=== PATIENT | male | born 1950 | race Hispanic/Latino ===

== ENCOUNTER 2018-04-22 10:37 | Inpatient (IN) | payer MEDICARE ==
[~2018-04-22] VITALS: Ht 180.3 cm; Wt 129.7 kg
[2018-04-22 11:08] LABS: BASOPHILS % 0.4 % (0.0-1.0); EOSINOPHILS # (AUTO) 0.4 (0.0-0.4); EOSINOPHILS % 3.9 % (0.0-6.0); HEMATOCRIT 46.5 % (38.2-49.6); LYMPHOCYTES # (AUTO) 2.4 (1.0-3.2); LYMPHOCYTES % 25.2 % (18.0-39.1); MEAN CORPUSCULAR HEMOGLOBIN 23.3 pg (28-32); MEAN CORPUSCULAR HGB CONC 30.1 g/dL (31-35); MEAN CORPUSCULAR VOLUME 77.2 fL (81-99); MONOCYTES # (AUTO) 0.8 (0.2-0.8); MONOCYTES % 8.2 % (4.4-11.3); NEUTROPHILS # (AUTO) 5.8 (2.1-6.9); NEUTROPHILS % 61.9 % (38.7-80.0); PLATELET COUNT 285 x10e3/uL (140-360); RED BLOOD COUNT 6.02 x10e6/uL (4.3-5.7); RED CELL DISTRIBUTION WIDTH 17.7 % (11.7-14.4)
--- NOTE | 2018-04-22 11:17 | Diagnostic Imaging Report ---
PROCEDURE: CHEST SINGLE (PORTABLE) COMPARISON: None. INDICATIONS: CHEST PAIN FINDINGS: LUNGS: No consolidations or edema. Mild central pulmonary vascular congestion. PLEURA: No effusions or pneumothorax. HEART \T\ MEDIASTINUM: The heart is prominent. BONES \T\ SOFT TISSUES: No acute findings. CONCLUSION: Mild cardiac prominence with central pulmonary vascular congestion. Jose Steven D.O. Dictated by: Jose Steven D.O. on 04/22/2018 at 11:23 Electronically approved by: Jose Steven D.O. on 04/22/2018 at 11:23
[2018-04-22 11:27] LABS: ALANINE AMINOTRANSFERASE 27 IU/L (0-55); ALBUMIN 3.6 g/dL (3.5-5.0); ALBUMIN/GLOBULIN RATIO 1.1 (0.8-2.0); ALKALINE PHOSPHATASE 91 IU/L (40-150); ANION GAP 13.4 mmol/L (8-16); BLOOD UREA NITROGEN 13 mg/dL (7-26); BUN/CREATININE RATIO 18 (6-25); CALCIUM 8.9 mg/dL (8.4-10.2); CARBON DIOXIDE 33 mmol/L (22-29); CHLORIDE 96 mmol/L (98-107); CREATININE, SERUM 0.73 mg/dL (0.72-1.25); EST GLOMERULAR FILTRATION RATE > 60 ML/MIN (60-); GLUCOSE 114 mg/dL (74-118); POTASSIUM 4.4 mmol/L (3.5-5.1); SODIUM 138 mmol/L (136-145)
--- NOTE | 2018-04-22 11:35 | Diagnostic Imaging Report ---
ADDENDUM #1 Dose modulation, iterative reconstruction, and/or weight based adjustment of the mA/kV was utilized to reduce the radiation dose to as low as reasonably achievable. Signed by: Dr. Gia Salinas M.D. on 04/26/2018 9:59 AM ORIGINAL REPORT EXAMINATION: Head CT HISTORY: Altered mental status COMPARISON: None. TECHNIQUE: Multidetector axial images were obtained without contrast from the foramen magnum to the vertex . The images were reconstructed using brain and bone algorithms. Thin section brain images were reformatted into coronal and sagittal planes. Intravenous contrast: None. Image quality: Motion/streaking artifact limits the evaluation of the skull base, posterior cranial fossa and near the vertex region. FINDINGS: Parenchyma: 1. No abnormal densities. 2. No mass or hemorrhage. No CT evidence of acute territorial vascular insult. Extra-axial spaces:No abnormal density. No extra-axial fluid collections Brain volume: Normal for age. Ventricles: No hydrocephalus or displacement. Arteries: No density suggestive of thrombus. Dural sinuses: No abnormal density. Extra-axial spaces: No abnormal density. Foramen magnum: No mass, Chiari malformation, or basilar invagination. Sella: No obvious mass. Paranasal/mastoid sinuses: Imaged portions unremarkable. Skull/Scalp: No lytic or blastic lesions. No fractures. Partially visualized soft tissue density lesion in the left nasal soft tissues, likely visible to physical inspection. IMPRESSION: Suboptimal study due to motion, grossly no acute intracranial hemorrhage, mass or midline shift. Signed by: Dr. Gia Salinas M.D. on 04/22/2018 11:32 AM
--- NOTE | 2018-04-22 13:02 | Diagnostic Imaging Report ---
EXAMINATION: CT of the chest with contrast, PE protocol. TECHNIQUE: Spiral CT images of the chest were performed from the lung apices through the level of the adrenal glands after the IV administration of 100 cc of Omnipaque 370. Thin section reconstructions were obtained with special concentration on the pulmonary arteries. COMPARISON: <none> CLINICAL HISTORY:Shortness of breath DISCUSSION: Limited exam, as images were obtained during partial expiratory phase Lungs: No filling defects are identified in the main, right or left pulmonary arteries to their segmental levels, to suggest pulmonary embolism. Increased attenuation of the visualized lung parenchyma secondary to scan performed during partial expiration. Linear opacities in the anterior left lower lobe, right middle lobe and lingula likely representing subsegmental atelectasis or scarring. No consolidation or pulmonary masses. No nodules. Airways are clear, without loculations.. Pleura: <There is no evidence of pleural effusion or pneumothorax.> Heart and mediastinum: Mild cardiomegaly. No pericardial effusion. Aorta is nonaneurysmal. Main pulmonary artery is enlarged, measuring 4.0 cm. Atherosclerotic calcification of the aortic arch and coronary arteries. Lymph nodes: No mediastinal, hilar or axillary adenopathy. Abdomen: Limited views of the upper abdomen show unremarkable spleen, pancreas, kidneys and right adrenal gland. The left adrenal gland is only partially visualized and unremarkable. Punctate calcified granuloma in hepatic segment III (series 2, image 127). No other focal hepatic abnormalities. Mild reflux of contrast into the hepatic veins and IVC. Bones and soft tissues: No aggressive lytic lesion. 3.0 x 2.5 x 1.7 cm well-circumscribed homogeneous fat-containing lesion in the right seventh/eighth intercostal space (series 2, image 79). IMPRESSION: 1. No CT evidence of pulmonary embolism. 2. Left lower lobe, right middle lobe and lingular subsegmental atelectasis or scarring. No consolidation or effusion. 3. Mild cardiomegaly. Mild reflux of contrast into the hepatic veins and IVC suggesting right ventricular dysfunction. 4. Enlarged main pulmonary artery suggesting pulmonary hypertension. 5. 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 Chele Lane M.D. on 04/22/2018 12:59 PM
[2018-04-22 13:04] LABS: AMPHETAMINES SCREEN,URINE NEGATIVE (NEGATIVE); BENZODIAZEPINES SCREEN,URINE NEGATIVE (NEGATIVE); BILIRUBIN,URINE NEGATIVE (NEGATIVE); CLARITY,URINE CLEAR (CLEAR); COLOR,URINE YELLOW (YELLOW); KETONES,URINE NEGATIVE (NEGATIVE); LEUKOCYTE ESTERASE ,URINE NEGATIVE (NEGATIVE); NITRITE,URINE NEGATIVE (NEGATIVE); PHENCYCLIDINE SCREEN,URINE NEGATIVE (NEGATIVE); PROTEIN,URINE DIPSTICK NEGATIVE (NEGATIVE); URINE UROBILINOGEN 0.2 mg/dL (0.2 - 1)
[2018-04-22 13:12] LABS: ABG PH 7.35 (7.31-7.41)
[2018-04-22 13:13] LABS: ABG HCO3 41 mmol/L (23-28); ABG PCO2 74 mmHg (41-51); ABG PO2 93 mmHg (80-105)
[2018-04-22 13:15] LABS: BACTERIA,URINE RARE /HPF; WBC,URINE (MAN) 0-5 /HPF (0-5)
[2018-04-22] MEDS ORDERED: FUROSEMIDE INJ 10 MG/ML 4 ML VIAL IV ONE (13:15)
[2018-04-22] MEDS ORDERED: ASPIRIN 81 MG CHEW TAB PO ONE (13:15)
[2018-04-22] MEDS ORDERED: SODIUM CHLORIDE 0.9% 50ML 50 ML ONE (13:27)
[2018-04-22] MEDS ORDERED: IOPAMIDOL 370 MG/ML 200 ML INFUS..BTL INJ ONE (13:27)
[2018-04-22] MEDS ORDERED: SUCCINYLCHOLINE CHLORIDE 20 MG/ML 10ML VIAL ONE (13:48)
[2018-04-22] MEDS ORDERED: ETOMIDATE 2 MG/ML 10 ML INJ IV ONE (13:48)
[2018-04-22 14:22] LABS: ABG PH 7.34 (7.31-7.41)
[2018-04-22 14:23] LABS: ABG HCO3 38 mmol/L (23-28); ABG PCO2 69 mmHg (41-51); ABG PO2 80 mmHg (80-105)
[2018-04-22] MEDS ORDERED: HYDRALAZINE HCL 20 MG/ML VIAL IV PRN (16:45)
[2018-04-22] MEDS: FUROSEMIDE INJ 10 MG/ML 4 ML VIAL IV SCH (17:00)
[2018-04-22 17:48] VITALS: BP 174/85
[2018-04-22] MEDS: ZIPRASIDONE 20 MG VIAL IM PRN (19:57)
[2018-04-22 20:00] VITALS: BP 100/67
[2018-04-22 20:08] VITALS: BP 100/67
[2018-04-22 20:30] VITALS: BP 159/98
[2018-04-22 21:53] LABS: CREATINE KINASE MB 1.6 ng/mL (0-5.0)
[2018-04-22 21:55] VITALS: BP 139/68
--- NOTE | 2018-04-22 23:30 | Consultation ---
DATE OF CONSULTATION: April 22, 2018 CARDIOLOGY CONSULT NOTE REASON FOR CONSULT: Shortness of breath. CHIEF COMPLAINT: No chief complaint given due to altered mental status. HISTORY OF PRESENT ILLNESS: Patient is 68-year-old man with unknown prior medical history who presented for altered mental status, was noted to have hypercarbic respiratory failure with pCO2 of 74 and pH of 7.35 on presentation. Was placed on BiPAP, but remains confused. At this time, was noted to be hypoxic into 80s and also noted to have some PVCs on telemetry. PAST MEDICAL HISTORY: Unknown. REVIEW OF SYSTEMS: Could not be performed due to altered mental status. FAMILY HISTORY: Unknown. SOCIAL HISTORY: Unknown. PHYSICAL EXAMINATION VITAL SIGNS: Temperature 97.3, pulse 80, respiratory rate 20, blood pressure 105/56, and satting 100% on BiPAP. GENERAL: Obese middle-aged man, confused, trying to take off his BiPAP. CARDIOVASCULAR: Regular rate and rhythm. No murmurs, rubs, or gallops. Normal carotid pulses. Palpable radial pulses. Pedal pulses palpable on the left, weak on the right. No peripheral edema. No varicosities. RESPIRATORY: Lungs are clear to auscultation bilaterally. Mild respiratory distress and agitation. ABDOMEN: Very obese, soft, has umbilical hernia. NEURO/PSYCH: Patient is very confused, awake and alert, but not oriented to person, place, or time. ALLERGIES: REVIEWED. CURRENT MEDICATIONS: Reviewed. LABORATORY DATA: Reviewed, significant for hypercarbic respiratory failure, [id number]. IMAGING DATA: Reviewed. Telemetry data reviewed, shows normal sinus rhythm with rare PVCs. ECG reviewed, normal sinus rhythm. ASSESSMENT 1. Hypercarbic respiratory failure. 2. Altered mental status. 3. Hypoxia. 4. Cardiomegaly on computerized tomography scan. 5. Enlarged pulmonary artery on computerized tomography scan suggestive of pulmonary hypertension. PLAN: Patient's respiratory failure and hypoxia likely secondary to CO2 retention, [id number]. Agree with BiPAP. Workup of altered mental status per primary team. Initial cardiac enzymes: The CK is negative. Troponin is pending. ECG not suggestive of any ischemia. Unknown prior cardiac history; however, by exam, patient is not in heart failure and BNP is also negative. Agree with BiPAP at this time. We will continue to follow. We will obtain an echocardiogram when patient is more cooperative. Thank you for this consult. We will continue to follow. Job#: [id number] CF
[2018-04-23] VITALS (125 sets, daily range): BP systolic 83–184; BP diastolic 33–125
[2018-04-23] MEDS ORDERED: METHYLPREDNISOLONE SOD SUCC 125 MG/2ML VIAL ONE (02:36)
[2018-04-23] MEDS: PROPOFOL IV EMULSION 10MG/ML 100 ML IV PRN ×8 (02:57→23:29)
[2018-04-23] MEDS: ALBUTEROL SULF 0.083% NEB SOLN 3 ML NEB NEB SCH ×6 (03:00→23:05)
[2018-04-23] MEDS ORDERED: METHYLPREDNISOLONE SOD SUCC 125 MG/2ML VIAL IV ONE ×2 (03:15→09:00)
[2018-04-23 03:33] LABS: ABG HCO3 43 mmol/L (23-28); ABG PCO2 126 mmHg (41-51); ABG PH 7.13 (7.31-7.41); ABG PO2 393 mmHg (80-105)
--- NOTE | 2018-04-23 03:43 | Diagnostic Imaging Report ---
ADDENDUM #1 EXAMINATION: CHEST SINGLE (PORTABLE), ABDOMEN-1VIEW (KUB) INDICATION: NG tube placement. COMPARISON: 04/22/2018 FINDINGS: TUBES and LINES: NG tube is visualized with distal tip overlying the left upper quadrant. Endotracheal tube is not visualized. LUNGS: Lungs are not well inflated. Confluent perihilar and mid lung opacities. There is no evidence of pneumonia or pulmonary edema. PLEURA: No pleural effusion or pneumothorax. HEART AND MEDIASTINUM: Cardiac size is mildly enlarged. There are atherosclerotic calcifications within the aorta. BONES AND SOFT TISSUES: No acute osseous lesion. Soft tissues are unremarkable. ABDOMEN: No free air under the diaphragm. IMPRESSION: 1. NG tube is in good position. 2. Confluent fibrosis in the perihilar and mid lung regions. 3. Endotracheal tube is not visualized. Signed by: Dr. Orlando Jalloh M.D. on 04/23/2018 3:53 AM ORIGINAL REPORT EXAMINATION: CHEST SINGLE (PORTABLE), ABDOMEN-1VIEW (KUB) INDICATION: NG tube placement. COMPARISON: 04/22/2018 FINDINGS: TUBES and LINES: NG tube is visualized with distal tip overlying the left upper quadrant. LUNGS: Lungs are not well inflated. Confluent perihilar and mid lung opacities. There is no evidence of pneumonia or pulmonary edema. PLEURA: No pleural effusion or pneumothorax. HEART AND MEDIASTINUM: Cardiac size is mildly enlarged. There are atherosclerotic calcifications within the aorta. BONES AND SOFT TISSUES: No acute osseous lesion. Soft tissues are unremarkable. ABDOMEN: No free air under the diaphragm. IMPRESSION: NG tube is in good position. Confluent fibrosis in the perihilar and mid lung regions. Signed by: Dr. Orlando Jalloh M.D. on 04/23/2018 3:40 AM
[2018-04-23] MEDS ORDERED: SUCCINYLCHOLINE CHLORIDE 20 MG/ML 10ML VIAL ONE (04:19)
[2018-04-23 05:03] LABS: BASOPHILS # (AUTO) 0.1 (0.0-0.1); BASOPHILS % 0.3 % (0.0-1.0); EOSINOPHILS # (AUTO) 0.1 (0.0-0.4); EOSINOPHILS % 0.5 % (0.0-6.0); HEMATOCRIT 50.5 % (38.2-49.6); HEMOGLOBIN 14.8 g/dL (14.0-18.0); LYMPHOCYTES # (AUTO) 1.1 (1.0-3.2); MEAN CORPUSCULAR HEMOGLOBIN 23.2 pg (28-32); MEAN CORPUSCULAR HGB CONC 29.3 g/dL (31-35); MEAN CORPUSCULAR VOLUME 79.3 fL (81-99); MONOCYTES # (AUTO) 0.6 (0.2-0.8); NEUTROPHILS # (AUTO) 13.5 (2.1-6.9); NEUTROPHILS % 87.6 % (38.7-80.0); PLATELET COUNT 291 x10e3/uL (140-360); RED BLOOD COUNT 6.37 x10e6/uL (4.3-5.7); RED CELL DISTRIBUTION WIDTH 17.8 % (11.7-14.4)
[2018-04-23 05:35] LABS: ALANINE AMINOTRANSFERASE 30 IU/L (0-55); ALBUMIN 3.9 g/dL (3.5-5.0); ALKALINE PHOSPHATASE 124 IU/L (40-150); ANION GAP 15.1 mmol/L (8-16); BLOOD UREA NITROGEN 13 mg/dL (7-26); BUN/CREATININE RATIO 14 (6-25); CALCIUM 9.2 mg/dL (8.4-10.2); CARBON DIOXIDE 34 mmol/L (22-29); CHLORIDE 92 mmol/L (98-107); EST GLOMERULAR FILTRATION RATE > 60 ML/MIN (60-); GLUCOSE 174 mg/dL (74-118); POTASSIUM 5.1 mmol/L (3.5-5.1); SODIUM 136 mmol/L (136-145)
[2018-04-23 05:55] LABS: CREATINE KINASE MB 3.3 ng/mL (0-5.0)
--- NOTE | 2018-04-23 05:56 | Diagnostic Imaging Report ---
EXAMINATION: CHEST SINGLE (PORTABLE) INDICATION: Acute respiratory failure COMPARISON: 04/23/2018 FINDINGS: TUBES and LINES: Endotracheal tube and nasogastric tube are in good position. LUNGS: Lungs are not well inflated. Confluent mid lung and perihilar airspace opacities PLEURA: No pleural effusion or pneumothorax. HEART AND MEDIASTINUM: Cardiac size is moderately enlarged. There are atherosclerotic calcifications within the aorta. BONES AND SOFT TISSUES: No acute osseous lesion. Soft tissues are unremarkable. UPPER ABDOMEN: No free air under the diaphragm. IMPRESSION: Stable perihilar and mid lung confluent airspace disease compatible with fibrosis. Endotracheal tube and NG tube are in good position. Signed by: Dr. Orlando Jalloh M.D. on 04/23/2018 5:52 AM
--- NOTE | 2018-04-23 08:07 | History and Physical ---
PRIMARY CARE PHYSICIAN: Unknown FACE AND FILL PACKER: Dr. Hernandez CHIEF COMPLAINT: Shortness of breath, confusion and somnolence. HISTORY OF PRESENT ILLNESS: This is a 68-year-old man with a recent diagnosis of pneumonia managed by Dr. Hernandez. Sent to the hospital due to the patient's increased episodes of falling asleep while in conversation and shortness of breath. Here the patient was found to have respiratory distress, confusion and pulmonary edema. The patient was recommended to start on BiPAP. Subsequently, had to be intubated. Now in the ICU for continued management. PAST MEDICAL HISTORY: Pneumonia, pulmonary disease. PAST SURGICAL HISTORY: Unknown. ALLERGIES: PER ELECTRONIC MEDICAL RECORD. FAMILY HISTORY/SOCIAL HISTORY: Patient lives alone. No history of smoking. No alcohol or illicit drug use. MEDICATIONS: Per electronic medical record. REVIEW OF SYSTEMS: Unobtainable. PHYSICAL EXAMINATION VITAL SIGNS: Have been reviewed. GENERAL: A tired-appearing man resting in bed. HEENT: Anicteric. Pinpoint pupils. He has a large nodular skin lesion on the left side of the nasal bridge. He has an ET tube in place. CARDIOVASCULAR: Normal S1 and S2. LUNGS: He has moderate breath sounds. No wheezing. Slightly reduced breath sounds. ABDOMEN: Soft, nontender and nondistended. He has a small umbilical hernia, which is reducible and soft. : He has a Barajas in place. EXTREMITIES: No edema or calf tenderness. NEUROLOGICAL: The patient is sedated. SKIN: Dry. PSYCHIATRIC: Unable to assess. LABS: Reviewed. MEDICATIONS: Reviewed. ASSESSMENT: This is a 68-year-old man with: 1. Hypercapnic respiratory failure. 2. Acute metabolic encephalopathy. 3. Pulmonary edema. 4. Pulmonary fibrosis. 5. Carbon dioxide narcosis. PLAN 1. Continue ET tube support. He is on 60% FIO2 oxygen. 2. Add azithromycin for atypical coverage. 3. Continue sedation. 4. Continue Lasix 40 mg IV q.12 h. He will need a 2-D echocardiogram. 5. Use Lovenox and Pepcid. 6. Disposition. Follow closely. Follow up pulmonary and cardiology recommendations. Time to review chart and critical care time more than 90 minutes. Job#: [id number] [place]
[2018-04-23] MEDS: FUROSEMIDE INJ 10 MG/ML 4 ML VIAL IV SCH ×2 (08:58→17:52)
[2018-04-23] MEDS: FAMOTIDINE 20 MG/2 ML VIAL IV SCH ×2 (08:58→17:52)
[2018-04-23] MEDS: CEFTRIAXONE SOD 1 GM VIAL IV SCH ×2 (08:58→20:22)
[2018-04-23] MEDS: AZITHROMYCIN 500MG/NS 250 ML 250 ML IV SCH (08:58)
[2018-04-23] MEDS: METHYLPREDNISOLONE SOD SUCC 125 MG/2ML VIAL IV SCH ×2 (08:58→20:22)
--- NOTE | 2018-04-23 10:03 | Consultation ---
DATE OF CONSULTATION: PULMONARY/CRITICAL CARE CONSULTATION REFERRING PHYSICIAN: Dr. Jensen Bragg CHIEF COMPLAINT: Acute respiratory failure superimposed on chronic respiratory failure. HISTORY OF PRESENT ILLNESS: The patient is a 68-year-old man. He has a history of COPD and sleep apnea. He was hospitalized in December for pneumonia, but he cannot remember which hospital. He came to the office yesterday with presumptive diagnosis of sleep apnea, but continued to fall sleep during conversations. He also noticed increased congestion and wheezing. The patient was sent to the emergency department. A blood gas showed an elevated carbon dioxide and some respiratory acidosis. He was initially started on BiPAP and then switched to a mechanical ventilator. He is now in the ICU on a propofol drip. PAST MEDICAL HISTORY: 1. COPD. 2. Obstructive sleep apnea. 3. Diabetes. PAST SURGICAL HISTORY: Status post back surgery. SOCIAL HISTORY: The patient lives in [place]. His status and smoking history are unknown. It is unknown if he is a drinker. FAMILY HISTORY: Family history is noncontributory. REVIEW OF SYSTEMS: The patient is afebrile. He has no headache. He has on an orotracheal tube and mechanical ventilator. He is not giving history of chest pain. He did have some wheezing and congestion. There is no nausea or vomiting. He is having no leg edema. PHYSICAL EXAMINATION: VITAL SIGNS: The patient is afebrile. The blood pressure is 179/98 and the pulse is 96. The patient is on a PRVC mode of ventilation, rate of 16. HEENT: Showed no facial swelling or erythema. CARDIAC: Reveals a regular rate and rhythm with a normal S1 and S2. There are no murmurs or rubs. CHEST: Auscultation of lungs revealed rhonchus breath sounds. ABDOMEN: Soft and nontender. There is no rebound or guarding. EXTREMITIES: Showed no leg edema or calf tenderness. LABORATORY DATA: The BUN to creatinine ratio is normal. The electrolytes are within normal limits. White blood cell count is 15 and hemoglobin is 14.8, the platelet count is 291,000. RADIOGRAPHIC DATA: CT scan shows some scarring and chronic-appearing changes in the lower lung rivera. IMPRESSION: 1. Uahtl-yf-izeevgc hypercapnic respiratory failure. 2. Chronic obstructive pulmonary disease with exacerbation. 3. Obstructive sleep apnea. PLAN: 1. Patient will be given Solu-Medrol 1 mg/kg IV daily. 2. Patient will be continued on bronchodilators. 3. Antibiotics. 4. Cardiology evaluation. 5. Plastic surgery evaluation for facial lesion. Job#: [id number]
[2018-04-23 15:41] LABS: ABG HCO3 38 mmol/L (23-28); ABG PCO2 52 mmHg (41-51); ABG PH 7.48 (7.31-7.41); ABG PO2 63 mmHg (80-105)
--- NOTE | 2018-04-23 15:44 | Progress Note ---
DATE: April 23, 2018 CARDIOLOGY PROGRESS NOTE SUBJECTIVE: The patient got intubated overnight due to altered mental status and continued respiratory failure, now admitted to the ICU. REVIEW OF SYSTEMS: Could not be performed as the patient is intubated. OBJECTIVE GENERAL: Obese man in no acute distress, intubated and sedated. CARDIOVASCULAR: Regular rate and rhythm. No murmurs, rubs, or gallops. Palpable carotid pulses. Palpable radial pulses. Pedal pulses palpable on the left, and right pedal pulses not palpable, but dopplerable per nurse's notes. LUNGS: Mechanical intubation sounds. Clear to auscultation bilaterally, otherwise. ABDOMEN: Obese, soft, umbilical hernia. NEURO/PSYCH: Patient is intubated and sedated. LABORATORY DATA: Reviewed. White count of 15.4, increased from 9.3 yesterday. ABGs this morning showed pH of 7.1 with pCO2 of 126, prior to intubation. This resulted in intubation. IMAGING: Studies reviewed. ASSESSMENT 1. Hypercarbic respiratory failure. 2. Respiratory acidosis, vqfkj-zm-pkmqhwp. 3. Hypoxia. 4. Cardiomegaly on computerized tomography scan. 5. Enlarged pulmonary artery on computerized tomography scan suggestive of pulmonary hypertension. PLAN: The patient is now intubated and sedated due to acute hypercarbic respiratory failure. Cardiac enzymes were negative x2 sets. Echocardiogram is pending. Thank you for this consult. Will continue to follow. Job#: [id number]
[2018-04-23] MEDS: ENOXAPARIN SOD INJ 40 MG/0.4 ML SYR SC SCH (17:52)
[2018-04-24] VITALS (89 sets, daily range): BP systolic 82–125; BP diastolic 49–96
[2018-04-24] MEDS: PROPOFOL IV EMULSION 10MG/ML 100 ML IV PRN ×8 (01:38→20:49)
[2018-04-24] MEDS: ALBUTEROL SULF 0.083% NEB SOLN 3 ML NEB NEB SCH ×6 (03:16→22:58)
[2018-04-24 04:57] LABS: BASOPHILS % 0.1 % (0.0-1.0); HEMATOCRIT 47.2 % (38.2-49.6); HEMOGLOBIN 14.7 g/dL (14.0-18.0); LYMPHOCYTES % 5.2 % (18.0-39.1); MEAN CORPUSCULAR HEMOGLOBIN 23.2 pg (28-32); MEAN CORPUSCULAR HGB CONC 31.1 g/dL (31-35); MONOCYTES # (AUTO) 0.8 (0.2-0.8); MONOCYTES % 4.2 % (4.4-11.3); NEUTROPHILS # (AUTO) 16.6 (2.1-6.9); NEUTROPHILS % 89.8 % (38.7-80.0); PLATELET COUNT 334 x10e3/uL (140-360); RED BLOOD COUNT 6.34 x10e6/uL (4.3-5.7); RED CELL DISTRIBUTION WIDTH 17.9 % (11.7-14.4)
[2018-04-24 04:59] LABS: MEAN CORPUSCULAR VOLUME 74.4 fL (81-99)
[2018-04-24 05:19] LABS: ALBUMIN 3.6 g/dL (3.5-5.0); ALBUMIN/GLOBULIN RATIO 0.9 (0.8-2.0); ANION GAP 18.1 mmol/L (8-16); CALCIUM 9.8 mg/dL (8.4-10.2); POTASSIUM 4.1 mmol/L (3.5-5.1)
[2018-04-24 05:42] LABS: CREATININE, SERUM 1.28 mg/dL (0.72-1.25)
--- NOTE | 2018-04-24 06:58 | Diagnostic Imaging Report ---
EXAMINATION: CHEST SINGLE (PORTABLE) INDICATION: Respiratory failure COMPARISON: 04/23/2018 FINDINGS: TUBES and LINES: Endotracheal tube and nasogastric tube are in good position. LUNGS: Lungs are not well inflated. Improving, confluent mid lung and perihilar airspace opacities PLEURA: No pleural effusion or pneumothorax. HEART AND MEDIASTINUM: Cardiac size is moderately enlarged. There are atherosclerotic calcifications within the aorta. BONES AND SOFT TISSUES: No acute osseous lesion. Soft tissues are unremarkable. UPPER ABDOMEN: No free air under the diaphragm. IMPRESSION: Mildly improving perihilar and mid lung confluent airspace disease compatible congestion and atelectasis Endotracheal tube and NG tube are in good position. Signed by: Dr. Orlando Jalloh M.D. on 04/24/2018 6:54 AM
[2018-04-24] MEDS: AZITHROMYCIN 500MG/NS 250 ML 250 ML IV SCH (08:00)
[2018-04-24 08:53] LABS: INR 1.11; PROTHROMBIN TIME 13.5 seconds (11.9-14.5)
[2018-04-24 08:54] LABS: PARTIAL THROMBOPLASTIN TIME 27.5 seconds (23.8-35.5)
[2018-04-24] MEDS: METHYLPREDNISOLONE SOD SUCC 125 MG/2ML VIAL IV SCH ×2 (09:00→20:47)
[2018-04-24] MEDS: FUROSEMIDE INJ 10 MG/ML 4 ML VIAL IV SCH (09:00)
[2018-04-24] MEDS: FAMOTIDINE 20 MG/2 ML VIAL IV SCH ×2 (09:00→18:31)
[2018-04-24] MEDS: CEFTRIAXONE SOD 1 GM VIAL IV SCH ×2 (09:00→20:32)
[2018-04-24] MEDS ORDERED: MIDAZOLAM HCL 2 MG/2 ML VIAL IV PRN (10:45)
[2018-04-24 11:44] LABS: CLARITY,URINE HAZY (CLEAR); COLOR,URINE YELLOW (YELLOW); LEUKOCYTE ESTERASE ,URINE NEGATIVE (NEGATIVE); NITRITE,URINE NEGATIVE (NEGATIVE)
[2018-04-24 11:45] LABS: BILIRUBIN,URINE NEGATIVE (NEGATIVE); KETONES,URINE NEGATIVE (NEGATIVE); PROTEIN,URINE DIPSTICK NEGATIVE (NEGATIVE); URINE UROBILINOGEN 0.2 mg/dL (0.2 - 1)
[2018-04-24 11:47] LABS: BACTERIA,URINE FEW /HPF; EPITHELIAL CELLS,URINE FEW /LPF; WBC,URINE (MAN) 0-5 /HPF (0-5)
[2018-04-24] MEDS ORDERED: MIDAZOLAM HCL 25 MG in SODIUM CHLORIDE 0.9% 50ML 45 ML IV PRN (13:15)
--- NOTE | 2018-04-24 13:53 | Diagnostic Imaging Report ---
EXAMINATION: CHEST SINGLE (PORTABLE) INDICATION: \S\check line placement \[id number] \S\[id number] COMPARISON: Chest radiograph 04/24/2018 at 0535 hours, chest CT 04/22/2018 FINDINGS: AP view TUBES and LINES: Endotracheal tube and nasogastric tube are in good position. Interval placement of right IJ central venous catheter with tip overlying the upper SVC. LUNGS: Lungs are not well inflated. Stable confluent mid lung and perihilar airspace opacities. Perihilar interstitial opacities. PLEURA: Small left pleural effusion. No right pleural effusion. No pneumothorax. HEART AND MEDIASTINUM: Cardiac size is moderately enlarged, stable. There are atherosclerotic calcifications within the aorta. BONES AND SOFT TISSUES: No acute osseous lesion. Soft tissues are unremarkable. UPPER ABDOMEN: No free air under the diaphragm. IMPRESSION: Interstitial edema and small left pleural effusion. Stable perihilar and mid lung opacities corresponding to scarring or atelectasis on chest CT 04/22/2018. Endotracheal tube and NG tube are in good position. Interval placement of right IJ central venous catheter with tip overlying the upper SVC. Signed by: DR. Gen Thurston MD on 04/24/2018 1:50 PM
[2018-04-24] MEDS: SODIUM CHLORIDE 0.9% 1000ML 1,000 ML IV SCH (15:52)
--- NOTE | 2018-04-24 17:00 | Operative Report ---
DATE OF PROCEDURE: April 24, 2018 PROCEDURE: Central line placement under ultrasound guidance. DIAGNOSES: 1. Systolic congestive heart failure. 2. Renal insufficiency. ANESTHESIA: Local lidocaine anesthesia. The patient was also continued on his propofol drip. PROCEDURE: The patient was placed in a supine position. The right lateral neck was prepped sterilely. A full-body sterile drape was used. An ultrasound probe with a sterile sheath was used to locate the internal jugular vein. A 16-gauge needle was then used to cannulate the vein on the 1st attempt. The wire was placed through the needle and the needle was removed. A triple lumen catheter was placed over the wire by the Seldinger technique. All the ports flushed. ESTIMATED BLOOD LOSS: None. COMPLICATIONS: None. Chest x-ray is pending at the time of this dictation. Job#: [id number]
[2018-04-24] MEDS: ENOXAPARIN SOD INJ 40 MG/0.4 ML SYR SC SCH (18:31)
[2018-04-24 19:03] LABS: ABG HCO3 35 mmol/L (23-28); ABG PCO2 43 mmHg (41-51); ABG PH 7.52 (7.31-7.41); ABG PO2 64 mmHg (80-105)
[2018-04-25] VITALS (78 sets, daily range): BP systolic 90–125; BP diastolic 53–83
[2018-04-25] MEDS: ALBUTEROL SULF 0.083% NEB SOLN 3 ML NEB NEB SCH ×6 (02:10→23:05)
[2018-04-25] MEDS: SODIUM CHLORIDE 0.9% 1000ML 1,000 ML IV SCH (03:50)
[2018-04-25 04:57] LABS: ALANINE AMINOTRANSFERASE 19 IU/L (0-55); ALBUMIN 3.3 g/dL (3.5-5.0); ALKALINE PHOSPHATASE 87 IU/L (40-150); ANION GAP 16.8 mmol/L (8-16); BLOOD UREA NITROGEN 31 mg/dL (7-26); BUN/CREATININE RATIO 35 (6-25); CARBON DIOXIDE 28 mmol/L (22-29); CHLORIDE 97 mmol/L (98-107); CREATININE, SERUM 0.89 mg/dL (0.72-1.25); EST GLOMERULAR FILTRATION RATE > 60 ML/MIN (60-); GLUCOSE 183 mg/dL (74-118); POTASSIUM 3.8 mmol/L (3.5-5.1); SODIUM 138 mmol/L (136-145)
[2018-04-25 05:12] LABS: MAGNESIUM 1.9 MG/DL (1.3-2.1)
[2018-04-25 05:40] LABS: THYROID STIMULATING HORMONE 0.145 uIU/mL (0.350-4.940)
[2018-04-25 05:50] LABS: HEMATOCRIT 45.2 % (38.2-49.6); HEMOGLOBIN 14.2 g/dL (14.0-18.0); MEAN CORPUSCULAR HEMOGLOBIN 23.4 pg (28-32); MEAN CORPUSCULAR HGB CONC 31.4 g/dL (31-35); MEAN CORPUSCULAR VOLUME 74.5 fL (81-99); RED BLOOD COUNT 6.07 x10e6/uL (4.3-5.7)
[2018-04-25 05:51] LABS: PLATELET COUNT 295 x10e3/uL (140-360); RED CELL DISTRIBUTION WIDTH 45.1 % (11.7-14.4)
[2018-04-25 05:52] LABS: BASOPHILS % 0.1 % (0.0-1.0); LYMPHOCYTES # (AUTO) 0.7 (1.0-3.2); LYMPHOCYTES % 4.8 % (18.0-39.1); MONOCYTES # (AUTO) 0.5 (0.2-0.8); MONOCYTES % 3.5 % (4.4-11.3); NEUTROPHILS # (AUTO) 12.9 (2.1-6.9)
[2018-04-25] MEDS: CEFTRIAXONE SOD 1 GM VIAL IV SCH ×2 (08:14→20:25)
[2018-04-25] MEDS: METHYLPREDNISOLONE SOD SUCC 125 MG/2ML VIAL IV SCH (08:14)
[2018-04-25] MEDS: FAMOTIDINE 20 MG/2 ML VIAL IV SCH ×2 (08:14→18:11)
[2018-04-25] MEDS: AZITHROMYCIN 500MG/NS 250 ML 250 ML IV SCH (08:30)
[2018-04-25] MEDS ORDERED: METHYLPREDNISOLONE SOD SUCC 125 MG/2ML VIAL IV SCH (09:00)
[2018-04-25] MEDS: PROPOFOL IV EMULSION 10MG/ML 100 ML IV PRN ×7 (09:12→23:30)
[2018-04-25 10:17] LABS: ABG HCO3 34 mmol/L (23-28); ABG PCO2 44 mmHg (41-51); ABG PO2 61 mmHg (80-105)
--- NOTE | 2018-04-25 10:17 | Diagnostic Imaging Report ---
EXAM: XR CHEST 1 VIEW DATE: 04/25/2018 6:30 AM INDICATION: Respiratory failure COMPARISON: 04/24/2018 radiograph FINDINGS: Lines and Tubes: ET tube tip above chandu, right IJ catheter tip overlying SVC, and NG tube coursing past the inferior field of view. Heart and Mediastinum: Heart is enlarged. Moderate prominence of the hilum. Lungs and Pleura: Mild to moderate scattered airspace opacities with probable small effusions. Bones and Soft Tissues: No acute findings. IMPRESSION: 1. Cardiomegaly with mild edema and small effusions. 2. Prominent hilar regions corresponding with dilated pulmonary arteries on 04/22/2018 CT. Findings suggest pulmonary hypertension. Signed by: Dr. Marc Rosales MD on 04/25/2018 10:13 AM
--- NOTE | 2018-04-25 11:47 | Progress Note ---
DATE: April 25, 2018 PULMONARY CRITICAL CARE PROGRESS NOTE The patient is still on a pressure regulated volume control. The patient did have a spontaneous breathing trial this morning, but became tachypneic and agitated towards the end of the trial. Family was contacted yesterday and a [id number] came by to visit the patient. No fevers during the night. OBJECTIVE VITAL SIGNS: Blood pressure 97/71, pulse 84. The O2 saturation is 93%. The patient has pressure regulated volume control at a rate of 16, tidal volume of 40, and FIO2 of 45%. HEENT: Shows no facial swelling or erythema. The patient has an oral endotracheal tube in. There is a right IJ line in good position. CARDIAC: Regular rate and rhythm with normal S1 and S2. LUNGS: Auscultation reveals rhonchorous breath sounds bilaterally. There is no wheezing. ABDOMEN: Soft, nontender. There is no rebound or guarding. EXTREMITIES: Shows no leg edema or calf tenderness. There is no cyanosis or clubbing. SKIN: No rashes. LABORATORY DATA: BUN to creatinine ratio is improved at 31 to 0.9. Electrolytes are within normal limits. The white blood cell count is 14 with a hemoglobin of 14.2 and platelet count of 295,000. RADIOGRAPHIC DATA: Chest x-ray shows cardiomegaly and some possible interstitial changes. IMPRESSION 1. Plbrt-dn-rdnmocq respiratory failure. 2. Obstructive sleep apnea. 3. Chronic obstructive pulmonary disease. 4. Renal insufficiency. PLAN: 1. Continue daily spontaneous breathing trials. 2. Continue Solu-Medrol, bronchodilators and antibiotics. 3. Review echocardiogram and cardiology evaluation. 4. Continue to monitor daily labs. Job#: [id number]
[2018-04-25] MEDS: MIDAZOLAM HCL 2 MG/2 ML VIAL IV PRN ×3 (14:07→23:35)
--- NOTE | 2018-04-25 15:11 | Progress Note ---
DATE: April 25, 2018 CARDIOLOGY PROGRESS NOTE: SUBJECTIVE: The patient remains intubated and sedated. OBJECTIVE VITAL SIGNS: Heart rate 80. Blood pressure 102/80. O2 sat is 94%. CARDIOVASCULAR: Regular rhythm. Systolic murmur. LUNGS: Occasional rhonchi bilaterally, fine crackles. ABDOMEN: Soft. Labs reviewed. Chest x-ray was reviewed. ASSESSMENT: 1. Hypercarbia respiratory failure with respiratory acidosis. 2. Potential pulmonary hypertension. PLAN: Current treatment is appropriate. Echocardiogram was reviewed. Will continue to follow. Job#: [id number]
[2018-04-25] MEDS: ENOXAPARIN SOD INJ 40 MG/0.4 ML SYR SC SCH (18:11)
[2018-04-25] MEDS: METHYLPREDNISOLONE SOD SUCC 40 MG/ML VIAL IV SCH (21:00)
[2018-04-26] VITALS (92 sets, daily range): BP systolic 75–136; BP diastolic 44–95
[2018-04-26] MEDS: PROPOFOL IV EMULSION 10MG/ML 100 ML IV PRN ×6 (02:18→20:20)
[2018-04-26] MEDS: ALBUTEROL SULF 0.083% NEB SOLN 3 ML NEB NEB SCH ×6 (02:50→22:50)
[2018-04-26 04:47] LABS: BASOPHILS % 0.1 % (0.0-1.0); HEMATOCRIT 44.9 % (38.2-49.6); HEMOGLOBIN 13.9 g/dL (14.0-18.0); LYMPHOCYTES # (AUTO) 0.9 (1.0-3.2); LYMPHOCYTES % 6.7 % (18.0-39.1); MEAN CORPUSCULAR HEMOGLOBIN 23.3 pg (28-32); MEAN CORPUSCULAR VOLUME 75.2 fL (81-99); MONOCYTES # (AUTO) 0.7 (0.2-0.8); MONOCYTES % 5.1 % (4.4-11.3); NEUTROPHILS # (AUTO) 11.4 (2.1-6.9); NEUTROPHILS % 87.5 % (38.7-80.0); PLATELET COUNT 281 x10e3/uL (140-360); RED BLOOD COUNT 5.97 x10e6/uL (4.3-5.7)
[2018-04-26 04:52] LABS: RED CELL DISTRIBUTION WIDTH 18.1 % (11.7-14.4)
[2018-04-26 05:10] LABS: ALANINE AMINOTRANSFERASE 17 IU/L (0-55); ALBUMIN 3.3 g/dL (3.5-5.0); ALBUMIN/GLOBULIN RATIO 0.9 (0.8-2.0); ALKALINE PHOSPHATASE 82 IU/L (40-150); ANION GAP 16.7 mmol/L (8-16); BLOOD UREA NITROGEN 25 mg/dL (7-26); BUN/CREATININE RATIO 30 (6-25); CALCIUM 9.1 mg/dL (8.4-10.2); CARBON DIOXIDE 28 mmol/L (22-29); CHLORIDE 98 mmol/L (98-107); CREATININE, SERUM 0.82 mg/dL (0.72-1.25); EST GLOMERULAR FILTRATION RATE > 60 ML/MIN (60-); GLUCOSE 209 mg/dL (74-118); POTASSIUM 3.7 mmol/L (3.5-5.1); SODIUM 139 mmol/L (136-145)
--- NOTE | 2018-04-26 07:03 | Diagnostic Imaging Report ---
EXAMINATION: CHEST SINGLE (PORTABLE) INDICATION: Respiratory failure COMPARISON: 04/25/2018 FINDINGS: TUBES and LINES: Endotracheal tube and nasogastric tube are in good position. Right IJ central line catheter with tip above the level of the SVC. LUNGS: Lungs are not well inflated. Improving, confluent mid lung and perihilar airspace opacities . PLEURA: No pleural effusion or pneumothorax. HEART AND MEDIASTINUM: Cardiac size is moderately enlarged. There are atherosclerotic calcifications within the aorta. BONES AND SOFT TISSUES: No acute osseous lesion. Soft tissues are unremarkable. UPPER ABDOMEN: No free air under the diaphragm. IMPRESSION: 1. Mildly improving perihilar and mid lung confluent airspace disease compatible congestion and edema from patient's small left pleural effusion. Signed by: Dr. Orlando Jalloh M.D. on 04/26/2018 7:00 AM
[2018-04-26] MEDS: AZITHROMYCIN 500MG/NS 250 ML 250 ML IV SCH (07:45)
[2018-04-26] MEDS: MIDAZOLAM HCL 2 MG/2 ML VIAL IV PRN (08:30)
[2018-04-26] MEDS: CEFTRIAXONE SOD 1 GM VIAL IV SCH ×2 (09:04→21:15)
[2018-04-26] MEDS: METHYLPREDNISOLONE SOD SUCC 40 MG/ML VIAL IV SCH ×2 (09:04→21:15)
[2018-04-26] MEDS: FAMOTIDINE 20 MG/2 ML VIAL IV SCH ×2 (09:04→16:09)
[2018-04-26] MEDS: ZIPRASIDONE 20 MG VIAL IM PRN (13:15)
[2018-04-26] MEDS: WATER STERILE 10 ML VIAL INJ PRN (13:15)
--- NOTE | 2018-04-26 13:21 | Progress Note ---
DATE: April 26, 2018 PULMONARY/CRITICAL CARE PROGRESS NOTE The patient was placed on a spontaneous breathing trial this morning. He became tachypneic into the 40s and had to be switched back to assist control. He continues to require sedation with propofol. He is receiving enteral feedings and antibiotics. OBJECTIVE VITAL SIGNS: The patient is afebrile. He is currently on a pressure-regulated volume control at a rate of 16 with FiO2 of 45%. His PEEP is set at 5. HEENT: No facial swelling or erythema. He has an oral endotracheal tube in. He has a feeding tube in place. CARDIAC: Regular rate and rhythm with normal S1 and S2. LUNGS: Auscultation of the lungs reveals crackles and rhonchi in both lung rivera. ABDOMEN: Soft, nontender. There is no rebound or guarding. EXTREMITIES: No leg edema or calf tenderness. There is no cyanosis or clubbing. SKIN: No rashes. NEUROLOGIC: Exam shows no focal abnormalities. IMPRESSION 1. Qlqwn-gr-pasdzxu respiratory failure. 2. Chronic obstructive pulmonary disease. 3. Obstructive sleep apnea. 4. Hypoglycemia. 5. Hypertension. PLAN 1. Continue Solu-Medrol. 2. Continue antibiotics and bronchodilators. 3. Repeat spontaneous breathing trial on a daily basis. 4. Continue propofol for sedation. 5. Increase enteral feedings as tolerated. 6. DVT prophylaxis. Greater than 35 minutes of direct critical care time. Job#: [id number]
[2018-04-26] MEDS: ENOXAPARIN SOD INJ 40 MG/0.4 ML SYR SC SCH (16:09)
--- NOTE | 2018-04-26 18:52 | Progress Note ---
DATE: April 26, 2018 CARDIOLOGY PROGRESS NOTE SUBJECTIVE: The patient remains intubated and sedated. OBJECTIVE VITAL SIGNS: Temperature 98.3 degrees, pulse 85, respiratory rate 18, blood pressure 120/86, oxygen saturation 92% on mechanical ventilation. GENERAL: Remains intubated and sedated. LUNGS: Clear to auscultation bilaterally. No wheezes or crackles. CARDIOVASCULAR: Normal rate, regular rhythm. Systolic murmur. Normal S1 and S2. ABDOMEN: Soft and nontender. EXTREMITIES: No edema. CARDIAC MEDICATIONS: Enoxaparin 40 mg subcu daily. LABORATORY DATA: WBC 13.04, hemoglobin 13.9, hematocrit 44.9, platelets 281,000, sodium 139, potassium 3.7, chloride 98, CO2 of 28, BUN 25, creatinine 0.82. TELEMETRY: Normal sinus rhythm. Chest x-ray: Mildly improving perihilar and mid lung confluent airspace disease compatible with congestion and edema from the patient's small left pleural effusion. IMPRESSION 1. Hypercarbic respiratory failure with ftprb-za-sowukse respiratory acidosis. 2. Hypoxia. 3. Moderate concentric left ventricular hypertrophy with LVEF of 65% and impaired relaxation. 4. Enlarged pulmonary artery on CT suggestive of pulmonary hypertension. RECOMMENDATIONS: Continue current cardiac medications. Monitor volume status closely. Ventilator management per pulmonary. Thank you for this consult. We will continue to follow. Job#: [id number]
[2018-04-27] VITALS (85 sets, daily range): BP systolic 80–163; BP diastolic 39–109
[2018-04-27] MEDS: PROPOFOL IV EMULSION 10MG/ML 100 ML IV PRN ×3 (01:15→10:38)
[2018-04-27] MEDS: ALBUTEROL SULF 0.083% NEB SOLN 3 ML NEB NEB SCH ×6 (03:10→23:12)
[2018-04-27] MEDS: WATER STERILE 10 ML VIAL INJ PRN (04:30)
[2018-04-27] MEDS: ZIPRASIDONE 20 MG VIAL IM PRN ×2 (04:30→10:38)
[2018-04-27 05:21] LABS: BASOPHILS % 0.2 % (0.0-1.0); HEMATOCRIT 46.1 % (38.2-49.6); HEMOGLOBIN 13.9 g/dL (14.0-18.0); LYMPHOCYTES # (AUTO) 1.1 (1.0-3.2); LYMPHOCYTES % 10.4 % (18.0-39.1); MEAN CORPUSCULAR HEMOGLOBIN 22.9 pg (28-32); MEAN CORPUSCULAR HGB CONC 30.2 g/dL (31-35); MEAN CORPUSCULAR VOLUME 76.1 fL (81-99); MONOCYTES # (AUTO) 0.6 (0.2-0.8); MONOCYTES % 5.4 % (4.4-11.3); NEUTROPHILS # (AUTO) 8.7 (2.1-6.9); NEUTROPHILS % 82.6 % (38.7-80.0); PLATELET COUNT 277 x10e3/uL (140-360); RED BLOOD COUNT 6.06 x10e6/uL (4.3-5.7); RED CELL DISTRIBUTION WIDTH 18.5 % (11.7-14.4)
[2018-04-27 05:43] LABS: ALANINE AMINOTRANSFERASE 27 IU/L (0-55); ALBUMIN 3.3 g/dL (3.5-5.0); ALBUMIN/GLOBULIN RATIO 0.9 (0.8-2.0); ALKALINE PHOSPHATASE 82 IU/L (40-150); BLOOD UREA NITROGEN 20 mg/dL (7-26); BUN/CREATININE RATIO 25 (6-25); CALCIUM 9.1 mg/dL (8.4-10.2); CARBON DIOXIDE 30 mmol/L (22-29); CHLORIDE 102 mmol/L (98-107); CREATININE, SERUM 0.81 mg/dL (0.72-1.25); EST GLOMERULAR FILTRATION RATE > 60 ML/MIN (60-); GLUCOSE 232 mg/dL (74-118); SODIUM 143 mmol/L (136-145)
--- NOTE | 2018-04-27 06:16 | Diagnostic Imaging Report ---
CHEST SINGLE (PORTABLE), 04/27/2018 6:30 AM Technique: CHEST SINGLE (PORTABLE) Comparison: 04/26/2018 Clinical history: Respiratory failure Findings: Limited portable radiograph with soft tissue attenuation Impression: 1. Lines/Tubes: Stable ET tube just below the thoracic inlet, visualized subdiaphragmatic NG tube, right IJ CVC over the proximal SVC. 2. Stable enlarged cardiomediastinal silhouette. 3. Perihilar and bibasilar opacities which may be related to resolving edema/atelectasis; cannot exclude superimposed infection. Small effusions. Signed by: Dr Negrita Schumacher MD on 04/27/2018 6:13 AM
[2018-04-27] MEDS: AZITHROMYCIN 500MG/NS 250 ML 250 ML IV SCH (07:47)
[2018-04-27] MEDS: METHYLPREDNISOLONE SOD SUCC 40 MG/ML VIAL IV SCH ×2 (08:43→20:49)
[2018-04-27] MEDS: FAMOTIDINE 20 MG/2 ML VIAL IV SCH ×2 (08:43→16:19)
[2018-04-27] MEDS: CEFTRIAXONE SOD 1 GM VIAL IV SCH ×2 (08:43→20:49)
[2018-04-27 09:16] LABS: ABG HCO3 32 mmol/L (23-28); ABG PCO2 51 mmHg (41-51); ABG PO2 68 mmHg (80-105)
[2018-04-27] MEDS ORDERED: LACTULOSE SYRUP 20 GM/30 ML UDC PO PRN (09:30)
--- NOTE | 2018-04-27 13:37 | Progress Note ---
DATE: PULMONARY/CRITICAL CARE PROGRESS NOTE SUBJECTIVE: Patient was placed on a spontaneous breathing trial this morning. He was on pressure support of 80 and CPAP of 3. He tolerated this well and had a good ABG. He is alert and awake. He is off pressors. His tube feedings are on hold. PHYSICAL EXAMINATION VITAL SIGNS: Patient is afebrile. The vital signs are stable. HEENT: Shows no facial swelling or erythema. The nasal mucosa is normal. The oropharynx is normal. LYMPHATIC: Shows no submandibular, cervical, or supraclavicular adenopathy. CARDIAC: Reveals a regular rate and rhythm with normal S1 and S2. There are no murmurs or rubs heard. LUNGS: Auscultation of lungs reveals rhonchorous breath sounds bilaterally. There is no wheezing. ABDOMEN: Soft and nontender. There is no rebound or guarding. EXTREMITIES: Show no leg edema or calf tenderness. IMPRESSION 1. Urjag-cd-iqrxkxr respiratory failure. 2. Chronic obstructive pulmonary disease. 3. Obstructive sleep apnea. PLAN 1. Proceed with extubation. 2. BiPAP as needed. 3. Continue current antibiotics. 4. Continue Solu-Medrol. 5. Case discussed with respiratory nursing. Greater than 35 minutes in direct critical care time. Job#: [id number]
[2018-04-27] MEDS ORDERED: OMEPRAZOLE20 MG PO (14:41)
[2018-04-27] MEDS ORDERED: LOSARTAN POTASS25 MG PO (14:41)
[2018-04-27] MEDS ORDERED: ATORVASTATIN CA10 MG PO (14:41)
[2018-04-27] MEDS ORDERED: METFORMIN HCL500 MG PO (14:41)
[2018-04-27] MEDS: ENOXAPARIN SOD INJ 40 MG/0.4 ML SYR SC SCH (16:19)
--- NOTE | 2018-04-27 18:22 | Progress Note ---
DATE: April 27, 2018 CARDIOLOGY PROGRESS NOTE SUBJECTIVE: Patient remains intubated and sedated. OBJECTIVE VITAL SIGNS: Temperature 98.9 degrees, pulse 93, respiratory rate 24, blood pressure 145/104, oxygen saturation 95% on mechanical ventilation. GENERAL: Remains intubated and sedated. No acute distress. LUNGS: Clear to auscultation anterior lung rivera. No wheezes or crackles. CARDIOVASCULAR: Normal rate, regular rhythm. Systolic murmur. Normal S1 and S2. ABDOMEN: Soft, nontender. EXTREMITIES: No edema. CARDIAC MEDICATIONS 1. Enoxaparin 40 mg subcutaneous daily. 2. Losartan 50 mg p.o. daily. 3. Atorvastatin 10 mg p.o. nightly. LABS: WBC 10.51, hemoglobin 13.9, hematocrit 46.1, platelets 277. Sodium 143, potassium 4, chloride 102, CO2 30, BUN 20, creatinine 0.81. TELEMETRY: Normal sinus rhythm. CHEST X-RAY: Perihilar and bibasilar opacities which may be related to resolving edema/atelectasis, cannot exclude superimposed infections, small effusions. IMPRESSION 1. Hypercarbic respiratory failure with ualrc-gs-evecviq respiratory acidosis. 2. Hypoxia. 3. Moderate concentric left ventricular hypertrophy with left ventricular ejection fraction of 65% and impaired relaxation. 4. Enlarged pulmonary artery on computed tomography suggestive of pulmonary hypertension. RECOMMENDATIONS: Continue current cardiac medications closely. Ventilator management per Pulmonary. Monitor volume status closely. He may need to resume low-dose diuretics to keep patient net even. Thank you for this consult. We will continue to follow. Job#: [id number] EV JUDY
[2018-04-27] MEDS: ATORVASTATIN 10 MG TAB PO SCH (20:49)
[2018-04-28] VITALS (31 sets, daily range): BP systolic 90–147; BP diastolic 56–99
[2018-04-28] MEDS: ALBUTEROL SULF 0.083% NEB SOLN 3 ML NEB NEB SCH ×6 (03:17→23:15)
[2018-04-28 04:48] LABS: BASOPHILS % 0.2 % (0.0-1.0); HEMATOCRIT 47.2 % (38.2-49.6); HEMOGLOBIN 14.3 g/dL (14.0-18.0); LYMPHOCYTES # (AUTO) 1.5 (1.0-3.2); LYMPHOCYTES % 12.8 % (18.0-39.1); MEAN CORPUSCULAR HGB CONC 30.3 g/dL (31-35); MEAN CORPUSCULAR VOLUME 75.8 fL (81-99); MONOCYTES # (AUTO) 0.6 (0.2-0.8); MONOCYTES % 5.1 % (4.4-11.3); NEUTROPHILS # (AUTO) 9.4 (2.1-6.9); PLATELET COUNT 277 x10e3/uL (140-360); RED BLOOD COUNT 6.23 x10e6/uL (4.3-5.7); RED CELL DISTRIBUTION WIDTH 18.4 % (11.7-14.4)
[2018-04-28 05:12] LABS: ALANINE AMINOTRANSFERASE 45 IU/L (0-55); ALBUMIN 3.4 g/dL (3.5-5.0); ALBUMIN/GLOBULIN RATIO 0.9 (0.8-2.0); ALKALINE PHOSPHATASE 89 IU/L (40-150); ANION GAP 16.4 mmol/L (8-16); BLOOD UREA NITROGEN 23 mg/dL (7-26); BUN/CREATININE RATIO 29 (6-25); CALCIUM 9.3 mg/dL (8.4-10.2); CARBON DIOXIDE 28 mmol/L (22-29); CHLORIDE 101 mmol/L (98-107); EST GLOMERULAR FILTRATION RATE > 60 ML/MIN (60-); GLUCOSE 173 mg/dL (74-118); POTASSIUM 4.4 mmol/L (3.5-5.1); SODIUM 141 mmol/L (136-145)
--- NOTE | 2018-04-28 06:02 | Diagnostic Imaging Report ---
CHEST SINGLE (PORTABLE), 04/28/2018 6:30 AM Technique: CHEST SINGLE (PORTABLE) Comparison: 04/27/2018 Clinical history: Respiratory failure Findings: Limited portable radiograph with soft tissue attenuation Impression: 1. Lines/Tubes: Removal of ET tube and NG tube. Stable right IJ CVC over the proximal SVC. 2. Stable enlarged cardiomediastinal silhouette. 3. Perihilar and bibasilar opacities which may be related to underlying edema/atelectasis. Small effusions. 4. Lucency overlying the lower mid thorax could be artifactual or related to a hiatal hernia. Attention on follow-up upright PA and lateral when feasible. Signed by: Dr Negrita Schumacher MD on 04/28/2018 5:58 AM
[2018-04-28] MEDS: AZITHROMYCIN 500MG/NS 250 ML 250 ML IV SCH (09:29)
[2018-04-28] MEDS: LOSARTAN POTASSIUM 25 MG TAB PO SCH (09:29)
[2018-04-28] MEDS: FAMOTIDINE 20 MG/2 ML VIAL IV SCH ×2 (09:29→17:21)
[2018-04-28] MEDS: CEFTRIAXONE SOD 1 GM VIAL IV SCH ×2 (09:29→20:41)
[2018-04-28] MEDS: METHYLPREDNISOLONE SOD SUCC 40 MG/ML VIAL IV SCH ×2 (09:29→20:41)
--- NOTE | 2018-04-28 11:30 | Progress Note ---
DATE: CARDIOLOGY PROGRESS NOTE SUBJECTIVE: The patient is now extubated, alert, oriented, and talking. REVIEW OF SYSTEMS: As above, otherwise negative. OBJECTIVE VITAL SIGNS: Pulse 76, respiratory rate 20, blood pressure 129/75, satting 96% on 4 liters nasal cannula. GENERAL: Obese man, in no acute distress. CARDIOVASCULAR: Very difficult due to body habitus. PMI could not be palpated. Normal S1, S2. No murmurs, rubs or gallops. Palpable carotid pulses. Palpable radial pulses. Palpable right pedal pulse. Left pedal pulse is very weak. Chronic venostasis changes, bilateral lower extremities. PULMONARY: Clear to auscultation bilaterally. Poor air movement. ABDOMEN: Very obese, soft, umbilical hernia. Otherwise, no masses. NEURO AND PSYCH: Alert and oriented to person, place and time. Normal affect. LABORATORY DATA: Reviewed. IMAGING DATA: Reviewed. TELEMETRY DATA: Reviewed. ASSESSMENT 1. Hypercarbic respiratory failure with btgzs-xg-gwtbnxr respiratory acidosis. 2. Hypoxia. 3. Hypertensive heart disease. 4. Enlarged pulmonary artery on computerized tomography scan suggestive of pulmonary hypertension. RECOMMENDATIONS: Continue current cardiac medications. Source of all of patient's respiratory issues are morbid obesity and obesity hypoventilation syndrome. Likely, defer to pulmonary regarding management. His pulmonary hypertension is likely to be secondary to his chronic sleep apnea and obesity ventilation. No right heart cath recommended at this time as no signs of right heart failure. Treating the underlying cause should aid greatly in improving this. We will continue to follow closely. Thank you for this consult. Job#: [id number]
[2018-04-28] MEDS: LACTULOSE SYRUP 20 GM/30 ML UDC PO SCH (14:58)
[2018-04-28] MEDS ORDERED: DEXTROSE 50% SYRINGE 50 ML IV PRN (15:30)
[2018-04-28] MEDS: INSULIN REGULAR, HUMAN 100 UNIT/1 ML 3ML VIAL SQ SCH ×2 (17:21→20:38)
[2018-04-28] MEDS: ENOXAPARIN SOD INJ 40 MG/0.4 ML SYR SC SCH (17:21)
[2018-04-28] MEDS: ATORVASTATIN 10 MG TAB PO SCH (20:41)
[2018-04-29] VITALS (7 sets, daily range): BP systolic 124–155; BP diastolic 59–90
[2018-04-29] MEDS: ALBUTEROL SULF 0.083% NEB SOLN 3 ML NEB NEB SCH ×6 (03:30→22:40)
[2018-04-29 05:53] LABS: BASOPHILS % 0.2 % (0.0-1.0); EOSINOPHILS % 0.1 % (0.0-6.0); HEMOGLOBIN 14.7 g/dL (14.0-18.0); LYMPHOCYTES # (AUTO) 1.8 (1.0-3.2); LYMPHOCYTES % 11.7 % (18.0-39.1); MEAN CORPUSCULAR HEMOGLOBIN 23.1 pg (28-32); MEAN CORPUSCULAR HGB CONC 30.6 g/dL (31-35); MEAN CORPUSCULAR VOLUME 75.4 fL (81-99); MONOCYTES # (AUTO) 0.9 (0.2-0.8); MONOCYTES % 6.1 % (4.4-11.3); NEUTROPHILS # (AUTO) 12.3 (2.1-6.9); NEUTROPHILS % 80.9 % (38.7-80.0); PLATELET COUNT 277 x10e3/uL (140-360); RED BLOOD COUNT 6.37 x10e6/uL (4.3-5.7); RED CELL DISTRIBUTION WIDTH 18.3 % (11.7-14.4)
[2018-04-29 06:07] LABS: ALANINE AMINOTRANSFERASE 49 IU/L (0-55); ALBUMIN 3.3 g/dL (3.5-5.0); ALBUMIN/GLOBULIN RATIO 0.9 (0.8-2.0); ALKALINE PHOSPHATASE 88 IU/L (40-150); BLOOD UREA NITROGEN 25 mg/dL (7-26); BUN/CREATININE RATIO 33 (6-25); CALCIUM 9.2 mg/dL (8.4-10.2); CARBON DIOXIDE 29 mmol/L (22-29); CHLORIDE 99 mmol/L (98-107); CREATININE, SERUM 0.76 mg/dL (0.72-1.25); EST GLOMERULAR FILTRATION RATE > 60 ML/MIN (60-); GLUCOSE 160 mg/dL (74-118); SODIUM 140 mmol/L (136-145)
[2018-04-29] MEDS: AZITHROMYCIN 500MG/NS 250 ML 250 ML IV SCH (09:40)
[2018-04-29] MEDS: LACTULOSE SYRUP 20 GM/30 ML UDC PO SCH (09:42)
[2018-04-29] MEDS: METHYLPREDNISOLONE SOD SUCC 40 MG/ML VIAL IV SCH (09:42)
[2018-04-29] MEDS: FAMOTIDINE 20 MG/2 ML VIAL IV SCH ×2 (09:42→17:16)
[2018-04-29] MEDS: LOSARTAN POTASSIUM 25 MG TAB PO SCH (09:42)
[2018-04-29] MEDS: CEFTRIAXONE SOD 1 GM VIAL IV SCH ×2 (09:42→20:22)
[2018-04-29] MEDS: INSULIN REGULAR, HUMAN 100 UNIT/1 ML 3ML VIAL SQ SCH ×4 (09:42→21:58)
[2018-04-29] MEDS ORDERED: MINERAL OIL 132 ML BTL PR ONE (12:45)
[2018-04-29] MEDS ORDERED: CITRATE OF MAGNESIA 300ML BOTTLE PO ONE (12:45)
--- NOTE | 2018-04-29 13:01 | Progress Note ---
DATE: SUBJECTIVE: Patient was transferred out of the ICU yesterday. He feels better. He is very eager to go home because he will receive a fine from the city by the end of tomorrow if his yard is not cleaned up. He still has some fatigue but does not complain of fever. He has no pain. PHYSICAL EXAMINATION VITAL SIGNS: Stable. HEENT: No facial swelling or erythema. CARDIAC: Regular rate and rhythm with normal S1 and S2. LUNGS: Auscultation of the lungs reveals a few rhonchi bilaterally. ABDOMEN: Soft and nontender. There is no rebound or guarding. EXTREMITIES: No leg edema or calf tenderness. IMPRESSION 1. Mdtje-hk-zumcrno hypercapnic respiratory failure. 2. Obesity-hypoventilation syndrome. 3. Chronic obstructive pulmonary disease. 4. Left heel pain. PLAN 1. Switch the patient to p.o. prednisone. 2. Discontinue Barajas and continue physical therapy. 3. Arrange for noninvasive ventilator at home with portable oxygen. Job#: [id number]
--- NOTE | 2018-04-29 14:16 | Progress Note ---
DATE: April 29, 2018 CARDIOLOGY PROGRESS NOTE SUBJECTIVE: Patient denies chest pain or shortness of breath. His main complaint is of cough. OBJECTIVE VITAL SIGNS: Temperature 97.5 degrees, pulse 67, respiratory rate 16, blood pressure 126/64, oxygen saturation 95% on 3 liters nasal cannula. GENERAL: Obese gentleman in no acute distress. Awake and alert. LUNGS: Clear to auscultation bilaterally. No wheezes or crackles. Poor air movement. CARDIOVASCULAR: Normal rate, regular rhythm. No murmur. Normal S1 and S2. Examination was limited by body habitus. EXTREMITIES: No edema. Skin changes consistent with chronic venous stasis. CARDIAC MEDICATIONS 1. Losartan 50 mg p.o. daily. 2. Atorvastatin 10 mg p.o. nightly. LABS: WBC 15.18, hemoglobin 14.7, hematocrit 48, platelets 277. Sodium 140, potassium 4, chloride 99, CO2 29, BUN 25, creatinine 0.76. IMPRESSION 1. Hypercarbic respiratory failure with qeguq-yg-jxpgxkn respiratory acidosis. 2. Hypoxia. 3. Hypertensive heart disease. 4. Enlarged pulmonary artery on CT scan suggestive of pulmonary hypertension. 5. Moderate concentric left ventricular hypertrophy with left ventricular ejection fraction of 65% and impaired relaxation. RECOMMENDATIONS: Continue current cardiac medications. Likely the patient's respiratory difficulties are due to his morbid obesity. Evaluation of the patient's respiratory difficulties per pulmonary. Recommend evaluation for sleep apnea, as likely enlarged pulmonary artery on CT is secondary to combination of this as well as diastolic dysfunction. We will treat the underlying causes. Thank you for this consult. We will continue to follow. Job#: [id number]
--- NOTE | 2018-04-29 14:47 | Consultation ---
DATE OF CONSULTATION: April 29, 2018 REASON FOR CONSULTATION: Foot pain. HISTORY OF PRESENT ILLNESS: Mr. Art Sommers is a pleasant 68-year-old male, who was admitted secondary to hypercapnic respiratory failure with acute metabolic encephalopathy and carbon dioxide narcosis. He was in the ICU. He had been placed on propofol drips. Since admission has improved medically. Has recently been complaining of pain and discomfort to his feet and I have been asked to eval. PAST MEDICAL HISTORY: Diabetes, pneumonia, pulmonary disease, COPD particularly. SURGICAL HISTORY: Back. ALLERGIES: NO KNOWN DRUG ALLERGIES. FAMILY HISTORY: Noncontributory. ELEVEN-POINT REVIEW OF SYSTEMS: At this point negative. PHYSICAL EXAM GENERAL: AO times 3. NAD. HEENT: Normocephalic, atraumatic, anicteric. ABDOMEN: Soft, nontender, nondistended. RESPIRATORY: Symmetrical expansion. No distress. PSYCHIATRIC: Normal affect. EXTREMITIES: Some edema associated with bilateral lower extremities, +1 pitting in nature. There is some erythema. Erythema seems to be inflammatory. No open lesions or sores. No signs of infection. Feet are hyperaesthetic, however. But, once again, no open lesions. DIAGNOSTIC DATA: Blood glucose seemed to be quite elevated. Unknown hemoglobin A1c. No diagnostic data with regards to bilateral feet. ASSESSMENT: Diabetic patient with diabetic peripheral neuropathy presumably. Has a history of back surgery, perhaps may have some component of radiculopathy. PLAN: Recommend x-ray of bilateral feet. Rule out the possibility of underlying occult injuries. If negative, at this point will recommend proceeding with activity as tolerated. Re-consult if necessary. Job#: [id number] MIKHAIL
--- NOTE | 2018-04-29 15:41 | Diagnostic Imaging Report ---
Exam: Left foot series, 3 views. Clinical History: Foot pain Comparison: None. Findings: 3 views of the left foot. There is normal bone mineralization. Negative for acute, displaced fracture or dislocation. Minimal degenerative changes in the first and fifth metatarsophalangeal joints, with a small marginal osteophyte in the lateral. Tiny anterior and posterior calcaneal enthesophytes. Impression: 1. No acute abnormalities Signed by: Dr. Chele Lane M.D. on 04/29/2018 3:37 PM
--- NOTE | 2018-04-29 15:49 | Diagnostic Imaging Report ---
Exam: Right foot series, 3 views. Clinical History: Back pain Comparison: None. Findings: 3 views of the right foot. There is normal bone mineralization. Negative for acute, displaced fracture or dislocation. Minimal degenerative changes in the first metatarsophalangeal joint. Small anterior calcaneal enthesophyte. No significant swelling. Impression: 1. No acute abnormalities. Signed by: Dr. Chele Lane M.D. on 04/29/2018 3:45 PM
[2018-04-29] MEDS: ENOXAPARIN SOD INJ 40 MG/0.4 ML SYR SC SCH (17:16)
[2018-04-29] MEDS: ATORVASTATIN 10 MG TAB PO SCH (20:22)
[2018-04-30] VITALS: BP 133/63
[2018-04-30] MEDS: ALBUTEROL SULF 0.083% NEB SOLN 3 ML NEB NEB SCH ×4 (02:29→14:20)
[2018-04-30 04:00] VITALS: BP 131/64
[2018-04-30 05:43] LABS: BASOPHILS % 0.2 % (0.0-1.0); EOSINOPHILS # (AUTO) 0.2 (0.0-0.4); EOSINOPHILS % 1.4 % (0.0-6.0); HEMATOCRIT 47.5 % (38.2-49.6); HEMOGLOBIN 14.7 g/dL (14.0-18.0); LYMPHOCYTES # (AUTO) 3.2 (1.0-3.2); LYMPHOCYTES % 21.9 % (18.0-39.1); MEAN CORPUSCULAR HEMOGLOBIN 23.2 pg (28-32); MEAN CORPUSCULAR HGB CONC 30.9 g/dL (31-35); MEAN CORPUSCULAR VOLUME 74.9 fL (81-99); MONOCYTES # (AUTO) 1.2 (0.2-0.8); MONOCYTES % 8.3 % (4.4-11.3); NEUTROPHILS # (AUTO) 9.8 (2.1-6.9); NEUTROPHILS % 67.3 % (38.7-80.0); PLATELET COUNT 259 x10e3/uL (140-360); RED BLOOD COUNT 6.34 x10e6/uL (4.3-5.7); RED CELL DISTRIBUTION WIDTH 18.4 % (11.7-14.4)
[2018-04-30 06:17] LABS: ALANINE AMINOTRANSFERASE 44 IU/L (0-55); ALBUMIN 3.2 g/dL (3.5-5.0); ALKALINE PHOSPHATASE 81 IU/L (40-150); ANION GAP 13.7 mmol/L (8-16); BLOOD UREA NITROGEN 27 mg/dL (7-26); BUN/CREATININE RATIO 39 (6-25); CALCIUM 8.9 mg/dL (8.4-10.2); CARBON DIOXIDE 29 mmol/L (22-29); CHLORIDE 98 mmol/L (98-107); EST GLOMERULAR FILTRATION RATE > 60 ML/MIN (60-); GLUCOSE 100 mg/dL (74-118); POTASSIUM 3.7 mmol/L (3.5-5.1); SODIUM 137 mmol/L (136-145)
[2018-04-30 07:15] VITALS: BP 118/67
[2018-04-30 07:26] VITALS: BP 118/67
[2018-04-30] MEDS: INSULIN REGULAR, HUMAN 100 UNIT/1 ML 3ML VIAL SQ SCH ×2 (07:30→12:16)
[2018-04-30] MEDS: FAMOTIDINE 20 MG/2 ML VIAL IV SCH (08:44)
[2018-04-30] MEDS: LOSARTAN POTASSIUM 25 MG TAB PO SCH (08:44)
[2018-04-30] MEDS ORDERED: PREDNISONE 20 MG TAB PO SCH (09:00)
[2018-04-30] MEDS ORDERED: PREDNISONE20 MG PO (09:11)
[2018-04-30 11:15] VITALS: BP 116/71
[2018-04-30 15:48] VITALS: BP 105/67
--- NOTE | 2018-04-30 16:06 | Discharge Summary ---
ADMISSION DIAGNOSES 1. Hypercapnic respiratory failure. 2. Acute metabolic encephalopathy. 3. Pulmonary edema. 4. Pulmonary fibrosis. 5. Carbon dioxide narcosis. DISCHARGE DIAGNOSES 1. Hypercapnic respiratory failure. 2. Acute metabolic encephalopathy. 3. Pulmonary edema. 4. Pulmonary fibrosis. 5. Carbon dioxide narcosis. 6. Ruled out left lower extremity deep venous thrombosis. 7. Chronic obstructive pulmonary disease with exacerbation. 8. Obstructive sleep apnea. HISTORY: The patient has a history of pneumonia and pulmonary disease. Unknown surgical history. HOSPITAL COURSE: A 68-year-old male with a recent diagnosis of pneumonia managed by Dr. Hernandez. He was sent to the hospital due to increased episodes of falling asleep while in conversation and shortness of breath. Here he was found to have respiratory distress, confusion and pulmonary edema. The patient was recommended to start on BiPAP and subsequently had to be intubated. The patient was admitted to ICU. Echo showed an EF of 55%. The patient had a left lower extremity venous Doppler which was negative for DVT. EKG showed sinus rhythm with PACs. The patient had a central line placement on April 24. The patient was extubated on 04/27 and was put on room air, and at the time of discharge the patient was on room air. The patient did not qualify for home O2 per respiratory assessment. The patient finished his Rocephin and Zithromax by the time of discharge. He will be tapered down on dosing of prednisone. He will be sent home with a noninvasive vent per pulmonary. The patient is doing much better, and is ready to go home. Vital signs stable. The patient is afebrile. He will resume home medications plus the tapered dose of prednisone. He will follow up with primary care physician in 1-[address] Hernandez as discussed. The patient understands discharge instructions and agrees to plan. Dictated by: Sapphire Kumar NP TYRELL TORRES MD Job#: [id number]
[2018-04-30] MEDS ORDERED: FAMOTIDINE 20 MG TAB PO SCH (16:30)
== END 2018-04-30 17:08 | disposition home or self-care (01) | DRG 207 ==
LOC: ER 10:37 → ERHOLD 13:29 → IMCU 15:41 → ICU 04-23 01:21 → MED/SURG3 04-28 15:24
PROVIDERS: ADMIT Internal Medicine; ATTEND Internal Medicine
PROC: 5A1955Z Respiratory Ventilation, Greater than 96 Consecutive Hours (ICD-10-PCS; 2018-04-23)
PROC: 0BH18EZ Insertion of Endotracheal Airway into Trachea, Via Natural or Artificial Opening Endoscopic (ICD-10-PCS; 2018-04-23)
PROC: 02HV33Z Insertion of Infusion Device into Superior Vena Cava, Percutaneous Approach (ICD-10-PCS; principal; 2018-04-24)
DX: J96.22 Acute and chronic respiratory failure with hypercapnia (principal); G93.41 Metabolic encephalopathy; J44.1 Chronic obstructive pulmonary disease with (acute) exacerbation; I13.0 Hypertensive heart and chronic kidney disease with heart failure and stage 1 through stage 4 chronic kidney disease, or unspecified chronic kidney disease; Z68.42 Body mass index [BMI] 45.0-49.9, adult; E87.2 Acidosis; J84.10 Pulmonary fibrosis, unspecified; G47.33 Obstructive sleep apnea (adult) (pediatric); G62.9 Polyneuropathy, unspecified; I51.7 Cardiomegaly; I27.20 Pulmonary hypertension, unspecified; J96.21 Acute and chronic respiratory failure with hypoxia; N18.9 Chronic kidney disease, unspecified; E11.22 Type 2 diabetes mellitus with diabetic chronic kidney disease; Z79.4 Long term (current) use of insulin; E66.01 Morbid (severe) obesity due to excess calories; K42.9 Umbilical hernia without obstruction or gangrene; I50.9 Heart failure, unspecified; I87.2 Venous insufficiency (chronic) (peripheral)
CPT/HCPCS: 36415; 36600; 70450; 71045; 71260; 74018; 80053; 80307; 81001; 82550; 82553; 82805; 82948; 83735; 83880; 84443; 84484; 85025; 85610; 85730; 87070; 87205; 93005; 93306; 93971; 94002; 94003; 94640; 94660; 97139; 99285; J0330; J0360; J0456; J0696; J1650; J1940; J2250; J2920; J2930; J3486; J7030; Q9967

== ENCOUNTER → 2018-08-25 | Outpatient (CLI) | payer OTHER, MEDICARE ==
[~2018-08-25] MED LIST: ATORVASTATIN CA10 MG PO; LOSARTAN POTASS25 MG PO; METFORMIN HCL500 MG PO; OMEPRAZOLE20 MG PO; PREDNISONE20 MG PO
--- NOTE | 2018-09-15 17:13 | Polysomnography ---
DATE OF STUDY: SPLIT-NIGHT STUDY HISTORY OF PRESENT ILLNESS: Patient has a history of snoring as well as frequent arousals during the night. He has a history of myasthenia gravis and is using a noninvasive ventilator at home which he has difficulty tolerating. INTERPRETATION: The patient came to the laboratory for a split-night study. During the diagnostic portion of the study, he slept for 108.5 minutes over 143 minutes. The sleep efficiency was 76%. The onset to sleep latency was 3.5 minutes. The latency to REM was 102 minutes. Patient spent only 1 minute in REM sleep, which was 0.9% of the night. There were a total of 63 apneic events and 61 hypopneic events. The apnea/hypopnea index was 68.6 events per hour. The patient had increased periodic leg movements during sleep. The minimal saturation was 50%. The patient spent the entire night on the supine position. The minimal heart rate was 32 beats per minute. There were no arrhythmias. During the therapeutic portion of the study, the patient slept for 115 minutes out of 173 minutes. Patient slept 66.5% of the night. The minimal saturation was 49%. The minimal heart rate was 39 beats per minute, and the patient spent 5.5% of the night in REM sleep which is 4.8 minutes. The [place] sleep score was normal. The head of digital advertising & integration desensitized the patient to CPAP using a nasal mask. Patient initiated CPAP at 4 cm of water pressure and gradually increased to 12 cm of water pressure. Patient was then switched to BiPAP. The BiPAP was increased to a pressure of 14/10. At a pressure of 14/10, the nocturnal events were successfully eliminated. IMPRESSION 1. Severe obstructive sleep apnea. 2. Successful treatment of obstructive sleep apnea with bilateral positive airway pressure. 3. Increased limb movements during sleep. RECOMMENDATIONS 1. BiPAP at a pressure of 14/10 with a heated humidifier. 2. Avoid alcohol or sedatives prior to retiring at night. 3. Achieve and maintain an ideal body weight. Job#: [id number] EV
== END ==
LOC: SLEEP 20:33
PROVIDERS: ATTEND Internal Medicine Critical Care Medicine
DX: G47.30 Sleep apnea, unspecified (principal)

== ENCOUNTER 2019-01-06 10:39 | Outpatient (RCR) | payer MEDICARE | END 2019-02-04 | LOC: PT 10:39 | PROVIDERS: ATTEND Orthopaedic Surgery | DX: S82.402D Unspecified fracture of shaft of left fibula, subsequent encounter for closed fracture with routine healing (principal) ==

== ENCOUNTER 2019-02-24 09:48 | Outpatient (RCR) | payer MEDICARE | END 2019-03-06 | LOC: PT 09:48 | PROVIDERS: ATTEND Internal Medicine Critical Care Medicine | DX: S82.892A Other fracture of left lower leg, initial encounter for closed fracture (principal); M25.572 Pain in left ankle and joints of left foot; M25.672 Stiffness of left ankle, not elsewhere classified; M62.81 Muscle weakness (generalized); R26.2 Difficulty in walking, not elsewhere classified | CPT/HCPCS: 97139 ==

== ENCOUNTER 2019-03-08 10:36 | Outpatient (RCR) | payer MEDICARE ==
[2019-03-25] MEDS ORDERED: LOSARTAN POTASS25 MG PO (09:45)
[2019-03-25] MEDS ORDERED: CELEBREX100 MG PO (09:45)
[2019-03-25] MEDS ORDERED: GLIPIZIDE5 MG PO (09:45)
[2019-03-25] MEDS ORDERED: NAPROXEN250 MG PO (09:45)
[2019-03-25] MEDS ORDERED: GABAPENTIN100 MG PO (09:45)
[2019-03-25] MEDS ORDERED: CHANTIX1 MG PO (09:45)
== END 2019-04-06 ==
LOC: PT 10:36
PROVIDERS: ATTEND Internal Medicine Critical Care Medicine
DX: S82.892A Other fracture of left lower leg, initial encounter for closed fracture (principal); M25.572 Pain in left ankle and joints of left foot; M25.672 Stiffness of left ankle, not elsewhere classified; M62.81 Muscle weakness (generalized); R26.2 Difficulty in walking, not elsewhere classified

== ENCOUNTER → 2019-03-25 | Day surgery (SDC) | payer MEDICARE, OTHER ==
[2019-03-23 15:10] LABS: BASOPHILS % 0.3 % (0.0-1.0); EOSINOPHILS # (AUTO) 0.3 (0.0-0.4); EOSINOPHILS % 3.3 % (0.0-6.0); HEMATOCRIT 47.4 % (38.2-49.6); HEMOGLOBIN 13.1 g/dL (14.0-18.0); LYMPHOCYTES # (AUTO) 1.6 (1.0-3.2); LYMPHOCYTES % 17.4 % (18.0-39.1); MEAN CORPUSCULAR HEMOGLOBIN 19.8 pg (28-32); MEAN CORPUSCULAR HGB CONC 27.6 g/dL (31-35); MEAN CORPUSCULAR VOLUME 71.6 fL (81-99); MONOCYTES # (AUTO) 0.7 (0.2-0.8); MONOCYTES % 8.2 % (4.4-11.3); NEUTROPHILS # (AUTO) 6.3 (2.1-6.9); PLATELET COUNT 252 x10e3/uL (140-360); RED BLOOD COUNT 6.62 x10e6/uL (4.3-5.7); RED CELL DISTRIBUTION WIDTH 21.6 % (11.7-14.4)
[2019-03-23 15:21] LABS: INR 0.95; PROTHROMBIN TIME 13.2 seconds (11.9-14.5)
--- NOTE | 2019-03-23 15:24 | Diagnostic Imaging Report ---
EXAMINATION: CHEST 2 VIEWS INDICATION: Chest pain ^PREOP FOR LEFT HEART CATHETERIZATION COMPARISON: 04/28/2018 FINDINGS: TUBES and LINES: None. LUNGS: Chronic appearing changes in the lungs. Likely scarring/atelectasis in the lung bases. PLEURA: No pleural effusion or pneumothorax. HEART AND MEDIASTINUM: Cardiomegaly with mild pulmonary vascular congestion. BONES AND SOFT TISSUES: No acute osseous lesion. Soft tissues are unremarkable. UPPER ABDOMEN: No free air under the diaphragm. IMPRESSION: Chronic appearing changes in the lungs. Likely scarring/atelectasis in the lung bases. Cardiomegaly with mild pulmonary vascular congestion Signed by: Dr. Federico Ramirez M.D. on 03/23/2019 3:21 PM
[2019-03-23 15:30] LABS: ALANINE AMINOTRANSFERASE 60 IU/L (0-55); ALBUMIN 3.3 g/dL (3.5-5.0); ALBUMIN/GLOBULIN RATIO 0.9 (0.8-2.0); ALKALINE PHOSPHATASE 151 IU/L (40-150); ANION GAP 12.2 mmol/L (8-16); BLOOD UREA NITROGEN 16 mg/dL (7-26); BUN/CREATININE RATIO 21 (6-25); CALCIUM 8.6 mg/dL (8.4-10.2); CARBON DIOXIDE 32 mmol/L (22-29); CHLORIDE 100 mmol/L (98-107); CREATININE, SERUM 0.76 mg/dL (0.72-1.25); EST GLOMERULAR FILTRATION RATE > 60 ML/MIN (60-); GLUCOSE 270 mg/dL (74-118); POTASSIUM 4.2 mmol/L (3.5-5.1); SODIUM 140 mmol/L (136-145)
[~2019-03-25] VITALS: Ht 182.9 cm; Wt 136.1 kg
[~2019-03-25] MED LIST changes: +CELEBREX100 MG PO; +CHANTIX1 MG PO; +FENTANYL CITRATE/PF 100MCG/2 ML INJ ONE; +GABAPENTIN100 MG PO; +GLIPIZIDE5 MG PO; +HEPARIN SOD/SOD CHLORIDE 1,000 ML ONE; +IOPAMIDOL 370 MG/ML 200 ML INFUS..BTL INJ ONE; +LIDOCAINE HCL 2% LOCAL 20 ML VIAL ONE; +MIDAZOLAM HCL 2 MG/2 ML VIAL ONE; +NAPROXEN250 MG PO; +SODIUM CHLORIDE 0.9% 1000ML 1,000 ML ONE; +VERAPAMIL HCL 2.5 MG/ML 2 ML VIAL ONE
[2019-03-25 10:27] VITALS: BP 121/73
--- NOTE | 2019-03-25 10:27 | NUR ---
1027am Bedside report received from TALI Weathers. Identiferx2. Sleepy oriented x2 and PERRLA, respirations even and unlabored FM (NRB) 10L Pulses x4 extremities equal and strong. Pedal pulses PT/DP x4 Cap fill brisk < 3 sec. Skin warm and dry integrity appears D/I. IV 20g to left hand. Presents healthy w/o s/s of infiltration or complaint. Abdomen soft and supple. pt offered toileting, denies need to urinate or defecate. No personal affects with patient. No Family Reached out per high school biology teacher for ride home. Pt verbalizes understanding of POC. . 1045am Currently w/o complaint of pain or need. Back to baseline orientation.O2 changed to N/C 2lmn Able to talk to ride on personal cell phone will arrive in 20min. No gross issues pain, pallor,pressure or dysrhythmia. Denies CP or SOB ds/rn
[2019-03-25 10:30] VITALS: BP 116/68
[2019-03-25 10:45] VITALS: BP 108/60
[2019-03-25 11:30] VITALS: BP 101/60
--- NOTE | 2019-03-25 11:30 | NUR ---
1130am meets DC criteria for sedation only given.IV removed from XXXX. Distal tip appears intact. VS WNL. Pt denies pain, sob, or need at this time. Ride here Review of discharge paperwork and follow up instructions. verbalized understanding. Pt to wheelchair and transported to front of hospital. Transferred to private vehicle under own strength w/o incident with DC paperwork in hand. -Aware of importance to have ride with HIM next time he recheduled for ts knows importance f/o DR Gonzalez 1wk. francois/sanjiv
--- NOTE | 2019-04-14 15:01 | Operative Report ---
DATE OF PROCEDURE: 03/28/2019 SURGEON: Ranjit Hernandez MD INDICATIONS: 1. Chest pain. 2. Shortness of breath. PROCEDURE: None. TECHNIQUE: The patient was admitted electively for a left heart catheterization, but the patient could not be still on the table and could not cooperate with instructions after being given Versed. The decision was made to cancel the procedure due to the patient's inability to lie still on the table. CONCLUSION: Left heart catheterization cancelled. Ranjit Hernandez MD DSH/MODL /[id number]
== END | disposition home or self-care (01) ==
LOC: CATH LAB 09:51
PROVIDERS: ATTEND Internal Medicine Cardiovascular Disease
DX: R07.9 Chest pain, unspecified (principal); Z53.8 Procedure and treatment not carried out for other reasons; R06.02 Shortness of breath; Z01.810 Encounter for preprocedural cardiovascular examination; Z01.812 Encounter for preprocedural laboratory examination; Z01.811 Encounter for preprocedural respiratory examination; R07.2 Precordial pain; R09.89 Other specified symptoms and signs involving the circulatory and respiratory systems; I20.8 Other forms of angina pectoris; F17.210 Nicotine dependence, cigarettes, uncomplicated
CPT/HCPCS: 36415; 71046; 80053; 85025; 85610; 85730; J2001; J2250; J3010; J7030; Q9967

== ENCOUNTER 2019-12-01 10:46 | Outpatient (RCR) | payer MEDICARE, OTHER ==
[~2019-12-01 10:46] MED LIST changes: -FENTANYL CITRATE/PF 100MCG/2 ML INJ ONE; -HEPARIN SOD/SOD CHLORIDE 1,000 ML ONE; -IOPAMIDOL 370 MG/ML 200 ML INFUS..BTL INJ ONE; -LIDOCAINE HCL 2% LOCAL 20 ML VIAL ONE; -MIDAZOLAM HCL 2 MG/2 ML VIAL ONE; -SODIUM CHLORIDE 0.9% 1000ML 1,000 ML ONE; -VERAPAMIL HCL 2.5 MG/ML 2 ML VIAL ONE
== END 2019-12-06 ==
LOC: PT 10:46
PROVIDERS: ATTEND Orthopaedic Surgery
DX: M72.2 Plantar fascial fibromatosis (principal)
CPT/HCPCS: 97139

== ENCOUNTER 2020-01-27 08:56 | Outpatient (RCR) | payer MEDICARE, OTHER | END 2020-02-05 | LOC: PT 08:56 | PROVIDERS: ATTEND Orthopaedic Surgery | DX: M72.2 Plantar fascial fibromatosis (principal); M79.671 Pain in right foot; M25.674 Stiffness of right foot, not elsewhere classified; M25.474 Effusion, right foot; R26.9 Unspecified abnormalities of gait and mobility | CPT/HCPCS: 97139 ==

== ENCOUNTER 2020-03-28 06:06 | Inpatient (IN) | payer MEDICARE, OTHER ==
[2020-03-23 13:42] LABS: BASOPHILS % 0.4 % (0.0-1.0); EOSINOPHILS # (AUTO) 0.3 (0.0-0.4); EOSINOPHILS % 2.7 % (0.0-6.0); HEMATOCRIT 49.6 % (38.2-49.6); HEMOGLOBIN 13.2 g/dL (14.0-18.0); LYMPHOCYTES # (AUTO) 1.9 (1.0-3.2); LYMPHOCYTES % 21.3 % (18.0-39.1); MEAN CORPUSCULAR HEMOGLOBIN 18.6 pg (28-32); MEAN CORPUSCULAR HGB CONC 26.6 g/dL (31-35); MEAN CORPUSCULAR VOLUME 69.8 fL (81-99); MONOCYTES # (AUTO) 0.7 (0.2-0.8); MONOCYTES % 8.1 % (4.4-11.3); NEUTROPHILS # (AUTO) 6.1 (2.1-6.9); NEUTROPHILS % 66.8 % (38.7-80.0); PLATELET COUNT 302 x10e3/uL (140-360); RED CELL DISTRIBUTION WIDTH 21.6 % (11.7-14.4)
[2020-03-23 13:43] LABS: RED BLOOD COUNT 7.11 x10e6/uL (4.3-5.7)
--- NOTE | 2020-03-23 13:48 | Diagnostic Imaging Report ---
EXAM: CHEST 2 VIEWS DATE: 03/23/2020 1:15 PM INDICATION: Preoperative evaluation COMPARISON: 03/23/2019 FINDINGS: The trachea is midline. There are stable appearing increased opacities present within the lower lung zones bilaterally which may reflect atelectasis/scarring. There is no evidence for large focal consolidation, pneumothorax, or significant pleural effusion. The cardiomediastinal silhouette is stable in appearance. No acute osseous abnormality is identified. IMPRESSION: Stable/chronic appearing changes noted within the lungs likely reflecting bibasilar scarring/atelectasis. No acute cardiopulmonary process or significant interval change identified from 03/23/2019. Signed by: Dr. Erasto Prasad MD on 03/23/2020 1:45 PM
[2020-03-23 14:18] LABS: ALANINE AMINOTRANSFERASE 21 IU/L (0-55); ALBUMIN 3.4 g/dL (3.5-5.0); ALBUMIN/GLOBULIN RATIO 0.9 (0.8-2.0); ALKALINE PHOSPHATASE 157 IU/L (40-150); ANION GAP 12.3 mmol/L (8-16); BLOOD UREA NITROGEN 15 mg/dL (7-26); BUN/CREATININE RATIO 21 (6-25); CALCIUM 8.5 mg/dL (8.4-10.2); CARBON DIOXIDE 29 mmol/L (22-29); CHLORIDE 100 mmol/L (98-107); CREATININE, SERUM 0.73 mg/dL (0.72-1.25); EST GLOMERULAR FILTRATION RATE > 60 ML/MIN (60-); GLUCOSE 143 mg/dL (74-118); POTASSIUM 4.3 mmol/L (3.5-5.1); SODIUM 137 mmol/L (136-145)
[~2020-03-28] VITALS: Ht 180.3 cm; Wt 148.5 kg
[~2020-03-28 06:06] MED LIST changes: +LIPITOR10 MG PO; +MOBIC7.5 MG PO
[2020-03-28] MEDS ORDERED: BUPIVACAINE 0.25%/EPI 30ML SDV INJ ONE (09:27)
--- NOTE | 2020-03-28 11:47 | Operative Report ---
DATE OF PROCEDURE: 03/28/2020 SURGEON: Juanjo Chand MD PREOPERATIVE DIAGNOSIS: Incarcerated umbilical hernia. POSTOPERATIVE DIAGNOSIS: Incarcerated umbilical hernia. OPERATION PERFORMED: Repair of incarcerated umbilical hernia with large Ventralex patch. FRONT OFFICE HELP: LEILANI Mosher. ANESTHESIA: General. COMPLICATIONS: None. ESTIMATED BLOOD LOSS: Minimal. DESCRIPTION OF PROCEDURE: With the patient lying in bed in the supine position under good general anesthesia, the abdomen was prepped with Betadine solution and draped in the usual manner. A semilunar subumbilical incision was made, it was carried down through the subcutaneous tissue down to the fascia. The hernia sac was then encircled. The umbilicus was then from the hernia sac. The hernia sac was then opened and the contents were reduced back to the intraabdominal cavity. After this was done, the excess of the hernia sac was resected. A large Ventralex patch was then placed through the hernia defect intra-abdominally and deployed without any difficulty. After this was done, the defect was then closed transversely using interrupted sutures of 0 Ethibond anchoring the mesh with the sutures, revealed a satisfactory repair without any tension. The whole area was then thoroughly irrigated. Perfect hemostasis was ascertained. All layers were infiltrated on the way out with solution of 0.25% Marcaine. Subcutaneous tissue was approximated with 3-0 Vicryl and the skin was closed with subcuticular 5-0 Vicryl. Benzoin, Steri-Strips, and Band-Aids were applied. Dressing was placed. Sponge, lap, and needle counts were correct. The patient tolerated the procedure well and returned to the recovery room in stable condition. MD BENTLEY Mata/CATARINAL /[id number]
--- NOTE | 2020-03-28 13:31 | NUR ---
received to rm sleeping easily awakens, using electric meter inspector updated on poc voiced understanding, o2 @ 3l nc, l ac 20g no ss of infiltratation noted, no other co voiced call light in reach will continue to monitor
--- NOTE | 2020-03-28 14:00 | NUR ---
O2 SATS DROP INTO 75% PT EASILY AWAKENS, INSTRUCTED TO TAKE A DEEP BREATH, O2 SATS INCREASE TO 98%, MD AWARE NO FURTHER ORDERS AT THIS TIME
[2020-03-28 14:24] VITALS: BP 141/66
--- NOTE | 2020-03-28 14:30 | NUR ---
PT PLACED ON 35% VENTI MASK, TOLERATING WELL, PT O2 STILL DECREASES WHEN ASLEEP, AWAKENS AND INCREASES TO LOW 90'S, WILL CONTINUE TO MONITOR
--- NOTE | 2020-03-28 16:00 | NUR ---
PT CLIMBING OUT OF BED, INSTRUCTED PT WITH DIRECTOR DIGITAL COMMUNICATIONS TO STAY IN BED, BED ALARM SET WILL CONTINUE TO MONITOR
[2020-03-28 16:17] VITALS: BP 141/66
[2020-03-28] MEDS: SODIUM CHLORIDE 0.9% 1000ML 1,000 ML IV SCH (18:38)
--- NOTE | 2020-03-28 19:07 | NUR ---
WALKING ROUNDS PERFORMED, WHEN ENTERING PT ROOM PT BED ALARM STARTED TO SOUND, HAD HAD BILATERAL LEGS OFF SIDE OF BED. PT ASSISTED BACK TO BED. PT AAOX3, ABLE TO STATE HE WAS IN HOSPITAL, NAME AND BIRTHDAY. PT LETHARGIC AND WHEN NOT BEING ENGAGED WOULD FALL ASLEEP AND WOULD BE NOTED TO HAVE EPISODES OF SLEEP APNEA. SPO2 AT 70-85% WHILE LAYING IN BED. SPOKE WITH MD Earle VARMA WITH CONCERNS ON PATIENT CONDITION. WAS INFORMED BY MD THAT THE PATIENT RUNS 85% AT HOME WITH SLEEP APNEA. CONTINUE TO MONITOR PT AND OK TO HAVE SITTER IN ROOM. INFORMED HARP REPAIRER OF NEED FOR SITTER. LEFT PT LAYING FOWLERS IN BED, BED IN LOW LOCKED POSITION, SIDE RAILS UPX3, CALL LIGHT AND PHONE WITHIN REACH. BED ALARM ACTIVATED ZONE 2.
[2020-03-28] MEDS ORDERED: PROPOFOL IV EMULSION 10 MG/ML 20 ML VIAL ONE (19:50)
[2020-03-28] MEDS ORDERED: KETOROLAC TROMETHAMINE 30 MG/ML VIAL ONE (19:50)
[2020-03-28] MEDS ORDERED: LIDOCAINE HCL 2% LOCAL INJ 5 ML SDV VIAL INJ ONE (19:50)
[2020-03-28] MEDS ORDERED: PHENYLEPHRINE HCL 1% 10 MG/ML VIAL ONE (19:50)
[2020-03-28] MEDS ORDERED: ONDANSETRON HCL INJ 2MG/ML 2ML 2 MG/ML VIAL ONE (19:50)
[2020-03-28] MEDS ORDERED: CEFAZOLIN SOD 1 GM VIAL ONE (19:50)
[2020-03-28] MEDS ORDERED: SUCCINYLCHOLINE CHLORIDE 20 MG/ML 10ML VIAL ONE (19:50)
[2020-03-28] MEDS ORDERED: SEVOFLURANE INHAL SOLN 250 ML PEN BTL ONE (19:50)
[2020-03-28] MEDS ORDERED: FENTANYL CITRATE/PF 100MCG/2 ML INJ ONE (21:26)
--- NOTE | 2020-03-28 23:30 | NUR ---
WAS CALLED TO ROOM BY SITTER AT 232 FOR CONCERN FOR PT. PT NOTED TO BE DIAPHORETIC, SPO2 AT 75%, BLOOD SUGAR WNL, VITAL SIGNS WNL. WHEN TRYING TO TALK TO PATIENT, PT NOW CONFUSED AND UNABLE TO RESPOND, O2 NOTED TO BE DROPPING TO 60'S. RAPID RESPONSE CALLED. DURING RAPID RESPONSE AT 2344 PT NOTED TO BECOME PULSE LESS AND WAS INTUBATED. AT 2350 WE WERE ABLE TO OBTAIN A PULSE BUT WAS NOTED TO BE VTACH. CARDIOVERSION PERFORMED AT 2351 AND RHYTHM RETURNED TO A NON-SHOCKABLE RHYTHM. (L) FEMORAL CENTRAL LINE PLACED. 18F MARTINEZ PLACED, CLEAR PALE URINE NOTED. MD Earle VARMA AT BEDSIDE AND PLACED NGT TUBE. EVENT ENDED AT 0004. PT TRANSFERRED TO ICU ROOM 190 AT 0120. FAMILY TO BE NOTIFIED BY ICU NURSE BOBBY.
[2020-03-29] VITALS (11 sets, daily range): BP systolic 95–124; BP diastolic 53–67
[2020-03-29] MEDS ORDERED: MIDAZOLAM HCL 5MG/ML 10ML VIAL 100 ML IV ONE (00:22)
[2020-03-29] MEDS ORDERED: FENTANYL 2000MCG/NS 250 250 ML ONE (00:23)
--- NOTE | 2020-03-29 00:32 | Diagnostic Imaging Report ---
EXAM: CHEST SINGLE (PORTABLE) INDICATION: Post intubation. COMPARISON: Chest radiograph 03/23/2020. FINDINGS: Interval intubation, the ET tube terminates 7.9 cm above the chandu. Slightly increased left perihilar and bilateral lower lung zone opacities. Possible trace right pleural effusion. No pneumothorax. The cardiomediastinal silhouette is mildly enlarged. No acute osseous abnormality is identified. IMPRESSION: Interval intubation. No pneumothorax. Slight increase in left perihilar and bilateral lower lung zone opacities, which may represent atelectasis, infection, or pulmonary edema in the appropriate clinical setting. Signed by: Dr. Nicanor Kovacs MD on 03/29/2020 12:29 AM
[2020-03-29 00:37] LABS: BASOPHILS # (AUTO) 0.1 (0.0-0.1); BASOPHILS % 0.4 % (0.0-1.0); EOSINOPHILS # (AUTO) 0.1 (0.0-0.4); EOSINOPHILS % 0.3 % (0.0-6.0); HEMOGLOBIN 13.7 g/dL (14.0-18.0); LYMPHOCYTES # (AUTO) 2.8 (1.0-3.2); MEAN CORPUSCULAR HEMOGLOBIN 18.9 pg (28-32); MEAN CORPUSCULAR HGB CONC 25.8 g/dL (31-35); MONOCYTES # (AUTO) 1.5 (0.2-0.8); MONOCYTES % 9.1 % (4.4-11.3); NEUTROPHILS # (AUTO) 11.7 (2.1-6.9); NEUTROPHILS % 71.5 % (38.7-80.0); PLATELET COUNT 325 x10e3/uL (140-360); RED CELL DISTRIBUTION WIDTH 22.2 % (11.7-14.4)
[2020-03-29 00:38] LABS: RED BLOOD COUNT 7.26 x10e6/uL (4.3-5.7)
[2020-03-29 00:41] LABS: INR 1.03
[2020-03-29 00:42] LABS: PARTIAL THROMBOPLASTIN TIME 27.7 seconds (23.8-35.5)
[2020-03-29 00:49] LABS: ALANINE AMINOTRANSFERASE 63 IU/L (0-55); ALBUMIN 3.4 g/dL (3.5-5.0); ALBUMIN/GLOBULIN RATIO 0.9 (0.8-2.0); ALKALINE PHOSPHATASE 146 IU/L (40-150); ANION GAP 21.9 mmol/L (8-16); BLOOD UREA NITROGEN 21 mg/dL (7-26); BUN/CREATININE RATIO 18 (6-25); CALCIUM 7.8 mg/dL (8.4-10.2); CARBON DIOXIDE 28 mmol/L (22-29); CHLORIDE 98 mmol/L (98-107); CREATINE KINASE 88 IU/L (30-200); CREATININE, SERUM 1.18 mg/dL (0.72-1.25); EST GLOMERULAR FILTRATION RATE > 60 ML/MIN (60-); GLUCOSE 321 mg/dL (74-118); POTASSIUM 3.9 mmol/L (3.5-5.1); SODIUM 144 mmol/L (136-145)
[2020-03-29] MEDS ORDERED: CEFTRIAXONE SOD 2 GM/NS 100 ML 100 ML IV SCH (01:30)
[2020-03-29] MEDS ORDERED: ONDANSETRON HCL INJ 2MG/ML 2ML 2 MG/ML VIAL IV PRN (01:30)
[2020-03-29 03:06] LABS: ABG PH 7.01 (7.35-7.45)
[2020-03-29 03:07] LABS: ABG HCO3 33 mmol/L (22-26); ABG PCO2 128 mmHg (35-45); ABG PO2 150 mmHg (80-105); ABG TCO2 36
[2020-03-29 03:12] LABS: ABG HCO3 30 mmol/L (22-26); ABG PCO2 65 mmHg (35-45); ABG PH 7.27 (7.35-7.45); ABG PO2 77 mmHg (80-105)
[2020-03-29 03:13] LABS: ABG TCO2 32
[2020-03-29 03:18] LABS: ABG PCO2 54 mmHg (35-45); ABG PH 7.35 (7.35-7.45); ABG PO2 68 mmHg (80-105)
[2020-03-29 03:19] LABS: ABG HCO3 30 mmol/L (22-26); ABG TCO2 31
[2020-03-29] MEDS ORDERED: VANCOMYCIN 1GM/NS 250 ML 250 ML IV SCH (03:45)
[2020-03-29] MEDS: SODIUM CHLORIDE 0.9% 1000ML 1,000 ML IV SCH ×3 (05:10→23:52)
[2020-03-29] MEDS: INSULIN REGULAR, HUMAN 100 UNIT/1 ML 3ML VIAL SQ SCH ×5 (06:00→20:04)
[2020-03-29] MEDS ORDERED: CEFEPIME 1GM/NS 0.9% 50 ML 50 ML IV SCH (06:00)
[2020-03-29] MEDS ORDERED: GLIPIZIDE 5 MG TAB PO SCH (07:30)
[2020-03-29] MEDS ORDERED: METFORMIN HCL 500 MG TAB PO SCH (08:00)
[2020-03-29] MEDS ORDERED: DEXTROSE 50% SYRINGE 50 ML IV PRN (08:15)
[2020-03-29] MEDS ORDERED: LACTATED RINGER'S 1,000 ML INJ ONE (08:45)
[2020-03-29] MEDS ORDERED: LOSARTAN POTASSIUM 25 MG TAB PO SCH (09:00)
--- NOTE | 2020-03-29 09:25 | Consultation ---
DATE OF CONSULTATION: 03/29/2020 PULMONARY CRITICAL CARE CONSULTATION: CHIEF COMPLAINT: Respiratory failure. HISTORY OF PRESENT ILLNESS: The patient is a 70-year-old man. He has a history of severe COPD with CO2 retention and severe obstructive sleep apnea. He was previously evaluated as an outpatient. He received BiPAP, but was not compliant. He also received a noninvasive ventilator at home, but he was not compliant. He only used the oxygen at night and the nebulizers during the day. He required frequent visits to the office for Solu-Medrol and steroids. Prior cardiac workup showed no ischemic disease on stress test or echo. He did have some mildly elevated right-sided pressures. The patient came to the hospital with an incarcerated umbilical hernia. He was complaining of pain and tenderness. He required emergent operative repair of the umbilical hernia. Apparently, he was doing well postoperatively, but desaturated during the night and became more somnolent. He required emergent intubation and is now on the unit on a mechanical ventilator. PAST MEDICAL HISTORY: 1. Obstructive sleep apnea. 2. COPD. 3. Hypertension. 4. Diabetes. 5. Obesity. PAST SURGICAL HISTORY: 1. Recent repair of an umbilical hernia. 2. Prior knee injury and meniscal tear. SOCIAL HISTORY: The patient was a smoker in the past. He is not a drinker. FAMILY HISTORY: Noncontributory. ALLERGIES: NO KNOWN DRUG ALLERGIES. REVIEW OF SYSTEMS: There was no history of fevers. He has no headache. He has no chest pain. He is not having any nausea or vomiting. He has no abdominal tenderness, although he does have a recent surgery. There is no leg edema. PHYSICAL EXAMINATION: VITAL SIGNS: The patient is afebrile. The blood pressure is 107/66 and pulse is 72. He is currently on a PRVC mode of ventilation at a rate of 24 with a tidal volume of 550 and a PEEP of 8. His FiO2 is set at 100%. HEENT: Shows no facial swelling or erythema. There is a large nevus on the lateral aspect of his left naris. He has an oral endotracheal tube. CARDIAC: Reveals regular rate and rhythm with normal S1 and S2. LUNGS: Auscultation of lungs reveals decreased breath sounds at the bases. There is no wheezing. ABDOMEN: Soft. There is some prior tenderness. EXTREMITIES: There is no leg edema or calf tenderness. NEUROLOGICAL: There are no focal neurological abnormalities. LABORATORY DATA: COVID-19 test is negative. BUN to creatinine ratio is 21 to 1.18. Blood sugar is 321. White blood cell count is 16.3 and the hemoglobin is 13.7. The platelet count is 325. RADIOGRAPHIC DATA: Chest x-ray shows left perihilar and bilateral lower lobe opacities. IMPRESSION: 1. Bwoht-yy-bfwgfmt respiratory failure. 2. Aspiration pneumonia. 3. Severe chronic obstructive pulmonary disease. 4. Severe obstructive sleep apnea. 5. Diabetes. 6. Hypertension. PLAN: 1. Decrease tidal volume and increase PEEP. Monitor ABGs. 2. Broad-spectrum antibiotics to cover for aspiration pneumonia and sepsis. Await culture results. 3. The patient has received a fluid bolus consistent with the sepsis protocol. 4. The patient will receive insulin as needed. 5. Solu-Medrol for any component of COPD. 6. Case discussed with nursing staff, Respiratory, and Dr. Chand. Isidoro Hernandez MD [facility]/MODL /[id number]
[2020-03-29 09:26] LABS: ABG HCO3 31 mmol/L (22-26); ABG PCO2 46 mmHg (35-45); ABG PH 7.45 (7.35-7.45); ABG PO2 69 mmHg (80-105)
[2020-03-29] MEDS: SODIUM CHLORIDE 0.9% 250ML IRRIG IR SCH ×6 (09:30→21:44)
[2020-03-29 09:33] LABS: CREATINE KINASE MB 1.8 ng/mL (0-5.0)
[2020-03-29] MEDS: METHYLPREDNISOLONE SOD SUCC 40 MG/ML VIAL 1ML IV SCH ×2 (09:36→20:04)
[2020-03-29] MEDS: PANTOPRAZOLE 40 MG 10ML VIAL IV SCH (09:36)
[2020-03-29] MEDS ORDERED: SUCCINYLCHOLINE CHLORIDE 20 MG/ML 10ML VIAL ONE (10:03)
[2020-03-29] MEDS ORDERED: ETOMIDATE 40 MG/ 20ML VIAL IV ONE (10:03)
[2020-03-29] MEDS ORDERED: VANCOMYCIN HCL 1.25 GM in SODIUM CHLORIDE 0.9% 250ML 300 ML IV SCH (10:45)
[2020-03-29] MEDS ORDERED: VANCOMYCIN HCL 1.25 GM in SODIUM CHLORIDE 0.9% 250ML 250 ML IV SCH (11:00)
[2020-03-29] MEDS: VANCOMYCIN HCL 1.25 GM in SODIUM CHLORIDE 0.9% 250ML 250 ML IV SCH ×2 (12:46→20:05)
--- NOTE | 2020-03-29 12:52 | Consultation ---
DATE OF CONSULTATION: 03/29/2020 CARDIOLOGY CONSULT: Note: The patient is intubated and sedated, HPI information taken from medical record. HISTORY OF PRESENT ILLNESS: The patient, Art Sommers is a 70-year-old male with a primary history of hypertension, diabetes, obesity, COPD, and obstructive sleep apnea, admitted complaining of abdominal pain and found to have incarcerated hernia on admission, requiring emergent umbilical hernia repair and complicated with somnolence and acute hypoxic respiratory failure, requiring immediate intubation and mechanical ventilator support. PAST MEDICAL HISTORY: Hypertension, diabetes, obesity, COPD, and TIMOTHY. PAST SURGICAL HISTORY: 1. Recent repair of umbilical hernia. 2. Prior knee injury and meniscal tear. SOCIAL HISTORY: The patient was a former smoker. The patient is not a current alcohol drinker. FAMILY HISTORY: Noncontributory. ALLERGIES: NO KNOWN DRUG ALLERGIES. PHYSICAL EXAMINATION: GENERAL: The patient is well developed, well nourished, in no acute respiratory distress, on mechanical ventilator in PRVC mode. SKIN: Normal in appearance, texture, and temperature. Warm and dry, although there is discoloration to bilateral lower extremities. HEENT: The patient's cranium is normocephalic and atraumatic. Pupils are equally round and reactive to light. Sclera is nonicteric. Ears are normal. Mucosa is moist. ET tube is present. NECK: Supple. Full range of motion. No cervical lymphadenopathy. No thyromegaly. No JVD. RESPIRATORY: Diminished breath sounds over all lung rivera. No wheezing with few scattered crackles at the bases. CARDIOVASCULAR: S1 and S2 audible. Regular rate and rhythm. No significant murmurs heard. GI: Soft, obese, and nondistended. Bowel sounds are present. EXTREMITIES: No cyanosis. Trace edema bilaterally. Pulses are palpable, 1+ throughout. NEUROLOGIC: The patient is sedated. RADIOGRAPHIC DATA: Chest x-ray shows left perihilar and bilateral lower lobe opacities. ASSESSMENT AND PLAN: The patient is a 70-year-old, admitted status post umbilical hernia repair complicated with somnolence and acute hypoxic respiratory failure and is now intubated and on full ventilator support in the ICU. Cardiology consulted to evaluate any cardiac involvement/complication. On exam, the patient is on PRVC mode on the ventilator and is normal sinus rhythm on the monitor. Previous cardiac workup/cardiac catheterization in the last year was normal. 1. Monitor on hemodynamics and continue telemetry monitoring. 2. Repeat echocardiogram to evaluate valves and LV function. 3. Continue supportive measures, diurese as needed and monitor intake and output. 4. Further recommendations will follow according to the patient's clinical course. We will continue to evaluate and reassess for any further need of any cardiac intervention. Thank you for this consultation. Dictated by Zayra Brown NP MD DUC Rose/ZOYA /[id number]
[2020-03-29 15:52] LABS: CREATINE KINASE MB 2.1 ng/mL (0-5.0)
[2020-03-29] MEDS: PIPER-TAZ 3.375 GM 50 ML IV SCH ×3 (16:54→23:52)
--- NOTE | 2020-03-29 17:05 | Consultation ---
DATE OF CONSULTATION: 03/29/2020 REASON FOR CONSULTATION: Sepsis with septic shock. HISTORY OF PRESENT ILLNESS: This patient who is a 70-year-old with history of obesity, history of CAD, sleep apnea, history COPD, CO2 retention. The patient was admitted for elective surgery, umbilical hernia repair, incarcerated. The patient was having pain. He had an emergent operative repair of the back on hernia. Apparently, he was doing well postoperatively, but desaturated, had to be intubated. He is currently intubated and sedated and the nurse is telling me there is a significant amount of suctioning coming from his lungs. The patient could not provide any further information. The patient has history of as mentioned above, obesity, hypertension, diabetes mellitus, COPD, obstructive sleep apnea apparently very severe, was found to have incarcerated hernia on admission, had to have emergency surgery as mentioned above. PAST MEDICAL HISTORY: As above. PAST SURGICAL HISTORY: As above. ALLERGIES: NKA. SOCIAL HISTORY: He used to be smoker. FAMILY HISTORY: Otherwise unremarkable. LABORATORY DATA: Reviewed. White count was 16.3, hemoglobin 13.7. Sodium 144, potassium 3.9, and creatinine 1.18. Lactic acid 3.2. As I mentioned, he is currently intubated. PHYSICAL EXAMINATION: VITAL SIGNS: Stable. HEENT: He is not icteric. CHEST: Few crackles. HEART: S1, S2. ABDOMEN: Soft. IMPRESSION AND PLAN: Respiratory failure, concerned about aspiration pneumonia. We will put on vancomycin and Zosyn. We will follow vancomycin trough. Discussed with the medical team. Discussed with the pharmacy. Discussed with nursing team. Discussed with critical Care. Other medical problem all as mentioned above. Status post surgery. The wound looks really good at present time. We will follow. MD JOSE C Turcios/ZOYA /[id number]
[2020-03-29] MEDS: FENTANYL 2000MCG/NS 250 250 ML IV SCH (20:03)
[2020-03-29] MEDS: MIDAZOLAM HCL 5MG/ML 10ML VIAL 100 ML IV PRN (20:05)
[2020-03-30] VITALS (23 sets, daily range): BP systolic 111–138; BP diastolic 52–82
[2020-03-30] MEDS: PANTOPRAZOLE 40 MG 10ML VIAL IV SCH (01:28)
[2020-03-30] MEDS: SODIUM CHLORIDE 0.9% 250ML IRRIG IR SCH ×6 (01:28→21:17)
[2020-03-30] MEDS: FENTANYL 2000MCG/NS 250 250 ML IV SCH ×4 (01:28→21:15)
[2020-03-30 04:39] LABS: HEMATOCRIT 29.9 % (38.2-49.6); HEMOGLOBIN 7.8 g/dL (14.0-18.0); LYMPHOCYTES # (AUTO) 0.4 (1.0-3.2); LYMPHOCYTES % 4.2 % (18.0-39.1); MEAN CORPUSCULAR HEMOGLOBIN 18.9 pg (28-32); MEAN CORPUSCULAR HGB CONC 26.1 g/dL (31-35); MEAN CORPUSCULAR VOLUME 72.6 fL (81-99); MONOCYTES # (AUTO) 0.3 (0.2-0.8); MONOCYTES % 3.5 % (4.4-11.3); NEUTROPHILS # (AUTO) 8.1 (2.1-6.9); NEUTROPHILS % 91.7 % (38.7-80.0); PLATELET COUNT 142 x10e3/uL (140-360); RED BLOOD COUNT 4.12 x10e6/uL (4.3-5.7); RED CELL DISTRIBUTION WIDTH 20.2 % (11.7-14.4)
[2020-03-30] MEDS: PIPER-TAZ 3.375 GM 50 ML IV SCH ×3 (05:15→21:17)
[2020-03-30 05:25] LABS: BASOPHILS % 0.1 % (0.0-1.0); HEMATOCRIT 45.5 % (38.2-49.6); LYMPHOCYTES # (AUTO) 0.6 (1.0-3.2); LYMPHOCYTES % 4.6 % (18.0-39.1); MEAN CORPUSCULAR HEMOGLOBIN 18.6 pg (28-32); MEAN CORPUSCULAR HGB CONC 26.6 g/dL (31-35); MEAN CORPUSCULAR VOLUME 69.9 fL (81-99); MONOCYTES # (AUTO) 0.6 (0.2-0.8); MONOCYTES % 4.2 % (4.4-11.3); NEUTROPHILS % 90.6 % (38.7-80.0); RED BLOOD COUNT 6.51 x10e6/uL (4.3-5.7); RED CELL DISTRIBUTION WIDTH 21.6 % (11.7-14.4)
[2020-03-30 05:33] LABS: HEMOGLOBIN 12.1 g/dL (14.0-18.0)
[2020-03-30 05:34] LABS: PLATELET COUNT 203 x10e3/uL (140-360)
[2020-03-30 05:51] LABS: ALBUMIN 2.8 g/dL (3.5-5.0); ALBUMIN/GLOBULIN RATIO 0.8 (0.8-2.0); ANION GAP 14.6 mmol/L (8-16); CALCIUM 8.1 mg/dL (8.4-10.2); CREATININE, SERUM 1.74 mg/dL (0.72-1.25); POTASSIUM 4.6 mmol/L (3.5-5.1)
--- NOTE | 2020-03-30 06:15 | Diagnostic Imaging Report ---
EXAM: CHEST SINGLE (PORTABLE) INDICATION: Postoperative. COMPARISON: Chest radiograph 03/29/2020. FINDINGS: Endotracheal tube tip is obscured by overlying enteric tube. Enteric tube courses into the stomach, the tip is not seen. Interval decrease in lung volumes. Slightly increased left perihilar and bilateral lower lung zone opacities. Increased small right pleural effusion. No pneumothorax. The cardiomediastinal silhouette is mildly enlarged. Atherosclerotic calcifications of the aortic arch. No acute osseous abnormality is identified. IMPRESSION: Low lung volumes with increasing bilateral opacities, which may represent atelectasis, pulmonary edema, or pneumonia in the appropriate clinical setting. Increasing small right pleural effusion. Signed by: Dr. Nicanor Kovacs MD on 03/30/2020 6:12 AM
[2020-03-30] MEDS: INSULIN REGULAR, HUMAN 100 UNIT/1 ML 3ML VIAL SQ SCH ×4 (07:28→21:14)
[2020-03-30 08:59] LABS: HYPOCHROMASIA SLIGHT; MICROCYTOSIS MODERATE
[2020-03-30] MEDS: MIDAZOLAM HCL 5MG/ML 10ML VIAL 100 ML IV PRN ×3 (08:59→21:15)
[2020-03-30 09:00] LABS: PLATELET ESTIMATE ADEQUATE; PLATELET MORPHOLOGY COMMENT NORMAL
[2020-03-30 09:07] LABS: ABG PCO2 61 mmHg (35-45); ABG PH 7.29 (7.35-7.45); ABG PO2 46 mmHg (80-105)
[2020-03-30 09:08] LABS: ABG HCO3 30 mmol/L (22-26)
--- NOTE | 2020-03-30 09:12 | Progress Note ---
DATE: 03/30/2020 SUBJECTIVE: The patient is currently on a mechanical ventilator. He is still on a PRVC at a rate of 24 with tidal volume of 500. His PEEP is set at 14 and his FiO2 is set at 100%. He has increased total body edema. He has no fevers. PHYSICAL EXAMINATION: VITAL SIGNS: Blood pressure is 131/67, saturation is now 90%. Pulse is 89. HEENT: Shows no facial swelling or erythema. He has an oral endotracheal tube. He has a nasogastric feeding tube. LYMPHATIC: Shows no submandibular, cervical, or supraclavicular adenopathy. CARDIAC: Reveals regular rate and rhythm with normal S1 and S2. LUNGS: Auscultation of lungs reveals crackles at the bases. There is no wheezing. ABDOMEN: Soft, nontender. There is no rebound or guarding. EXTREMITIES: Shows 2+ edema, worse in the legs. NEUROLOGIC: He also has some abdominal distention. He has a bandage over his recent surgical site. LABORATORY DATA: White blood cell count is 13.2 and hemoglobin is 12.1. The platelet count is 203. BUN to creatinine ratio is 39 to 1.74. Other electrolytes are within normal limits and the albumin is 2.8. RADIOGRAPHIC DATA: Chest x-ray shows bilateral infiltrates and small pleural effusions. IMPRESSION: 1. Wqhuc-gt-finnzoj respiratory failure. 2. Acute kidney injury. 3. Aspiration pneumonia. 4. Severe obstructive sleep apnea. 5. Chronic obstructive pulmonary disease. 6. Diabetes. 7. Hypertension. 8. Fluid overload. PLAN: 1. Continue current ventilator settings and repeat ABG. 2. Begin diuretics and hold fluids. 3. Nephrology consultation. 4. Adjust medication dosing to reflect poor GFR. 5. Continue enteral feedings. 6. Continue antibiotics. 7. Case is difficult with a poor prognosis. Case discussed with nursing staff, Respiratory, Nephrology, Cardiology, and General Surgery. Greater than 35 minutes in direct critical care time apart from any procedures performed. Isidoro Hernandez MD [facility]/MODL /[id number]
--- NOTE | 2020-03-30 09:28 | Consultation ---
DATE OF CONSULTATION: 03/30/2020 CONSULTING PHYSICIAN: Isidoro Hernandez MD REASON FOR CONSULTATION: Acute kidney injury. HISTORY OF PRESENT ILLNESS: A 70-year-old male with a history of COPD, obstructive sleep apnea, who was admitted on 03/28/2020 for incarcerated ventral hernia. The patient underwent surgery without complications. However, postoperatively he became hypoxic and somnolent, requiring intubation and mechanical ventilation, was moved to the intensive care unit as PUI. The patient was started on Lasix for volume overload. His kidney function worsened and Nephrology consultation was called. The patient is currently on the ventilator and unable to give any further history. REVIEW OF SYSTEMS: As above, otherwise unable to obtain. PAST MEDICAL HISTORY: 1. Obstructive sleep apnea. 2. COPD. 3. Hypertension. 4. Diabetes. 5. Obesity. PAST SURGICAL HISTORY: 1. Knee surgery. 2. Umbilical hernia repair as above. SOCIAL HISTORY: No alcohol, former smoker per medical record. FAMILY HISTORY: Noncontributory. ALLERGIES: NO KNOWN DRUG ALLERGIES. CURRENT MEDICATIONS: See list. Furosemide 40 mg IV q.12, normal saline, vancomycin q.12 , Zosyn q.6 3.375. PHYSICAL EXAMINATION: VITAL SIGNS: Blood pressure 131/63, pulse 87, respiratory rate 24, temperature 100. GENERAL: Obese, no apparent distress. HEENT: Intubated. No scleral icterus. No peripheral edema. NECK: Supple. Unable to assess jugular venous pressure due to body habitus. CHEST: Rhonchi anteriorly bilaterally. CARDIOVASCULAR: Regular rate and rhythm. No murmurs or rubs. ABDOMEN: Soft. Hypoactive bowel sounds. EXTREMITIES: 1+ pitting edema. No clubbing or cyanosis. SKIN: Warm. LABORATORY DATA: White count 13.2, hemoglobin 12.1, hematocrit 45, platelets 203. Sodium 144, potassium 4.6, chloride 106, CO2 28, BUN 39, creatinine 1.74, creatinine on 03/29 was 1.18, albumin 2.8. Chest x-ray; bilateral opacities. Blood cultures negative. ASSESSMENT AND PLAN: 1. Acute kidney injury secondary to cardiorenal syndrome versus acute tubular necrosis. We will check urine studies. Continue with Lasix. Agree with discontinuing IV fluids. We will need to dose antibiotics accordingly and avoid all nephrotoxic medications. Infectious Disease is following. 2. Volume overload. Continue Lasix as above. Discontinue IV fluids. 3. Electrolytes acceptable followed daily while on Lasix. 4. Respiratory failure, on 100% FiO2. COVID-19 test is negative. 5. Diabetes per primary team. Discussed the above with Dr. Hernandez. MD KATE Lewis/MODL /[id number]
[2020-03-30] MEDS: FUROSEMIDE INJ 10 MG/ML 4 ML VIAL IV SCH ×2 (09:30→21:17)
[2020-03-30] MEDS: HEPARIN SOD (PORCINE) 5,000 UNIT/ML VIAL SC SCH ×2 (09:31→21:16)
[2020-03-30 14:36] LABS: BILIRUBIN,URINE NEGATIVE (NEGATIVE); CLARITY,URINE HAZY (CLEAR); COLOR,URINE YELLOW (YELLOW); KETONES,URINE NEGATIVE (NEGATIVE); LEUKOCYTE ESTERASE ,URINE NEGATIVE (NEGATIVE); NITRITE,URINE NEGATIVE (NEGATIVE); PROTEIN,URINE DIPSTICK 1+ (NEGATIVE); URINE UROBILINOGEN 0.2 mg/dL (0.2 - 1)
[2020-03-30 14:54] LABS: RBC,URINE 0-5 /HPF (0-5)
[2020-03-30 14:55] LABS: AMORPHOUS SEDIMENT,URINE MODERATE (FEW); BACTERIA,URINE MODERATE /HPF; CALCIUM OXALATE CRYSTALS,UR MODERATE (FEW); HYALINE CASTS 0-1 (0-1)
[2020-03-30 15:10] LABS: CREATININE,URINE RANDOM 101.93 mg/dL (63-166); SODIUM,URINE 33 mmol/L
--- NOTE | 2020-03-30 18:40 | Progress Note ---
DATE: 03/30/2020 SUBJECTIVE: Mr. Sommers remains intubated and sedated. He remains on vancomycin and Zosyn. LABORATORY DATA: White count 13.4 and hemoglobin 6.5. His sodium 140, potassium 4.6, and creatinine 1.74. PHYSICAL EXAMINATION: GENERAL: Intubated and sedated. VITAL SIGNS: Stable, afebrile. HEENT: He is not icteric. NECK: Supple. CHEST: Few crackles bilateral. COR: S1 and S2. ABDOMEN: Soft. IMPRESSION AND PLAN: Respiratory failure, aspiration pneumonia, obesity, history of sleep apnea, acute on chronic kidney disease, diabetes mellitus with neuropathy, and hypertension. Continue IV antibiotic as ordered. Supportive care for anemia. We would recommend blood transfusion. Discussed with medical team. We will follow. MD JOSE C Turcios/ZOYA /[id number]
[2020-03-30] MEDS: VANCOMYCIN HCL 1.25 GM in SODIUM CHLORIDE 0.9% 250ML 250 ML IV SCH (21:17)
[2020-03-30] MEDS ORDERED: HEPARIN 25,000 UNIT 1,500 UNIT in DEXTROSE 5% 250ML 250 ML IV SCH (21:30)
[2020-03-30] MEDS: HEPARIN 25,000 UNIT 1,500 UNIT in DEXTROSE 5% 250ML 250 ML IV SCH (22:35)
[2020-03-30 22:55] LABS: ABG PH 7.36 (7.35-7.45)
[2020-03-30 22:56] LABS: ABG HCO3 31 mmol/L (22-26); ABG PCO2 54 mmHg (35-45); ABG PO2 82 mmHg (80-105); ABG TCO2 32
[2020-03-31] VITALS (25 sets, daily range): BP systolic 103–126; BP diastolic 52–77
[2020-03-31] MEDS: SODIUM CHLORIDE 0.9% 250ML IRRIG IR SCH ×2 (00:13→04:29)
[2020-03-31] MEDS: PANTOPRAZOLE 40 MG 10ML VIAL IV SCH ×2 (00:13→23:10)
[2020-03-31 03:29] LABS: BASOPHILS % 0.1 % (0.0-1.0); HEMATOCRIT 45.1 % (38.2-49.6); HEMOGLOBIN 11.9 g/dL (14.0-18.0); LYMPHOCYTES # (AUTO) 0.9 (1.0-3.2); LYMPHOCYTES % 5.7 % (18.0-39.1); MEAN CORPUSCULAR HEMOGLOBIN 18.5 pg (28-32); MEAN CORPUSCULAR HGB CONC 26.4 g/dL (31-35); MEAN CORPUSCULAR VOLUME 70.1 fL (81-99); MONOCYTES # (AUTO) 1.4 (0.2-0.8); MONOCYTES % 9.2 % (4.4-11.3); NEUTROPHILS # (AUTO) 12.7 (2.1-6.9); NEUTROPHILS % 84.3 % (38.7-80.0); PLATELET COUNT 196 x10e3/uL (140-360); RED BLOOD COUNT 6.43 x10e6/uL (4.3-5.7); RED CELL DISTRIBUTION WIDTH 21.5 % (11.7-14.4)
[2020-03-31 03:51] LABS: ALBUMIN 2.8 g/dL (3.5-5.0); ALBUMIN/GLOBULIN RATIO 0.7 (0.8-2.0); ANION GAP 14.6 mmol/L (8-16); CALCIUM 8.5 mg/dL (8.4-10.2); CREATININE, SERUM 1.85 mg/dL (0.72-1.25); POTASSIUM 4.6 mmol/L (3.5-5.1)
[2020-03-31] MEDS: FENTANYL 2000MCG/NS 250 250 ML IV SCH ×3 (06:14→20:33)
[2020-03-31] MEDS: MIDAZOLAM HCL 5MG/ML 10ML VIAL 100 ML IV PRN ×3 (06:15→20:33)
--- NOTE | 2020-03-31 06:36 | Diagnostic Imaging Report ---
EXAM: CHEST SINGLE (PORTABLE) INDICATION: Postoperative evaluation. COMPARISON: Chest radiograph 03/30/2020. FINDINGS: Enteric tube is present, with distal portion not visualized below the level of the mid to lower hemithorax. An additional linear density projected on the neck and upper chest unclear if represents an endotracheal tube. Bilateral pulmonary venous congestion with redistribution. Bilateral pleural effusions, right greater than left. No pneumothorax. The cardiomediastinal silhouette is moderately enlarged. Enlargement bilateral pulmonary arteries. Atherosclerotic calcifications of the aortic arch. No acute osseous abnormality is identified. IMPRESSION: No significant interval change in bilateral pleural effusions, and bilateral lower lobe atelectasis versus consolidation. Bilateral pulmonary venous congestion with volume overload. Signed by: Dr. Mary Maradiaga M.D. on 03/31/2020 6:33 AM
[2020-03-31] MEDS: INSULIN REGULAR, HUMAN 100 UNIT/1 ML 3ML VIAL SQ SCH ×4 (08:00→20:31)
[2020-03-31] MEDS: PIPER-TAZ 3.375 GM 50 ML IV SCH ×2 (09:30→20:31)
[2020-03-31] MEDS: FUROSEMIDE INJ 10 MG/ML 4 ML VIAL IV SCH (09:30)
--- NOTE | 2020-03-31 10:48 | NUR ---
PTT 86.0. heparin decreased to 1600u/hr per protocol. PTT to be drawn in 6 hrs.
[2020-03-31] MEDS: HEPARIN 25,000 UNIT 1,500 UNIT in DEXTROSE 5% 250ML 250 ML IV SCH (13:53)
[2020-03-31] MEDS ORDERED: FUROSEMIDE INJ 10 MG/ML 4 ML VIAL IV NR (17:00)
--- NOTE | 2020-03-31 17:15 | Progress Note ---
DATE: 03/31/2020 SUBJECTIVE: The patient is having some oozing from the femoral line site. His heparin is being held. He remains on a PRVC and mode of ventilation rate 24. His FiO2 is set at 80% and his PEEP is set at 12. PHYSICAL EXAMINATION: VITAL SIGNS: The patient is afebrile. The blood pressure is 110/72. HEENT: Shows no facial swelling or erythema. There is an oral endotracheal tube. CARDIAC: Reveals regular rate and rhythm with normal S1, S2. LUNGS: Auscultation of lungs shows decreased breath sounds at the bases. There is no wheezing. ABDOMEN: Soft, nontender. There is no rebound or guarding. EXTREMITIES: Shows no leg edema or calf tenderness. There is no cyanosis or clubbing. SKIN: Shows no rashes. NEUROLOGICAL: Shows no focal abnormalities. The patient is sedated. LABORATORY DATA: White blood cell count is 15.1, hemoglobin is 11.9. The platelet count is 196. The BUN to creatinine ratio is 49 to 1.85. Other electrolytes are within normal limits. The blood sugar is 168. RADIOGRAPHIC DATA: Chest x-ray shows bilateral infiltrates and bilateral lower lobe atelectasis. IMPRESSION: 1. Qsssk-ce-qdyucwj respiratory failure. 2. Aspiration pneumonia. 3. Acute kidney injury. 4. Severe obstructive sleep apnea. 5. Chronic obstructive pulmonary disease. 6. Diabetes. 7. Hypertension. PLAN: 1. Continue current ventilator settings and repeat ABG. 2. Hold heparin for now. 3. Continue enteral feedings. 4. Continue antibiotics. 5. Diuretics. Greater than 35 minutes in direct critical care time apart from any procedures performed. Isidoro Hernandez MD [facility]/MODL /[id number]
--- NOTE | 2020-03-31 18:20 | Progress Note ---
DATE: 03/31/2020 SUBJECTIVE: Mr. Sommers remains in intensive care unit, intubated. PHYSICAL EXAMINATION: VITAL SIGNS: Stable and afebrile. HEENT: He is not icteric. NECK: Supple. CHEST: Crackles bilateral. HEART: S1, S2. ABDOMEN: Soft. LABORATORY DATA: Blood culture showed coag-negative staph and alpha-hemolytic strep. His white count is up to 15.11. Hemoglobin 11. Sodium 144, potassium 4.6, creatinine 1.85. IMPRESSION: Respiratory failure, aspiration pneumonia, sepsis. Continue with Zosyn. Continue with vancomycin. Follow vancomycin trough. Recheck CBC. Recheck chem panel. status post surgery. We will follow. MD JOSE C Turcios/ZOYA /[id number]
[2020-03-31] MEDS: VANCOMYCIN HCL 1.25 GM in SODIUM CHLORIDE 0.9% 250ML 250 ML IV SCH (20:31)
[2020-03-31 21:09] LABS: ABG HCO3 33 mmol/L (22-26); ABG PCO2 60 mmHg (35-45); ABG PH 7.34 (7.35-7.45); ABG PO2 93 mmHg (80-105)
[2020-03-31 21:10] LABS: ABG TCO2 35
[2020-04-01] VITALS (54 sets, daily range): BP systolic 93–127; BP diastolic 56–92
[2020-04-01] MEDS: FENTANYL 2000MCG/NS 250 250 ML IV SCH ×3 (02:40→19:00)
[2020-04-01] MEDS: MIDAZOLAM HCL 5MG/ML 10ML VIAL 100 ML IV PRN ×2 (02:41→12:03)
[2020-04-01 03:50] LABS: BASOPHILS % 0.3 % (0.0-1.0); EOSINOPHILS # (AUTO) 0.1 (0.0-0.4); EOSINOPHILS % 0.6 % (0.0-6.0); HEMATOCRIT 42.8 % (38.2-49.6); HEMOGLOBIN 11.4 g/dL (14.0-18.0); LYMPHOCYTES % 8.8 % (18.0-39.1); MEAN CORPUSCULAR HEMOGLOBIN 18.5 pg (28-32); MEAN CORPUSCULAR HGB CONC 26.6 g/dL (31-35); MEAN CORPUSCULAR VOLUME 69.6 fL (81-99); MONOCYTES # (AUTO) 1.2 (0.2-0.8); MONOCYTES % 11.3 % (4.4-11.3); NEUTROPHILS # (AUTO) 8.5 (2.1-6.9); NEUTROPHILS % 78.6 % (38.7-80.0); PLATELET COUNT 185 x10e3/uL (140-360); RED BLOOD COUNT 6.15 x10e6/uL (4.3-5.7); RED CELL DISTRIBUTION WIDTH 21.5 % (11.7-14.4)
[2020-04-01 04:03] LABS: ALBUMIN 2.6 g/dL (3.5-5.0); ALBUMIN/GLOBULIN RATIO 0.7 (0.8-2.0); ANION GAP 13.1 mmol/L (8-16); CALCIUM 8.4 mg/dL (8.4-10.2); CREATININE, SERUM 1.76 mg/dL (0.72-1.25); POTASSIUM 4.1 mmol/L (3.5-5.1)
--- NOTE | 2020-04-01 06:56 | Diagnostic Imaging Report ---
EXAM: CHEST SINGLE (PORTABLE) INDICATION: Respiratory distress. COMPARISON: Chest radiograph 03/31/2020. FINDINGS: Enteric tube is present, with distal portion not visualized below the level of the mid to lower hemithorax. An additional linear density projected on the neck and upper chest unclear if represents an endotracheal tube. Redemonstration of bilateral pulmonary venous congestion with redistribution. Bilateral pleural effusions, right greater than left. No pneumothorax. The cardiomediastinal silhouette is moderately enlarged. Enlargement bilateral pulmonary arteries. Atherosclerotic calcifications of the aortic arch. No acute osseous abnormality is identified. IMPRESSION: No interval change in bilateral pleural effusions, and bilateral lower lobe atelectasis versus consolidation. Bilateral pulmonary venous congestion with volume overload. Superimposed infection not excluded. Signed by: Dr. Mary Maradiaga M.D. on 04/01/2020 6:52 AM
[2020-04-01] MEDS ORDERED: AMIODARONE HCL 900 MG in DEXTROSE 5% 500ML 500 ML IV SCH (07:00)
[2020-04-01] MEDS ORDERED: AMIODARONE HCL 150 MG/100 ML BAG IV ONE (07:00)
--- NOTE | 2020-04-01 07:22 | NUR ---
upon arrival to unit this am, patient in a-fib RVR at 152. amiodarone bolus and drip ordered by Dr Hernandez to shift superintendent nurse. bolus 150mg given and maintenance drip started at 1mg/min. HR fluctuating between 130 and 140 at this time. will continue to monitor status. BP remains stable at 127/76.
--- NOTE | 2020-04-01 08:01 | NUR ---
wound care completed by night nurse at am shift change
[2020-04-01] MEDS: PIPER-TAZ 3.375 GM 50 ML IV SCH ×2 (08:37→21:47)
[2020-04-01] MEDS ORDERED: DILTIAZEM HCL 5 MG/ML 5 ML VIAL IV ONE ×2 (09:00→09:42)
[2020-04-01] MEDS: INSULIN REGULAR, HUMAN 100 UNIT/1 ML 3ML VIAL SQ SCH ×4 (09:29→21:00)
--- NOTE | 2020-04-01 09:53 | NUR ---
Nutrition Intervention Note RD Recommendation(s) for Physician: -To better meet his estimated needs, rec changing to Glucerna 1.5 @70ml/hr, providing 2520kcal, 139g protein, 1275ml water -Check for GI tolerance, labs, daily weight Plan of Care: RD following, monitoring for tolerance and adequacy, TF recommendation Nutrition reason for involvement: New tube feeding RD Assessment: 70 yo M, who was admitted for incarcerated umbilical hernia s/p repair. His hospital course was complicated with acute respiratory failure, currently intubated and ventilated. Spoke with RN, TF is infusing at goal rate and tolerating well. Will continue to follow. Principal Problems/Diagnoses: 1. Tjqdg-zx-njrprmc respiratory failure. 2. Aspiration pneumonia. 3. Severe chronic obstructive pulmonary disease. 4. Severe obstructive sleep apnea. PMH: 1. Obstructive sleep apnea. 2. COPD. 3. Hypertension. 4. Diabetes. 5. Obesity. I/O: +2673ml/ -2450ml GI: soft, non-tender, large, round, + flatus, LBM 03/28 Skin: intact Labs: (04/01) BUN 55 H, Creatinine 1.76 H, POC glucose 132 - 333 Meds: insulin, amiodaron, fentanyl, protonix, vancomycin Ht: 71in Wt: 293lb BMI: 29.9kg/m2 IBW: 172lb +/- 10% Malnutrition Evaluation (04/01/2020) Unable to evaluate at this time. Fat loss: unable to evaluate Muscle loss: unable to evaluate Supporting Evidence: Fluid accumulation: unable to evaluate Functional Status: unable to evaluate Nutrition Prescription (Diet Order): Glucerna 1.2 @50ml/hr, providing 1440kcal, 72g protein, 966ml water Estimated Nutritional Needs: Calories: 2394 2660kcal(18-20kcal/kg) Weight used: CBW Protein: 173 266g (1.3-2g/kg) Weight used: CBW Diet Adequacy: Not meeting protein and calorie needs Tolerance: Tolerating well Diet Education Needs Assessment: Diet education indicated, but patient not appropriate for education at this time. Nutrition Care Level: Moderate Nutrition Diagnosis: Swallowing difficulty related to aspiration PNA as evidenced by pt requiring EN as main source or nutrition. Goal: Patient will meet 75-100% of estimated needs by follow up Progress: Progressing Interventions: Composition, Rate, Route Monitoring/Evaluation: Total energy intake, Total protein intake, Formula/Solution, Weight change Signed: Etta Ahuja MS, RD, LD
[2020-04-01] MEDS: DILTIAZEM HCL 125 ML IV SCH (10:33)
--- NOTE | 2020-04-01 15:00 | NUR ---
paged Dr Modi to notify of positive blood cultures. no return call received. Dr Hernandez notified of positive blood cultures. right IJ TLC placed by Dr Hernandez and placement confirmed by xray. left groin TLC removed and dressing placed.
--- NOTE | 2020-04-01 15:26 | Diagnostic Imaging Report ---
EXAMINATION: CHEST SINGLE (PORTABLE) INDICATION: right IJ insertion COMPARISON: Multiple prior chest x-ray examinations most recent dated 03/29/2020. FINDINGS: AP view TUBES and LINES: There is new NG tube in place with distal tip beyond the confines of this exam. There is a new right IJ central venous catheter with distal tip in SVC.There is an endotracheal tube in place with distal tip 5 cm above the level of chandu.. LUNGS/PLEURA: Lungs are well inflated. There are bilateral patchy opacities, unchanged . Bilateral pleural effusions have improved. HEART AND MEDIASTINUM: The cardiomediastinal silhouette is unremarkable. BONES AND SOFT TISSUES: No acute osseous lesion. Soft tissues are unremarkable. UPPER ABDOMEN: No free air under the diaphragm. IMPRESSION: Unchanged bilateral patchy opacities could be due to edema or multifocal pneumonia. Improved bilateral pleural effusions. Signed by: Ezekiel Tee MD on 04/01/2020 3:22 PM
--- NOTE | 2020-04-01 17:08 | Progress Note ---
DATE: 04/01/2020 SUBJECTIVE: The patient is still on a mechanical ventilator. He is on a PRVC at a rate of 26 with a tidal volume of 500 and FiO2 of 80%. His PEEP is set at 14. He is on Versed and fentanyl for sedation. PHYSICAL EXAMINATION: VITAL SIGNS: The blood pressure is 100/75 and the pulse is now 130. He has irregularly regular rhythm. He is on Cardizem as well as amiodarone. He has an oral endotracheal tube. There is a right IJ line. The site looks clean. There is no drainage. CARDIAC: Irregularly irregular rhythm with normal S1, S2. LUNGS: Auscultation of lungs reveals crackles at the bases. There is no wheezing. ABDOMEN: Soft, nontender. There is no rebound or guarding. EXTREMITIES: 1 to 2+ leg edema. LABORATORY DATA: BUN to creatinine ratio is 55 and 1.76 and a glucose is 181. Other electrolytes are within normal limits. The total bilirubin is 1.3, and the albumin is 2.6. White blood cell count is 10.8 and hemoglobin is 11.4. The platelet count is 185,000. RADIOGRAPHIC DATA: Chest x-ray shows bilateral pleural effusions and lower lobe atelectasis. IMPRESSION: 1. Acute on chronic respiratory failure. 2. Acute on chronic diastolic heart failure. 3. Atrial fibrillation with rapid ventricular response. 4. Acute kidney injury. 5. Severe obstructive sleep apnea. 6. Severe chronic obstructive pulmonary disease. 7. Diabetes. 8. Hypertension. PLAN: 1. The patient has been started on Lasix by Nephrology. 2. Continue current ventilator settings and repeat ABG. 3. Continue Cardizem and amiodarone. 4. Continue current antibiotics. 5. Restart heparin. 6. Continue to monitor and control blood sugar. Case discussed with Respiratory, nursing, sister, Nephrology, and Cardiology. Greater than 35 minutes in direct critical care time apart from any procedures performed. Isidoro Hernandez MD [facility]/MODL /[id number]
[2020-04-01] MEDS: FUROSEMIDE INJ 10 MG/ML 4 ML VIAL IV SCH (17:18)
--- NOTE | 2020-04-01 18:31 | NUR ---
cardizem drip decreased to 2mg/hr for HR in the 60's.
[2020-04-01] MEDS: ACETAMINOPHEN 325 MG/10 ML UDC NG PRN (18:55)
--- NOTE | 2020-04-01 19:24 | Operative Report ---
DATE OF PROCEDURE: 04/01/2020 SURGEON: Isidoro Hernandez MD PROCEDURE: Central line placement under ultrasound guidance. PREOPERATIVE DIAGNOSIS: Acute renal failure. POSTOPERATIVE DIAGNOSIS: Acute renal failure. CONSENT: Consent was obtained from the sister. MEDICATIONS: Lidocaine 1% for local anesthesia. DESCRIPTION OF PROCEDURE: The right neck was prepped sterilely with Betadine. A full length sterile drape, sterile gown, mask, and sterile gloves were used. An ultrasound machine was used to locate the right internal jugular vein. The vein was cannulated under direct visualization with a 16-gauge needle. A wire was then passed through the needle. The skin was dilated with a dilator. A triple-lumen catheter was then placed over the wire by the Seldinger technique. All the ports flushed. COMPLICATIONS: None. ESTIMATED BLOOD LOSS: None. Isidoro Hernandez MD [facility]/MODL /[id number]
[2020-04-01 19:42] LABS: ABG HCO3 32 mmol/L (22-26); ABG PCO2 54 mmHg (35-45); ABG PH 7.39 (7.35-7.45); ABG PO2 70 mmHg (80-105); ABG TCO2 34
[2020-04-01] MEDS: VANCOMYCIN HCL 1.25 GM in SODIUM CHLORIDE 0.9% 250ML 250 ML IV SCH (21:47)
[2020-04-02] VITALS (24 sets, daily range): BP systolic 99–116; BP diastolic 51–67
[2020-04-02] MEDS: PANTOPRAZOLE 40 MG 10ML VIAL IV SCH (02:19)
[2020-04-02] MEDS: FENTANYL 2000MCG/NS 250 250 ML IV SCH ×4 (02:44→23:06)
[2020-04-02] MEDS: ACETAMINOPHEN 325 MG/10 ML UDC NG PRN (03:32)
[2020-04-02 05:00] LABS: BASOPHILS % 0.4 % (0.0-1.0); EOSINOPHILS # (AUTO) 0.2 (0.0-0.4); EOSINOPHILS % 1.7 % (0.0-6.0); HEMATOCRIT 38.6 % (38.2-49.6); HEMOGLOBIN 10.2 g/dL (14.0-18.0); LYMPHOCYTES % 9.8 % (18.0-39.1); MEAN CORPUSCULAR HEMOGLOBIN 18.4 pg (28-32); MEAN CORPUSCULAR HGB CONC 26.4 g/dL (31-35); MEAN CORPUSCULAR VOLUME 69.8 fL (81-99); MONOCYTES % 9.3 % (4.4-11.3); NEUTROPHILS # (AUTO) 8.1 (2.1-6.9); NEUTROPHILS % 78.4 % (38.7-80.0); PLATELET COUNT 160 x10e3/uL (140-360); RED BLOOD COUNT 5.53 x10e6/uL (4.3-5.7); RED CELL DISTRIBUTION WIDTH 21.2 % (11.7-14.4)
[2020-04-02] MEDS: MIDAZOLAM HCL 5MG/ML 10ML VIAL 100 ML IV PRN ×3 (05:15→19:52)
[2020-04-02 06:08] LABS: ALBUMIN 2.3 g/dL (3.5-5.0); ALBUMIN/GLOBULIN RATIO 0.6 (0.8-2.0); ANION GAP 13.1 mmol/L (8-16); CALCIUM 7.9 mg/dL (8.4-10.2); CREATININE, SERUM 2.12 mg/dL (0.72-1.25); POTASSIUM 4.1 mmol/L (3.5-5.1)
--- NOTE | 2020-04-02 06:17 | Diagnostic Imaging Report ---
EXAMINATION: CHEST SINGLE (PORTABLE) INDICATION: ^Resp Failure ^[id number] ^[id number] COMPARISON: Multiple prior chest x-ray examinations most recent dated 04/01/2020. FINDINGS: AP view TUBES and LINES: Enteric tube extends below the diaphragm, with distal tip not well-visualized not included. Right IJ central venous catheter with distal tip projected on SVC.There is an endotracheal tube in place with distal tip 5.5 cm above the level of chandu.. LUNGS/PLEURA: Redemonstration of bilateral perihilar patchy opacities, unchanged . Bilateral small pleural effusions. No pneumothorax. HEART AND MEDIASTINUM: Cardiac size is mildly enlarged. BONES AND SOFT TISSUES: No acute osseous lesion. UPPER ABDOMEN: No free air under the diaphragm. IMPRESSION: No significant interval change in bilateral pulmonary edema. Signed by: Dr. Mary Maradiaga M.D. on 04/02/2020 6:13 AM
[2020-04-02 07:24] LABS: ANISOCYTOSIS MODERATE; HYPOCHROMASIA SLIGHT
[2020-04-02 07:26] LABS: ELLIPTOCYTE, RBC SLIGHT; MICROCYTOSIS SLIGHT; PLATELET ESTIMATE ADEQUATE; PLATELET MORPHOLOGY COMMENT NORMAL; RBC MORPHOLOGY COMMENT ABNORMAL
[2020-04-02] MEDS: INSULIN REGULAR, HUMAN 100 UNIT/1 ML 3ML VIAL SQ SCH ×4 (08:04→21:49)
[2020-04-02] MEDS: AMIODARONE HCL 900 MG in DEXTROSE 5% 500ML 500 ML IV SCH (09:16)
[2020-04-02] MEDS: PIPER-TAZ 3.375 GM 50 ML IV SCH ×2 (09:34→23:07)
[2020-04-02] MEDS: FUROSEMIDE INJ 10 MG/ML 4 ML VIAL IV SCH (09:34)
[2020-04-02] MEDS: DILTIAZEM HCL 125 ML IV SCH (09:45)
--- NOTE | 2020-04-02 12:43 | Progress Note ---
DATE: 04/01/2020 SUBJECTIVE: remains in intensive care unit, intubated, sedated. LABORATORY DATA: Reviewed. Chart reviewed. PHYSICAL EXAMINATION: GENERAL: Intubated. VITAL SIGNS: Stable, afebrile. HEENT: Not icteric. NECK: Supple. CHEST: Few crackles bilaterally. HEART: S1, S2. ABDOMEN: Soft, obese. EXTREMITIES: No edema. IMPRESSION: 1. Respiratory failure, aspiration pneumonia, obesity. 2. Bacteremia. Continue with antibiotic as ordered. Plan of seven days of vancomycin and Zosyn. Obtain vancomycin trough. To wean as tolerated. Discussed with Critical Care. MD JOSE C Turcios/ZOYA /[id number]
[2020-04-02] MEDS ORDERED: ALBUMIN 25% 25GM 100ML 0.25 GM/ML BTL IV SCH (14:00)
--- NOTE | 2020-04-02 14:08 | Progress Note ---
DATE: 04/02/2020 Pulmonary Critical Care Progress Note SUBJECTIVE: The patient received some Lasix yesterday, but still positive. He is more edematous. His creatinine is increased to 2.12. He remains on mechanical ventilator. He is on a PRVC at a rate of 26 with a tidal volume of 500. His FiO2 is set at 80%. His PEEP is set at 10. PHYSICAL EXAMINATION: VITAL SIGNS: Blood pressure is 105/55 and pulse is 73. The saturation is 95%. HEENT: Shows no facial swelling or erythema. He has a right IJ line in place. The site looks clean. He has an oral endotracheal tube. CARDIAC: Reveals regular rate and rhythm with normal S1 and S2. LUNGS: Auscultation of lungs reveals rhonchorous breath sounds bilaterally and there is no wheezing. ABDOMEN: Soft and nontender. There is no rebound or guarding. EXTREMITIES: Shows 2 to 3+ edema in all four extremities. LABORATORY DATA: BUN to creatinine ratio is 28 to 2.12. Electrolytes are within normal limits. The blood sugars 150 to 200 and the albumin is 2.3. White blood cell count is 10.3 and hemoglobin is 10.2. The platelet count is 162. RADIOGRAPHIC DATA: Chest x-ray shows bilateral infiltrates and small pleural effusions. IMPRESSION: 1. Acute respiratory failure superimposed on chronic respiratory failure. 2. Acute renal failure. 3. Acute on chronic diastolic heart failure. 4. Atrial fibrillation. 5. Severe obstructive sleep apnea. 6. Severe chronic obstructive pulmonary disease. 7. Diabetes. PLAN: 1. The patient will be started on Lasix drip along with albumin. 2. Continue current ventilator settings and repeat ABG. 3. Continue Cardizem and amiodarone. 4. Continue current antibiotics. 5. Continue to monitor and control blood sugar. 6. Case discussed with Respiratory, nursing, General Surgery, Nephrology, and Infectious Disease. Greater than 35 minutes in direct critical care time apart from any procedures performed. Isidoro Hernandez MD [facility]/MODL /[id number]
[2020-04-02 14:42] LABS: ABG HCO3 33 mmol/L (22-26); ABG PCO2 60 mmHg (35-45); ABG PH 7.35 (7.35-7.45); ABG PO2 77 mmHg (80-105); ABG TCO2 35
[2020-04-02] MEDS: ALBUMIN 25% 12.5GM 50ML 100 ML IV SCH ×2 (15:21→23:07)
[2020-04-02] MEDS: FUROSEMIDE INJ 100 MG in SODIUM CHLORIDE 0.9% 100 ML 90 ML IV SCH (15:45)
--- NOTE | 2020-04-02 17:24 | Progress Note ---
DATE: 04/02/2020 SUBJECTIVE: Mr. Sommers remains in intensive care unit, intubated, sedated. OBJECTIVE: VITAL SIGNS: Stable, afebrile. HEENT: Normocephalic, not icteric. NECK: Supple. CHEST: Clear bilaterally. HEART: S1, S2. No murmurs. ABDOMEN: Soft, obese, nontender. Bowel sounds present. EXTREMITIES: No edema. SKIN: No rash. IMPRESSION: 1. Respiratory failure. 2. Underlying chronic obstructive pulmonary disease. 3. History of congestive heart failure. 4. History of obesity. 5. History of atrial fibrillation. 6. History of acute kidney injury. 7. Chronic kidney disease. 8. Severe obstructive sleep apnea. 9. Diabetes mellitus. 10. Hypertension. He is currently on Zosyn, stable. He is also on vancomycin. Cultures; sputum was negative. We will finish 7 days of antibiotic and then continue supportive care as ordered. MD JOSE C Turcios/ZOYA /[id number]
[2020-04-02] MEDS ORDERED: SODIUM CHLORIDE 0.9% 250ML 250 ML ONE (19:36)
[2020-04-02] MEDS: VANCOMYCIN HCL 1.25 GM in SODIUM CHLORIDE 0.9% 250ML 250 ML IV SCH (19:49)
[2020-04-03] VITALS (25 sets, daily range): BP systolic 100–117; BP diastolic 49–62
[2020-04-03] MEDS: ALBUMIN 25% 12.5GM 50ML 100 ML IV SCH (00:05)
[2020-04-03] MEDS: FUROSEMIDE INJ 100 MG in SODIUM CHLORIDE 0.9% 100 ML 90 ML IV SCH ×3 (00:11→21:20)
[2020-04-03] MEDS ORDERED: FUROSEMIDE INJ 10 MG/ML 10 ML VIAL ONE (00:14)
[2020-04-03] MEDS: ACETAMINOPHEN 325 MG/10 ML UDC NG PRN (00:21)
[2020-04-03] MEDS: PANTOPRAZOLE 40 MG 10ML VIAL IV SCH (03:18)
[2020-04-03] MEDS: MIDAZOLAM HCL 5MG/ML 10ML VIAL 100 ML IV PRN ×3 (03:21→18:00)
[2020-04-03 05:11] LABS: BASOPHILS % 0.3 % (0.0-1.0); EOSINOPHILS # (AUTO) 0.4 (0.0-0.4); HEMATOCRIT 38.1 % (38.2-49.6); HEMOGLOBIN 10.1 g/dL (14.0-18.0); LYMPHOCYTES # (AUTO) 0.9 (1.0-3.2); LYMPHOCYTES % 8.5 % (18.0-39.1); MEAN CORPUSCULAR HEMOGLOBIN 18.7 pg (28-32); MEAN CORPUSCULAR HGB CONC 26.5 g/dL (31-35); MEAN CORPUSCULAR VOLUME 70.7 fL (81-99); MONOCYTES # (AUTO) 0.8 (0.2-0.8); MONOCYTES % 7.1 % (4.4-11.3); NEUTROPHILS # (AUTO) 8.8 (2.1-6.9); NEUTROPHILS % 79.6 % (38.7-80.0); PLATELET COUNT 154 x10e3/uL (140-360); RED BLOOD COUNT 5.39 x10e6/uL (4.3-5.7); RED CELL DISTRIBUTION WIDTH 21.5 % (11.7-14.4)
[2020-04-03 05:32] LABS: ALBUMIN 2.7 g/dL (3.5-5.0); ALBUMIN/GLOBULIN RATIO 0.7 (0.8-2.0); ANION GAP 13.9 mmol/L (8-16); CALCIUM 8.3 mg/dL (8.4-10.2); CREATININE, SERUM 2.27 mg/dL (0.72-1.25); POTASSIUM 3.9 mmol/L (3.5-5.1)
[2020-04-03] MEDS: FENTANYL 2000MCG/NS 250 250 ML IV SCH ×3 (06:17→21:20)
[2020-04-03] MEDS: INSULIN REGULAR, HUMAN 100 UNIT/1 ML 3ML VIAL SQ SCH ×4 (08:32→23:27)
--- NOTE | 2020-04-03 08:33 | Diagnostic Imaging Report ---
Examination: Single AP view of the chest. COMPARISON: 04/02/2020 INDICATION: Respiratory failure DISCUSSION: Endotracheal tube, enteric tube, and right internal jugular central venous catheter are stable in position. Lungs remain well-inflated with perihilar predominant interstitial and alveolar opacities, small bilateral pleural effusions, and left retrocardiac opacity, likely atelectasis. Stable enlargement of the cardiomediastinal silhouette. No acute osseous abnormalities. IMPRESSION: Stable position of support lines and tubes. Cardiomegaly with interstitial and alveolar pulmonary edema, small bilateral pleural effusions, and retrocardiac atelectasis, not significantly changed relative to 04/02/2020. Signed by: Dr. Ranjit Dodd M.D. on 04/03/2020 8:30 AM
[2020-04-03] MEDS: PIPER-TAZ 3.375 GM 50 ML IV SCH ×2 (09:49→23:26)
[2020-04-03 13:50] LABS: ABG HCO3 35 mmol/L (22-26); ABG PCO2 54 mmHg (35-45); ABG PH 7.41 (7.35-7.45); ABG PO2 70 mmHg (80-105); ABG TCO2 36
--- NOTE | 2020-04-03 13:59 | Progress Note ---
DATE: 04/03/2020 SUBJECTIVE: The patient has been on a Lasix drip overnight. He is negative over a liter. He continues on amiodarone. He remains on a PRVC mode of ventilation at a rate of 26 with tidal volume of 500. His PEEP is set at 8. His FiO2 is set at 80%. PHYSICAL EXAMINATION: VITAL SIGNS: The blood pressure is 113/55 and the pulse ox is 94. HEENT: No facial swelling or erythema. The oropharynx is normal. There is an endotracheal tube in good position. There is a right IJ line. The site looks clean. There is no drainage. CARDIAC: Regular rate and rhythm with normal S1, S2. LUNGS: Auscultation of lungs reveals rhonchorous breath sounds bilaterally. There is no wheezing. ABDOMEN: Soft, nontender. There is no rebound or guarding. EXTREMITIES: No leg edema or calf tenderness. There is no cyanosis or clubbing. SKIN: No rashes. NEUROLOGICAL: No focal abnormalities. LABORATORY DATA: White blood cell count is 11 and hemoglobin is 10.1. The platelet count is 154. The BUN to creatinine ratio is 70 to 2.27 and the other electrolytes are within normal limits. Albumin is 2.7 and the sodium is 149. RADIOGRAPHIC DATA: Chest x-ray shows bilateral infiltrates and small pleural effusions. IMPRESSION: 1. Acute respiratory failure, superimposed on chronic respiratory failure. 2. Acute renal failure. 3. Acute on chronic diastolic heart failure. 4. Severe obstructive sleep apnea. 5. Atrial fibrillation. 6. Chronic obstructive pulmonary disease. 7. Diabetes. PLAN: 1. Continue Lasix drip. 2. Continue current ventilator settings and repeat ABG. 3. Continue amiodarone. 4. Complete antibiotics. 5. Solu-Medrol twice daily, four doses. Case discussed with Respiratory, nursing, Cardiology, and Infectious Disease. Greater than 35 minutes in direct critical care time apart from any procedures performed. Isidoro Hernandez MD [facility]/MODL /[id number]
[2020-04-03] MEDS: AMIODARONE HCL 900 MG in DEXTROSE 5% 500ML 500 ML IV SCH (18:40)
[2020-04-03] MEDS ORDERED: AMIODARONE 900MG 500 ML IV ONE (18:41)
--- NOTE | 2020-04-03 20:10 | Progress Note ---
DATE: 04/03/2020 SUBJECTIVE: Mr. Sommers remains in intensive care unit, intubated, sedated. PHYSICAL EXAMINATION: GENERAL: Currently, he is intubated. VITAL SIGNS: Stable, afebrile. HEENT: Not icteric. NECK: Supple. CHEST: Clear. HEART: S1 and S2. No murmurs. ABDOMEN: Soft and obese. EXTREMITIES: No edema. IMPRESSION: 1. Respiratory failure. 2. Acute kidney injury. 3. Obesity. 4. Congestive heart failure. 5. Siajd-ll-jahhext sleep apnea. 6. Diabetes mellitus. We will discontinue antibiotic tomorrow to finish his course of antibiotic. Continue supportive care. Continue as ordered. He is currently on Zosyn. Discussed with the medical team. MD JOSE C Turcios/ZOYA /[id number]
[2020-04-03] MEDS: VANCOMYCIN HCL 1.25 GM in SODIUM CHLORIDE 0.9% 250ML 250 ML IV SCH (21:19)
[2020-04-03] MEDS: METHYLPREDNISOLONE SOD SUCC 125 MG/2ML VIAL IV SCH (21:21)
[2020-04-03] MEDS ORDERED: SODIUM CHLORIDE 0.9% 250ML 250 ML ONE (23:09)
--- NOTE | 2020-04-03 23:28 | NUR ---
Respiratory alerted me to the creamy/light brown color of secretions coming from patient that resembles tube feeds. Pt's tube feeds were immediately stopped. When auscultated, position of the NG tube is unclear. No gurgling is heard. Pt remains saturating at 96-98% while ventilated. CXR in the AM. Will hold tube feeds until placement is again confirmed with imaging.
[2020-04-04] VITALS (25 sets, daily range): BP systolic 99–153; BP diastolic 50–91
[2020-04-04] MEDS: MIDAZOLAM HCL 5MG/ML 10ML VIAL 100 ML IV PRN ×4 (00:43→21:30)
[2020-04-04] MEDS: PANTOPRAZOLE 40 MG 10ML VIAL IV SCH (03:58)
[2020-04-04] MEDS: FENTANYL 2000MCG/NS 250 250 ML IV SCH ×3 (04:17→18:55)
[2020-04-04 04:46] LABS: BASOPHILS % 0.3 % (0.0-1.0); EOSINOPHILS # (AUTO) 0.4 (0.0-0.4); EOSINOPHILS % 3.2 % (0.0-6.0); HEMATOCRIT 39.9 % (38.2-49.6); HEMOGLOBIN 10.6 g/dL (14.0-18.0); LYMPHOCYTES # (AUTO) 0.9 (1.0-3.2); LYMPHOCYTES % 6.6 % (18.0-39.1); MEAN CORPUSCULAR HEMOGLOBIN 18.7 pg (28-32); MEAN CORPUSCULAR HGB CONC 26.6 g/dL (31-35); MEAN CORPUSCULAR VOLUME 70.5 fL (81-99); MONOCYTES # (AUTO) 0.8 (0.2-0.8); MONOCYTES % 5.8 % (4.4-11.3); NEUTROPHILS # (AUTO) 11.4 (2.1-6.9); NEUTROPHILS % 83.7 % (38.7-80.0); PLATELET COUNT 165 x10e3/uL (140-360); RED BLOOD COUNT 5.66 x10e6/uL (4.3-5.7); RED CELL DISTRIBUTION WIDTH 21.8 % (11.7-14.4)
[2020-04-04 05:01] LABS: ALBUMIN 2.4 g/dL (3.5-5.0); ALBUMIN/GLOBULIN RATIO 0.6 (0.8-2.0); ANION GAP 15.7 mmol/L (8-16); CALCIUM 8.5 mg/dL (8.4-10.2); CREATININE, SERUM 2.21 mg/dL (0.72-1.25); POTASSIUM 3.7 mmol/L (3.5-5.1)
[2020-04-04] MEDS: FUROSEMIDE INJ 100 MG in SODIUM CHLORIDE 0.9% 100 ML 90 ML IV SCH ×2 (06:30→10:30)
--- NOTE | 2020-04-04 06:40 | NUR ---
Respiratory made aware of pt's trended desaturation within the past hour. Pt has been repositioned and suctioned with scant secretions. Audible cuff leak. Respiratory on unit. Pt currently saturating between 90-91% from 95-97% all shift. Pt remains at 80%FiO2/Peep14/TV500/RR 23.
--- NOTE | 2020-04-04 08:28 | Diagnostic Imaging Report ---
EXAM: CHEST SINGLE (PORTABLE) DATE: 04/04/2020 6:00 AM INDICATION: Respiratory failure COMPARISON: 04/03/2020 FINDINGS/IMPRESSION: Endotracheal tube and right IJ central venous catheter identified in stable position. Enteric tube noted coursing below the diaphragm. Increased interstitial opacities again noted bilaterally. More prominent patchy opacities are noted within the right lower lung zone on today's examination which may reflect atelectasis versus a developing airspace process. There is no evidence for pneumothorax or significant volume pleural effusion. The cardiomediastinal silhouette is stable in appearance. No acute osseous abnormalities identified. Signed by: Dr. Erasto Prasad MD on 04/04/2020 8:25 AM
[2020-04-04] MEDS: AMIODARONE HCL 900 MG in DEXTROSE 5% 500ML 500 ML IV SCH (08:30)
[2020-04-04] MEDS: INSULIN REGULAR, HUMAN 100 UNIT/1 ML 3ML VIAL SQ SCH ×3 (08:31→17:51)
[2020-04-04] MEDS: METHYLPREDNISOLONE SOD SUCC 125 MG/2ML VIAL IV SCH ×2 (09:08→21:46)
[2020-04-04] MEDS: PIPER-TAZ 3.375 GM 50 ML IV SCH ×2 (09:08→23:58)
[2020-04-04 10:11] LABS: ABG PH 7.37 (7.35-7.45)
[2020-04-04 10:12] LABS: ABG HCO3 35 mmol/L (22-26); ABG PCO2 61 mmHg (35-45); ABG PO2 62 mmHg (80-105); ABG TCO2 37
--- NOTE | 2020-04-04 14:19 | Progress Note ---
DATE: 04/04/2020 SUBJECTIVE: The patient is afebrile. T-max was 99.8. He continues to have some diuresis with the Lasix. He is currently on a mechanical ventilator. PHYSICAL EXAMINATION: VITAL SIGNS: The blood pressure is 122/82 and saturation is 92%. HEENT: Shows no facial swelling or erythema. CARDIAC: Reveals a regular rate and rhythm with normal S1 and S2. LUNGS: Auscultation of lungs reveals crackles at the bases. There is no wheezing. ABDOMEN: Soft and nontender. There is a dressing in place. EXTREMITIES: There is no leg edema. LABORATORY DATA: White blood cell count is 13.6 and the hemoglobin is 10.6. The platelet count is 164. The BUN to creatinine ratio is 72 to 2.21 and the sodium is 153. Albumin is 2.4. RADIOGRAPHIC DATA: Chest x-ray shows endotracheal tube and right IJ line in good position. There are bilateral infiltrates. IMPRESSION: 1. Acute respiratory failure, superimposed on chronic respiratory failure. 2. Acute renal failure. 3. Ikquh-fz-mdpvosc diastolic heart failure. 4. Severe obstructive sleep apnea. 5. Atrial fibrillation. 6. Chronic obstructive pulmonary disease. 7. Diabetes. PLAN: 1. Continue Lasix drip and monitor creatinine. 2. Increase free water with enteral feedings. 3. Begin Solu-Medrol. 4. Complete antibiotics. 5. Continue amiodarone. Isidoro Hernandez MD [facility]/MODL /[id number]
--- NOTE | 2020-04-04 15:13 | NUR ---
Nutrition Intervention Note RD Recommendation(s) for Physician: - Recommend modifying formula to Vital AF 1.2 @ goal rate of 65 mL/hr (provides 1872 kcal, 117 g protein) - Fluid management per MD Plan of Care: RD following, monitoring for tolerance and adequacy, TF recommendation Nutrition reason for involvement: follow up RD Assessment: (04/04) Follow up. Pt remains intubated. Spoke to RN who reported tube feeding is currently at 50 mL/hr. Recommendations provided. Will continue to monitor. (04/01) 70 yo M, who was admitted for incarcerated umbilical hernia s/p repair. His hospital course was complicated with acute respiratory failure, currently intubated and ventilated. Spoke with RN, TF is infusing at goal rate and tolerating well. Will continue to follow. Principal Problems/Diagnoses: 1. Kbuxm-bn-xymowky respiratory failure. 2. Aspiration pneumonia. 3. Severe chronic obstructive pulmonary disease. 4. Severe obstructive sleep apnea. PMH: 1. Obstructive sleep apnea. 2. COPD. 3. Hypertension. 4. Diabetes. 5. Obesity. I/O: 1100/4200 GI: firm, round abdomen, LBM 03/28 Skin: no pressure ulcers noted Labs: (04/04) Na 153, BUN 72, Cr 2.21, Glu 154, Ca 8.5, total bili 1.3 (04/01) BUN 55 H, Creatinine 1.76 H, POC glucose 132 - 333 Meds: fentanyl, furosemide, methylprednisolone, antibiotic, insulin, protonix, vancomycin, amiodarone, zofran Ht: 71 in (ht from April 2018) no current ht in chart Wt: 293lb BMI: 40.9 kg/m2 IBW: 172lb Malnutrition Evaluation (04/01/2020) Unable to evaluate at this time. Fat loss: unable to evaluate Muscle loss: unable to evaluate Supporting Evidence: Fluid accumulation: unable to evaluate Functional Status: unable to evaluate Nutrition Prescription (Diet Order): Glucerna 1.2 @50ml/hr, providing 1440kcal, 72g protein, 966ml water Estimated Nutritional Needs: Calories: 9973-3603 kcal (22-25 kcal/kg) Weight used: IBW Protein: 117-156 g (1.5-2 g/kg) Weight used: IBW Diet Adequacy: Not meeting protein and not meeting calorie needs Tolerance: Tolerating TF Diet Education Needs Assessment: Diet education is not indicated, pt is intubated Nutrition Care Level: Moderate Nutrition Diagnosis: Inadequate oral intake related to respiratory failure/mechanical ventilation as evidenced by pt requiring enteral nutrition. Goal: Patient will meet 75-100% of estimated needs by follow up Progress: Progressing Interventions: -Composition, Rate, Route, Recommended modifications Monitoring/Evaluation: -Total energy intake, Total protein intake, Formula/Solution, Weight change Signed: Henrietta Durand RD, LD
--- NOTE | 2020-04-04 18:10 | NUR ---
he patient is afebrile. T-max was 99.8. He continues to have some diuresis with the Lasix. He is currently on a mechanical ventilator. PHYSICAL EXAMINATION: VITAL SIGNS: The blood pressure is 122/82 and saturation is 92%. HEENT: Shows no facial swelling or erythema. CARDIAC: Reveals a regular rate and rhythm with normal S1 and S2. LUNGS: Auscultation of lungs reveals crackles at the bases. There is no wheezing. ABDOMEN: Soft and nontender. There is a dressing in place. EXTREMITIES: There is no leg edema. LABORATORY DATA: White blood cell count is 13.6 and the hemoglobin is 10.6. The platelet count is 164. The BUN to creatinine ratio is 72 to 2.21 and the sodium is 153. Albumin is 2.4. RADIOGRAPHIC DATA: Chest x-ray shows endotracheal tube and right IJ line in good position. There are bilateral infiltrates. [id number]
[2020-04-04] MEDS ORDERED: HEPARIN 25,000 UNIT 1,400 UNIT in DEXTROSE 5% 250ML 250 ML IV SCH (18:15)
[2020-04-04] MEDS: AMIODARONE HCL 360MG 200 ML IV SCH (18:30)
[2020-04-04 19:29] LABS: INR 1.18; PARTIAL THROMBOPLASTIN TIME 33.3 seconds (23.8-35.5); PROTHROMBIN TIME 15.7 seconds (11.9-14.5)
--- NOTE | 2020-04-04 20:05 | Progress Note ---
DATE: 04/04/2020 SUBJECTIVE: Mr. Sommers is on ventilator, intubated, discussed with medical team. OBJECTIVE: VITAL SIGNS: Afebrile. HEENT: Normocephalic. CHEST: Few crackles. HEART: S1, S2. ABDOMEN: Soft, obese. EXTREMITIES: No edema. IMPRESSION: Respiratory failure, pneumonia, aspiration, acute renal failure, congestive heart failure, atrial fibrillation, status post surgery as mentioned above. We will continue with diabetic control. Can discontinue Zosyn. We will discuss with Pulmonary. We will follow, doing the steroid as tolerated. Alfredo Modi MD [facility]/MODL /[id number]
[2020-04-04] MEDS: HEPARIN 25,000 UNIT 1,500 UNIT in DEXTROSE 5% 250ML 250 ML IV SCH (20:30)
[2020-04-04] MEDS ORDERED: FUROSEMIDE INJ 10 MG/ML 4 ML VIAL IV SCH (21:00)
[2020-04-04] MEDS: VANCOMYCIN HCL 1.25 GM in SODIUM CHLORIDE 0.9% 250ML 250 ML IV SCH (21:28)
[2020-04-05] VITALS (25 sets, daily range): BP systolic 100–125; BP diastolic 54–99
[2020-04-05] MEDS: INSULIN REGULAR, HUMAN 100 UNIT/1 ML 3ML VIAL SQ SCH ×4 (00:27→18:42)
[2020-04-05] MEDS: FENTANYL 2000MCG/NS 250 250 ML IV SCH ×3 (01:55→18:47)
--- NOTE | 2020-04-05 01:55 | NUR ---
as resource nurse pulled bag of fentanyl for Kacailinln RN to administer to pt, watched bag be hung for pt.
--- NOTE | 2020-04-05 02:00 | NUR ---
Dr. Hernandez notified of persistent cuff leak and aware of low tidal volumes. RT at bedside. MD to bedside and exchanged ETT with RT, foam charger, and bedside RN present. ETT 8.0, 25 @ lip.
[2020-04-05] MEDS: PANTOPRAZOLE 40 MG 10ML VIAL IV SCH (02:30)
[2020-04-05] MEDS: AMIODARONE HCL 360MG 200 ML IV SCH (03:00)
--- NOTE | 2020-04-05 03:00 | NUR ---
PTT drawn at 0230 resulted 47.6 Heparin gtt increased to 1600 un/hr per protocol. Will continue to monitor. Ordered entered for PTT in 6 hours per protocol.
--- NOTE | 2020-04-05 03:02 | Operative Report ---
DATE OF PROCEDURE: 04/05/2020 SURGEON: Isidoro Hernandez MD PROCEDURE: Endotracheal tube exchange over a bougie and endotracheal intubation. PREOPERATIVE DIAGNOSES: Respiratory failure, pneumonia, chronic obstructive pulmonary disease, and atrial fibrillation. POSTOPERATIVE DIAGNOSES: Respiratory failure, pneumonia, chronic obstructive pulmonary disease, and atrial fibrillation. CONSENT: Consent was deemed emergent based on the respiratory instability. MEDICATIONS: The patient was on a Versed and fentanyl drip at the time of the procedure. DESCRIPTION OF PROCEDURE: The patient was being bagged by the respiratory therapist through an endotracheal tube. Apparently, the balloon was deflated and was not holding air. The patient's head was extended. A bougie was placed through the endotracheal tube into the trachea. The older tracheal tube was then removed and a new 8.0 endotracheal tube was placed over the bougie by the Seldinger technique. There was good CO2 return. There were equal breath sounds bilaterally. The patient then required Ambu bag to increase the saturations up to the low 90s. COMPLICATIONS: None. ESTIMATED BLOOD LOSS: None. Isidoro Hernandez MD [facility]/MODL /[id number]
[2020-04-05] MEDS: MIDAZOLAM HCL 5MG/ML 10ML VIAL 100 ML IV PRN ×4 (03:20→23:20)
--- NOTE | 2020-04-05 05:11 | Diagnostic Imaging Report ---
EXAMINATION: CHEST SINGLE (PORTABLE) INDICATION: Respiratory failure COMPARISON: Chest x-ray 03/26/2020 FINDINGS: TUBES and LINES: Right IJ CVC, tip at the right brachiocephalic/superior vena cava junction. ET tube tip 8.5 cm above chandu. Enteric tube courses into abdomen, tip out of field of view. LUNGS: Normal lung volumes. Increased right upper lung airspace disease with persistent bilateral mid/lower lung airspace disease Prominent central pulmonary vasculature. PLEURA: No pleural effusion or pneumothorax. HEART AND MEDIASTINUM: The cardiomediastinal silhouette is unremarkable. Aortic calcifications. BONES, SOFT TISSUES, and UPPER ABDOMEN: Unchanged IMPRESSION: Increased right upper lung airspace disease with persistent bilateral mid/lower lung airspace disease, pneumonia. Support apparatus unchanged. ET tube tip remains higher than ideal, consider 3 cm advancement. Signed by: Terrell Walker DO on 04/05/2020 5:07 AM
[2020-04-05 05:21] LABS: BASOPHILS % 0.1 % (0.0-1.0); HEMATOCRIT 42.8 % (38.2-49.6); LYMPHOCYTES # (AUTO) 0.4 (1.0-3.2); LYMPHOCYTES % 3.5 % (18.0-39.1); MEAN CORPUSCULAR HEMOGLOBIN 18.6 pg (28-32); MEAN CORPUSCULAR HGB CONC 25.7 g/dL (31-35); MEAN CORPUSCULAR VOLUME 72.3 fL (81-99); MONOCYTES # (AUTO) 0.4 (0.2-0.8); MONOCYTES % 3.4 % (4.4-11.3); NEUTROPHILS # (AUTO) 10.7 (2.1-6.9); NEUTROPHILS % 92.6 % (38.7-80.0); PLATELET COUNT 198 x10e3/uL (140-360); RED BLOOD COUNT 5.92 x10e6/uL (4.3-5.7); RED CELL DISTRIBUTION WIDTH 22.4 % (11.7-14.4)
[2020-04-05 05:45] LABS: ALBUMIN 2.4 g/dL (3.5-5.0); ALBUMIN/GLOBULIN RATIO 0.5 (0.8-2.0); ANION GAP 17.1 mmol/L (8-16); CALCIUM 8.7 mg/dL (8.4-10.2); CREATININE, SERUM 2.36 mg/dL (0.72-1.25); POTASSIUM 4.1 mmol/L (3.5-5.1)
[2020-04-05 08:15] LABS: LYMPHOCYTES % (MANUAL) 2 % (19-48); MONOCYTES % (MANUAL) 3 % (3.4-9.0); NEUTROPHILS % (MANUAL) 95 % (40-74)
[2020-04-05 08:16] LABS: ANISOCYTOSIS MODERATE; HYPOCHROMASIA SLIGHT; PLATELET ESTIMATE ADEQUATE; RBC MORPHOLOGY COMMENT ABNORMAL
[2020-04-05 08:18] LABS: MICROCYTOSIS SLIGHT; OVALOCYTES FEW
[2020-04-05 08:19] LABS: ELLIPTOCYTE, RBC SLIGHT; PLATELET MORPHOLOGY COMMENT FEW LARGE; POLYCHROMASIA FEW
[2020-04-05 09:34] LABS: ABG HCO3 36 mmol/L (22-26); ABG PCO2 69 mmHg (35-45); ABG PH 7.22 (7.35-7.45); ABG PO2 109 mmHg (80-105)
[2020-04-05 09:35] LABS: ABG TCO2 38
[2020-04-05] MEDS: HYDROCHLOROTHIAZIDE 25 MG TAB NG SCH (10:03)
[2020-04-05] MEDS: PIPER-TAZ 3.375 GM 50 ML IV SCH (10:03)
[2020-04-05] MEDS ORDERED: SODIUM CHLORIDE 0.9% 250ML 250 ML ONE (10:07)
[2020-04-05] MEDS: METHYLPREDNISOLONE SOD SUCC 125 MG/2ML VIAL IV SCH (10:30)
[2020-04-05] MEDS: HEPARIN 25,000 UNIT 1,500 UNIT in DEXTROSE 5% 250ML 250 ML IV SCH (12:24)
[2020-04-05] MEDS ORDERED: FUROSEMIDE INJ 10 MG/ML 4 ML VIAL IV NR (14:45)
--- NOTE | 2020-04-05 15:19 | Progress Note ---
DATE: 04/05/2020 SUBJECTIVE: The patient continues on mechanical ventilation. He is on a PRVC at a rate of 24 with a tidal volume of 500. His FiO2 is set at 100%. His PEEP is set at 13. He is still receiving intravenous Lasix. PHYSICAL EXAMINATION: VITAL SIGNS: The blood pressure is 109/57, saturation is 95%. The pulse is 60. HEENT: No facial swelling or erythema. The oropharynx is normal. An endotracheal tube is placed. There is a right IJ line. The site looks clean. There is no drainage. CARDIAC: Regular rate and rhythm with normal S1, S2. LUNGS: Auscultation of lungs reveals crackles at the bases. There is no wheezing. ABDOMEN: Soft, nontender. There is no rebound or guarding. EXTREMITIES: 1 to 2+ edema. LABORATORY DATA: BUN to creatinine ratio is 88-2.36 and the sodium is 153. The blood sugars 200-260. Albumin is 2.4. White blood cell count is 11.5, hemoglobin is 11. The platelet count is 198,000. ABG is 7.32, 69, 109, and 10. IMPRESSION: 1. Acute respiratory failure. 2. Acute on chronic diastolic heart failure. 3. Severe obstructive sleep apnea. 4. Chronic obstructive pulmonary disease. 5. Acute renal failure. 6. Diabetes. PLAN: 1. Continue enteral feedings and free water. 2. Continue current ventilator settings and monitor ABG. 3. Complete antibiotics. 4. Continue amiodarone and current cardiac regimen. 5. Repeat coronavirus disease test. 6. The patient will probably require tracheostomy. 7. Prognosis is poor. Case discussed with nursing, Respiratory, General Surgery, Cardiology, and Infectious Disease. Greater than 35 minutes in direct critical care time. Isidoro Hernandez MD LM/MODL /[id number]
[2020-04-05] MEDS: AMIODARONE HCL 200 MG TAB PO SCH (17:05)
[2020-04-05] MEDS: CEFEPIME 1GM/NS 0.9% 50 ML 50 ML IV SCH (18:14)
--- NOTE | 2020-04-05 19:52 | NUR ---
left upper/thigh area pink, warm and firm to touch. dr. calvert assessed area and ordered antibiotics. also wound care consults placed. open shearing appearance to bilateral buttocks, and upper mid left back. possible bilateral ear areas dti's
[2020-04-05] MEDS: VANCOMYCIN HCL 1.25 GM in SODIUM CHLORIDE 0.9% 250ML 250 ML IV SCH (21:01)
[2020-04-06] VITALS (25 sets, daily range): BP systolic 94–122; BP diastolic 50–89
[2020-04-06] MEDS: INSULIN REGULAR, HUMAN 100 UNIT/1 ML 3ML VIAL SQ SCH ×5 (00:13→23:58)
[2020-04-06] MEDS: PANTOPRAZOLE 40 MG 10ML VIAL IV SCH (00:53)
[2020-04-06] MEDS: FENTANYL 2000MCG/NS 250 250 ML IV SCH ×4 (00:54→23:15)
[2020-04-06] MEDS: HEPARIN 25,000 UNIT 1,500 UNIT in DEXTROSE 5% 250ML 250 ML IV SCH (02:46)
[2020-04-06] MEDS ORDERED: HEPARIN 25,000 UNIT DRIP IV ONE ×2 (02:51→17:40)
[2020-04-06 05:23] LABS: BASOPHILS % 0.1 % (0.0-1.0); HEMOGLOBIN 10.4 g/dL (14.0-18.0); LYMPHOCYTES # (AUTO) 0.5 (1.0-3.2); LYMPHOCYTES % 5.4 % (18.0-39.1); MEAN CORPUSCULAR HEMOGLOBIN 18.5 pg (28-32); MEAN CORPUSCULAR HGB CONC 25.4 g/dL (31-35); MONOCYTES # (AUTO) 0.6 (0.2-0.8); MONOCYTES % 6.7 % (4.4-11.3); NEUTROPHILS # (AUTO) 8.4 (2.1-6.9); NEUTROPHILS % 87.3 % (38.7-80.0); PLATELET COUNT 212 x10e3/uL (140-360); RED BLOOD COUNT 5.62 x10e6/uL (4.3-5.7); RED CELL DISTRIBUTION WIDTH 22.3 % (11.7-14.4)
[2020-04-06 05:44] LABS: ALBUMIN 2.3 g/dL (3.5-5.0); ALBUMIN/GLOBULIN RATIO 0.6 (0.8-2.0); ANION GAP 15.3 mmol/L (8-16); CALCIUM 8.4 mg/dL (8.4-10.2); CREATININE, SERUM 2.17 mg/dL (0.72-1.25); POTASSIUM 4.3 mmol/L (3.5-5.1)
[2020-04-06] MEDS: MIDAZOLAM HCL 5MG/ML 10ML VIAL 100 ML IV PRN ×4 (06:10→23:14)
[2020-04-06 07:05] LABS: LYMPHOCYTES % (MANUAL) 5 % (19-48); MONOCYTES % (MANUAL) 6 % (3.4-9.0); NEUTROPHILS % (MANUAL) 89 % (40-74)
[2020-04-06 07:06] LABS: ANISOCYTOSIS MODERATE; ELLIPTOCYTE, RBC SLIGHT; HYPOCHROMASIA SLIGHT; OVALOCYTES FEW
[2020-04-06 07:07] LABS: MICROCYTOSIS SLIGHT; PLATELET ESTIMATE ADEQUATE; PLATELET MORPHOLOGY COMMENT FEW LARGE; RBC MORPHOLOGY COMMENT ABNORMAL
[2020-04-06] MEDS: AMIODARONE HCL 200 MG TAB PO SCH ×2 (08:44→18:06)
[2020-04-06] MEDS: HYDROCHLOROTHIAZIDE 25 MG TAB NG SCH (08:44)
--- NOTE | 2020-04-06 08:47 | Diagnostic Imaging Report ---
EXAMINATION: CHEST SINGLE (PORTABLE) INDICATION: Respiratory failure COMPARISON: Chest radiograph 04/04/2020 FINDINGS: LINES/TUBES:Support lines and tubes unchanged. LUNGS:The lungs are moderately inflated. Unchanged bilateral lower lung hazy opacities. PLEURA:No pleural effusion or pneumothorax. MEDIASTINUM:The cardiomediastinal silhouette appears unchanged in size and shape. BONES/SOFT TISSUES:No acute osseous injury. ABDOMEN:No free air under the diaphragm. IMPRESSION: No significant interval change. Signed by: Lb Walden MD on 04/06/2020 8:44 AM
[2020-04-06 11:14] LABS: ABG PH 7.34 (7.35-7.45)
[2020-04-06 11:15] LABS: ABG HCO3 37 mmol/L (22-26); ABG PCO2 70 mmHg (35-45); ABG PO2 200 mmHg (80-105); ABG TCO2 39
--- NOTE | 2020-04-06 14:35 | Progress Note ---
DATE: 04/06/2020 SUBJECTIVE: The patient is still on a mechanical ventilator. He is on a PRVC at a rate of 26 with a tidal volume of 480. His FiO2 is set at 70% and his PEEP is set at 14. He remains on Versed and fentanyl for sedation. PHYSICAL EXAMINATION: VITAL SIGNS: The blood pressure is 102/55 and the heart rate is 64. Ventilator settings are as noted above and the SaO2 is 92% to 93%. HEENT: There is no facial swelling. There is an oral endotracheal tube. There is a right IJ line. The site is clean. There is no drainage. CARDIAC: Reveals regular rate and rhythm with normal S1 and S2. LUNGS: Auscultation of lungs reveals rhonchorous breath sounds bilaterally. There is no wheezing. ABDOMEN: Soft and nontender. There is no rebound or guarding. EXTREMITIES: Shows no leg edema or calf tenderness. There is no cyanosis or clubbing. SKIN: Shows no rashes. NEUROLOGICAL: Shows the patient to be sedated. LABORATORY DATA: Sodium is 153. The BUN to creatinine ratio is 92 to 2.17. The albumin is 2.3. White blood cell count is 9.6, hemoglobin is 10.4, and the platelet count is 212. RADIOGRAPHIC DATA: The patient has bilateral infiltrates. IMPRESSION: 1. Acute respiratory failure. 2. [id number] diastolic heart failure. 3. Chronic obstructive pulmonary disease. 4. Severe obstructive sleep apnea. 5. Acute renal failure. 6. Diabetes. PLAN: 1. Continue to wean ventilator as tolerated and repeat ABG. 2. Continue enteral feedings and free water. 3. Complete antibiotics. 4. Continue amiodarone and current cardiac regimen. 5. Await Repeat COVID-19 testing. 6. Continue enteral feedings. Greater than 35 minutes in direct critical care time apart from any procedures performed. Isidoro Hernandez MD [facility]/MODL /[id number]
--- OUTSIDE RECORDS SUMMARY | 2020-04-06 15:10 | XMS REPORT | Clinical Summary ---
Author Author [facility] Organization [facility] Address Unknown Phone Unavailable Care Team Providers Care Dough Sheeter Name Role Phone PCP Unavailable Allergies Comments Active Allergy Reactions Severity Noted Date No Known Allergies 01/02/2014 Medications End Date Status Medication Sig Dispensed Refills Start Date Active aspirin (ASPIRIN) 81 mg Chew and 100 tablet 1 chewable swallow 1 4 tabletIndications: tablet by Essential hypertension, mouth daily. benign Active Tadalafil (CIALIS) 5 mg Take 1 tablet 20 tablet 2 tabletIndications: by mouth as 5 Erectile dysfunction, needed for unspecified erectile Erectile dysfunction type Dysfunction (Take 1 tablet by mouth as needed for Erectile Dysfunction (take at least 30 minutes prior to anticipated sexual activity as one single dose and not more than once daily.).). Active gabapentin (NEURONTIN) Take 1 270 capsule 1 300 mg capsule by 6 capsuleIndications: mouth 3 times Neuropathy of foot, daily. unspecified laterality, Pain in both feet, Polyneuropathy Active naproxen (NAPROSYN) 375 Take 1 tablet 60 tablet 2 mg tabletIndications: Low by mouth 2 6 back pain without times daily sciatica, unspecified as needed for back pain laterality Pain (take with food). Active Tadalafil (CIALIS) 10 mg Take 1 tablet 10 tablet 1 tabletIndications: by mouth as 6 Erectile dysfunction, needed for unspecified erectile Erectile dysfunction type Dysfunction (take at least 30 minutes prior to anticipated sexual activity as one single dose and not more than once daily.). Active Problems Problem Noted Date Neuropathy of foot 08/01/2015 Abnormal EMG 08/01/2015 Cigarette smoker 07/05/2015 Erectile dysfunction 07/05/2015 S/P colonoscopy in 201307/05/2015 High cholesterol 04/18/2014 Pre-Diabetes 04/18/2014 Immunizations Name Administration Dates Next Due Influenza Vaccine 07/20/2015, 07/07/2014 Pneumoccoccal 04/18/2014 Tdap Tetanus, diphtheria, 01/02/2014 acellular pertussis Vaccine Varicella Vaccine Adult 10/16/2014 in Clinic Family History Medical History Relation Name Comments Diabetes Brother Diabetes Brother Stroke Father Asthma Mother Diabetes Mother Stroke Mother Diabetes Sister Relation Name Status Comments Brother Brother Father Mother natural causes (Age 77) Sister Social History Date Tobacco Use Types Packs/Day Years Used Current Every Day Smoker Cigarettes 1 47 Smokeless Tobacco: Current User Tobacco Cessation: Ready to Quit: No; Co unseling Given: No Drinks/Week oz/Week Comments Alcohol Use 42 Cans of beer 35.0 drinks 12 beers every weeken d Yes Sex Assigned at Date Recorded Not on file Industry Job Start Date Occupation Not on file Not on file Not on file Travel End Travel History Travel Start No recent travel history available. Last Filed Vital Signs Not on file Plan of Treatment Health Maintenance Due Date Last Done Comments Colonoscopy 10yr 04/13/2024 04/13/2014 (Previously completed - External) IMM Pneumococcal Age 67 Completed 04/18/2014 and Up Results Not on fileafter 03/28/2019 Insurance Type Payer Benefit Subscriber ID Effective Phone Address Plan / Dates Group [facility] xxxxxxxxx 2018-P [phone] [address] [place]ICARE [place] [id number] [place] [address] [place] [id number] xxxxxxxxx 2015-P [phone] [address] resent [id number] MEDICARE [place], [place] BENEF[place]AR [id number] Y Advance Directives Date Inactivated Comments Code Status Date Activated 03/16/2015 1:39 PM Full Code 03/14/2015 9:55 PM
--- OUTSIDE RECORDS SUMMARY | 2020-04-06 15:11 | XMS REPORT | Continuity of Care Document ---
Author Author [facility] t Organization [facility] Address [address] [place] [address] Phone Unavailable Care Team Providers Care Groundskeeper Supervisor Name Role Phone MD Lalo VASQUEZ MD PCP Unavailable Dana CHAND Attphys Unavailable NIRU HERNANDEZ Attphys Unavailable TYRELL TORRES Attphys Unavailable Dana CHAND Admphys Unavailable TYRELL TORRES Unavailable Payers Payer Name Policy Type Policy Number Effective Date Expiration Date S [facility] 2017 00:00:00 [facility] NA 2017 00:00 :00 [facility] [id number] 2017 00:00:00 [facility] Problems Condition Name Condition Details Condition Category Status Onset Date Resolution Date Last Treatment Date Treating Clinician Comments Source 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 Active 2015-08-01 00:00:0 0 [facility] Abnormal EMG Abnormal EMG Disease Active 2015-08-01 00:00:00 [facility] Cigarette smoker Cigarette smoker Disease Active 2015-07-05 00:00:00 [facility] Erectile dysfunction Erectile dysfunction Disease Active 00:00:00 [facility] S/P colonoscopy in 2013 S/P colonoscopy in 2013 Disease Active 2015-07-05 00:00:00 [facility] High cholesterol High cholesterol Disease Active 2014-04-18 00:00:00 [facility] Pre-Diabetes Pre-Diabetes Disease Active 2014-04-18 00:00:00 [facility] Acute respiratory failure ARF (acute respiratory failure) Problem Active [facility] Allergies, Adverse Reactions, Alerts Allergy Name Allergy Type Status Severity Reaction(s) Onset Date Inacti ve Date Treating Clinician Comments Source No Known Allergies DA Active U 2019-04-05 00:00:00 [facility] No Known Allergies DA Active U 2014-04-05 00:00:00 [facility] Family History Family Member Diagnosis Comments Start Date Stop Date Source Natural brother Diabetes [facility] Natural father Stroke [facility] Natural mother Asthma [facility] Natural mother Diabetes [facility] Natural mother Stroke [facility] Natural sister Diabetes [facility] Social History Social Habit Start Date Stop Date Quantity Comments Source History of tobacco use Cigarette Smoker [facility] Sex Assigned At [facility] Cigarettes smoked current (pack per day) - Reported 00:00:00 2015-09-28 00:00:00 [facility] Cigarette pack-years 2015-09-28 00:00:00 2015-09-28 00:00:00 [facility] Alcohol intake 2015-09-28 00:00:00 2015-09-28 00:00:00 Current drinker of alcohol (finding) [facility] Alcohol Comment 2014-07-07 00:00:00 2014-07-07 00:00:00 drinks 1 2 beers every weekend [facility] Smoking Status Start Date Stop Date Source Current every day smoker 2015-09-28 00:00:00 [facility] Medications Ordered Medication Name Filled Medication Name Start Date Stop Da te Current Medication? Ordering Clinician Indication Dosage Frequency Signature (SIG) Comments Components Source Prednisone Prednisone 2018-04-30 09:11:00 2019-03-25 00:00:00 No 20 Daily [facility] gabapentin (NEURONTIN) 300 mg capsule 2015-09-28 00:00:00 Yes Polyneuropathy 300mg Take 1 capsule by mouth 3 times daily. [facility] naproxen (NAPROSYN) 375 mg tablet 2015-09-28 00:00:00 Yes Low back pain without sciatica, unspecified back pain laterality 375mg Take 1 tablet by mouth 2 times daily as needed for Pain (take with food). [facility] Tadalafil (CIALIS) 10 mg tablet 2015-09-28 00:00:00 Yes Erectile dysfunction, unspecified erectile dysfunction type 10mg Take 1 tablet by mouth as needed for Erectile Dysfunction (take at least 30 minutes prior to anticipated sexual activity as one single dose and not more than once daily.). [facility] Tadalafil (CIALIS) 5 mg tablet 2015-07-05 00:00:00 Yes Erectile dysfunction, unspecified erectile dysfunction type 5mg Take 1 tablet by mouth as needed for Erectile Dysfunction (Take 1 tablet by mouth as needed for Erectile Dysfunction (take at least 30 minutes prior to anticipated sexual activity as one single dose and not more than once daily.).). [facility] aspirin (ASPIRIN) 81 mg chewable tablet 2014-07-07 00:00:00 Yes Essential hypertension, benign 81mg QD Chew and swallow 1 tablet by [facility] Celecoxib (Celebrex*) 100 Mg CAPSULE Celecoxib (Celebrex*) 100 Mg C APSULE Yes 100 Twice A Day [facility] Gabapentin Gabapentin Yes 100 Twice A Day [facility] Glipizide Glipizide Yes 5 Twice A Day [facility] Losartan Potassium Losartan Potassium Yes 50 Da heather [facility] Metformin Hcl Metformin Hcl Yes 1000 Twice A Day [facility] Naproxen Naproxen Yes 500 Twice A Day [facility] Varenicline Tartrate (Chantix) 1 Mg TABLET Varenicline Tartrate (Chantix) 1 Mg TABLET Yes 1 Twice A Day [facility] Atorvastatin Calcium Atorvastatin Calcium 2019-03-25 00:00:00 No 10 [facility] Losartan Potassium Losartan Potassium 2019-03-25 00:00:00 No 50 Daily [facility] Omeprazole Omeprazole 2019-03-25 00:00:00 No 1 Tracey [address] [facility] Immunizations Ordered Immunization Name Filled Immunization Name Date Status Comments Source Influenza Vaccine 2015-07-20 00:00:00 Completed [facility] Varicella Vaccine Adult in Clinic 2014-10-16 00:00:00 Comp leted [facility] Influenza Vaccine 2014-07-07 00:00:00 Completed [facility] Pneumoccoccal 2014-04-18 00:00:00 Completed [facility] Tdap Tetanus, diphtheria, acellular pertussis Vaccine 2014-01-02 00:00:00 Completed [facility] Procedures This patient has no known procedures. Plan of Care Planned Activity Planned Date Details Comments Source Future Scheduled Test 2024-04-13 00:00:00 Screening for vignesh gnandrew neoplasm of colon (procedure) [code = [id number]] [facility] Encounters Start Date/Time End Date/Time Encounter Type Admission Type Attendi [facility] Care Department Encounter ID Source 2020-01-27 08:56:00 2020-02-05 23:59:00 Discharged Recurring [facility] [id number] [facility] Patients [facility] 2019-11-22 15:25:00 2019-12-06 23:59:00 Discharged Recurring [facility]'s [facility] [id number] [facility] 2019-03-08 10:36:00 2019-04-06 23:59:00 Discharged Recurring [facility] [id number] [facility] 2019-03-25 09:51:00 2019-03-25 09:51:00 Registered Surgical Day Car e NIRU VALLE [facility] [id number] [facility] 2019-02-15 10:06:00 2019-03-06 23:59:00 Discharged Recurring [facility] [id number] [facility] 2019-01-06 10:39:00 2019-02-04 23:59:00 Discharged Recurring [facility] [id number] [facility] 2018-08-25 20:33:00 2018-08-25 20:33:00 Registered Clinic [facility] [id number] [facility] 2018-04-22 13:29:00 2018-04-30 17:08:00 Discharged Inpatient 1 TYRELL TORRES [facility] [id number] [facility] Results Test Description Test Time Test Comments Results Result Comments Source CHEST SINGLE (PORTABLE) 2020-04-05 04:39:00 [facility] [address] [address] Patient Name: TENZIN VELIZ MR #: [id number] : 1950 Age/Sex: 70/M Req #: [id number] Adm Physician: MELISA CHAND MD Ordered by: NEAL HERNANDEZ MD Report #: [id number] Location: ICU Room/Bed: ICU [facility] Procedure: [id number] DX/CHEST SINGLE (PORTABLE) Exam Date: 04/05/20 Exam Time: 224 REPORT STATUS: Signed EXAMINATION: CHEST SINGLE (PORTABLE) INDICATION: Respiratory failure COMPARISON: Chest x-ray 03/26/2020 FINDINGS: TUBES and LINES: Right IJ CVC, tip at the right brachiocephalic/superior vena cava junction. ET tube tip 8.5 cm above chandu. Enteric tube courses into abdomen, tip out of field of view. LUNGS: Normal lung volumes. Increased right upper lung airspace disease with persistent bilateral mid/lower lung airspace disease Prominent central pulmonary vasculature. PLEURA: No pleural effusion or pneumothorax. HEART AND MEDIASTINUM: The cardiomediastinal silhouette is unremarkable. Aortic calcifications. BONES, SOFT TISSUES, and UPPER ABDOMEN: Unchanged IMPRESSION: Increased right upper lung airspace disease with persistent bilateral mid/lower lung airspace disease, pneumonia. Support apparatus unchanged. ET tube tip remains higher than ideal, consider 3 cm advancement. Signed by: Terrell Rabago DO on 04/05/2020 5:07 AM Dictated By: TERRELL RABAGO DO 6 Transcribed By: HAYES on 04/05/20506 COPY TO: NEAL HERNANDEZ MD CHEST SINGLE (PORTABLE) 2020-04-04 08:23:[address] [address] Patient Name: TENZIN VELIZ MR #: [id number] : 1950 Age/Sex: 70/M Req #: [id number] Adm Physician: MELISA CHAND MD Ordered by: NEAL HERNANDEZ MD Report #: [id number] Location: ICU Room/Bed: ICU [facility] Procedure: [id number] DX/CHEST SINGLE (PORTABLE) Exam Date: 04/04/20 Exam Time: 0600 REPORT STATUS: Signed EXAM: CHEST SINGLE (PORTABLE) DATE: 04/04/2020 6:00 AM INDICATION: Respiratory failure COMPARISON: 04/03/2020 FINDINGS/IMPRESSION: Endotracheal tube and right IJ central venous catheter identified in stable position. Enteric tube noted coursing below the diaphragm. Increased interstitial opacities again noted bilaterally. More prominent patchy opacities are noted within the right lower lung zone on today's examination which may reflect atelectasis versus a developing airspace process. There is no evidence for pneumothorax or significant volume pleural effusion. The cardiomediastinal silhouette is stable in appearance. No acute osseous abnormalities identified. Signed by: Dr. Erasto Prasad MD on 04/04/2020 8:25 AM Dictated By: ERASTO PRASAD MD 4 Transcribed By: HAYES on 04/04/20824 COPY TO: NEAL HERNANDEZ MD CHEST SINGLE (PORTABLE) 2020-04-03 08:27:[address] [address] Patient Name: TENZIN VELIZ MR #: [id number] : 1950 Age/Sex: 70/M Req #: [id number] Adm Physician: MELISA CHAND MD Ordered by: NEAL HERNANDEZ MD Report #: [id number] Location: ICU Room/Bed: ICU [facility] Procedure: [id number] DX/CHEST SINGLE (PORTABLE) Exam Date: 04/03/20 Exam Time: 0615 REPORT STATUS: Signed Examination: Single AP view of the chest. COMPARISON: 04/02/2020 INDICATION: Respiratory failure DISCUSSION: Endotracheal tube, enteric tube, and right internal jugular central venous catheter are stable in position. Lungs remain well-inf lated with perihilar predominant interstitial and alveolar opacities, small bilateral pleural effusions, and left retrocardiac opacity, likely atelectasis. Stable enlargement of the cardiomediastinal silhouette. No acute osseous abnormalities. IMPRESSION: Stable position of support lines and tubes. Cardiomegaly with interstitial and alveolar pulmonary edema, small bilateral pleural effusions, and retrocardiac atelectasis, not significantly changed relative to 04/02/2020. Signed by: Dr. Niru Dodd M.D. on 04/03/2020 8:30 AM Dictated By: NIRU DODD MD 9 Transcribed By: HAYES on 04/03/20829 COPY TO: NEAL HERNANDEZ MD CHEST SINGLE (PORTABLE) 2020-04-02 06:10:00 [facility] [address] [address] Patient Name: TENZIN VELIZ MR #: [id number] : 1950 Age/Sex: 70/M Req #: [id number] Adm Physician: MELISA CHAND MD Ordered by: NEAL HERNANDEZ MD Report #: [id number] Location: ICU Room/Bed: ICU [facility] Procedure: [id number] DX/CHEST SINGLE (PORTABLE) Exam Date: 04/02/20 Exam Time: 454 REPORT STATUS: Signed EXAMINATION: CHEST SINGLE (PORTABLE) INDICATION: Resp Failure [id number] COMPARISON: Multiple prior chest x-ray examinations most recent dated 04/01/2020. FINDINGS: AP view TUBES and LINES: Enteric tube extends below the diaphragm, with distal tip not well-visualized not included. Right IJ central venous catheter with distal tip projected on SVC.There is an endotracheal tube in place with distal tip 5.5 cm above the level of chandu.. LUNGS/PLEURA: Redemonstration of bilateral perihilar patchy opacities, unchanged . Bilateral small pleural effusions. No pneumothorax. HEART AND MEDIASTINUM: Cardiac size is mildly enlarged. BONES AND SOFT TISSUES: No acute osseous lesion. UPPER ABDOMEN: No free air under the diaphragm. IMPRESSION: No significant interval change in bilateral pulmonary edema. Signed by: Dr. Mary Lee M.D. on 04/02/2020 6:13 AM Dictated By: HAWA LEE MD, MD 2 Transcribed By: HAYES on 04/02/20612 COPY TO: NEAL HERNANDEZ MD CHEST SINGLE (PORTABLE) 2020-04-01 15:19:00 [facility] [address] [address] Patient Name: TENZIN VELIZ MR #: [id number] : 1950 Age/Sex: 70/M Req #: [id number] Adm Physician: MELISA CHAND MD Ordered by: NEAL HERNANDEZ MD Report #: [id number] Location: ICU Room/Bed: ICU [facility] Procedure: [id number] DX/CHEST SINGLE (PORTABLE) Exam Date: 04/01/20 Exam Time: 1419 REPORT STATUS: Signed EXAMINATION: CHEST SINGLE (PORTABLE) INDICATION: right IJ insertion COMPARISON: Multiple prior chest x-ray examinations most recent dated 03/29/2020. FINDINGS: AP view TUBES and LINES: There is new NG tube in place with distal tip beyond the confines of this exam. There is a new right IJ central venous catheter with distal tip in SVC.There is an endotracheal tube in place with distal tip 5 cm above the level of chandu.. LUNGS/PLEURA: Lungs are well inflated. There are bilateral patchy opacities, unchanged . Bilateral pleural effusions have improved. HEART AND MEDIASTINUM: The cardiomediastinal silhouette is unremarkable. BONES AND SOFT TISSUES: No acute osseous lesion. Soft tissues are unremarkable. UPPER ABDOMEN: No free air under the diaphragm. IMPRESSION: Unchanged bilateral patchy opacities could be due to edema or multifocal pneumonia. Improved bilateral pleural effusions. Signed by: Ezekiel Lackey MD on 04/01/2020 3:22 PM Dictated By: EZEKIEL LACKEY MD 1522 Transcribed By: HAYES on 04/01/20 1522 COPY TO: NEAL HERNANDEZ MD CHEST SINGLE (PORTABLE) 2020-04-01 06:51:[address] [address] Patient Name: TENZIN VELIZ MR #: [id number] : 1950 Age/Sex: 70/M Req #: [id number] Adm Physician: MELISA CHAND MD Ordered by: MELISA CHAND MD Report #: [id number] Location: ICU Room/Bed: ICU [facility] Procedure: [id number] DX/CHEST SINGLE (PORTABLE) Exam Date: Exam Time: REPORT STATUS: Signed EXAM: CHEST SINGLE (PORTABLE) INDICATION: Respiratory distress. COMPARISON: Chest radiograph 03/31/2020. FINDINGS: Enteric tube is present, with distal portion not visualized below the level of the mid to lower hemithorax. An additional linear density projected on the neck and upper chest unclear if represents an endotracheal tube. Redemonstration of bilateral pulmonary venous congestion with redistribution. Bilateral pleural effusions, right greater than left. No pneumothorax. The cardiomediastinal silhouette is moderately enlarged. Enlargement bilateral pulmonary arteries. Atherosclerotic calcifications of the aortic arch. No acute osseous abnormality is identified. IMPRESSION: No interval change in bilateral pleural effusions, and bilateral lower lobe atelectasis versus consolidation. Bilateral pulmonary venous conge stion with volume overload. Superimposed infection not excluded. Signed by: Dr. Mary Lee M.D. on 04/01/2020 6:52 AM Dictated By: HAWA LEE MD, MD 1 Transcribed By: HAYES on 04/01/20651 COPY TO: MELISA CHAND MD CHEST SINGLE (PORTABLE) 2020-03-31 06:30:00 [address] [address] Patient Name: TENZIN VELIZ MR #: [id number] : 1950 Age/Sex: 70/M Req #: [id number] Adm Physician: MELISA CHAND MD Ordered by: MELISA CHAND MD Report #: [id number] Location: ICU Room/Bed: ICU [facility] Procedure: [id number] DX/CHEST SINGLE (PORTABLE) Exam Date: Exam Time: REPORT STATUS: Signed EXAM: CHEST SINGLE (PORTABLE) INDICATION: Postoperative evaluation. COMPARISON: Chest radiograph 03/30/2020. FINDINGS: Enteric tube is present, with distal portion not visualized below the level of the mid to lower hemithorax. An additional linear density projected on the neck and upper chest unclear if represents an endotracheal tube. Bilateral pulmonary venous congestion with redistribution. Bilateral pleural effusions, right greater than left. No pneumothorax. The cardiomediastinal silhouette is moderately enlarged. Enlargement bilateral pulmonary arteries. Atherosclerotic calcifications of the aortic arch. No acute osseous abnormality is identified. IMPRESSION: No significant interval change in bilateral pleural effusions, and bilateral lower lobe atelectasis versus consolidation. Bilateral pulmonary venous congestion with volume overload. Signed by: Dr. Mary Lee M.D. on 03/31/2020 6:33 AM Dictated By: HAWA LEE MD, MD 2 Transcribed By: HAYES on 03/31/20632 COPY TO: MELSIA CHAND MD CHEST SINGLE (PORTABLE) 2020-03-30 06:07:00 [address] [place], [place] [address] Patient Name: TENZIN VELIZ MR #: [id number] : 1950 Age/Sex: 70/M Req #: [id number] Adm Physician: MELISA CHAND MD Ordered by: MELISA CHAND MD Report #: [id number] Location: ICU Room/Bed: ICU [facility] Procedure: [id number] DX/CHEST SINGLE (PORTABLE) Exam Date: 03/30/20 Exam Time: 0410 REPORT STATUS: Signed EXAM: CHEST SINGLE (PORTABLE) INDICATION: Postoperative. COMPARISON: Chest radiograph 03/29/2020. FINDINGS: Endotracheal tube tip is obscured by overlying enteric tube. Enteric tube courses into the stomach, the tip is not seen. Interval decrease in lung volumes. Slightly increased left perihilar and bilateral lower lung zone opacities. Increased small right pleural effusion. No pneumothorax. The cardiomediastinal silhouette is mildly enlarged. Atherosclerotic calcifications of the aortic arch. No acute osseous abnormality is identified. IMPRESSION: Low lung volumes with increasing bilateral opacities, which may represent atelectasis, pulmonary edema, or pneumonia in the appropriate clinical setting. Increasing small right pleural effusion. Signed by: Dr. Fernando Herman MD on 03/30/2020 6:12 AM Dictated By: FERNANDO HERMAN MD 1 Transcribed By: HAYES on 03/30/20611 COPY TO: MELISA CHAND MD CHEST SINGLE (PORTABLE) 2020-03-29 00:25:00 [facility] [address] [place], [place] [id number] Patient Name: TENZIN VELIZ MR #: [id number] : 1950 Age/Sex: 70/M Req #: [id number] Adm Physician: MELISA CHAND MD Ordered by: CARRI SANCHEZ DO Report #: [id number] Location: MED/SURG Room[facility] Procedure: [id number] DX/CHEST SINGLE (PORTABLE) Exam Date: 03/28/20 Exam Time: 9 REPORT STATUS: Signed EXAM: CHEST SINGLE (PORTABLE) INDICATION: Post intubation. COMPARISON: Chest radiograph 03/23/2020. FINDINGS: Interval intubation, the ET tube terminates 7.9 cm above the chandu. Slightly increased left perihilar and bilateral lower lung zone opacities. Possible trace right pleural effusion. No pneumothorax. The cardiomediastinal silhouette is mildly enlarged. No acute osseous abnormality is identified. IMPRESSION: Interval intubation. No pneumothorax. Slight increase in left perihilar and bilateral lower lung zone opacities, which may represent atelectasis, infection, or pulmonary edema in the appropriate clinical setting. Signed by: Dr. Fernando Herman MD on 03/29/2020 12:29 AM Dictated By: FERNANDO HERMAN MD Transcribed By: HAYES on 03/29/2028 COPY TO: CARRI SANCHEZ DO CHEST 2 VIEWS 2020-03-23 13:43:[address] [address] Patient Name: TENZIN VELIZ MR #: [id number] : 1950 Age/Sex: 70/M Req #: [id number] Adm Physician: Ordered by: MELISA CHAND MD Report #: [id number] Location: OR Room/Bed: Procedure: [id number] DX/CHEST 2 VIEWS Exam Date: 03/23/20 Exam Time: 1315 REPORT STATUS: Signed EXAM: CHEST 2 VIEWS DATE: 03/23/2020 1:15 PM INDICATION: Preoperative evaluation COMPARISON: 03/23/2019 FINDINGS: The trachea is midline. There are stable appearing increased opacities present within the lower lung zones bilaterally which may reflect atelectasis/scarring. There is no evidence for large focal consolidation, pneumothorax, or significant pleural effusion. The cardiomediastinal silhouette is stable in appearance. No acute osseous abnormality is identified. IMPRESSION: Stable/chronic appearing changes noted within the lungs likely reflecting bibasilar scarring/atelectasis. No acute cardiopulmonary process or significant interval change identified from 03/23/2019. Signed by: Dr. Erasto Prasad MD on 03/23/2020 1:45 PM Dictated By: ERASTO PRASAD MD 1345 Transcribed By: HAYES on 03/23/20 1345 COPY TO: MELISA CHAND MD - CT CHEST W/CONTRAST 2019-11-15 14:20:00 Name : TENZIN VELIZ [facility] : 1950 Age/S: 69 / M [address] [facility] Unit #: [id number] Loc: [place] [address] Phys: Neal Hernandez MD Acct: [id number] Dis Date: Status: REG CLI PHONE #: [phone] Exam Date: 11/15/2019 1104 FAX #: [phone] Reason: COPD WEIGHT LOSS EXAMS: CPT CODE: [id number] CT CHEST W/CONTRAST 95438 REASON FOR EXAM: COPD WEIGHT LOSS EXAM ORDER DATE: 11/15/2019 10:29 AM Ordering M.D.: Neal Hernandez MD PROCEDURE: - CT CHEST W/CONTRAST Comparison:Chest x-ray April 07, 2019 and low-dose screening CT of the lungs August 07, [address] images of the chest were obtained with IV contrast. Reconstructed sagittal and coronal images of the chest were provided for interpretation. Dose reduction techniques were applied. FINDINGS: Visualized neck: Normal Airways, Lungs and Pleura: There is mild subsegmental atelectasis along the left major fissure. There is also subsegmental atelectasis in the right upper lobe. However no confluent airspace process is seen. Motion artifact from patient respiration slightly degrades images of the lungs and obscures fine details regarding the parenchyma Heart, great vessels, pulmonary vessels, mediastinum: Heart is enlarged relative to the thorax. Mild coronary and aortic calcifications are present. Thoracic aorta is normal in caliber. Pulmonary trunk is enlarged measuring up to 3.6 cm in diameter Lymph nodes: No axillary, internal mammary, hilar, or mediastinal adenopathy. Musculoskeletal/chest wall: There is a fracture in the body of the sternum with surrounding bony callus suggesting ongoing healing. Healing fractures are also seen in the left eighth through 10th ribs and the right eighth and ninth ribs. There are also multiple Mild degenerative changes are present in the spine. Visualized upper abdomen: Normal IMPRESSION: PAGE 1 Signed Report (CONTINUED) Name: TENZIN VELIZ [facility] : 1950 Age/S: 69 / M [address] [facility] Unit #: [id number] Loc: [place] [address] Phys: Neal Hernandez MD Acct: [id number] Dis Date: Status: REG CLI PHONE #: [phone] Exam Date: 11/15/2019 1103 FAX #: [phone] Reason: COPD WEIGHT LOSS EXAMS: CPT CODE: [id number] CT CHEST W/CONTRAST 46493 <Continued> Scattered areas of subsegmental atelectasis in the lungs but no confluent airspace disease to suggest an infectious process and no mass. Cardiomegaly. Enlargement of the pulmonary trunk suggests pulmonary arterial hypertension. Location: [facility] at 1420 Reported and signed by: Ajith Dia MD CC: Chele Vasquez MD; Neal Hernandez MD Technologist:Paulino Luna RT(R)(CT) CTDI: DLP: Trnscb Date/Time: 11/15/2019 (142) [email or web address] Orig Print D/T: S: 11/15/2019 (6863) PAGE 2 Signed Report CREATININE W ESTIMATED GFR 2019-11-15 10:09:00 Test Item BEDSIDE CREATININE (test code = CREATBED) mg/dL 0.7-1.3 L GLOMERULAR FILTRATION RATE POC (test code = GFRBED) 127 >6 0 H CREATININE W ESTIMATED [id number] 10:09:00* Test Item Value Reference Range Interpretation Comments BEDSIDE CREATININE (test code = CREATBED) 0.63 mg/dL 0.7-1.3 L GLOMERULAR FILTRATION RATE POC (test code = GFRBED) > 60 >6 0 H Previously reported result: 127 Edited by: ANN MARIE on 11/15/19:27005011/15/19 1009: GFRBED previously reported as: 127 H ARTERIAL BLOOD [id number] 17:04:00* Test Item Value Reference Range Interpretation Comments ARTERIAL BLOOD GAS PH (test code = PHA) 7.347 7.35-7.45 L ARTERIAL BLOOD GAS PCO2 (test code = PCO2A) 40.8 mmHg 35-45 N ARTERIAL BLOOD GAS PO2 (test code = PO2A) 68 mmHg 80-100 L BICARBONATE TOTAL HCO3 (test code = HCO3) 22.4 mmol/L 22.0-26.0 N BASE EXCESS (test code = BRANDON) -3.0 mmol/L -4-4 N ABG O2 SATURATION (test code = SATA) 92 % 90-100 N ABG DELIVERY (test code = MYKE) Room Air Performed by certified wash oil pump operator helper at [facility] ABG TEMPERATURE (test code = TEMPA) 98.6 F ABG SITE (test code = SITEA) R Rad TCO2 ARTERIAL (test code = TCO2A) 24 [id number] 16:42:00* Test Item Value Reference Range Interpretation Comments GLUBED (test code = GLUBED) 147 MG/DL 70-110 H Performed by certified wash oil pump operator helper at [facility] [id number] 13:00:00* Test Item Value Reference Range Interpretation Comments GLUBED (test code = GLUBED) 141 MG/DL 70-110 H Performed by certified wash oil pump operator helper at [facility] [id number] 08:10:00* Test Item Value Reference Range Interpretation Comments GLUBED (test code = GLUBED) 112 MG/DL 70-110 H Performed by certified wash oil pump operator helper at [facility] [id number] 21:37:00* Test Item Value Reference Range Interpretation Comments GLUBED (test code = GLUBED) 184 MG/DL 70-110 H Performed by certified wash oil pump operator helper at [facility] [id number] 20:26:00* Test Item Value Reference Range Interpretation Comments GLUBED (test code = GLUBED) 142 MG/DL 70-110 H Performed by certified wash oil pump operator helper at [facility] [id number] 12:06:00* Test Item Value Reference Range Interpretation Comments GLUBED (test code = GLUBED) 183 MG/DL 70-110 H Performed by certified wash oil pump operator helper at [facility] [id number] 07:55:00* Test Item Value Reference Range Interpretation Comments GLUBED (test code = GLUBED) 127 MG/DL 70-110 H Performed by certified wash oil pump operator helper at [facility] [id number] 19:41:00* Test Item Value Reference Range Interpretation Comments GLUBED (test code = GLUBED) 176 MG/DL 70-110 H Performed by certified wash oil pump operator helper at [facility] [id number] 19:41:00* Test Item Value Reference Range Interpretation Comments GLUBED (test code = GLUBED) 165 MG/DL 70-110 H Performed by certified wash oil pump operator helper at [facility] [id number] 19:41:00* Test Item Value Reference Range Interpretation Comments GLUBED (test code = GLUBED) 198 MG/DL 70-110 H Performed by certified wash oil pump operator helper at [facility] [id number] 19:40:00* Test Item Value Reference Range Interpretation Comments GLUBED (test code = GLUBED) 107 MG/DL 70-110 N Performed by certified wash oil pump operator helper at [facility] - XR CHEST 1 [id number] 11:25:00 FAX: Abdoul Osorio MD [phone] [place]: St: ADM FAX: Niru Groves MD [phone] FAX: Yfn De La Garza I [phone] Name: TENZIN VELIZ [facility] : 1950 Age/S: 69/M [address] [place] [address] Unit #: [id number] Loc: G.5516 [place] [address] Phys: Abdolu Crooks MD Acct: [id number] Dis Date: Status: ADM IN ONE #: [phone] Exam Date: 04/07/2019 1130 FAX #: [phone] Reason: sob EXAMS: CPT CODE: [id number] XR CHEST 1 V 69128 EXAM: CHEST SI NGLE VIEW HISTORY: 69-year-old male with shortness of breath, ches t pain COMPARISON: Chest radiograph 04/05/2019 FINDIN GS: Slightly decreased trace right effusion. Slightly increased left basi lar opacities. Stable prominent central vascularity. The cardiomediastin al silhouette is stable. Osseous structures are unchanged. IMPRESSION: 1. Stable congestion. 2. Slight interval increase in left basilar opacity, edema versus atelectasis. 3. Slight decrease in trace right effusion. SL: [facility] [id number] at 1 125 Reported and signed by: Rolando Mirza M.D. CC: Abdoul Crooks MD; Niru Hernandez MD; Yfn Rudolph MD Technologist: Marge Benitez, (R), RTT Trnscrd Date/Time/By: 09/2018 (1125) : By: [email or web address] Orig Print D/T: S: 04/07/2019 (1531) PAGE 1 Signed Report [id number] 01:29:00* Test Item Value Reference Range Interpretation Comments GLUBED (test code = GLUBED) 138 MG/DL 70-110 H Performed by certified wash oil pump operator helper at [facility] [id number] 20:33:00* Test Item Value Reference Range Interpretation Comments GLUBED (test code = GLUBED) 137 MG/DL 70-110 H Performed by certified wash oil pump operator helper at [facility] [id number] 17:15:00* Test Item Value Reference Range Interpretation Comments GLUBED (test code = GLUBED) 83 MG/DL 70-110 N Performed by certified wash oil pump operator helper at [facility] [id number] 12:07:00* Test Item Value Reference Range Interpretation Comments GLUBED (test code = GLUBED) 187 MG/DL 70-110 H Performed by certified wash oil pump operator helper at [facility] [id number] 08:17:00* Test Item Value Reference Range Interpretation Comments GLUBED (test code = GLUBED) 90 MG/DL 70-110 N Performed by certified wash oil pump operator helper at [facility] CBC W/AUTO [id number] 06:13:00* Test Item Value Reference Range Interpretation Comments WHITE BLOOD CELL (test code = WBC) 9.70 x10 3/uL 4.5-11.0 RED BLOOD CELL (test code = RBC) 6.26 x10 6/uL 4.00-5.60 H HEMOGLOBIN (test code = HGB) 12.3 g/dL 12.5-16.9 L HEMATOCRIT (test code = HCT) 45.6 % 37.5-50.7 N MEAN CELL VOLUME (test code = MCV) 72.8 fL 81.0-99.0 L MEAN CELL HGB (test code = MCH) 19.6 pg 27.0-33.0 L MEAN CELL HGB CONCETRATION (test code = MCHC) 27.0 g/dL 33.0-37. 0 L RED CELL DISTRIBUTION WIDTH CV (test code = RDW) 20.6 % 11.5- 14.5 H RED CELL DISTRIBUTION WIDTH SD (test code = RDW-SD) 52.1 fL 37 .0-54.0 N PLATELET COUNT (test code = PLT) 260 x10 3/uL 150-400 N MEAN PLATELET VOLUME (test code = MPV) 9.9 fL 7.0-9.0 H NEUTROPHIL % (test code = NT%) 73.0 % 56.0-77.0 N IMMATURE GRANULOCYTE % (test code = IG%) 0.5 % 0.0-2.0 N LYMPHOCYTE % (test code = LY%) 16.3 % 14.0-32.0 N MONOCYTE % (test code = MO%) 7.9 % 4.8-9.0 N EOSINOPHIL % (test code = EO%) 2.1 % 0.3-3.7 N BASOPHIL % (test code = BA%) 0.2 % 0.0-2.0 N NUCLEATED RBC % (test code = NRBC%) 0.0 % 0-0 N NEUTROPHIL # (test code = NT#) 7.08 x10 3/uL 2.0-7.6 N IMMATURE GRANULOCYTE # (test code = IG#) 0.05 x10 3/uL 0.00-0.03 H LYMPHOCYTE # (test code = LY#) 1.58 x10 3/uL 1.0-3.8 N MONOCYTE # (test code = MO#) 0.77 x10 3/uL 0.1-0.8 N EOSINOPHIL # (test code = EO#) 0.20 x10 3/uL 0.0-0.2 N BASOPHIL # (test code = BA#) 0.02 x10 3/uL 0.0-0.2 N NUCLEATED RBC # (test code = NRBC#) 0.00 x10 3/uL 0.0-0.1 N MANUAL DIFF REQUIRED (test code = MDIFF) NO BASIC METABOLIC [id number] 05:44:00* Test Item Value Reference Range Interpretation Comments SODIUM (test code = NA) 138 mEq/L 134-147 N POTASSIUM (test code = K) 3.9 mEq/L 3.4-5.0 N CHLORIDE (test code = CL) 100 mEq/L 100-108 N CARBON DIOXIDE (test code = CO2) 37 mEq/L 21-33 H ANION GAP (test code = GAP) 5 0-20 N GLUCOSE (test code = GLU) 106 mg/dL 70-110 BLOOD UREA NITROGEN (test code = BUN) 16 mg/dL 7-18 N GLOMERULAR FILTRATION RATE (test code = GFR) 134.4 80-90 H Units of measure = ml/min/1.73 m2 CREATININE (test code = CREAT) 0.6 mg/dL 0.6-1.3 N CALCIUM (test code = CA) 8.1 mg/dL 8.0-10.5 N [id number] 21:18:00* Test Item Value Reference Range Interpretation Comments GLUBED (test code = GLUBED) 121 MG/DL 70-110 H Performed by certified wash oil pump operator helper at [facility] - XR CHEST 1 [id number] 19:11:00 FAX: William Bird MD [place]: St: ADM FAX: Niru Groves MD [phone] FAX: Charline Yfn Florian I [phone] Name: TENZIN VELIZ [facility] : 1950 Age/S: 69/M [address] [place] [address] Unit #: [id number] Loc: G.[address] [place] [address] Phys: William Bird MD Acct: [id number] Dis Date: Status: ADM IN ONE #: [phone] Exam Date: 04/05/2019 1905 FAX #: [phone] Reason: HYPOXIA EXAMS: CPT CODE: [id number] XR CHEST 1 V 90872 CHEST, SINGLE VIEW HISTORY: Hypoxia, chest pain Comparison made to 03/31/19. FINDINGS: The heart is enlarged. Centr al pulmonary vascularity is prominent. There are new basilar infiltrates. Trace volume right pleural effusion. IMPRESSION: 1. Congestive heart failure. Bibasilar infiltrate likely reflects pulmonary edema rather than pneumonia. 2. Trace volume right pleural effusion. SL:01 E lectronically Signed by Monalisa Hoffmann on at 1911 Reported and signed by: Ivett Hoffmann M.D. CC: William Bird MD; Niru Hernandez MD; Yfn Rudolph MD Technologist: Yfn Chand, RT(R) Trnscrd Date/Time/By: 04/05/2019 (1910) : By: Kristofer Orig Print D/T: S: 04/05/2019 (1913) PAGE 1 Signed Report ARTERIAL BLOOD [id number] 17:26:00* Test Item Value Reference Range Interpretation Comments ARTERIAL BLOOD GAS PH (test code = PHA) 7.297 7.35-7.45 L ARTERIAL BLOOD GAS PCO2 (test code = PCO2A) 73.2 mmHg 35-45 HH ARTERIAL BLOOD GAS PO2 (test code = PO2A) 76 mmHg 80-100 L BICARBONATE TOTAL HCO3 (test code = HCO3) 35.8 mmol/L 22.0-26.0 H BASE EXCESS (test code = BRANDON) 9.0 mmol/L -4-4 H ABG O2 SATURATION (test code = SATA) 93 % 90-100 N ABG DELIVERY (test code = MYKE) Hi-shiv Can ABG TEMPERATURE (test code = TEMPA) 98.6 F ABG SITE (test code = SITEA) L Rad TCO2 ARTERIAL (test code = TCO2A) 38 [id number] 16:47:00* Test Item Value Reference Range Interpretation Comments GLUBED (test code = GLUBED) 160 MG/DL 70-110 H Performed by certified wash oil pump operator helper at [facility] [id number] 13:43:00* Test Item Value Reference Range Interpretation Comments GLUBED (test code = GLUBED) 227 MG/DL 70-110 H Performed by certified wash oil pump operator helper at [facility] [id number] 07:41:00* Test Item Value Reference Range Interpretation Comments GLUBED (test code = GLUBED) 203 MG/DL 70-110 H Performed by certified wash oil pump operator helper at [facility] COMPREHENSIVE METABOLIC [id number] 06:27:00* Test Item Value Reference Range Interpretation Comments SODIUM (test code = NA) 140 mEq/L 134-147 N POTASSIUM (test code = K) 3.8 mEq/L 3.4-5.0 N CHLORIDE (test code = CL) 102 mEq/L 100-108 N CARBON DIOXIDE (test code = CO2) 37 mEq/L 21-33 H ANION GAP (test code = GAP) 5 0-20 N GLUCOSE (test code = GLU) 212 mg/dL 70-110 H BLOOD UREA NITROGEN (test code = BUN) 18 mg/dL 7-18 N GLOMERULAR FILTRATION RATE (test code = GFR) 96.4 80-90 H Units of measure = ml/min/1.73 m2 CREATININE (test code = CREAT) 0.8 mg/dL 0.6-1.3 N TOTAL PROTEIN (test code = PROT) 6.6 g/dL 6.4-8.2 N ALBUMIN (test code = ALB) 2.90 g/dL 3.4-5.0 L CALCIUM (test code = CA) 8.1 mg/dL 8.0-10.5 N BILIRUBIN TOTAL (test code = BILT) 0.70 mg/dL 0.0-1.0 N SGOT/AST (test code = AST) 15 IUnit/L 15-37 N SGPT/ALT (test code = ALT) 34 IUnit/L 15-65 N ALKALINE PHOSPHATASE TOTAL (test code = ALKP) 112 IUnit/L 20-125 N LIPID PROFILE (CORONARY RISK)2019-04-05 06:27:00* Test Item Value Reference Range Interpretation Comments TRIGLYCERIDES (test code = TRIG) 139 mg/dL 40-150 N CHOLESTEROL (test code = CHOL) 149 mg/dL <200 CHOLESTEROL/HDL RATIO (test code = CHOLHDL) 4.14 RATIO 3.43-4.97 N RISK ASSOCIATED WITH CHOL/HDL RATIOS: RISK MALE FEMALE1/2 AVERAGE 3.43 3.27AVERAGE 4.97 4.442X AVERAGE 9.55 7.053X AVERAGE 23.39 11.04 NOTE THAT THE REFERENCE VALUE IS RELATEDTO RISK LEVELS RECOMMENDED BY THE NATL.HEART, LUNG, AND BLOOD INST. HDL CHOLESTEROL (test code = HDL) 36.0 mg/dL 32-72 N LIPOPROTEIN LDL (test code = LDL) 98 mg/dL 0-100 N <100 [id number] NEAR OPTIMAL/ABOVE [id number] HIGH>VL=800 VERY HIGH*Guidelines provided by the National Cholesterol EducationProgram Adult Treatment Panel III CBC W/AUTO [id number] 05:45:00* Test Item Value Reference Range Interpretation Comments WHITE BLOOD CELL (test code = WBC) 18.60 x10 3/uL 4.5-11.0 H RED BLOOD CELL (test code = RBC) 6.64 x10 6/uL 4.00-5.60 H HEMOGLOBIN (test code = HGB) 12.9 g/dL 12.5-16.9 N HEMATOCRIT (test code = HCT) 49.1 % 37.5-50.7 N MEAN CELL VOLUME (test code = MCV) 73.9 fL 81.0-99.0 L MEAN CELL HGB (test code = MCH) 19.4 pg 27.0-33.0 L MEAN CELL HGB CONCETRATION (test code = MCHC) 26.3 g/dL 33.0-37. 0 L RED CELL DISTRIBUTION WIDTH CV (test code = RDW) 21.6 % 11.5- 14.5 H RED CELL DISTRIBUTION WIDTH SD (test code = RDW-SD) 53.4 fL 37 .0-54.0 N PLATELET COUNT (test code = PLT) 306 x10 3/uL 150-400 N MEAN PLATELET VOLUME (test code = MPV) 9.6 fL 7.0-9.0 H NEUTROPHIL % (test code = NT%) 83.5 % 56.0-77.0 H IMMATURE GRANULOCYTE % (test code = IG%) 0.5 % 0.0-2.0 N LYMPHOCYTE % (test code = LY%) 8.4 % 14.0-32.0 L MONOCYTE % (test code = MO%) 6.9 % 4.8-9.0 N EOSINOPHIL % (test code = EO%) 0.5 % 0.3-3.7 N BASOPHIL % (test code = BA%) 0.2 % 0.0-2.0 N NUCLEATED RBC % (test code = NRBC%) 0.0 % 0-0 N NEUTROPHIL # (test code = NT#) 15.51 x10 3/uL 2.0-7.6 H IMMATURE GRANULOCYTE # (test code = IG#) 0.10 x10 3/uL 0.00-0.03 H LYMPHOCYTE # (test code = LY#) 1.57 x10 3/uL 1.0-3.8 N MONOCYTE # (test code = MO#) 1.29 x10 3/uL 0.1-0.8 H EOSINOPHIL # (test code = EO#) 0.10 x10 3/uL 0.0-0.2 N BASOPHIL # (test code = BA#) 0.03 x10 3/uL 0.0-0.2 N NUCLEATED RBC # (test code = NRBC#) 0.00 x10 3/uL 0.0-0.1 N MANUAL DIFF REQUIRED (test code = MDIFF) NO ARTERIAL BLOOD [id number] 22:25:00* Test Item Value Reference Range Interpretation Comments ARTERIAL BLOOD GAS PH (test code = PHA) 7.217 7.35-7.45 L L ARTERIAL BLOOD GAS PCO2 (test code = PCO2A) 84.0 mmHg 35-45 HH ARTERIAL BLOOD GAS PO2 (test code = PO2A) 70 mmHg 80-100 L BICARBONATE TOTAL HCO3 (test code = HCO3) 34.1 mmol/L 22.0-26.0 H BASE EXCESS (test code = BRANDON) 6.0 mmol/L -4-4 H ABG O2 SATURATION (test code = SATA) 89 % 90-100 L FIO2 (test code = FIO2A) 65 % ABG DELIVERY (test code = MYKE) Bipap ABG VENT RESP RATE (test code = RRA) 16 /MIN Performed by certified wash oil pump operator helper at [facility] ABG TEMPERATURE (test code = TEMPA) 98.6 F ABG SITE (test code = SITEA) L Rad PREDICTED AA GRADIENT (test code = AP) 94 PREDICTED PO2 (test code = OP) 268 a/A RATIO (test code = RATIO) 0.19 TCO2 ARTERIAL (test code = TCO2A) 37 A-A GRADIENT (test code = AAGRADE) 293 ARTERIAL BLOOD [id number] 19:08:00* Test Item Value Reference Range Interpretation Comments ARTERIAL BLOOD GAS PH (test code = PHA) 7.184 7.35-7.45 L L ARTERIAL BLOOD GAS PCO2 (test code = PCO2A) 98.7 mmHg 35-45 HH ARTERIAL BLOOD GAS PO2 (test code = PO2A) 72 mmHg 80-100 L BICARBONATE TOTAL HCO3 (test code = HCO3) 37.2 mmol/L 22.0-26.0 H BASE EXCESS (test code = BRANDON) 9.0 mmol/L -4-4 H ABG O2 SATURATION (test code = SATA) 88 % 90-100 L FIO2 (test code = FIO2A) 60 % ABG DELIVERY (test code = MYKE) Bipap ABG VENT RESP RATE (test code = RRA) 16 /MIN Performed by certified wash oil pump operator helper at [facility] ABG TEMPERATURE (test code = TEMPA) 98.6 F ABG SITE (test code = SITEA) L Rad PREDICTED AA GRADIENT (test code = AP) 80 PREDICTED PO2 (test code = OP) 229 a/A RATIO (test code = RATIO) 0.23 TCO2 ARTERIAL (test code = TCO2A) 40 A-A GRADIENT (test code = AAGRADE) 237 [id number] 18:50:00* Test Item Value Reference Range Interpretation Comments GLUBED (test code = GLUBED) 194 MG/DL 70-110 H Performed by certified wash oil pump operator helper at [facility] ARTERIAL BLOOD [id number] 18:06:00* Test Item Value Reference Range Interpretation Comments ARTERIAL BLOOD GAS PH (test code = PHA) 7.110 7.35-7.45 L L ARTERIAL BLOOD GAS PCO2 (test code = PCO2A) 126.2 mmHg 35-45 HH ARTERIAL BLOOD GAS PO2 (test code = PO2A) 110 mmHg 80-100 H BICARBONATE TOTAL HCO3 (test code = HCO3) 40.1 mmol/L 22.0-26.0 H BASE EXCESS (test code = BRANDON) 11.0 mmol/L -4-4 H ABG O2 SATURATION (test code = SATA) 95 % 90-100 N FIO2 (test code = FIO2A) 70 % ABG DELIVERY (test code = MYKE) Bipap ABG VENT RESP RATE (test code = RRA) 12 /MIN Performed by certified wash oil pump operator helper at [facility] ABG TEMPERATURE (test code = TEMPA) 98.6 F ABG SITE (test code = SITEA) L Rad PREDICTED AA GRADIENT (test code = AP) 90 PREDICTED PO2 (test code = OP) 257 a/A RATIO (test code = RATIO) 0.32 TCO2 ARTERIAL (test code = TCO2A) 44 A-A GRADIENT (test code = AAGRADE) 238 [id number] 13:02:00* Test Item Value Reference Range Interpretation Comments GLUBED (test code = GLUBED) 167 MG/DL 70-110 H Performed by certified wash oil pump operator helper at [facility] CBC W/AUTO [id number] 15:06:00* Test Item Value Reference Range Interpretation Comments WHITE BLOOD CELL (test code = WBC) 11.32 x10 3/uL 4.5-11.0 H RED BLOOD CELL (test code = RBC) 7.40 x10 6/uL 4.00-5.60 H HEMOGLOBIN (test code = HGB) 14.5 g/dL 12.5-16.9 N HEMATOCRIT (test code = HCT) 51.4 % 37.5-50.7 H MEAN CELL VOLUME (test code = MCV) 69.5 fL 81.0-99.0 L MEAN CELL HGB (test code = MCH) 19.6 pg 27.0-33.0 L MEAN CELL HGB CONCETRATION (test code = MCHC) 28.2 g/dL 33.0-37. 0 L RED CELL DISTRIBUTION WIDTH CV (test code = RDW) 21.2 % 11.5- 14.5 H RED CELL DISTRIBUTION WIDTH SD (test code = RDW-SD) 49.3 fL 37 .0-54.0 N PLATELET COUNT (test code = PLT) 381 x10 3/uL 150-400 N MEAN PLATELET VOLUME (test code = MPV) 9.5 fL 7.0-9.0 H NEUTROPHIL % (test code = NT%) 71.8 % 56.0-77.0 N IMMATURE GRANULOCYTE % (test code = IG%) 0.4 % 0.0-2.0 N LYMPHOCYTE % (test code = LY%) 18.4 % 14.0-32.0 N MONOCYTE % (test code = MO%) 6.4 % 4.8-9.0 N EOSINOPHIL % (test code = EO%) 2.5 % 0.3-3.7 N BASOPHIL % (test code = BA%) 0.5 % 0.0-2.0 N NUCLEATED RBC % (test code = NRBC%) 0.0 % 0-0 N NEUTROPHIL # (test code = NT#) 8.13 x10 3/uL 2.0-7.6 H IMMATURE GRANULOCYTE # (test code = IG#) 0.04 x10 3/uL 0.00-0.03 H LYMPHOCYTE # (test code = LY#) 2.08 x10 3/uL 1.0-3.8 N MONOCYTE # (test code = MO#) 0.73 x10 3/uL 0.1-0.8 N EOSINOPHIL # (test code = EO#) 0.28 x10 3/uL 0.0-0.2 H BASOPHIL # (test code = BA#) 0.06 x10 3/uL 0.0-0.2 N NUCLEATED RBC # (test code = NRBC#) 0.00 x10 3/uL 0.0-0.1 N MANUAL DIFF REQUIRED (test code = MDIFF) NO RBC [id number] 15:06:00* Test Item Value Reference Range Interpretation Comments ANISOCYTOSIS (test code = ANISO) 2+ MACROCYTOSIS (test code = MACR) 2+ - XR CHEST 2 [id number] 14:52:00 FAX: Niru Groves MD [phone] [place]: St: PRE Name: TENZIN PENA [facility] : [birth year] Age/S: 69/M [address] [place] [address] Blvd Unit #: [id number] Loc: [place] [address] Phys: Niru Hernandez MD Acct: [id number] Dis Date: Status: PRE [facility] [place]ONE #: [phone] Exam Date: 03/31/2019 1413 FAX #: [phone] Reason: PRE PROCEDURE/CHEST PAIN EXAMS: CPT CODE: [id number] XR CHEST 2 V 61441 PROCEDURE: CHEST TWO VIEW INDICATION: Preprocedure, chest pain COMPARISON: 01/16/2018 FINDINGS: Heart size is normal. Aorta is tortuous and contains calcifications. There is enlargement of the pulmonary arteries bilater ally compatible with pulmonary arterial hypertension. There is scarring i n the left lower lung. No acute consolidation or pleural effusion is pres ent. No interstitial edema is present. IMPRESSION: No active disease. SL: [id number] Electron ically Signed by Monalisa Christy on 9 at 1452 Reported and signed by: Carlitos Christy M.D. CC: Niru Hernandez MD Technologist: Yfn Chand, RT(R) Trnscrd Date/Time/By: 03/31/2019 (5956) : By: [id number] Orig Print D/T: S: 03/31/2019 (9688) PAGE 1 Signed Report PROTHROMBIN [id number] 13:39:00 * Test Item Value Reference Range Interpretation Comments PROTHROMBIN TIME PATIENT (test code = PTP) 11.3 SECONDS 9.3-12.9 N INTERNATIONAL NORMAL RATIO (test code = INR) 1.0 0.8-1.2 N TARGET INR BY INDICATION Indication INR1. Prophylaxis of venous thrombosis 2.0 - 3.0 (orthopedic surgery), Prophylaxis of venous thrombosis (other than high-risk surgery), Treatment of Deep Vein Thrombosis/Pulmonary Embolism, Prevention of systemic embolism - Tissue heart valves, Acute Myocardial Infarction (to prevent systemic embolism), Valvular heart disease, Atrial Fibrillation, Bileaflet mechanical valve in aortic position.2. Mechanical prosthetic valves (high risk), 2.5 - 3.5 Presence of Lupus Anticoagulant or Antiphospholipid Antibodies, Prevention of systemic embolism - Acute Myocardial Infarction (to prevent recurrent infarct). BASIC METABOLIC [id number] 13:37:00* Test Item Value Reference Range Interpretation Comments SODIUM (test code = NA) 135 mEq/L 134-147 N POTASSIUM (test code = K) 4.3 mEq/L 3.4-5.0 N CHLORIDE (test code = CL) 97 mEq/L 100-108 L CARBON DIOXIDE (test code = CO2) 33 mEq/L 21-33 N ANION GAP (test code = GAP) 9 0-20 N GLUCOSE (test code = GLU) 163 mg/dL 70-110 H BLOOD UREA NITROGEN (test code = BUN) 22 mg/dL 7-18 H GLOMERULAR FILTRATION RATE (test code = GFR) 96.4 80-90 H Units of measure = ml/min/1.73 m2 CREATININE (test code = CREAT) 0.8 mg/dL 0.6-1.3 N CALCIUM (test code = CA) 8.9 mg/dL 8.0-10.5 N CBC W/AUTO [id number] 13:27:00* Test Item Value Reference Range Interpretation Comments WHITE BLOOD CELL (test code = WBC) 11.32 x10 3/uL 4.5-11.0 H RED BLOOD CELL (test code = RBC) 7.40 x10 6/uL 4.00-5.60 H HEMOGLOBIN (test code = HGB) 14.5 g/dL 12.5-16.9 N HEMATOCRIT (test code = HCT) 51.4 % 37.5-50.7 H MEAN CELL VOLUME (test code = MCV) 69.5 fL 81.0-99.0 L MEAN CELL HGB (test code = MCH) 19.6 pg 27.0-33.0 L MEAN CELL HGB CONCETRATION (test code = MCHC) 28.2 g/dL 33.0-37. 0 L RED CELL DISTRIBUTION WIDTH CV (test code = RDW) 21.2 % 11.5- 14.5 H RED CELL DISTRIBUTION WIDTH SD (test code = RDW-SD) 49.3 fL 37 .0-54.0 N PLATELET COUNT (test code = PLT) 381 x10 3/uL 150-400 N MEAN PLATELET VOLUME (test code = MPV) 9.5 fL 7.0-9.0 H NEUTROPHIL % (test code = NT%) 71.8 % 56.0-77.0 N IMMATURE GRANULOCYTE % (test code = IG%) 0.4 % 0.0-2.0 N LYMPHOCYTE % (test code = LY%) 18.4 % 14.0-32.0 N MONOCYTE % (test code = MO%) 6.4 % 4.8-9.0 N EOSINOPHIL % (test code = EO%) 2.5 % 0.3-3.7 N BASOPHIL % (test code = BA%) 0.5 % 0.0-2.0 N NUCLEATED RBC % (test code = NRBC%) 0.0 % 0-0 N NEUTROPHIL # (test code = NT#) 8.13 x10 3/uL 2.0-7.6 H IMMATURE GRANULOCYTE # (test code = IG#) 0.04 x10 3/uL 0.00-0.03 H LYMPHOCYTE # (test code = LY#) 2.08 x10 3/uL 1.0-3.8 N MONOCYTE # (test code = MO#) 0.73 x10 3/uL 0.1-0.8 N EOSINOPHIL # (test code = EO#) 0.28 x10 3/uL 0.0-0.2 H BASOPHIL # (test code = BA#) 0.06 x10 3/uL 0.0-0.2 N NUCLEATED RBC # (test code = NRBC#) 0.00 x10 3/uL 0.0-0.1 N MANUAL DIFF REQUIRED (test code = MDIFF) NO RBC [id number] 13:27:00* Test Item Value Reference Range Interpretation Comments ANISOCYTOSIS (test code = ANISO) CBC W/AUTO [id number] 13:27:00* Test Item Value Reference Range Interpretation Comments WHITE BLOOD CELL (test code = WBC) 11.32 x10 3/uL 4.5-11.0 H RED BLOOD CELL (test code = RBC) 7.40 x10 6/uL 4.00-5.60 H HEMOGLOBIN (test code = HGB) 14.5 g/dL 12.5-16.9 N HEMATOCRIT (test code = HCT) 51.4 % 37.5-50.7 H MEAN CELL VOLUME (test code = MCV) 69.5 fL 81.0-99.0 L MEAN CELL HGB (test code = MCH) 19.6 pg 27.0-33.0 L MEAN CELL HGB CONCETRATION (test code = MCHC) 28.2 g/dL 33.0-37. 0 L RED CELL DISTRIBUTION WIDTH CV (test code = RDW) 21.2 % 11.5- 14.5 H RED CELL DISTRIBUTION WIDTH SD (test code = RDW-SD) 49.3 fL 37 .0-54.0 N PLATELET COUNT (test code = PLT) 381 x10 3/uL 150-400 N MEAN PLATELET VOLUME (test code = MPV) 9.5 fL 7.0-9.0 H NEUTROPHIL % (test code = NT%) 71.8 % 56.0-77.0 N IMMATURE GRANULOCYTE % (test code = IG%) 0.4 % 0.0-2.0 N LYMPHOCYTE % (test code = LY%) 18.4 % 14.0-32.0 N MONOCYTE % (test code = MO%) 6.4 % 4.8-9.0 N EOSINOPHIL % (test code = EO%) 2.5 % 0.3-3.7 N BASOPHIL % (test code = BA%) 0.5 % 0.0-2.0 N NUCLEATED RBC % (test code = NRBC%) 0.0 % 0-0 N NEUTROPHIL # (test code = NT#) 8.13 x10 3/uL 2.0-7.6 H IMMATURE GRANULOCYTE # (test code = IG#) 0.04 x10 3/uL 0.00-0.03 H LYMPHOCYTE # (test code = LY#) 2.08 x10 3/uL 1.0-3.8 N MONOCYTE # (test code = MO#) 0.73 x10 3/uL 0.1-0.8 N EOSINOPHIL # (test code = EO#) 0.28 x10 3/uL 0.0-0.2 H BASOPHIL # (test code = BA#) 0.06 x10 3/uL 0.0-0.2 N NUCLEATED RBC # (test code = NRBC#) 0.00 x10 3/uL 0.0-0.1 N MANUAL DIFF REQUIRED (test code = MDIFF) NO RBC SDAJPVCIRO1239-71-68 13:27:00* Test Item Value Reference Range Interpretation Comments ANISOCYTOSIS (test code = ANISO) Sodium Ewiqq8586-16-80 15:31:00* Test Item Value Reference Range Interpretation Comments Sodium Level (test code = 2951-2) 140 136-145 [facility]Potassium Njqaf4159-09-38 15:31:00* Test Item Value Reference Range Interpretation Comments Potassium Level (test code = 2823-3) 4.2 3.5-5.1 [facility] CenterChloride Pojji0083-03-64 15:31:00* Test Item Value Reference Range Interpretation Comments Chloride Level (test code = 2075-0) 100 98-107 [facility] CenterCarbon Dioxide Eypdn2373-68-13 15:31:00* Test Item Value Reference Range Interpretation Comments Carbon Dioxide Level (test code = 2028-9) 32 22-29 H [facility] CenterAnion Cik4990-62-48 15:31:00* Test Item Value Reference Range Interpretation Comments Anion Gap (test code = 41450-9) 12.2 8-16 [facility] CenterBlood Urea Pwnexmjq5858-46-45 15:31:00* Test Item Value Reference Range Interpretation Comments Blood Urea Nitrogen (test code = 3094-0) 16 7-26 [facility] CenterCreatinine2019-07-17 15:31:00* Test Item Value Reference Range Interpretation Comments Creatinine (test code = 2160-0) 0.76 0.72-1.25 [facility] CenterBUN/Creatinine Vzedt9278-60-96 15:31:00* Test Item Value Reference Range Interpretation Comments BUN/Creatinine Ratio (test code = 3097-3) 21 6-25 [facility] CenterEstimat Glomerular Filtration Rate 2019-03-23 15:31:00* Test Item Value Reference Range Interpretation Comments Estimat Glomerular Filtration Rate (test code = 670185349) > 60 >60 Ranges were taken from the National Kidney Disease Education Program and the [facility] literature.Reference ranges:60 or greater: Jpceer20-19 ( for 3 consecutive months): Chronic kidney disease 15 or less: Kidney failureDallas Regional Medical CenterGlucose Xzfma8834-44-62 15:31:00* Test Item Value Reference Range Interpretation Comments Glucose Level (test code = XLP1778) 270 74-118 H [facility] CenterCalcium Ghgyb2356-23-88 15:31:00* Test Item Value Reference Range Interpretation Comments Calcium Level (test code = 24540-4) 8.6 8.4-10.2 [facility] CenterTotal Ghhrtgrxp3984-00-52 15:31:00* Test Item Value Reference Range Interpretation Comments Total Bilirubin (test code = 1975-2) 0.4 0.2-1.2 [facility] CenterAspartate Amino Transf (AST/SGOT) 2019-03-23 15:31:00* Test Item Value Reference Range Interpretation Comments Aspartate Amino Transf (AST/SGOT) (test code = Aspartate Amino Transf (AST/SGOT)) 43 5-34 H [facility] CenterAlanine Aminotransferase (ALT/SGPT) 2019-03-23 15:31:00* Test Item Value Reference Range Interpretation Comments Alanine Aminotransferase (ALT/SGPT) (test code = 1742-6) 60 0-55 H [facility] CenterTotal Iyaqxwl7461-93-16 15:31:00* Test Item Value Reference Range Interpretation Comments Total Protein (test code = 2885-2) 7.0 6.5-8.1 [facility] CenterAlbumin2019-07-17 15:31:00* Test Item Value Reference Range Interpretation Comments Albumin (test code = 1751-7) 3.3 3.5-5.0 L [facility] CenterGlobulin2019-07-17 15:31:00* Test Item Value Reference Range Interpretation Comments Globulin (test code = 22612-8) 3.7 2.3-3.5 H [facility] CenterAlbumin/Globulin Ycsty2774-84-29 15:31:00 * Test Item Value Reference Range Interpretation Comments Albumin/Globulin Ratio (test code = 1759-0) 0.9 0.8-2.0 [facility] CenterAlkaline Ogxlfldhnvr7062-38-75 15:31:00* Test Item Value Reference Range Interpretation Comments Alkaline Phosphatase (test code = 6768-6) 151 40-150 [facility]odium Rpumv5502-71-84 15:31:00* Test Item Value Reference Range Interpretation Comments Sodium Level (test code = 2951-2) 140 136-145 [facility] CenterPotassium Levzh7982-83-60 15:31:00* Test Item Value Reference Range Interpretation Comments Potassium Level (test code = 2823-3) 4.2 3.5-5.1 [facility] CenterChloride Wmgcd0455-25-40 15:31:00* Test Item Value Reference Range Interpretation Comments Chloride Level (test code = 2075-0) 100 98-107 [facility] CenterCarbon Dioxide Pyniu8470-26-75 15:31:00* Test Item Value Reference Range Interpretation Comments Carbon Dioxide Level (test code = 2028-9) 32 22-29 H [facility] CenterAnion Zts3626-33-66 15:31:00* Test Item Value Reference Range Interpretation Comments Anion Gap (test code = 47346-7) 12.2 8-16 [facility] CenterBlood Urea Exaxqmfs0883-05-17 15:31:00* Test Item Value Reference Range Interpretation Comments Blood Urea Nitrogen (test code = 3094-0) 16 7-26 [facility] CenterCreatinine2019-07-17 15:31:00* Test Item Value Reference Range Interpretation Comments Creatinine (test code = 2160-0) 0.76 0.72-1.25 [facility] CenterBUN/Creatinine Xendn3382-36-88 15:31:00* Test Item Value Reference Range Interpretation Comments BUN/Creatinine Ratio (test code = 3097-3) 21 6-25 [facility] CenterEstimat Glomerular Filtration Rate 2019-03-23 15:31:00* Test Item Value Reference Range Interpretation Comments Estimat Glomerular Filtration Rate (test code = 602929332) > 60 >60 Ranges were taken from the National Kidney Disease Education Program and the [facility] literature.Reference ranges:60 or greater: Hsktlx24-03 ( for 3 consecutive months): Chronic kidney disease 15 or less: Kidney failureDallas Regional Medical CenterGlucose Rohgw1582-97-79 15:31:00* Test Item Value Reference Range Interpretation Comments Glucose Level (test code = HHU7975) 270 74-118 H [facility] CenterCalcium Cfdse4935-80-67 15:31:00* Test Item Value Reference Range Interpretation Comments Calcium Level (test code = 45815-4) 8.6 8.4-10.2 [facility] CenterTotal Fdzhxhrae1637-32-47 15:31:00* Test Item Value Reference Range Interpretation Comments Total Bilirubin (test code = 1975-2) 0.4 0.2-1.2 [facility] CenterAspartate Amino Transf (AST/SGOT) 2019-03-23 15:31:00* Test Item Value Reference Range Interpretation Comments Aspartate Amino Transf (AST/SGOT) (test code = Aspartate Amino Transf (AST/SGOT)) 43 5-34 H [facility] CenterAlanine Aminotransferase (ALT/SGPT) 2019-03-23 15:31:00* Test Item Value Reference Range Interpretation Comments Alanine Aminotransferase (ALT/SGPT) (test code = 1742-6) 60 0-55 H [facility] CenterTotal Wohbyol8380-68-46 15:31:00* Test Item Value Reference Range Interpretation Comments Total Protein (test code = 2885-2) 7.0 6.5-8.1 [facility] CenterAlbumin2019-07-17 15:31:00* Test Item Value Reference Range Interpretation Comments Albumin (test code = 1751-7) 3.3 3.5-5.0 L [facility] CenterGlobulin2019-07-17 15:31:00* Test Item Value Reference Range Interpretation Comments Globulin (test code = 73528-3) 3.7 2.3-3.5 H [facility] CenterAlbumin/Globulin Nzntn3880-19-48 15:31:00 * Test Item Value Reference Range Interpretation Comments Albumin/Globulin Ratio (test code = 1759-0) 0.9 0.8-2.0 [facility] CenterAlkaline Lkxyovfkmsn3119-95-26 15:31:00* Test Item Value Reference Range Interpretation Comments Alkaline Phosphatase (test code = 6768-6) 151 40-150 H [facility] CenterProthrombin Dmsz0504-00-11 15:23:00* Test Item Value Reference Range Interpretation Comments Prothrombin Time (test code = 5902-2) 13.2 11.9-14.5 [facility] CenterProthromb Time International Ratio 2019-03-23 15:23:00* Test Item Value Reference Range Interpretation Comments Prothromb Time International Ratio (test code = 6301-6) 0.95 Oral Anticoagulant Therapy INR Values:1. Low Intensity Therapy 1.5 - 2.02 . Moderate Intensity Therapy 2.0 - 3.03. High Intensity Therapy(1) 2.5 - 3. 54. High Intensity Therapy(2) 3.0 - 4.05. Panic Value INR > 5.0 [facility] CenterActivated Partial Thromboplast Time 2019-03-23 15:23:00* Test Item Value Reference Range Interpretation Comments Activated Partial Thromboplast Time (test code = 59537-6) 28.0 23.8-35.5 [facility] CenterProthrombin Bkkf4943-64-99 15:23:00* Test Item Value Reference Range Interpretation Comments Prothrombin Time (test code = 5902-2) 13.2 11.9-14.5 [facility] CenterProthromb Time International Ratio 2019-03-23 15:23:00* Test Item Value Reference Range Interpretation Comments Prothromb Time International Ratio (test code = 6301-6) 0.95 Oral Anticoagulant Therapy INR Values:1. Low Intensity Therapy 1.5 - 2.02 . Moderate Intensity Therapy 2.0 - 3.03. High Intensity Therapy(1) 2.5 - 3. 54. High Intensity Therapy(2) 3.0 - 4.05. Panic Value INR > 5.0 [facility] CenterActivated Partial Thromboplast Time 2019-03-23 15:23:00* Test Item Value Reference Range Interpretation Comments Activated Partial Thromboplast Time (test code = 90224-9) 28.0 23.8-35.5 [facility] CenterCHEST 2 LSDYX4677-62-82 15:19:00 [facility] [address] [place] [address] Patient Name: TENZIN VELIZ MR #: [id number] : 1950 Age/Sex: 69/M Req #: [id number] Adm Physician: Ordered by: NIRU HERNANDEZ MD Report #: [id number] Location: [facility] Room/Bed: Procedure: [id number] DX/CHEST 2 VIEWS Exam Date: Exam Time: REPORT STATUS: Signed EXAMINATION: CHEST 2 VIEWS INDICATION: Chest pain PREOP FOR LEFT HEART CATHETERIZATION COMPARISON: 04/28/2018 FINDINGS: TUBES and LINES: None. LUNGS: Chronic appearing changes in the lungs. Likely scarring/atelectasis in the lung bases. PLEURA: No pleural effusion or pneumothorax. HEART AND MEDIASTINUM: Cardiomegaly with mild pulmonary vascular congestion. BONES AND SOFT TISSUES: No acute osseous lesion. Soft tissues are u nremarkable. UPPER ABDOMEN: No free air under the diaphragm. IMPRE SSION: Chronic appearing changes in the lungs. Likely scarring/atelectasis in the lung bases. Cardiomegaly with mild pulmonary vascular congestion Signed by: Dr. Jackeline Ramirez M.D. on 03/23/2019 3:21 PM Dictated By: Estela RAMIREZ MD, MD Transcribed By: HAYES on 03/23/19 1521 COPY TO: NIRU HERNANDEZ MD White Blood Mspdt4216-07-51 15:11:00* Test Item Value Reference Range Interpretation Comments White Blood Count (test code = 6690-2) 8.98 4.8-10.8 [facility] CenterRed Blood Jrebu1649-73-52 15:11:00* Test Item Value Reference Range Interpretation Comments Red Blood Count (test code = 789-8) 6.62 4.3-5.7 H [facility] CenterHemoglobin2019-07-17 15:11:00* Test Item Value Reference Range Interpretation Comments Hemoglobin (test code = 39341-9) 13.1 14.0-18.0 L [facility] CenterHematocrit2019-07-17 15:11:00* Test Item Value Reference Range Interpretation Comments Hematocrit (test code = 4544-3) 47.4 38.2-49.6 [facility] CenterMean Corpuscular Bxauqo9773-40-45 15:11:00* Test Item Value Reference Range Interpretation Comments Mean Corpuscular Volume (test code = 787-2) 71.6 81-99 L [facility] CenterMean Corpuscular Xffgftrpdg6909-39-93 15:11:00* Test Item Value Reference Range Interpretation Comments Mean Corpuscular Hemoglobin (test code = 785-6) 19.8 28-32 L [facility] CenterMean Corpuscular Hemoglobin Concent 2019-03-23 15:11:00* Test Item Value Reference Range Interpretation Comments Mean Corpuscular Hemoglobin Concent (test code = 786-4) 27.6 31-35 L [facility] CenterRed Cell Distribution Bglfh1428-38-44 15:11:00* Test Item Value Reference Range Interpretation Comments Red Cell Distribution Width (test code = 94020-7) 21.6 11.7 -14.4 H [facility] CenterPlatelet Szmqa2404-63-24 15:11:00* Test Item Value Reference Range Interpretation Comments Platelet Count (test code = 777-3) 252 140-360 [facility] CenterNeutrophils (%) (Auto)2019-03-23 15:11:00 * Test Item Value Reference Range Interpretation Comments Neutrophils (%) (Auto) (test code = 96774-9) 70.0 38.7-80.0 [facility] CenterLymphocytes (%) (Auto)2019-03-23 15:11:00 * Test Item Value Reference Range Interpretation Comments Lymphocytes (%) (Auto) (test code = 736-9) 17.4 18.0-39.1 L [facility] CenterMonocytes (%) (Auto)2019-03-23 15:11:00* Test Item Value Reference Range Interpretation Comments Monocytes (%) (Auto) (test code = 5905-5) 8.2 4.4-11.3 [facility] CenterEosinophils (%) (Auto)2019-03-23 15:11:00 * Test Item Value Reference Range Interpretation Comments Eosinophils (%) (Auto) (test code = 713-8) 3.3 0.0-6.0 [facility] CenterBasophils (%) (Auto)2019-03-23 15:11:00* Test Item Value Reference Range Interpretation Comments Basophils (%) (Auto) (test code = 706-2) 0.3 0.0-1.0 [facility] CenterIM GRANULOCYTES %2019-03-23 15:11:00* Test Item Value Reference Range Interpretation Comments IM GRANULOCYTES % (test code = IM GRANULOCYTES %) 0.8 0.0- 1.0 [facility] CenterNeutrophils # (Auto)2019-03-23 15:11:00* Test Item Value Reference Range Interpretation Comments Neutrophils # (Auto) (test code = 751-8) 6.3 2.1-6.9 [facility] CenterLymphocytes # (Auto)2019-03-23 15:11:00* Test Item Value Reference Range Interpretation Comments Lymphocytes # (Auto) (test code = 73462-0) 1.6 1.0-3.2 [facility] CenterMonocytes # (Auto)2019-03-23 15:11:00* Test Item Value Reference Range Interpretation Comments Monocytes # (Auto) (test code = 742-7) 0.7 0.2-0.8 [facility] CenterEosinophils # (Auto)2019-03-23 15:11:00* Test Item Value Reference Range Interpretation Comments Eosinophils # (Auto) (test code = 711-2) 0.3 0.0-0.4 [facility] CenterBasophils # (Auto)2019-03-23 15:11:00* Test Item Value Reference Range Interpretation Comments Basophils # (Auto) (test code = 704-7) 0.0 0.0-0.1 [facility] CenterAbsolute Immature Granulocyte (auto 2019-03-23 15:11:00* Test Item Value Reference Range Interpretation Comments Absolute Immature Granulocyte (auto (perla t code = Absolute Immature Granulocyte (auto) 0.07 0-0.1 [facility] CenterWhite Blood Sdauu9216-46-25 15:11:00* Test Item Value Reference Range Interpretation Comments White Blood Count (test code = 6690-2) 8.98 4.8-10.8 [facility] CenterRed Blood Yjina2499-13-02 15:11:00* Test Item Value Reference Range Interpretation Comments Red Blood Count (test code = 789-8) 6.62 4.3-5.7 H [facility] CenterHemoglobin2019-07-17 15:11:00* Test Item Value Reference Range Interpretation Comments Hemoglobin (test code = 85001-5) 13.1 14.0-18.0 L [facility] CenterHematocrit2019-07-17 15:11:00* Test Item Value Reference Range Interpretation Comments Hematocrit (test code = 4544-3) 47.4 38.2-49.6 [facility] CenterMean Corpuscular Kowefo8171-38-63 15:11:00* Test Item Value Reference Range Interpretation Comments Mean Corpuscular Volume (test code = 787-2) 71.6 81-99 L [facility] CenterMean Corpuscular Hrssosozsl7286-68-29 15:11:00* Test Item Value Reference Range Interpretation Comments Mean Corpuscular Hemoglobin (test code = 785-6) 19.8 28-32 L [facility] CenterMean Corpuscular Hemoglobin Concent 2019-03-23 15:11:00* Test Item Value Reference Range Interpretation Comments Mean Corpuscular Hemoglobin Concent (test code = 786-4) 27.6 31-35 L [facility] CenterRed Cell Distribution Grhbw7519-24-62 15:11:00* Test Item Value Reference Range Interpretation Comments Red Cell Distribution Width (test code = 95962-7) 21.6 11.7 -14.4 H [facility] CenterPlatelet Smryc2820-77-08 15:11:00* Test Item Value Reference Range Interpretation Comments Platelet Count (test code = 777-3) 252 140-360 [facility] CenterNeutrophils (%) (Auto)2019-03-23 15:11:00 * Test Item Value Reference Range Interpretation Comments Neutrophils (%) (Auto) (test code = 82308-7) 70.0 38.7-80.0 [facility] CenterLymphocytes (%) (Auto)2019-03-23 15:11:00 * Test Item Value Reference Range Interpretation Comments Lymphocytes (%) (Auto) (test code = 736-9) 17.4 18.0-39.1 L [facility] CenterMonocytes (%) (Auto)2019-03-23 15:11:00* Test Item Value Reference Range Interpretation Comments Monocytes (%) (Auto) (test code = 5905-5) 8.2 4.4-11.3 [facility] CenterEosinophils (%) (Auto)2019-03-23 15:11:00 * Test Item Value Reference Range Interpretation Comments Eosinophils (%) (Auto) (test code = 713-8) 3.3 0.0-6.0 [facility] CenterBasophils (%) (Auto)2019-03-23 15:11:00* Test Item Value Reference Range Interpretation Comments Basophils (%) (Auto) (test code = 706-2) 0.3 0.0-1.0 [facility] CenterIM GRANULOCYTES %2019-03-23 15:11:00* Test Item Value Reference Range Interpretation Comments IM GRANULOCYTES % (test code = IM GRANULOCYTES %) 0.8 0.0- 1.0 [facility] CenterNeutrophils # (Auto)2019-03-23 15:11:00* Test Item Value Reference Range Interpretation Comments Neutrophils # (Auto) (test code = 751-8) 6.3 2.1-6.9 [facility] CenterLymphocytes # (Auto)2019-03-23 15:11:00* Test Item Value Reference Range Interpretation Comments Lymphocytes # (Auto) (test code = 36653-6) 1.6 1.0-3.2 [facility] CenterMonocytes # (Auto)2019-03-23 15:11:00* Test Item Value Reference Range Interpretation Comments Monocytes # (Auto) (test code = 742-7) 0.7 0.2-0.8 [facility] CenterEosinophils # (Auto)2019-03-23 15:11:00* Test Item Value Reference Range Interpretation Comments Eosinophils # (Auto) (test code = 711-2) 0.3 0.0-0.4 [facility] CenterBasophils # (Auto)2019-03-23 15:11:00* Test Item Value Reference Range Interpretation Comments Basophils # (Auto) (test code = 704-7) 0.0 0.0-0.1 [facility] CenterAbsolute Immature Granulocyte (auto 2019-03-23 15:11:00* Test Item Value Reference Range Interpretation Comments Absolute Immature Granulocyte (auto (perla t code = Absolute Immature Granulocyte (auto) 0.07 0-0.1 [facility] Sbxruda5263-04-63 16:56:00* Test Item Value Reference Range Interpretation Comments Bedside Glucose (test code = 29768-2) 174 70-120 H Meter ID: [id number]ucose 2018-04-30 16:56:00* Test Item Value Reference Range Interpretation Comments Bedside Glucose (test code = 77670-7) 174 70-120 H Meter ID: [id number] [facility] 2018-04-30 06:42:00* Test Item Value Reference Range Interpretation Comments Magnesium Level (test code = 64516-2) 2.1 1.3-2.1 [facility] CenterMaesium Tnztb5173-09-24 06:42:00* Test Item Value Reference Range Interpretation Comments Magnesium Level (test code = 23755-0) 2.1 1.3-2.1 [facility] CenterWhite Blood Jeiuk7710-75-90 06:31:00* Test Item Value Reference Range Interpretation Comments White Blood Count (test code = 6690-2) 14.59 4.8-10.8 H [facility] CenterRed Blood Xxpww3783-81-31 06:31:00* Test Item Value Reference Range Interpretation Comments Red Blood Count (test code = 789-8) 6.34 4.3-5.7 H [facility] CenterHemoglobin2018-08-24 06:31:00* Test Item Value Reference Range Interpretation Comments Hemoglobin (test code = 24540-6) 14.7 14.0-18.0 [facility] CenterHematocrit2018-08-24 06:31:00* Test Item Value Reference Range Interpretation Comments Hematocrit (test code = 4544-3) 47.5 38.2-49.6 [facility] CenterMean Corpuscular Gzczsk0091-05-26 06:31:00* Test Item Value Reference Range Interpretation Comments Mean Corpuscular Volume (test code = 787-2) 74.9 81-99 L [facility] CenterMean Corpuscular Etuevxuspw7382-17-57 06:31:00* Test Item Value Reference Range Interpretation Comments Mean Corpuscular Hemoglobin (test code = 785-6) 23.2 28-[address] [facility] Hemoglobin Concent 2018-04-30 06:31:00* Test Item Value Reference Range Interpretation Comments Mean Corpuscular Hemoglobin Concent (test code = 786-4) 30.9 31-35 L [facility] CenterRed Cell Distribution Fykoz0726-76-30 06:31:00* Test Item Value Reference Range Interpretation Comments Red Cell Distribution Width (test code = 98597-3) 18.4 11.7 -14.4 H [facility] CenterPlatelet Vghlr5151-92-40 06:31:00* Test Item Value Reference Range Interpretation Comments Platelet Count (test code = 777-3) 259 140-360 [facility] CenterNeutrophils (%) (Auto)2018-04-30 06:31:00 * Test Item Value Reference Range Interpretation Comments Neutrophils (%) (Auto) (test code = 31720-1) 67.3 38.7-80.0 [facility] CenterLymphocytes (%) (Auto)2018-04-30 06:31:00 * Test Item Value Reference Range Interpretation Comments Lymphocytes (%) (Auto) (test code = 736-9) 21.9 18.0-39.1 [facility] CenterMonocytes (%) (Auto)2018-04-30 06:31:00* Test Item Value Reference Range Interpretation Comments Monocytes (%) (Auto) (test code = 5905-5) 8.3 4.4-11.3 [facility] CenterEosinophils (%) (Auto)2018-04-30 06:31:00 * Test Item Value Reference Range Interpretation Comments Eosinophils (%) (Auto) (test code = 713-8) 1.4 0.0-6.0 [facility] CenterBasophils (%) (Auto)2018-04-30 06:31:00* Test Item Value Reference Range Interpretation Comments Basophils (%) (Auto) (test code = 706-2) 0.2 0.0-1.0 [facility] CenterIM GRANULOCYTES %2018-04-30 06:31:00* Test Item Value Reference Range Interpretation Comments IM GRANULOCYTES % (test code = IM GRANULOCYTES %) 0.9 0.0- 1.0 [facility] CenterNeutrophils # (Auto)2018-04-30 06:31:00* Test Item Value Reference Range Interpretation Comments Neutrophils # (Auto) (test code = 751-8) 9.8 2.1-6.9 H [facility] CenterLymphocytes # (Auto)2018-04-30 06:31:00* Test Item Value Reference Range Interpretation Comments Lymphocytes # (Auto) (test code = 70337-0) 3.2 1.0-3.2 [facility] CenterMonocytes # (Auto)2018-04-30 06:31:00* Test Item Value Reference Range Interpretation Comments Monocytes # (Auto) (test code = 742-7) 1.2 0.2-0.8 H [facility] CenterEosinophils # (Auto)2018-04-30 06:31:00* Test Item Value Reference Range Interpretation Comments Eosinophils # (Auto) (test code = 711-2) 0.2 0.0-0.4 [facility] CenterBasophils # (Auto)2018-04-30 06:31:00* Test Item Value Reference Range Interpretation Comments Basophils # (Auto) (test code = 704-7) 0.0 0.0-0.1 [facility] CenterAbsolute Immature Granulocyte (auto 2018-04-30 06:31:00* Test Item Value Reference Range Interpretation Comments Absolute Immature Granulocyte (auto (perla t code = Absolute Immature Granulocyte (auto) 0.13 0-0.1 H [facility] CenterWhite Blood Exxzh7181-52-55 06:31:00* Test Item Value Reference Range Interpretation Comments White Blood Count (test code = 6690-2) 14.59 4.8-10.8 H [facility] CenterRed Blood Hpokd2045-35-40 06:31:00* Test Item Value Reference Range Interpretation Comments Red Blood Count (test code = 789-8) 6.34 4.3-5.7 H [facility] CenterHemoglobin2018-08-24 06:31:00* Test Item Value Reference Range Interpretation Comments Hemoglobin (test code = 53996-2) 14.7 14.0-18.0 [facility] CenterHematocrit2018-08-24 06:31:00* Test Item Value Reference Range Interpretation Comments Hematocrit (test code = 4544-3) 47.5 38.2-49.6 [facility] CenterMean Corpuscular Zqyphi2518-59-72 06:31:00* Test Item Value Reference Range Interpretation Comments Mean Corpuscular Volume (test code = 787-2) 74.9 81-99 L [facility] CenterMean Corpuscular Snxfbpoykp0216-61-07 06:31:00* Test Item Value Reference Range Interpretation Comments Mean Corpuscular Hemoglobin (test code = 785-6) 23.2 28-32 L [facility] CenterMean Corpuscular Hemoglobin Concent 2018-04-30 06:31:00* Test Item Value Reference Range Interpretation Comments Mean Corpuscular Hemoglobin Concent (test code = 786-4) 30.9 31-35 L [facility] CenterRed Cell Distribution Avjqw0158-19-55 06:31:00* Test Item Value Reference Range Interpretation Comments Red Cell Distribution Width (test code = 73599-1) 18.4 11.7 -14.4 H [facility] CenterPlatelet Zyoad5201-28-46 06:31:00* Test Item Value Reference Range Interpretation Comments Platelet Count (test code = 777-3) 259 140-360 [facility] CenterNeutrophils (%) (Auto)2018-04-30 06:31:00 * Test Item Value Reference Range Interpretation Comments Neutrophils (%) (Auto) (test code = 59036-8) 67.3 38.7-80.0 [facility] CenterLymphocytes (%) (Auto)2018-04-30 06:31:00 * Test Item Value Reference Range Interpretation Comments Lymphocytes (%) (Auto) (test code = 736-9) 21.9 18.0-39.1 [facility] CenterMonocytes (%) (Auto)2018-04-30 06:31:00* Test Item Value Reference Range Interpretation Comments Monocytes (%) (Auto) (test code = 5905-5) 8.3 4.4-11.3 [facility] CenterEosinophils (%) (Auto)2018-04-30 06:31:00 * Test Item Value Reference Range Interpretation Comments Eosinophils (%) (Auto) (test code = 713-8) 1.4 0.0-6.0 [facility] CenterBasophils (%) (Auto)2018-04-30 06:31:00* Test Item Value Reference Range Interpretation Comments Basophils (%) (Auto) (test code = 706-2) 0.2 0.0-1.0 [facility] CenterIM GRANULOCYTES %2018-04-30 06:31:00* Test Item Value Reference Range Interpretation Comments IM GRANULOCYTES % (test code = IM GRANULOCYTES %) 0.9 0.0- 1.0 [facility] CenterNeutrophils # (Auto)2018-04-30 06:31:00* Test Item Value Reference Range Interpretation Comments Neutrophils # (Auto) (test code = 751-8) 9.8 2.1-6.9 H [facility] CenterLymphocytes # (Auto)2018-04-30 06:31:00* Test Item Value Reference Range Interpretation Comments Lymphocytes # (Auto) (test code = 68653-5) 3.2 1.0-3.2 [facility] CenterMonocytes # (Auto)2018-04-30 06:31:00* Test Item Value Reference Range Interpretation Comments Monocytes # (Auto) (test code = 742-7) 1.2 0.2-0.8 H [facility] CenterEosinophils # (Auto)2018-04-30 06:31:00* Test Item Value Reference Range Interpretation Comments Eosinophils # (Auto) (test code = 711-2) 0.2 0.0-0.4 [facility] CenterBasophils # (Auto)2018-04-30 06:31:00* Test Item Value Reference Range Interpretation Comments Basophils # (Auto) (test code = 704-7) 0.0 0.0-0.1 [facility] CenterAbsolute Immature Granulocyte (auto 2018-04-30 06:31:00* Test Item Value Reference Range Interpretation Comments Absolute Immature Granulocyte (auto (perla t code = Absolute Immature Granulocyte (auto) 0.13 0-0.1 H [facility] CenterB-Type Natriuretic Lniebqx1143-67-55 06:23:00* Test Item Value Reference Range Interpretation Comments B-Type Natriuretic Peptide (test code = 11245-2) 32.1 0-100 [facility] CenterB-Type Natriuretic Zppxuus4560-89-34 06:23:00* Test Item Value Reference Range Interpretation Comments B-Type Natriuretic Peptide (test code = 20488-1) 32.1 0-100 [facility]odium Gtpyy8190-11-26 06:20:00* Test Item Value Reference Range Interpretation Comments Sodium Level (test code = 2951-2) 137 136-145 [facility] CenterPotassium Vlcaf6901-20-20 06:20:00* Test Item Value Reference Range Interpretation Comments Potassium Level (test code = 2823-3) 3.7 3.5-5.1 [facility] CenterChloride Aprsj8823-63-82 06:20:00* Test Item Value Reference Range Interpretation Comments Chloride Level (test code = 2075-0) 98 98-107 [facility] CenterCarbon Dioxide Vxtli9911-53-30 06:20:00* Test Item Value Reference Range Interpretation Comments Carbon Dioxide Level (test code = 2028-9) 29 22-29 [facility] CenterAnion Zpq8997-39-58 06:20:00* Test Item Value Reference Range Interpretation Comments Anion Gap (test code = 15433-2) 13.7 8-16 [facility] CenterBlood Urea Ejiheuyc3062-31-14 06:20:00* Test Item Value Reference Range Interpretation Comments Blood Urea Nitrogen (test code = 3094-0) 27 7-26 H [facility] CenterCreatinine2018-08-24 06:20:00* Test Item Value Reference Range Interpretation Comments Creatinine (test code = 2160-0) 0.70 0.72-1.25 L [facility] CenterBUN/Creatinine Knxdg3963-87-19 06:20:00* Test Item Value Reference Range Interpretation Comments BUN/Creatinine Ratio (test code = 3097-3) 39 6-25 H [facility] CenterEstimat Glomerular Filtration Rate 2018-04-30 06:20:00* Test Item Value Reference Range Interpretation Comments Estimat Glomerular Filtration Rate (test code = 87736-4) 60- >60 Ranges were taken from the National Kidney Disease Education Program and the [employer] [facility] [facility] [employer] literature.Reference ranges:60 or greater: Lrhcku05-93 ( for 3 consecutive months): Chronic kidney disease 15 or less: Kidney failureDallas Regional Medical CenterGlucose Ehsqf7475-40-93 06:20:00* Test Item Value Reference Range Interpretation Comments Glucose Level (test code = NAL2562) 100 74-118 [facility] CenterCalcium Hfvkb3839-11-49 06:20:00* Test Item Value Reference Range Interpretation Comments Calcium Level (test code = 33285-0) 8.9 8.4-10.2 [facility] CenterTotal Lqycupmbs0780-19-60 06:20:00* Test Item Value Reference Range Interpretation Comments Total Bilirubin (test code = 1975-2) 0.9 0.2-1.2 [facility] CenterAspartate Amino Transf (AST/SGOT) 2018-04-30 06:20:00* Test Item Value Reference Range Interpretation Comments Aspartate Amino Transf (AST/SGOT) (test code = Aspartate Amino Transf (AST/SGOT)) 18 5-34 [facility] CenterAlanine Aminotransferase (ALT/SGPT) 2018-04-30 06:20:00* Test Item Value Reference Range Interpretation Comments Alanine Aminotransferase (ALT/SGPT) (test code = 1742-6) 44 0-55 [facility] CenterTotal Kjifchw1790-19-07 06:20:00* Test Item Value Reference Range Interpretation Comments Total Protein (test code = 2885-2) 6.4 6.5-8.1 L [facility] CenterAlbumin2018-08-24 06:20:00* Test Item Value Reference Range Interpretation Comments Albumin (test code = 1751-7) 3.2 3.5-5.0 L [facility] CenterGlobulin2018-08-24 06:20:00* Test Item Value Reference Range Interpretation Comments Globulin (test code = 50008-1) 3.2 2.3-3.5 [facility] CenterAlbumin/Globulin Iwqpk7213-94-80 06:20:00 * Test Item Value Reference Range Interpretation Comments Albumin/Globulin Ratio (test code = 1759-0) 1.0 0.8-2.0 [facility] CenterAlkaline Acygjpivtsm7760-54-06 06:20:00* Test Item Value Reference Range Interpretation Comments Alkaline Phosphatase (test code = 6768-6) 81 40-150 [facility] Austinodium Brnsl2789-14-53 06:20:00* Test Item Value Reference Range Interpretation Comments Sodium Level (test code = 2951-2) 137 136-145 [facility] CenterPotassium Xbmbv8888-02-72 06:20:00* Test Item Value Reference Range Interpretation Comments Potassium Level (test code = 2823-3) 3.7 3.5-5.1 [facility] CenterChloride Psvfp2858-03-53 06:20:00* Test Item Value Reference Range Interpretation Comments Chloride Level (test code = 2075-0) 98 98-107 [facility] CenterCarbon Dioxide Ibdlx0391-88-71 06:20:00* Test Item Value Reference Range Interpretation Comments Carbon Dioxide Level (test code = 2028-9) 29 22-29 [facility] CenterAnion Wdb6346-96-31 06:20:00* Test Item Value Reference Range Interpretation Comments Anion Gap (test code = 20790-7) 13.7 8-16 [facility] CenterBlood Urea Taudjybw2784-31-55 06:20:00* Test Item Value Reference Range Interpretation Comments Blood Urea Nitrogen (test code = 3094-0) 27 7-26 H [facility] CenterCreatinine2018-08-24 06:20:00* Test Item Value Reference Range Interpretation Comments Creatinine (test code = 2160-0) 0.70 0.72-1.25 L [facility] CenterBUN/Creatinine Bvyrb1349-83-73 06:20:00* Test Item Value Reference Range Interpretation Comments BUN/Creatinine Ratio (test code = 3097-3) 39 6-25 H [facility] CenterEstimat Glomerular Filtration Rate 2018-04-30 06:20:00* Test Item Value Reference Range Interpretation Comments Estimat Glomerular Filtration Rate (test code = 887953403) > 60 >60 Ranges were taken from the National Kidney Disease Education Program and the [employer] [facility] [employer] [employer] literature.Reference ranges:60 or greater: Eamoaq58-47 ( for 3 consecutive months): Chronic kidney disease 15 or less: Kidney failureD[facility] Regional Medical CenterGlucose Irkid2307-86-70 06:20:00* Test Item Value Reference Range Interpretation Comments Glucose Level (test code = HWW4800) 100 74-118 [facility] CenterCalcium Dbvzb3252-64-20 06:20:00* Test Item Value Reference Range Interpretation Comments Calcium Level (test code = 17162-1) 8.9 8.4-10.2 [facility] CenterTotal Ksfiocayv5597-81-48 06:20:00* Test Item Value Reference Range Interpretation Comments Total Bilirubin (test code = 1975-2) 0.9 0.2-1.2 [facility] CenterAspartate Amino Transf (AST/SGOT) 2018-04-30 06:20:00* Test Item Value Reference Range Interpretation Comments Aspartate Amino Transf (AST/SGOT) (test code = Aspartate Amino Transf (AST/SGOT)) 18 5-34 [facility] CenterAlanine Aminotransferase (ALT/SGPT) 2018-04-30 06:20:00* Test Item Value Reference Range Interpretation Comments Alanine Aminotransferase (ALT/SGPT) (test code = 1742-6) 44 0-55 [facility] CenterTotal Efebgby0452-49-75 06:20:00* Test Item Value Reference Range Interpretation Comments Total Protein (test code = 2885-2) 6.4 6.5-8.1 L [facility] CenterAlbumin2018-08-24 06:20:00* Test Item Value Reference Range Interpretation Comments Albumin (test code = 1751-7) 3.2 3.5-5.0 L [facility] CenterGlobulin2018-08-24 06:20:00* Test Item Value Reference Range Interpretation Comments Globulin (test code = 96176-0) 3.2 2.3-3.5 [facility] CenterAlbumin/Globulin Oyntz3430-28-43 06:20:00 * Test Item Value Reference Range Interpretation Comments Albumin/Globulin Ratio (test code = 1759-0) 1.0 0.8-2.0 [facility] CenterAlkaline Djzwggjojwu9411-44-48 06:20:00* Test Item Value Reference Range Interpretation Comments Alkaline Phosphatase (test code = 6768-6) 81 40-150 [facility] CenterFOOT RIGHT AP OMK2867-12-56 15:43:00 [facility] [address] [address] Patient Name: TENZIN VELIZ MR #: [id number] : [birth year] Age/Sex: 68/M Req #: [id number] Adm Physician: TYRELL LIMA AM, MD Ordered by: HERBERT CARABALLO DPM Report #: [id number] Location: MED/SURG3 Room/Bed: [facility] Procedure: DX/FO OT RIGHT AP LAT Exam Date: 04/29/18 Exam Time: 152 0 REPORT STATUS: Signed Exam: Right foot series, 3 views. Clin ical History: Back pain Comparison: None. Findings: 3 views of the rig ht foot. There is normal bone mineralization. Negative for acute, displaced fr acture or dislocation. Minimal degenerative changes in the first metatarsophal angeal joint. Small anterior calcaneal enthesophyte. No significant swelli ng. Impression: 1. No acute abnormalities. Signed by: Dr. Chele Vaughan M.D. on 04/29/2018 3:45 PM Dictated By: CHELE VAUGHAN MD Doris ctronically Signed By: CHELE VAUGHAN MD on 04/29/18 154 Transcribed By: DAVID YANEZ on 04/29/181544 COPY TO: HERBERT CARABALLO DPM FOOT LEFT AP PQE1403-78-68 15:36:[address] [address] Patient Name: TENZIN VELIZ MR #: [id number] : 1950 Age/Sex: 68/M Req #: [id number] Adm Physician: TYRELL TORRES MD Ordered by: HERBERT CARABALLO DPM Report #: [id number] Location: MED/SURG3 Room/Bed: [facility] Procedure: DX/FO OT LEFT AP LAT Exam Date: 04/29/18 Exam Time: 1520 REPORT STATUS: Signed Exam: Left foot series, 3 views. Clinic al History: Foot pain Comparison: None. Findings: 3 views of the left foot. There is normal bone mineralization. Negative for acute, displaced fract ure or dislocation. Minimal degenerative changes in the first and fifth metata rsophalangeal joints, with a small marginal osteophyte in the lateral. Tiny a nterior and posterior calcaneal enthesophytes. Impression: 1. No acu te abnormalities Signed by: Dr. Chele Vaughan M.D. on 04/29/2018 3:3 7 PM Dictated By: CHELE VUAGHAN MD 36 Transcribed By: HAYES on 04/29/181536 COPY TO : HERBERT CARABALLO DPM CHEST SINGLE (PORTABLE)2018-04-28 05:55:00 [place] [address] Patient Name: TENZIN VELIZ MR #: [id number] : 1950 Age/Sex: 68/M Req #: [id number] Adm Physician: TYRELL LIMA AM, MD Ordered by: NEAL HERNANDEZ MD Report #: [id number] Location: ICU Room/Bed: [place] [address] Procedure: [id number] DX/CHEST SI NGLE (PORTABLE) Exam Date: 04/28/18 Exam Time: 0505 REPORT STATUS: Signed CHEST SINGLE (PORTABLE), 04/28/2018 6:30 AM T echnique: CHEST SINGLE (PORTABLE) Comparison: 04/27/2018 Clinical history: Re spiratory failure Findings: Limited portable radiograph with soft tissue attenuation Impression: 1. Lines/Tubes: Removal of ET tube and NG tube. S table right IJ CVC over the proximal SVC. 2. Stable enlarged cardiomediastin al silhouette. 3. Perihilar and bibasilar opacities which may be related to un derlying edema/atelectasis. Small effusions. 4. Lucency overlying the lower mid thorax could be artifactual or related to a hiatal hernia. Attention on fo llow-up upright PA and lateral when feasible. Signed by: Dr Erick Sanchez MD on 04/28/2018 5:58 AM Dictated By: ERICK SANCHEZ MD Electronically S igned By: ERICK SANCHEZ MD on 04/28/18557 Transcribed By: HAYES on 557 COPY TO: NEAL HERNANDEZ MD Arterial Blood yH0820-61-00 09:18:00* Test Item Value Reference Range Interpretation Comments Arterial Blood pH (test code = 2744-1) 7.40 7.31-7.41 [facility] CenterArterial Blood Partial Pressure CO2 2018-04-27 09:18:00* Test Item Value Reference Range Interpretation Comments Arterial Blood Partial Pressure CO2 (test code = 2018-) 51 41-51 [facility] CenterArterial Blood Partial Pressure O2 2018-04-27 09:18:00* Test Item Value Reference Range Interpretation Comments Arterial Blood Partial Pressure O2 (test code = 2018-8) 68 80-105 L [facility] CenterArterial Blood NYC67107-06-80 09:18:00* Test Item Value Reference Range Interpretation Comments Arterial Blood HCO3 (test code = 1960-4) 32 23-28 H [facility] CenterArterial Blood Base Gtmnul8428-40-25 09:18:00* Test Item Value Reference Range Interpretation Comments Arterial Blood Base Excess (test code = 1925-7) 7.0 -2-3 H [facility] CenterArterial Blood Oxygen Saturation 2018-04-27 09:18:00* Test Item Value Reference Range Interpretation Comments Arterial Blood Oxygen Saturation (test code = 2708-6) 93.0 95-98 L [facility] CenterFiO22018-08-21 09:18:00* Test Item Value Reference Range Interpretation Comments FiO2 (test code = FiO2) 40 CPAP/PS Peep:3 PS:8 40%[facility] CenterArterial Blood pH 2018-04-27 09:18:00* Test Item Value Reference Range Interpretation Comments Arterial Blood pH (test code = 2744-1) 7.40 7.31-7.41 [facility] CenterArterial Blood Partial Pressure CO2 2018-04-27 09:18:00* Test Item Value Reference Range Interpretation Comments Arterial Blood Partial Pressure CO2 (test code = 2018-) 51 41-51 [facility] CenterArterial Blood Partial Pressure O2 2018-04-27 09:18:00* Test Item Value Reference Range Interpretation Comments Arterial Blood Partial Pressure O2 (test code = 2019-04) 68 80-105 L [facility] CenterArterial Blood VKX51307-77-19 09:18:00* Test Item Value Reference Range Interpretation Comments Arterial Blood HCO3 (test code = 1960-4) 32 23-28 H [facility] CenterArterial Blood Base Ejgsdp7607-82-82 09:18:00* Test Item Value Reference Range Interpretation Comments Arterial Blood Base Excess (test code = 1925-7) 7.0 -2-3 H [facility] CenterArterial Blood Oxygen Saturation 2018-04-27 09:18:00* Test Item Value Reference Range Interpretation Comments Arterial Blood Oxygen Saturation (test code = 2708-6) 93.0 95-98 L [facility] CenterFiO22018-08-21 09:18:00* Test Item Value Reference Range Interpretation Comments FiO2 (test code = FiO2) 40 CPAP/PS Peep:3 PS:8 40%[facility] CenterCHEST SINGLE (PORTABLE)2018-04-27 06:02:00 [place] [address] Patient Name: TENZIN VELIZ MR #: [id number] : 1950 Age/Sex: 68/M Req #: [id number] Adm Physician: TYRELL TORRES MD Ordered by: NEAL HERNANDEZ MD Report #: [id number] Location: ICU Room/Bed: ICU 190-1 Procedure: [id number] DX/CHEST SI NGLE (PORTABLE) Exam Date: 04/27/18 Exam Time: 519 REPORT STATUS: Signed CHEST SINGLE (PORTABLE), 04/27/2018 6:30 AM T echnique: CHEST SINGLE (PORTABLE) Comparison: 04/26/2018 Clinical history: Re spiratory failure Findings: Limited portable radiograph with soft tissue attenuation Impression: 1. Lines/Tubes: Stable ET tube just below the tho racic inlet, visualized subdiaphragmatic NG tube, right IJ CVC over the proxim al SVC. 2. Stable enlarged cardiomediastinal silhouette. 3. Perihilar and bi basilar opacities which may be related to resolving edema/atelectasis; cannot exclude superimposed infection. Small effusions. Signed by: Dr Erick espinoza MD on 04/27/2018 6:13 AM Dictated By: ERICK SANCHEZ MD Electronicall y Signed By: ERICK SANCHEZ MD on 04/27/18612 Transcribed By: HAYES on 612 COPY TO: NEAL HERNANDEZ MD CHEST SINGLE (PORTABLE) 2018-04-26 06:58:00 [place] [address] Patient Name: TENZIN VELIZ MR #: [id number] : 1950 Age/Sex: 68/M Req #: [id number] Adm Physician: TYRELL TORRES MD Ordered by: NEAL HERNANDEZ MD Report #: [id number] Location: ICU Room/Bed: ICU 190- Procedure: [id number] DX/CHEST SI NGLE (PORTABLE) Exam Date: 04/26/18 Exam Time: 0530 REPORT STATUS: Signed EXAMINATION: CHEST SINGLE (PORTABLE) IN DICATION: Respiratory failure COMPARISON: 04/25/2018 F INDINGS: TUBES and LINES: Endotracheal tube and nasogastric tube are in good position. Right IJ central line catheter with tip above the level of the SVC. LUNGS: Lungs are not well inflated. Improving, confluent mid lung and p erihilar airspace opacities . PLEURA: No pleural effusion or pneumothora x. HEART AND MEDIASTINUM: Cardiac size is moderately enlarged. There are atherosclerotic calcifications within the aorta. BONES AND SOFT TISSUES: No acute osseous lesion. Soft tissues are unremarkable. UPPER ABDOMEN: N o free air under the diaphragm. IMPRESSION: 1. Mildly improving per ihilar and mid lung confluent airspace disease compatible congestion and edema from patient's small left pleural effusion. Signed by: Debora Gross on 04/26/2018 7:00 AM Dictated By: ORLANDO RODRIGUEZ MD Electronica lly Signed By: ORLANDO RODRIGUEZ MD on 04/26/18 0700 Transcribed By: HAYES on 04/26/18 0700 COPY TO: NEAL HERNANDEZ MD CHEST SINGLE (PORTABLE) 2018-04-25 10:12:00 [place] [address] Patient Name: TENZIN VELIZ MR #: [id number] : 1950 Age/Sex: 68/M Req #: [id number] Adm Physician: TYRELL TORRES MD Ordered by: NEAL HERNANDEZ MD Report #: [id number] Location: ICU Room/Bed: ICU [facility] Procedure: [id number] DX/CHEST SI NGLE (PORTABLE) Exam Date: 04/25/18 Exam Time: 0535 REPORT STATUS: Signed EXAM: XR CHEST 1 VIEW DATE: 04/25/2018 6:30 AM INDICATION: Respiratory failure COMPARISON: 04/24/2018 radiograph FINDINGS: Lines and Tubes: ET tube tip above chandu, right IJ catheter tip overlying SVC, and NG tube coursing past the inferior field of view. H eart and Mediastinum: Heart is enlarged. Moderate prominence of the hilum. Lungs and Pleura: Mild to moderate scattered airspace opacities with probable small effusions. Bones and Soft Tissues: No acute findings. IMPRESSION : 1. Cardiomegaly with mild edema and small effusions. 2. Prominent hi lar regions corresponding with dilated pulmonary arteries on 04/22/2018 CT. Fin dings suggest pulmonary hypertension. Signed by: Dr. Heaven Rosales MD on 10:13 AM Dictated By: HEAVEN ROSALES MD 1013 Transcribed By: HAYES on 04/25/18 1013 COPY TO: NEAL HERNANDEZ MD Thyroid Stimulating Hormone (TSH)2018-04-25 05:40:00* Test Item Value Reference Range Interpretation Comments Thyroid Stimulating Hormone (TSH) (test code = 88278-3) 0.145 0.350-4.940 L [facility] CenterThyroid Stimulating Hormone (TSH) 2018-04-25 05:40:00* Test Item Value Reference Range Interpretation Comments Thyroid Stimulating Hormone (TSH) (test code = 38618-2) 0.145 0.350-4.940 L [facility] CenterCHEST SINGLE (PORTABLE)2018-04-24 13:45:00 [place] [address] Patient Name: TENZIN VELIZ MR #: [id number] : 1950 Age/Sex: 68/M Req #: [id number] Adm Physician: TYRELL TORRES MD Ordered by: NEAL HERNANDEZ MD Report #: [id number] Location: ICU Room/Bed: ICU [facility] Procedure: [id number] DX/CHEST SI NGLE (PORTABLE) Exam Date: 04/24/18 Exam Time: 1320 REPORT STATUS: Signed EXAMINATION: CHEST SINGLE (PORTABLE) IN DICATION: COMPARISON: Chest radiograph 04/24/2018 at 0535 ho urs, chest CT 04/22/2018 FINDINGS: AP view TUBES and LINES: E ndotracheal tube and nasogastric tube are in good position. Interval placement of right IJ central venous catheter with tip overlying the upper SVC. SANTOSH NGS: Lungs are not well inflated. Stable confluent mid lung and perihilar ai rspace opacities. Perihilar interstitial opacities. PLEURA: Small left pl eural effusion. No right pleural effusion. No pneumothorax. HEART AND MED IASTINUM: Cardiac size is moderately enlarged, stable. There are atherosclero tic calcifications within the aorta. BONES AND SOFT TISSUES: No acute osse ous lesion. Soft tissues are unremarkable. UPPER ABDOMEN: No free air un barb the diaphragm. IMPRESSION: Interstitial edema and small left ple ural effusion. Stable perihilar and mid lung opacities corresponding to scarri ng or atelectasis on chest CT 04/22/2018. Endotracheal tube and NG tube are i n good position. Interval placement of right IJ central venous catheter with t ip overlying the upper SVC. Signed by: DR. Gen Rodriguez MD on 04/24/2018 1 :50 PM Dictated By: GEN RODRIGUEZ MD 1350 Transcribed By: HAYES on 04/24/18 1350 COPY TO : NEAL HERNANDEZ MD Urine PFN8421-16-16 11:48:00* Test Item Value Reference Range Interpretation Comments Urine WBC (test code = 5821-4) 0-5 0-5 [facility] CenterUrine WQB7919-99-65 11:48:00* Test Item Value Reference Range Interpretation Comments Urine RBC (test code = 07915-6) 6-10 0-5 H [facility] CenterUrine Alzhutlo4986-67-31 11:48:00* Test Item Value Reference Range Interpretation Comments Urine Bacteria (test code = 02171-0) FEW NONE [facility] CenterUrine Epithelial Wdddg2667-90-51 11:48:00 * Test Item Value Reference Range Interpretation Comments Urine Epithelial Cells (test code = 37804-4) FEW NONE [facility] CenterUrine RTW0502-81-57 11:48:00* Test Item Value Reference Range Interpretation Comments Urine WBC (test code = 5821-4) 0-5 0-5 [facility] CenterUrine ORK0200-51-85 11:48:00* Test Item Value Reference Range Interpretation Comments Urine RBC (test code = 71281-5) 6-10 0-5 H [facility] CenterUrine Yybjxymt2274-97-35 11:48:00* Test Item Value Reference Range Interpretation Comments Urine Bacteria (test code = 84228-8) FEW NONE [facility] CenterUrine Epithelial Igojx5541-05-40 11:48:00 * Test Item Value Reference Range Interpretation Comments Urine Epithelial Cells (test code = 82479-9) FEW NONE [facility] CenterUrine Hzxmg3341-21-67 11:45:00* Test Item Value Reference Range Interpretation Comments Urine Color (test code = 5778-6) YELLOW YELLOW [facility] CenterUrine Lkkiegj6092-90-57 11:45:00* Test Item Value Reference Range Interpretation Comments Urine Clarity (test code = 33085-8) HAZY CLEAR [facility] CenterUrine Specific Qbktgxf8413-46-97 11:45:00 * Test Item Value Reference Range Interpretation Comments Urine Specific [place] (test code = 5811-5) 1.005 1.010-1.02 5 [facility] kE8127-05-84 11:45:00* Test Item Value Reference Range Interpretation Comments Urine pH (test code = 98024-5) 6 5-7 [facility] Leukocyte Svyritef8700-13-61 11:45:00* Test Item Value Reference Range Interpretation Comments Urine Leukocyte Esterase (test code = 5799-2) NEGATIVE NEGATIVE [facility] Czycatx3716-45-88 11:45:00* Test Item Value Reference Range Interpretation Comments Urine Nitrite (test code = 39891-4) NEGATIVE NEGATIVE [facility] Kilcrth9890-72-53 11:45:00* Test Item Value Reference Range Interpretation Comments Urine Protein (test code = 5804-0) NEGATIVE NEGATIVE [facility] Glucose (UA)2018-04-24 11:45:00* Test Item Value Reference Range Interpretation Comments Urine Glucose (UA) (test code = 2349-9) NEGATIVE NEGATIVE [facility] Aifeftj8436-19-12 11:45:00* Test Item Value Reference Range Interpretation Comments Urine Ketones (test code = 60235-2) NEGATIVE NEGATIVE [facility] Twyeaqebzrqf1605-06-28 11:45:00* Test Item Value Reference Range Interpretation Comments Urine Urobilinogen (test code = 47928-4) 0.2 0.2-1 [facility] Utfbubmua5847-74-38 11:45:00* Test Item Value Reference Range Interpretation Comments Urine Bilirubin (test code = 1978-6) NEGATIVE NEGATIVE [facility] Asgeg1787-27-62 11:45:00* Test Item Value Reference Range Interpretation Comments Urine Blood (test code = 73446-4) TRACE NEGATIVE H [facility] Jfihl2303-56-10 11:45:00* Test Item Value Reference Range Interpretation Comments Urine Color (test code = 5778-6) YELLOW YELLOW [facility] Ywmcdhn4351-21-63 11:45:00* Test Item Value Reference Range Interpretation Comments Urine Clarity (test code = 88878-1) HAZY CLEAR [facility] Specific Hltrcgp9093-25-07 11:45:00 * Test Item Value Reference Range Interpretation Comments Urine Specific Watkins (test code = 5811-5) 1.005 1.010-1.02 5 L [facility] yX4371-29-62 11:45:00* Test Item Value Reference Range Interpretation Comments Urine pH (test code = 11802-9) 6 5-7 [facility] Leukocyte Gzwtnkba6042-35-47 11:45:00* Test Item Value Reference Range Interpretation Comments Urine Leukocyte Esterase (test code = 5799-2) NEGATIVE NEGATIVE [facility] Ttigbra0809-36-64 11:45:00* Test Item Value Reference Range Interpretation Comments Urine Nitrite (test code = 02509-0) NEGATIVE NEGATIVE [facility] Hcbqhxm1928-08-38 11:45:00* Test Item Value Reference Range Interpretation Comments Urine Protein (test code = 5804-0) NEGATIVE NEGATIVE [facility] Glucose (UA)2018-04-24 11:45:00* Test Item Value Reference Range Interpretation Comments Urine Glucose (UA) (test code = 2349-9) NEGATIVE NEGATIVE [facility] Iengziu9111-80-18 11:45:00* Test Item Value Reference Range Interpretation Comments Urine Ketones (test code = 89527-0) NEGATIVE NEGATIVE [facility] Lhaenvwyborj5634-14-64 11:45:00* Test Item Value Reference Range Interpretation Comments Urine Urobilinogen (test code = 44937-7) 0.2 0.2-1 [facility] Iqzrpsiad1408-85-54 11:45:00* Test Item Value Reference Range Interpretation Comments Urine Bilirubin (test code = 1978-6) NEGATIVE NEGATIVE [facility] Bxppv1488-13-60 11:45:00* Test Item Value Reference Range Interpretation Comments Urine Blood (test code = 94105-0) TRACE NEGATIVE H [facility] CenterAct[facility] Partial Thromboplast Time 2018-04-24 08:54:00* Test Item Value Reference Range Interpretation Comments Activated Partial Thromboplast Time (test code = 16664-1) 27.5 23.8-35.5 [facility] Partial Thromboplast Time 2018-04-24 08:54:00* Test Item Value Reference Range Interpretation Comments Activated Partial Thromboplast Time (test code = 49607-8) 27.5 23.8-35.5 [facility] CenterProthrombin Zjgq8550-55-15 08:53:00* Test Item Value Reference Range Interpretation Comments Prothrombin Time (test code = 5902-2) 13.5 11.9-14.5 [facility] CenterProthromb Time International Ratio 2018-04-24 08:53:00* Test Item Value Reference Range Interpretation Comments Prothromb Time International Ratio (test code = 6301-6) 1.11 Oral Anticoagulant Therapy INR Values:1. Low Intensity Therapy 1.5 - 2.02 . Moderate Intensity Therapy 2.0 - 3.03. High Intensity Therapy(1) 2.5 - 3. 54. High Intensity Therapy(2) 3.0 - 4.05. Panic Value INR > 5.0 [facility] Center[facility]thrombin Ypzd6802-11-77 08:53:00* Test Item Value Reference Range Interpretation Comments Prothrombin Time (test code = 5902-2) 13.5 11.9-14.5 [facility] CenterProth[facility] Time International Ratio 2018-04-24 08:53:00* Test Item Value Reference Range Interpretation Comments Prothromb Time International Ratio (test code = 6301-6) 1.11 Oral Anticoagulant Therapy INR Values:1. Low Intensity Therapy 1.5 - 2.02 . Moderate Intensity Therapy 2.0 - 3.03. High Intensity Therapy(1) 2.5 - 3. 54. High Intensity Therapy(2) 3.0 - 4.05. Panic Value INR > 5.0 [facility])2018-04-24 06:53:00 [place] [address] Patient Name: TENZIN VELIZ MR #: [id number] : 1950 Age/Sex: 68/M Req #: [id number] Adm Physician: TYRELL TORRES MD Ordered by: NEAL HERNANDEZ MD Report #: [id number] Location: ICU Room/Bed: ICU [facility] Procedure: [id number] DX/CHEST SI NGLE (PORTABLE) Exam Date: 04/24/18 Exam Time: 0530 REPORT STATUS: Signed EXAMINATION: CHEST SINGLE (PORTABLE) IN DICATION: Respiratory failure COMPARISON: 04/23/2018 F INDINGS: TUBES and LINES: Endotracheal tube and nasogastric tube are in good position. LUNGS: Lungs are not well inflated. Improving, confluent mid santosh ng and perihilar airspace opacities PLEURA: No pleural effusion or pn eumothorax. HEART AND MEDIASTINUM: Cardiac size is moderately enlarged. Th ere are atherosclerotic calcifications within the aorta. BONES AND SOFT T ISSUES: No acute osseous lesion. Soft tissues are unremarkable. UPPER A BDOMEN: No free air under the diaphragm. IMPRESSION: Mildly improvin g perihilar and mid lung confluent airspace disease compatible congestion and atelectasis Endotracheal tube and NG tube are in good position. Signed by : Dr. Orlando Jalloh M.D. on 04/24/2018 6:54 AM Dictated By: ORLANDO HAINES MD 3 Tr anscribed By: HAYES on 04/24/18653 COPY TO: NEAL HERNANDEZ MD Creatine Kinase OC9536-51-04 05:59:00* Test Item Value Reference Range Interpretation Comments Creatine Kinase MB (test code = 06466-1) 3.30 0-5.0 [facility] CenterTroponin [id number] 05:59:00* Test Item Value Reference Range Interpretation Comments Troponin I (test code = HIC6819) 0.025 0-0.300 [facility] CenterCreatine Kinase HL0603-77-94 05:59:00* Test Item Value Reference Range Interpretation Comments Creatine Kinase MB (test code = 00839-6) 3.30 0-5.0 [facility] CenterTroponin L8193-39-01 05:59:00* Test Item Value Reference Range Interpretation Comments Troponin I (test code = JGL9082) 0.025 0-0.300 [facility] CenterCreatine Uzinhl1544-36-29 05:52:00* Test Item Value Reference Range Interpretation Comments Creatine Kinase (test code = 2157-6) 92 30-200 [facility] CenterCreat[facility] Ieprrx0225-71-87 05:52:00* Test Item Value Reference Range Interpretation Comments Creatine Kinase (test code = 2157-6) 92 30-200 [facility] Center[facility]LE ([facility])2018-04-23 05:51:00 [place] [address] Patient Name: TENZIN VELIZ MR #: [id number] : 1950 Age/Sex: 68/M Req #: [id number] Adm Physician: TYRELL TORRES MD Ordered by: CARRI DUONG MD Report #: [id number] Location: ICU Room/Bed: ICU [facility] Procedure: [id number] DX/CHES T SINGLE (PORTABLE) Exam Date: 04/23/18 Exam Time: 0 450 REPORT STATUS: Signed EXAMINATION: CHEST SINGLE (PORTABLE) INDICATION: Acute respiratory failure COMPARISON: 04/23/2018 FINDINGS: TUBES and LINES: Endotracheal tube and nasogastric tube are in good position. LUNGS: Lungs are not well inflated. Confluent mid lung and perihilar airspace opacities PLEURA: No pleural effusion or pneumothorax. HEART AND MEDIASTINUM: Cardiac size is moderately enlarged. There are atherosclerotic calcifications within the aorta. BONES AND SOFT TISSUES: No acute osseous lesion. Soft tissues are unremarkable. UPPER ABDOMEN: No free air under the diaphragm. IMPRESSION: Stable perihi lar and mid lung confluent airspace disease compatible with fibrosis. Endotr acheal tube and NG tube are in good position. Signed by: Dr. Orlando Jalloh M.D. on 04/23/2018 5:52 AM Dictated By: ORLANDO RODRIGUEZ MD Electro nically Signed By: ORLANDO RODRIGUEZ MD on 04/23/18 0552 Transcribed By: COM DAWSON on 04/23/1852 COPY TO: CARRI DUONG MD ABDOMEN-1VIEW (KUB)2018-04-23 03:38:00 [place] [address] Patient Name: TENZIN VELIZ MR #: [id number] : 1950 Age/Sex: 68/M Req #: [id number] Adm Physician: TYRELL TORRES MD Ordered by: NEAL HERNANDEZ MD Report #: [id number] Location: ICU Room/Bed: ICU [facility] Procedure: [id number] DX/ABDOMEN- 1VIEW (KUB) Exam Date: 04/23/18 Exam Time: 0300 REPORT STATUS: Signed ADDENDUM #1 EXAMINATION: C HEST SINGLE (PORTABLE), ABDOMEN-1VIEW (KUB) INDICATION: NG tu be placement. COMPARISON: 04/22/2018 FINDINGS: TUBES and LINES : NG tube is visualized with distal tip overlying the left upper quadrant. En dotracheal tube is not visualized. LUNGS: Lungs are not well inflated. Co nfluent perihilar and mid lung opacities. There is no evidence of pneumonia or pulmonary edema. PLEURA: No pleural effusion or pneumothorax. HEAR T AND MEDIASTINUM: Cardiac size is mildly enlarged. There are atherosclerotic calcifications within the aorta. BONES AND SOFT TISSUES: No acute osseous lesion. Soft tissues are unremarkable. ABDOMEN: No free air under the d iaphragm. IMPRESSION: 1. NG tube is in good position. 2. Conflue nt fibrosis in the perihilar and mid lung regions. 3. Endotracheal tube is n ot visualized. Signed by: Dr. Orlando Jalloh M.D. on 04/23/2018 3:53 AM ORIGINAL REPORT EXAMINATION: CHEST SINGLE (PORTABLE), ABDOME N-1VIEW (KUB) INDICATION: NG tube placement. COMPARISON : 04/22/2018 FINDINGS: TUBES and LINES: NG tube is visualized with distal tip overlying the left upper quadrant. LUNGS: Lungs are not well inflated. Confluent perihilar and mid lung opacities. There is no evidence of pneumonia or pulmonary edema. PLEURA: No pleural effusion or pneumothor ax. HEART AND MEDIASTINUM: Cardiac size is mildly enlarged. There are at herosclerotic calcifications within the aorta. BONES AND SOFT TISSUES: No acute osseous lesion. Soft tissues are unremarkable. ABDOMEN: No free ai r under the diaphragm. IMPRESSION: NG tube is in good position. Co nfluent fibrosis in the perihilar and mid lung regions. Signed by: Dr. Sarai Jalloh M.D. on 04/23/2018 3:40 AM Dictated By: ORLANDO Bush 5129 Transcrib ed By: HAYES on 04/23/18 7500 COPY TO: NEAL HERNANDEZ MD CHEST SINGLE (PORTABLE)2018-04-23 03:38:00 [facility] [address] [place] [address] Patient Name: TENZIN VELIZ MR #: [id number] : 1950 Age/Sex: 68/M Req #: [id number] Adm Physician: TYRELL TORRES MD Ordered by: NEAL HERNANDEZ MD Report #: [id number] Location: ICU Room/Bed: ICU [facility] Procedure: [id number] DX/CHEST SI NGLE (PORTABLE) Exam Date: 04/23/18 Exam Time: 0300 REPORT STATUS: Signed ADDENDUM #1 EXAMINATION: CHEST SINGLE (PORTABLE), ABDOMEN-1VIEW (KUB) INDICATION: NG tube placement. COMPARISON: 04/22/2018 FINDINGS: TUBES and L DALY: NG tube is visualized with distal tip overlying the left upper quadrant . Endotracheal tube is not visualized. LUNGS: Lungs are not well inflated. Confluent perihilar and mid lung opacities. There is no evidence of pneumo clinton or pulmonary edema. PLEURA: No pleural effusion or pneumothorax. HEART AND MEDIASTINUM: Cardiac size is mildly enlarged. There are atheroscler otic calcifications within the aorta. BONES AND SOFT TISSUES: No acute oss eous lesion. Soft tissues are unremarkable. ABDOMEN: No free air under t he diaphragm. IMPRESSION: 1. NG tube is in good position. 2. Con fluent fibrosis in the perihilar and mid lung regions. 3. Endotracheal tube is not visualized. Signed by: Dr. Orlando Jalloh M.D. on 04/23/2018 3:53 AM ORIGINAL REPORT EXAMINATION: CHEST SINGLE (PORTABLE), AB DOMEN-1VIEW (KUB) INDICATION: NG tube placement. COMPAR BRUCE: 04/22/2018 FINDINGS: TUBES and LINES: NG tube is visualized w ith distal tip overlying the left upper quadrant. LUNGS: Lungs are not w ell inflated. Confluent perihilar and mid lung opacities. There is no evide nce of pneumonia or pulmonary edema. PLEURA: No pleural effusion or pneumo thorax. HEART AND MEDIASTINUM: Cardiac size is mildly enlarged. There are atherosclerotic calcifications within the aorta. BONES AND SOFT TISSUES: No acute osseous lesion. Soft tissues are unremarkable. ABDOMEN: No free air under the diaphragm. IMPRESSION: NG tube is in good position. Confluent fibrosis in the perihilar and mid lung regions. Signed by: Dr. Orlando Jalloh M.D. on 04/23/2018 3:40 AM Dictated By: ORLANDO RODRIGUEZ MD 0353 Trans cribed By: HAYES on 04/23/18 0340 COPY TO: NEAL HERNANDEZ MD Urine Opiates Egspap7855-64-21 13:04:00* Test Item Value Reference Range Interpretation Comments Urine Opiates Screen (test code = 54458-1) NEGATIVE NEGATIVE [facility] Barbiturates Kmfdwk4646-78-08 13:04:00* Test Item Value Reference Range Interpretation Comments Urine Barbiturates Screen (test code = 905715077) NEGATIVE NEGA TIVE [facility] Phencyclidine Smjjah5467-36-85 13:04:00* Test Item Value Reference Range Interpretation Comments Urine Phencyclidine Screen (test code = 49692-2) NEGATIVE NEGAT MELISSA [facility] Amphetamines Vdmrhd4115-18-53 13:04:00* Test Item Value Reference Range Interpretation Comments Urine Amphetamines Screen (test code = 52513-0) NEGATIVE NEGATI VE [facility] Methamphetamines Cjpoit1359-36-19 13:04:00* Test Item Value Reference Range Interpretation Comments Urine Methamphetamines Screen (test code = Urine Metha mphetamines Screen) NEGATIVE NEGATIVE [facility] Benzodiazepines Aljlun4562-98-55 13:04:00* Test Item Value Reference Range Interpretation Comments Urine Benzodiazepines Screen (test code = 80013-8) NEGATIVE NEG ATIVE [facility] Cocaine Ydirfz6841-95-91 13:04:00* Test Item Value Reference Range Interpretation Comments Urine Cocaine Screen (test code = 3398-5) NEGATIVE NEGATIVE [facility] Cannabinoids Uvkkjw2346-51-70 13:04:00* Test Item Value Reference Range Interpretation Comments Urine Cannabinoids Screen (test code = 97713-4) NEGATIVE NEGATI VE THESE RESULTS ARE FOR MEDICAL TREATMENT ONLYTHIS REPORT CONTAINS UNCONFIR MED SCREENING RESULTS*POSITIVE RESULTS WILL BE CONFIRMED BY REFERENCE LAB UPON R EQUEST CUT-OFFDRUG CLASS CONCENTRATION ng/mLAmphetamines 1000Methamphetamines 1000Cocaine 300Opiate 300Phencyc lidine 25Cannabinoid 50Barbiturates 300Benzodiazepine 300Methadone 300[facility] Dixlwe0988-69-70 13:04:00* Test Item Value Reference Range Interpretation Comments Urine Opiates Screen (test code = 55770-7) NEGATIVE NEGATIVE [facility] Barbiturates Uxubgk0206-90-52 13:04:00* Test Item Value Reference Range Interpretation Comments Urine Barbiturates Screen (test code = 733076632) NEGATIVE NEGA TIVE [facility] Phencyclidine Vgplgt1603-25-44 13:04:00* Test Item Value Reference Range Interpretation Comments Urine Phencyclidine Screen (test code = 46547-3) NEGATIVE NEGAT MELISSA [facility] Amphetamines Dbxzjx0248-32-14 13:04:00* Test Item Value Reference Range Interpretation Comments Urine Amphetamines Screen (test code = 60403-3) NEGATIVE NEGATI VE [facility] Methamphetamines Gwvpnv5555-56-03 13:04:00* Test Item Value Reference Range Interpretation Comments Urine Methamphetamines Screen (test code = Urine Metha mphetamines Screen) NEGATIVE NEGATIVE [facility] Benzodiazepines Ykxasu5676-95-33 13:04:00* Test Item Value Reference Range Interpretation Comments Urine Benzodiazepines Screen (test code = 55802-5) NEGATIVE NEG ATIVE [facility] Cocaine Uxrqbu3296-01-91 13:04:00* Test Item Value Reference Range Interpretation Comments Urine Cocaine Screen (test code = 3398-5) NEGATIVE NEGATIVE [facility] Cannabinoids Eqiueh7478-12-38 13:04:00* Test Item Value Reference Range Interpretation Comments Urine Cannabinoids Screen (test code = 45467-6) NEGATIVE NEGATI VE THESE RESULTS ARE FOR MEDICAL TREATMENT ONLYTHIS REPORT CONTAINS UNCONFIR MED SCREENING RESULTS*POSITIVE RESULTS WILL BE CONFIRMED BY REFERENCE LAB UPON R EQUEST CUT-OFFDRUG CLASS CONCENTRATION ng/mLAmphetamines 1000Methamphetamines 1000Cocaine 300Opiate 300Phencyc lidine 25Cannabinoid 50Barbiturates 300Benzodiazepine 300Methadone 300[facility] CHEST O5228-02-29 12:34:00 [facility] [address] [place] [address] Patient Name: TENZIN VELIZ MR #: [id number] : 1950 Age/Sex: 68/M Req #: [id number] Adm Physician: Ordered by: CARRI DUONG MD Report #: [id number] Location: ER Room/Bed: Procedure: [id number] CT/CT CHEST W Exam Date: 8 Exam Time: 1150 REPORT STATUS: Signed EXAM INATION: CT of the chest with contrast, PE protocol. TECHNIQUE: Spiral CT images of the chest were performed from the lung apices through the level of t he adrenal glands after the IV administration of 100 cc of Omnipaque 370. Thi n section reconstructions were obtained with special concentration on the pulm onary arteries. COMPARISON: <none> CLINICAL HISTORY:Shortness of breath DISCUSSION: Limited exam, as images were obtained during partial expiratory phase Lungs: No filling defects are identified in the main, right or left pulmonary arteries to their segmental levels, to suggest pulmonary embolism. Increased attenuation of the visualized lung parenchyma secondary to scan performed during partial expiration. Linear opacities in the anterior left lower lobe, right middle lobe and lingula likely representing subsegmental atelectasis or scarring. No consolidation or pulmonary masses. No nodules. Airways are clear, without loculations.. Pleura: <There is no evidence of pleural effusion or pneumothorax.> Heart and mediastinum: Mild cardiomegaly. No pericardial effusion. Aorta is nonaneurysmal. Main pulmonary artery is enlarged, measuring 4.0 cm. Atherosclerotic calcification of the aortic arch and coronary arteries. Lymph nodes: No mediastinal, hilar or axillary adenopathy. Abdomen: Limited views of the upper abdomen show unremarkable spleen, pancreas, kidneys and right adrenal gland. The left adrenal gland is only partially visualized and unremarkable. Punctate calcified granuloma in hepatic segment III (series 2, image 127). No other focal hepatic abnormalities. Mild reflux of contrast into the hepatic veins and IVC. Bones and soft tissues: No aggressive lytic lesion. 3.0 x 2.5 x 1.7 cm well-circumscribed homogeneous fat-containing lesion in the right seventh/eighth intercostal space (series 2, image 79). IMPRESSION: 1. No CT evidence of pulmonary embolism. 2. Left lower lobe, right middle lobe and lingular subsegmental atelectasis or scarring. No consolidation or e ffusion. 3. Mild cardiomegaly. Mild reflux of contrast into the hepatic vei ns and IVC suggesting right ventricular dysfunction. 4. Enlarged main pul monary artery suggesting pulmonary hypertension. 5. 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 Chele Vaughan M.D. on 04/22/2018 12:59 PM Dictated By: CHELE VAUGHAN MD 0792 Transcribed By: HAYES on 04/22/18 8047 COPY TO: CARRI DUONG MD CHEST SINGLE (PORTABLE)2018-04-22 11:23:00 [facility] [address] [place] [id number] Patient Name: TENZIN VELIZ MR #: [id number] : 1950 Age/Sex: 68/M Req #: [id number] Adm Physician: Ordered by: CARRI DUONG MD Report #: [id number] Location: ER Room/Bed: Procedure: [id number] DX/CHEST SINGLE (PORTABLE) Exam Date: 04/22/18 Exam Time: 1050 REPORT STATUS: S igned PROCEDURE: CHEST SINGLE (PORTABLE) COMPARISON: None. INDICATIONS: C HEST PAIN FINDINGS: LUNGS: No consolidations or edema. Mild centr al pulmonary vascular congestion. PLEURA: No effusions or pneumothor ax. HEART T MEDIASTINUM: The heart is prominent. BONES T SO FT TISSUES: No acute findings. CONCLUSION: Mild cardiac prominen ce with central pulmonary vascular congestion. Susanna Martinez D.O. Dictated by: Susanna Martinez D.O. on 04/22/2018 at 11:23 Electronically approved by: Susanna Martinez D.O. on 04/22/2018 at 11:23 Dictat ed By: SUSANNA MARTINEZ DO 1123 Transcribed By: ANN MARIE on 04/22/18 1123 COPY TO: CARRI DUONG MD CT BRAIN AX7235-83-17 11:17:00 [facility] [address] [place], [place] [address] Patient Name: TENZIN VELIZ MR #: [id number] : 1950 Age/Sex: 68/M Req #: [id number] Adm Physician: TYRELL TORRES MD Ordered by: CARRI DUONG MD Report #: [id number] Location: ICU Room/Bed: ICU [facility] Procedure: [id number] CT/CT B RAIN WO Exam Date: 04/22/18 Exam Time: 1050 RE PORT STATUS: Signed ADDENDUM #1 Dose modulation, it erative reconstruction, and/or weight based adjustment of the mA/kV was utiliz ed to reduce the radiation dose to as low as reasonably achievable. Ruby d by: Dr. Aminata Salinas M.D. on 04/26/2018 9:59 AM ORIGINAL REPORT EXAMINATION: Head CT HISTORY: Altered mental status COMPARISON : None. TECHNIQUE: Multidetector axial images were obtained without contrast f rom the foramen magnum to the vertex . The images were reconstructed using bra in and bone algorithms. Thin section brain images were reformatted into coron al and sagittal planes. Intravenous contrast: None. Image quality: Motion /streaking artifact limits the evaluation of the skull base, posterior cranial fossa and near the vertex region. FINDINGS: Parenchyma: 1. No abnormal densities. 2. No mass or hemorrhage. No CT evidence of acute felix torial vascular insult. Extra-axial spaces:No abnormal density. No extra-axial fluid collections Brain volume: Normal for age. Ventricles: No hydrocephalus or displacement. Arteries: No density sugg estive of thrombus. Dural sinuses: No abnormal density. Extra-ax ial spaces: No abnormal density. Foramen magnum: No mass, Chiari malform ation, or basilar invagination. Sella: No obvious mass. Paranas al/mastoid sinuses: Imaged portions unremarkable. Skull/Scalp: No lytic or blastic lesions. No fractures. Partially visualized soft tissue density le humble in the left nasal soft tissues, likely visible to physical inspection. IMPRESSION: Suboptimal study due to motion, grossly no acute intracranial hemorrhage, mass or midline shift. Signed by: Dr. Aminata Salinas M.D. on 04/22/2018 11:32 AM Dictated By: AMINATA SALINAS MD 0959 Transcribed By: HAYES on 04/22/18 1132 COPY TO: CARRI DUONG MD
[2020-04-06] MEDS ORDERED: VECURONIUM BROMIDE FOR INJ 20 MG VIAL ONE (15:39)
--- NOTE | 2020-04-06 16:49 | NUR ---
progress note infectious diseases seen and examined discussed with medical team he patient is still on a mechanical ventilator. He is on a PRVC at a rate of 26 with a tidal volume of 480. His FiO2 is set at 70% and his PEEP is set at 14. He remains on Versed and fentanyl for sedation. PHYSICAL EXAMINATION: VITAL SIGNS: The blood pressure is 102/55 and the heart rate is 64. Ventilator settings are as noted above and the SaO2 is 92% to 93%. HEENT: There is no facial swelling. There is an oral endotracheal tube. There is a right IJ line. The site is clean. There is no drainage. CARDIAC: Reveals regular rate and rhythm with normal S1 and S2. LUNGS: Auscultation of lungs reveals rhonchorous breath sounds bilaterally. There is no wheezing. ABDOMEN: Soft and nontender. There is no rebound or guarding. EXTREMITIES: Shows no leg edema or calf tenderness. There is no cyanosis or clubbing. SKIN: Shows no rashes. NEUROLOGICAL: Shows the patient to be sedated. LABORATORY DATA: Sodium is 153. The BUN to creatinine ratio is 92 to 2.17. The albumin is 2.3. White blood cell count is 9.6, hemoglobin is 10.4, and the platelet count is 212. RADIOGRAPHIC DATA: The patient has bilateral infiltrates. IMPRESSION: 1. Acute respiratory failure. 2. Atobe-vh-aqtmatf diastolic heart failure. 3. Chronic obstructive pulmonary disease. 4. Severe obstructive sleep apnea. 5. Acute renal failure. cont as planned see orders
[2020-04-06] MEDS: CEFEPIME 1GM/NS 0.9% 50 ML 50 ML IV SCH (18:06)
--- NOTE | 2020-04-06 18:45 | NUR ---
WOUND CARE INITIAL CONSULT FOR 70 YO MALE ADMITTED TO [facility] WITH A PRESENT HX OF ACUTE RESP FAILURE, DIABETES, HEART FAILURE, COPD,ACUTE RENAL FAILURE AND CHRONIC OBSTRUCTIVE PULMONARY DISEASE. RICHARD 11 ON STRICT PUP STATUS AND INTERVENTIONS SURFACE: ALTERNATING PRESSURE MATTRESS. LABS: WBC- 9.61 HGB- 10.4 ALBUMIN: 2.3 GLUCOSE-267 MICRO: SPUTUM GRAM STAIN WITH NEGATIVE BACILLUS AND GRAM POSITIVE COCCI IN CHAINS PRESENT. SPUTUM CULTURE PENDING. MEDS: VANCOMYCIN HCL SEE E MAR FOR DOSAGE. IMAGING: SKIN ASSESSMENT COMPLETE, PATIENT PRESENTS WITH 1)BLISTER FILLED WITH SEROUS FLUID TO RIGHT HEEL MEASURING 8 CM X 6 CM. 2)RED PARTIALLY BLANCHABLE REDNESS WITH PURPLE NON BLANCHABLE DISCOLORATION TO LEFT INNER ASPECT OF THIGH. NO WARMNESS PRESENT. MEASURING 10 CM X 8 CM. 3)MULTIPLE HEALING SCABS TO LEFT THIGH 100% ESCHAR; DRY. 4)RIGHT BUTTOCK STAGE 2 PRESSURE ULCER TO RIGHT BUTTOCKS, MEASURING 2 CM X 3 CM X 0.1CM; 90% ESCHAR 10% PINK GRANULATION; MINIMAL SEROSANGUINEOUS DRAINAGE. 5)LEFT EAR DTI; NON BLANCHABLE PURPLE DISCOLORATION. MEASURING 0.5X 0.3 FLOOR NURSE REPORTED MD AWARE OF RED PARTIALLY BLANCHABLE REDNESS TO LEFT INNER ASPECT OF THIGH. RECOMMENDATIONS: NURSING TO CLEAN BLISTER WITH NORMAL SALINE, PAT DRY WITH 4X4 GAUZE, PAINT WITH BETADINE, APPLY ALLEVYN FOAM DAILY. NURSING TO CLEAN RED PARTIALLY BLANCHABLE REDNESS WITH DISCOLORATION TO LEFT INNER ASPECT OF UPPER THIGH WITH NORMAL SALINE, PAT DRY, APPLY VENELEX AND COVER WITH ALLEVYN FOAM DAILY. NURSING TO CLEAN MULTIPLE HEALING SCABS TO LEFT THIGH WITH NORMAL SALINE, PAT DRY WITH 4X4 GAUZE, PAINT WITH BETADINE DAILY. NURSING TO CLEAN WITH BUTTOCK STAGE 2 PRESSURE ULCER WITH NORMAL SALINE, PAT DRY WITH 4X4 GAUZE, APPLY VENELEX AND COVER WITH ALLEVYN FOAM DAILY. NURSING TO CLEAN LEFT EAR DTI WITH NORMAL SALINE, PAT DRY WITH 4X4 DAILY, APPLY VENELEX AND COVER WITH FOAM AND SECURE WITH PAPER TAPE DAILY. NURSING TO MONITOR BILATERAL BUTTOCK AND SACRAL AREA DAILY. NURSING TO CONTINUE MONITORING RIGHT LEG EXTREMITY FOR S/S OF CELLULITIS AND TO NOTIFY MD. NURSING TO CONTINUE TO MONITOR PATIENT AND KEEP SKIN CLEAN AND FREE FROM STOOL OR IRRITATING MOISTURE AND CONTINUE TO FOLLOW CONSERVATIVE PUP INTERVENTIONS DAILY. NURSING TO CONTINUE REPOSITION PT SIDE TO SIDE EVERY TWO HOURS AND NEEDED. NURSING TO APPLY ALTERNATING PRESSURE MATTRESS. NURSING TO CONTINUE TO OFFLOAD FEET AND HEELS AT ALL TIMES WITH PILLOW SUSPENSION WHEN IN BED. NURSING TO APPLY BILATERAL HEEL PROTECTORS DAILY. NURSING TO CONTINUE TO ASSIST WITH PT NUTRITIONAL SUPPLEMENTS TO ENSURE PROPER REQUIREMENTS FOR HEALING. NURSING TO RE- CONSULT WOUND CARE NEEDED. Addendum: 04/06/20 at 1852 by Camila Jalloh RN Amended: Links added.
[2020-04-06] MEDS: VANCOMYCIN HCL 1.25 GM in SODIUM CHLORIDE 0.9% 250ML 250 ML IV SCH (20:01)
[2020-04-06] MEDS: MEROPENEM 500MG/ NS 50ML 50 ML IV SCH (23:45)
[2020-04-07] VITALS (20 sets, daily range): BP systolic 63–110; BP diastolic 27–77
[2020-04-07] MEDS: NOREPINEPHRINE 8 MG/D5W 250 ML 250 ML IV SCH ×2 (02:30→21:50)
[2020-04-07] MEDS: PANTOPRAZOLE 40 MG 10ML VIAL IV SCH (03:39)
[2020-04-07] MEDS: MIDAZOLAM HCL 5MG/ML 10ML VIAL 100 ML IV PRN ×4 (04:49→21:00)
[2020-04-07 05:41] LABS: BASOPHILS % 0.1 % (0.0-1.0); EOSINOPHILS # (AUTO) 0.1 (0.0-0.4); EOSINOPHILS % 1.3 % (0.0-6.0); HEMATOCRIT 42.4 % (38.2-49.6); HEMOGLOBIN 10.9 g/dL (14.0-18.0); LYMPHOCYTES # (AUTO) 0.8 (1.0-3.2); LYMPHOCYTES % 8.2 % (18.0-39.1); MEAN CORPUSCULAR HEMOGLOBIN 18.6 pg (28-32); MEAN CORPUSCULAR HGB CONC 25.7 g/dL (31-35); MEAN CORPUSCULAR VOLUME 72.4 fL (81-99); MONOCYTES # (AUTO) 0.8 (0.2-0.8); NEUTROPHILS # (AUTO) 8.3 (2.1-6.9); NEUTROPHILS % 81.8 % (38.7-80.0); PLATELET COUNT 222 x10e3/uL (140-360); RED BLOOD COUNT 5.86 x10e6/uL (4.3-5.7); RED CELL DISTRIBUTION WIDTH 22.5 % (11.7-14.4)
[2020-04-07 05:55] LABS: ALBUMIN 2.3 g/dL (3.5-5.0); ALBUMIN/GLOBULIN RATIO 0.6 (0.8-2.0); ANION GAP 15.9 mmol/L (8-16); CALCIUM 8.1 mg/dL (8.4-10.2); CREATININE, SERUM 1.72 mg/dL (0.72-1.25); POTASSIUM 3.9 mmol/L (3.5-5.1)
[2020-04-07] MEDS: INSULIN REGULAR, HUMAN 100 UNIT/1 ML 3ML VIAL SQ SCH ×3 (06:00→18:00)
[2020-04-07] MEDS: FENTANYL 2000MCG/NS 250 250 ML IV SCH ×3 (06:07→22:52)
[2020-04-07] MEDS: BALSAM PERU/CASTOR OIL 60 GM OINT...G. TP SCH ×2 (07:00→09:00)
[2020-04-07] MEDS ORDERED: HEPARIN 25,000 UNIT DRIP IV ONE (08:18)
[2020-04-07] MEDS: HEPARIN 25,000 UNIT 1,500 UNIT in DEXTROSE 5% 250ML 250 ML IV SCH ×2 (08:30→14:09)
[2020-04-07] MEDS: HYDROCHLOROTHIAZIDE 25 MG TAB NG SCH (09:00)
--- NOTE | 2020-04-07 09:19 | Diagnostic Imaging Report ---
EXAMINATION: CHEST SINGLE (PORTABLE) INDICATION: Respiratory failure COMPARISON: Multiple prior chest radiograph including most recent on 04/06/2020. FINDINGS: TUBES and LINES: Stable support lines/tubes. Endotracheal tube which terminates approximately 5.3 cm above the chandu. Right central venous catheter which terminates in the distal SVC. Enteric tube which projects below the diaphragm. LUNGS: No interval change in bilateral hazy airspace and interstitial opacities. PLEURA: No pleural effusion or pneumothorax. HEART AND MEDIASTINUM: The cardiomediastinal silhouette is obscured by hazy opacities. BONES AND SOFT TISSUES: No acute osseous or soft tissue finding. UPPER ABDOMEN: No free air under the diaphragm. IMPRESSION: 1. Stable support lines and tubes. 2. No significant interval change in radiographic appearance of the lungs. Signed by: Paul Killian MD on 04/07/2020 9:16 AM
[2020-04-07 10:56] LABS: ABG HCO3 37 mmol/L (22-26); ABG PCO2 61 mmHg (35-45); ABG PH 7.39 (7.35-7.45); ABG PO2 68 mmHg (80-105); ABG TCO2 38
[2020-04-07] MEDS ORDERED: NOREPINEPHRINE 8 MG/D5W 250 ML 250 ML ONE ×3 (12:01→21:26)
[2020-04-07] MEDS: AMIODARONE HCL 200 MG TAB PO SCH ×2 (13:38→15:23)
[2020-04-07] MEDS: ACETAMINOPHEN 325 MG/10 ML UDC NG PRN (15:55)
--- NOTE | 2020-04-07 17:09 | Progress Note ---
DATE: 04/07/2020 SUBJECTIVE: The patient had some hypotension earlier this morning. He was started on Levophed. He is also synchronized with the ventilator and required one dose of vecuronium. He now remains on Versed and fentanyl. His effusion is growing out Klebsiella. PHYSICAL EXAMINATION: VITAL SIGNS: The blood pressure is 96/77 with a heart rate of 70 to 75 on Levophed at 7 mcg. He is currently on a PRVC mode of ventilation, rate of 24 with a tidal volume of 500 and a PEEP of 12. His FiO2 is 100%. HEENT: No facial swelling or erythema. The patient has an oral endotracheal tube. There is a right IJ line. The site looks clean. There is no drainage. CARDIAC: Regular rate and rhythm with normal S1, S2. LUNGS: Auscultation of lungs reveals rhonchorous breath sounds bilaterally. There is no wheezing. ABDOMEN: Soft, nontender. There is no rebound or guarding. EXTREMITIES: There is no leg edema. LABORATORY DATA: Blood gases; 7.39 with a CO2 of 61 and O2 of 68 and a bicarbonate of 37. BUN to creatinine ratio is 87-1.72. Other electrolytes within normal limits. Sodium is 155. The albumin is 2.3. RADIOGRAPHIC DATA: Chest x-ray shows bilateral infiltrates. IMPRESSION: 1. Acute respiratory failure. 2. Aspiration pneumonia with Klebsiella and sepsis. 3. Acute on chronic diastolic heart failure. 4. Severe obstructive sleep apnea. 5. Acute renal failure. 6. Diabetes. PLAN: 1. Continue free water through the feeding tube. Hold further diuretics at this time. 2. Wean Levophed. 3. Continue current ventilator settings and repeat ABG. 4. Continue amiodarone, current cardiac regimen. 5. Continue current antibiotics. 6. Case discussed with nursing, Respiratory, Nephrology, General surgery, and Infectious Disease. Greater than 35 minutes in direct critical care time. MD TABITHA Means/ZOYA /[id number]
[2020-04-07] MEDS ORDERED: SODIUM CHLORIDE 0.9% 1000ML 1,000 ML ONE ×2 (17:23→23:24)
[2020-04-07] MEDS ORDERED: ROCURONIUM BROMIDE 0 ML IV ONE (17:30)
--- NOTE | 2020-04-07 18:43 | NUR ---
INFECTIOUS DISEASE PROGRESS NOTE DR. ANDREWS SUBJECTIVE: Intubated and sedated PHYSICAL EXAMINATION: VITAL SIGNS: REVIEWED GENERAL: Intubated and sedated. PULMONARY: Intubated and sedated. CARDIOVASCULAR: Positive S1 and S2. No murmurs, rubs, or gallops appreciated. ABDOMEN: Soft, nondistended, nontender to palpation. Bowel sounds present. MUSCULOSKELETAL: Unable to assess. NEUROLOGICAL: Unable to assess. SKIN: Intact, warm to touch. Good cap refill. EXTREMITIES: No edema appreciated. LABORATORY DATA: Labs show CBC; white count elevated at 16.5, hemoglobin 10.9, hematocrit is 35, and platelets of 248. Chemistry reviewed and stable. MICROBIOLOGY: Blood and urine cultures no growth. Sputum cultures- Klebsiella Oxytoca IMAGING STUDIES: This morning, chest x-ray shows worsening multifocal pneumonia. IMPRESSION: 1. Acute respiratory failure secondary to coronavirus pneumonia, intubated and sedated. 2. Type 2 diabetes. 3. Viral pneumonia secondary to coronavirus. 4. Acute kidney injury. 5. Hypocalcemia. PLAN: Febrile pressor weaning in progress Switch Cefepime to Merrem Supportive care Guarded prognosis PT SEEN AND EXAMINED BY DR ANDREWS
--- NOTE | 2020-04-07 21:28 | Diagnostic Imaging Report ---
EXAMINATION: CHEST SINGLE (PORTABLE) INDICATION: Respiratory failure COMPARISON: Chest x-ray 04/07/2020, 04/06/2020 FINDINGS: TUBES and LINES: Right IJ CVC, tip in the upper SVC. ET tube 7.7 cm above chandu. Enteric tube courses into abdomen, tip out of field of view. LUNGS: Extensive airspace haziness with new bilateral midlung dense consolidations. PLEURA: No pleural effusion or pneumothorax. HEART AND MEDIASTINUM: The cardiomediastinal silhouette is unchanged. Aortic calcifications. BONES AND SOFT TISSUES: No acute osseous lesion. Soft tissues are unremarkable. UPPER ABDOMEN: No free air under the diaphragm. IMPRESSION: ET tube tip 7.7 cm above chandu, consider 3 cm advancement. Worsening airspace disease with new dense consolidation in the bilateral midlung, can be due to consolidated pneumonia or atelectasis. Signed by: Terrell Walker DO on 04/07/2020 9:25 PM
[2020-04-07] MEDS ORDERED: ROCURONIUM BROMIDE 250 MG in SODIUM CHLORIDE 0.9% 250ML 225 ML IV SCH (21:30)
--- NOTE | 2020-04-07 22:14 | Diagnostic Imaging Report ---
EXAMINATION: CHEST SINGLE (PORTABLE) INDICATION: ET tube advancement, verify position COMPARISON: Chest x-ray 04/07/2020 FINDINGS: TUBES and LINES: ET tube is now a 8.6 cm above chandu, consider 4 cm advancement. Right IJ CVC and enteric tube unchanged. LUNGS: Hyperexpanded lungs. Extensive bilateral airspace consolidations and haziness. PLEURA: No pleural effusion or pneumothorax. HEART AND MEDIASTINUM: The cardiomediastinal silhouette is unchanged. Aortic calcifications. BONES AND SOFT TISSUES: Unchanged compared to prior UPPER ABDOMEN: Unchanged compared to prior. IMPRESSION: ET tube is now 8.6 cm above chandu, consider 4 cm advancement. Extensive airspace disease. Signed by: Terrell Walker DO on 04/07/2020 10:11 PM
[2020-04-07] MEDS: ROCURONIUM BROMIDE 250 MG in SODIUM CHLORIDE 0.9% 250ML 225 ML IV PRN (22:58)
[2020-04-07 23:07] LABS: BASOPHILS % 0.2 % (0.0-1.0); EOSINOPHILS % 0.2 % (0.0-6.0); HEMATOCRIT 47.3 % (38.2-49.6); LYMPHOCYTES # (AUTO) 0.7 (1.0-3.2); LYMPHOCYTES % 4.2 % (18.0-39.1); MEAN CORPUSCULAR HEMOGLOBIN 18.7 pg (28-32); MEAN CORPUSCULAR HGB CONC 25.4 g/dL (31-35); MEAN CORPUSCULAR VOLUME 73.6 fL (81-99); MONOCYTES # (AUTO) 1.1 (0.2-0.8); MONOCYTES % 6.5 % (4.4-11.3); NEUTROPHILS # (AUTO) 15.4 (2.1-6.9); NEUTROPHILS % 87.8 % (38.7-80.0); PLATELET COUNT 300 x10e3/uL (140-360); RED BLOOD COUNT 6.43 x10e6/uL (4.3-5.7); RED CELL DISTRIBUTION WIDTH 23.3 % (11.7-14.4)
--- NOTE | 2020-04-07 23:47 | Diagnostic Imaging Report ---
EXAM: Abdomen Radiograph 1 View(s) INDICATION: N G-tube placement, verify position COMPARISON: None FINDINGS: Enteric tube in the left upper abdomen, tip projects at the gastric lumen. No dilated loops of small bowel. No abnormal abdominal calcifications.. No abnormal soft tissue masses. No pneumoperitoneum. No acute osseous abnormality. Mild degenerative changes in the lumbar spine and pelvis. IMPRESSION: Enteric tube in the left upper abdomen, tip projects at the gastric lumen. Signed by: Terrell Walker DO on 04/07/2020 11:43 PM
[2020-04-08] VITALS (18 sets, daily range): BP systolic 58–114; BP diastolic 33–67
--- NOTE | 2020-04-08 00:31 | Progress Note ---
DATE: 04/07/2020 ADDENDUM SUBJECTIVE: The patient had desaturations. The staff used an Ambu bag to improve the saturations. They checked the chest x-ray. Apparently, the endotracheal tube was cephalad. They advanced through the endotracheal tube 3 cm. Staff also noticed thick discolored secretions from the endotracheal tube. The secretions in the canister from the endotracheal tube are the same color and consistency as the secretions from the NG tube. Stat portable chest x-ray also shows worsening infiltrates suggestive of recurrent aspiration. PHYSICAL EXAMINATION: VITAL SIGNS: Blood pressure is now 90/50 and the pulse ox is 86%. T-max is 101. He is on a PRVC at a rate of 30 with a tidal volume of 450. His PEEP is set at 20 and his FiO2 is 100%. He has an NG tube in good position. He also has an endotracheal tube. He has a right IJ line. There is no subcutaneous emphysema. CARDIAC: Regular rate and rhythm with normal S1 and S2. LUNGS: Auscultation of the lungs shows decreased breath sounds at the bases. There is no wheezing. ABDOMEN: Soft. It is distended. EXTREMITIES: There is no leg edema. LABORATORY DATA: White blood cell count is 10.1 and hemoglobin is 10.9. The platelet count is 222,000. The BUN to creatinine ratio is 87 to 1.72. Sodium is 155. IMPRESSION: 1. Recurrent aspiration pneumonitis with acute respiratory distress syndrome. 2. Acute on chronic respiratory failure. 3. Acute renal failure. 4. Abdominal ileus. 5. Hyperglycemia. 6. Obstructive sleep apnea. 7. COPD. PLAN: 1. Continue high PEEP and low tidal volume. Repeat ABG. 2. Continue current antibiotics. 3. NG tube to suction. 4. Stat CBC. 5. Prognosis is poor. Isidoro Hernandez MD [facility] /[id number]
[2020-04-08] MEDS: VANCOMYCIN HCL 1.25 GM in SODIUM CHLORIDE 0.9% 250ML 250 ML IV SCH ×2 (01:00→21:00)
[2020-04-08 01:10] LABS: ALBUMIN 1.7 g/dL (3.5-5.0); ALBUMIN/GLOBULIN RATIO 0.5 (0.8-2.0); ANION GAP 14.3 mmol/L (8-16); CREATININE, SERUM 2.2 mg/dL (0.72-1.25); POTASSIUM 4.3 mmol/L (3.5-5.1)
[2020-04-08 01:13] LABS: CALCIUM 6.8 mg/dL (8.4-10.2)
[2020-04-08] MEDS: PANTOPRAZOLE 40 MG 10ML VIAL IV SCH (01:15)
[2020-04-08 01:29] LABS: MAGNESIUM 2.2 MG/DL (1.3-2.1); PHOSPHORUS 5.9 MG/DL (2.3-4.7)
[2020-04-08] MEDS: MIDAZOLAM HCL 5MG/ML 10ML VIAL 100 ML IV PRN ×5 (02:00→22:00)
[2020-04-08] MEDS: ROCURONIUM BROMIDE 250 MG in SODIUM CHLORIDE 0.9% 250ML 225 ML IV PRN ×3 (02:45→21:55)
[2020-04-08 03:12] LABS: ABG HCO3 33 mmol/L (22-26); ABG PCO2 79 mmHg (35-45); ABG PH 7.23 (7.35-7.45); ABG PO2 41 mmHg (80-105); ABG TCO2 35
[2020-04-08] MEDS ORDERED: SODIUM CHLORIDE 0.9% 1000ML 2,000 ML ONE (03:48)
[2020-04-08] MEDS: ACETAMINOPHEN 325 MG/10 ML UDC NG PRN (04:30)
[2020-04-08 05:40] LABS: BASOPHILS % 0.2 % (0.0-1.0); EOSINOPHILS % 0.1 % (0.0-6.0); HEMATOCRIT 43.6 % (38.2-49.6); LYMPHOCYTES % 5.4 % (18.0-39.1); MEAN CORPUSCULAR HEMOGLOBIN 18.6 pg (28-32); MEAN CORPUSCULAR HGB CONC 25.2 g/dL (31-35); MEAN CORPUSCULAR VOLUME 73.9 fL (81-99); MONOCYTES # (AUTO) 1.2 (0.2-0.8); MONOCYTES % 6.4 % (4.4-11.3); NEUTROPHILS # (AUTO) 16.3 (2.1-6.9); NEUTROPHILS % 86.8 % (38.7-80.0); PLATELET COUNT 286 x10e3/uL (140-360); RED CELL DISTRIBUTION WIDTH 22.9 % (11.7-14.4)
[2020-04-08] MEDS: INSULIN REGULAR, HUMAN 100 UNIT/1 ML 3ML VIAL SQ SCH ×4 (06:00→18:00)
--- NOTE | 2020-04-08 06:02 | Operative Report ---
DATE OF PROCEDURE: 04/08/2020 SURGEON: Isidoro Hernandez MD PROCEDURE: Arterial line placement under ultrasound guidance. PREOPERATIVE DIAGNOSIS: Respiratory failure. POSTOPERATIVE DIAGNOSIS: Respiratory failure. CONSENT: Consent was obtained from the family. MEDICATIONS: The patient was on Versed and fentanyl drip at the time of the procedure. PROCEDURE IN DETAIL: The right wrist was prepped sterilely with chlorhexidine. A sterile drape, sterile gown, sterile mask were used. An ultrasound machine was used to visualize the radial artery as well as the ulnar artery. Both were patent. The radial artery was cannulated with a 20-gauge needle under direct visualization. A wire was passed through the needle and a 20-gauge catheter was passed over the wire by the Seldinger technique. There was good arterial waveform and normal arterial blood flow. COMPLICATIONS: None. ESTIMATED BLOOD LOSS: 5 mL. Isidoro Hernandez MD [facility] /[id number]
[2020-04-08] MEDS: FENTANYL 2000MCG/NS 250 250 ML IV SCH ×3 (06:15→21:55)
[2020-04-08] MEDS: NOREPINEPHRINE 8 MG/D5W 250 ML 250 ML IV SCH ×2 (06:45→20:00)
[2020-04-08 07:42] LABS: ALBUMIN 1.8 g/dL (3.5-5.0); ALBUMIN/GLOBULIN RATIO 0.5 (0.8-2.0); ANION GAP 15.6 mmol/L (8-16); CALCIUM 7.1 mg/dL (8.4-10.2); CREATININE, SERUM 2.44 mg/dL (0.72-1.25); POTASSIUM 4.6 mmol/L (3.5-5.1)
[2020-04-08] MEDS: BALSAM PERU/CASTOR OIL 60 GM OINT...G. TP SCH (08:18)
[2020-04-08] MEDS: HYDROCHLOROTHIAZIDE 25 MG TAB NG SCH (09:00)
--- NOTE | 2020-04-08 09:19 | Diagnostic Imaging Report ---
EXAMINATION: CHEST SINGLE (PORTABLE) INDICATION: Respiratory failure. COMPARISON: Multiple prior chest x-rays including most recent on 04/07/2020. FINDINGS: TUBES and LINES: Endotracheal tube is now approximately 10 cm above the chandu, consider 5 cm of advancement. Right IJ CVC and enteric tube are unchanged. LUNGS: No interval change in multifocal airspace opacities throughout both lungs. PLEURA: Trace right pleural effusion. No pneumothorax. HEART AND MEDIASTINUM: The cardiomediastinal silhouette is unchanged. Atherosclerotic calcification of the aortic arch. BONES AND SOFT TISSUES: No acute osseous lesion. Soft tissues are unremarkable. UPPER ABDOMEN: No free air under the diaphragm. IMPRESSION: 1. Endotracheal tube is now approximately 10 cm above the chandu, consider 5 cm of advancement. 2. No interval change in multifocal airspace opacities throughout both lungs. Signed by: Paul Killian MD on 04/08/2020 9:15 AM
[2020-04-08 09:50] LABS: ABG HCO3 30 mmol/L (22-26); ABG PCO2 76 mmHg (35-45); ABG PO2 66 mmHg (80-105); ABG TCO2 32
[2020-04-08] MEDS: DOCUSATE SODIUM LIQD 100 MG/10 ML UDC NG SCH ×2 (10:00→17:58)
[2020-04-08] MEDS: AMIODARONE HCL 200 MG TAB PO SCH ×2 (10:00→17:58)
[2020-04-08] MEDS: MEROPENEM 500MG/ NS 50ML 50 ML IV SCH ×2 (10:00→20:00)
--- NOTE | 2020-04-08 13:22 | NUR ---
INFECTIOUS DISEASE PROGRESS NOTE DR. ANDREWS SUBJECTIVE: Intubated and sedated PHYSICAL EXAMINATION: VITAL SIGNS: REVIEWED GENERAL: Intubated and sedated. PULMONARY: Intubated and sedated. CARDIOVASCULAR: Positive S1 and S2. No murmurs, rubs, or gallops appreciated. ABDOMEN: Soft, nondistended, nontender to palpation. Bowel sounds present. MUSCULOSKELETAL: Unable to assess. NEUROLOGICAL: Unable to assess. SKIN: Intact, warm to touch. Good cap refill. EXTREMITIES: No edema appreciated. LABORATORY DATA: Labs show CBC; white count elevated at 16.5, hemoglobin 10.9, hematocrit is 35, and platelets of 248. Chemistry reviewed and stable. MICROBIOLOGY: Blood and urine cultures no growth. Sputum cultures- Klebsiella Oxytoca IMAGING STUDIES: This morning, chest x-ray shows worsening multifocal pneumonia. IMPRESSION: 1. Acute respiratory failure secondary to coronavirus pneumonia, intubated and sedated. 2. Type 2 diabetes. 3. Viral pneumonia secondary to coronavirus. 4. Acute kidney injury. 5. Hypocalcemia. PLAN: Febrile pressor weaning in progress On Merrem Supportive care Poor prognosis
--- NOTE | 2020-04-08 15:39 | Progress Note ---
DATE: 04/08/2020 HISTORY OF PRESENT ILLNESS: The patient is not urinating well. His urine output is decreased. He remains on Levophed at 30 mcg. The patient is on a PRVC mode of ventilation with 100% on oxygen. His rate is set at 32 and his tidal volume is 450. PHYSICAL EXAMINATION: VITAL SIGNS: Blood pressure is 91/60 and saturation is 95%. HEENT: Shows no facial swelling or erythema. There is an oral endotracheal tube. He has right IJ line. The site looks clean. There is no drainage. CARDIAC: Reveals regular rate and rhythm with normal S1, S2. LUNGS: Auscultation of lungs reveals decreased breath sounds at the bases. There is no wheezing. ABDOMEN: Distended. Soft. There is no rebound or guarding. EXTREMITIES: Shows no leg edema or calf tenderness. There is no cyanosis or clubbing. SKIN: Shows no rashes. NEUROLOGIC: Shows no focal abnormalities. LABORATORY DATA: White blood cell count is 18.7, hemoglobin is 11, and platelet count is 286. BUN to creatinine ratio is 101 to 2.44. Sodium is 140 and the blood sugars are 250-300. Albumin is 1.8. IMPRESSION: 1. Acute respiratory failure. 2. Recurrent aspiration pneumonia with septic shock. 3. Acute renal failure. 4. Abdominal ileus. 5. Obstructive sleep apnea. 6. Chronic obstructive pulmonary disease. PLAN: 1. Continue current ventilator settings. 2. Continue Levophed. 3. Continue to monitor urine output. Dialysis may be required. 4. Continue current antibiotics. 5. Prognosis remains very poor. The patient is with his two sons. His mayfa-se-vxjmbjta is his sister. He also has a niece. His sister and niece are considering possible withdrawal. 6. Case discussed with niece, Dr. Chand, irrigation specialist nursing, dayshift nursing, Respiratory, and Infectious Disease. Greater than 35 minutes in direct critical care time apart from any procedures performed. Isidoro Hernandez MD [facility] /[id number]
[2020-04-08] MEDS ORDERED: HEPARIN 25,000 UNIT DRIP IV ONE (19:37)
[2020-04-08] MEDS: HEPARIN 25,000 UNIT 1,500 UNIT in DEXTROSE 5% 250ML 250 ML IV SCH (20:00)
[2020-04-09] VITALS (24 sets, daily range): BP systolic 78–134; BP diastolic 42–82
[2020-04-09] MEDS: NOREPINEPHRINE 8 MG/D5W 250 ML 250 ML IV SCH ×2 (00:45→04:30)
[2020-04-09] MEDS: ROCURONIUM BROMIDE 250 MG in SODIUM CHLORIDE 0.9% 250ML 225 ML IV PRN ×4 (02:00→23:14)
[2020-04-09] MEDS: PANTOPRAZOLE 40 MG 10ML VIAL IV SCH (02:05)
[2020-04-09] MEDS: INSULIN REGULAR, HUMAN 100 UNIT/1 ML 3ML VIAL SQ SCH ×4 (06:10→18:00)
[2020-04-09 07:02] LABS: BASOPHILS # (AUTO) 0.1 (0.0-0.1); BASOPHILS % 0.2 % (0.0-1.0); EOSINOPHILS # (AUTO) 0.1 (0.0-0.4); EOSINOPHILS % 0.6 % (0.0-6.0); HEMATOCRIT 39.4 % (38.2-49.6); HEMOGLOBIN 10.2 g/dL (14.0-18.0); LYMPHOCYTES # (AUTO) 0.8 (1.0-3.2); MEAN CORPUSCULAR HGB CONC 25.9 g/dL (31-35); MEAN CORPUSCULAR VOLUME 73.4 fL (81-99); MONOCYTES % 4.7 % (4.4-11.3); NEUTROPHILS # (AUTO) 18.9 (2.1-6.9); NEUTROPHILS % 89.4 % (38.7-80.0); PLATELET COUNT 276 x10e3/uL (140-360); RED BLOOD COUNT 5.37 x10e6/uL (4.3-5.7); RED CELL DISTRIBUTION WIDTH 23.1 % (11.7-14.4)
[2020-04-09 07:07] LABS: ALBUMIN 2.3 g/dL (3.5-5.0); ALBUMIN/GLOBULIN RATIO 0.6 (0.8-2.0); CALCIUM 7.1 mg/dL (8.4-10.2); CREATININE, SERUM 3.26 mg/dL (0.72-1.25); MAGNESIUM 2.6 MG/DL (1.3-2.1); PHOSPHORUS 6.5 MG/DL (2.3-4.7)
[2020-04-09] MEDS ORDERED: NOREPINEPHRINE INJ 4MG/4ML 16 MG in DEXTROSE 5% 250ML 250 ML IV SCH (07:15)
--- NOTE | 2020-04-09 07:47 | NUR ---
patient received sedated and on vent. see shift assess. sinus rhythm with occ pac. heparin at 1600u/min with PTT therapeutic. vent settings PRVC 32, TV 470, p16, 100%. 8.0 OETT 25cm at lip. generalized pitting edema 2+. scrotal swelling present. levophed at 30mcg/min. lynch clear yellow. left nare NGT to low int sx. right IJ TLC with clean and dry dressing in place. will add vasopressin per Dr Hernandez to support BP.
[2020-04-09] MEDS: MIDAZOLAM HCL 5MG/ML 10ML VIAL 100 ML IV PRN (08:00)
[2020-04-09] MEDS: VASOPRESSIN 60 UNIT in DEXTROSE 5% 100ML 57 ML IV SCH (08:33)
[2020-04-09] MEDS: NOREPINEPHRINE INJ 4MG/4ML 16 MG in DEXTROSE 5% 250ML 234 ML IV SCH ×2 (09:00→22:00)
--- NOTE | 2020-04-09 09:06 | Diagnostic Imaging Report ---
EXAMINATION: CHEST SINGLE (PORTABLE) INDICATION: Respiratory failure COMPARISON: Chest radiograph 04/08/2020 FINDINGS: LINES/TUBES:Endotracheal tube terminates 5 cm above the chandu. Right IJ central venous catheter unchanged. Enteric tube unchanged. EKG leads overlie the chest. LUNGS:Lung volumes unchanged. Slight improvement in bilateral multifocal hazy airspace opacities. PLEURA:No pleural effusion or pneumothorax. MEDIASTINUM:The cardiomediastinal silhouette appears unchanged in size and shape. BONES/SOFT TISSUES:No acute osseous injury. ABDOMEN:No free air under the diaphragm. IMPRESSION: Slight improvement in bilateral multifocal hazy airspace opacities. Signed by: Lb Walden MD on 04/09/2020 9:03 AM
[2020-04-09] MEDS: DOCUSATE SODIUM LIQD 100 MG/10 ML UDC NG SCH ×2 (09:17→17:44)
[2020-04-09] MEDS: MEROPENEM 500MG/ NS 50ML 50 ML IV SCH ×2 (09:17→20:51)
[2020-04-09] MEDS: HYDROCHLOROTHIAZIDE 25 MG TAB NG SCH (09:17)
[2020-04-09] MEDS: AMIODARONE HCL 200 MG TAB PO SCH ×2 (09:17→17:44)
[2020-04-09] MEDS: FENTANYL 2000MCG/NS 250 250 ML IV SCH ×2 (09:18→21:00)
[2020-04-09 10:24] LABS: ABG PH 7.25 (7.35-7.45)
[2020-04-09 10:25] LABS: ABG HCO3 25 mmol/L (22-26); ABG PCO2 57 mmHg (35-45); ABG PO2 69 mmHg (80-105); ABG TCO2 26
--- NOTE | 2020-04-09 10:37 | NUR ---
Dr Crawford notified of lab results from this am. dialysis catheter placement and hemodialysis ordered. consent obtained from family for both. Dr Hernandez to place line. heparin placed on hold for line placement.
[2020-04-09 10:40] LABS: ANISOCYTOSIS MODERATE; HYPOCHROMASIA SLIGHT; MICROCYTOSIS SLIGHT; OVALOCYTES FEW
[2020-04-09 10:41] LABS: ELLIPTOCYTE, RBC SLIGHT; PLATELET ESTIMATE ADEQUATE; PLATELET MORPHOLOGY COMMENT FEW LARGE; RBC MORPHOLOGY COMMENT ABNORMAL
[2020-04-09] MEDS ORDERED: LIDOCAINE HCL 2% LOCAL 20 ML VIAL INJ ONE (11:00)
[2020-04-09] MEDS ORDERED: HEPARIN SOD (PORCINE) 1000 UNIT/ML SDV IV SCH (12:45)
[2020-04-09] MEDS: BALSAM PERU/CASTOR OIL 60 GM OINT...G. TP SCH (12:51)
--- NOTE | 2020-04-09 13:51 | NUR ---
Nutrition Intervention Note RD Recommendation(s) for Physician: - As GI status allows, resume TF with Vital HP and advance as tolerated to goal rate of 60 mL/hr (provides 1728 kcal, 108 g protein). Recommend using Vital AF (peptide based formula) in light of pressor requirements. - If pressors discontinued and renal trend remains elevated, change TF to Nepro with goal rate of 45 ml/hr (to provide 1944 kcal and 87 gm protein) - Fluid management per MD - If unable to resume/advance TF soon, consider TPN- consult Nutrition for recommendations Plan of Care: RD following, monitoring for tolerance and adequacy, TF recommendation Nutrition reason for involvement: follow up RD Assessment: 04/09: Follow up. Pt remains intubated and sedated as well as requiring pressor support. Pt currently on Vasopressin, previously requiring Levophed at 30 mcg/min. TF off and feeding tube to LIWS. No BM recorded since 03/28. If unable to resume TF with peptide based formula soon, consider TPN- consult Nutrition for recommendations. (04/04) Follow up. Pt remains intubated. Spoke to RN who reported tube feeding is currently at 50 mL/hr. Recommendations provided. Will continue to monitor. (04/01) 70 yo M, who was admitted for incarcerated umbilical hernia s/p repair. His hospital course was complicated with acute respiratory failure, currently intubated and ventilated. Spoke with RN, TF is infusing at goal rate and tolerating well. Will continue to follow. Principal Problems/Diagnoses: 1. Hwpwm-mv-roozzue respiratory failure. 2. Aspiration pneumonia. 3. Severe chronic obstructive pulmonary disease. 4. Severe obstructive sleep apnea. PMH: 1. Obstructive sleep apnea. 2. COPD. 3. Hypertension. 4. Diabetes. 5. Obesity. GI: firm, round abdomen, LBM 03/28 Skin: no pressure ulcers noted Labs: 04/09: Na 147, K 5, BUN 104, Cr 3.26, Gluc 296, Mg 2.6, Phos 6.5, POC Gluc 227-291 (04/04) Na 153, BUN 72, Cr 2.21, Glu 154, Ca 8.5, total bili 1.3 (04/01) BUN 55 H, Creatinine 1.76 H, POC glucose 132 - 333 Meds: insulin, colace, abx IVF/Drips: Vasopressin 2.4 ml/hr, Versed drip, Rocuronium, Fentanyl drip Ht: 71 in (ht from April 2018) no current ht in chart Wt: 217.13 lb- questionable wt loss, 293lb (admit) BMI: 40.9 kg/m2 IBW: 172lb Malnutrition Evaluation (04/01/2020) Unable to evaluate at this time. Fat loss: unable to evaluate Muscle loss: unable to evaluate Supporting Evidence: Fluid accumulation: unable to evaluate Functional Status: unable to evaluate Nutrition Prescription (Diet Order): Glucerna 1.2 @50ml/hr- TF off Estimated Nutritional Needs: Calories: 3067-0299 kcal (22-25 kcal/kg) Weight used: IBW Protein: 94-156 g (1.2-2 g/kg) Weight used: IBW- adjust per renal function Diet Adequacy: Not meeting protein and not meeting calorie needs Tolerance: Not tolerating TF- feeding tube to LIWS currently Diet Education Needs Assessment: Diet education is not indicated, pt is intubated Nutrition Care Level: Moderate Nutrition Diagnosis: Inadequate oral intake related to respiratory failure/mechanical ventilation as evidenced by pt requiring enteral nutrition. Goal: Patient will meet 75-100% of estimated needs by follow up Progress: not progressing Interventions: -Composition, Rate, Route, Recommended modifications Monitoring/Evaluation: -Total energy intake, Total protein intake, Formula/Solution, Weight change Signed: Mitzy Pennington RD, LD, CNSC
--- NOTE | 2020-04-09 14:00 | Diagnostic Imaging Report ---
EXAMINATION: CHEST XRAY LINE PLACEMENT INDICATION: Line placement COMPARISON: Chest radiograph of earlier the same day FINDINGS: LINES/TUBES:Interval placement of left IJ temporary trialysis catheter which terminates in the SVC. Right IJ intravenous catheter terminates in the upper SVC. Endotracheal tube and enteric tube unchanged. LUNGS:Interval decrease in right lung volume. Unchanged multifocal bilateral airspace opacities. PLEURA:Small right pleural effusion. No pneumothorax. MEDIASTINUM:The cardiomediastinal silhouette appears unchanged in size and shape. BONES/SOFT TISSUES:No acute osseous injury. ABDOMEN:No free air under the diaphragm. IMPRESSION: Interval placement of left IJ trialysis catheter with tip in the SVC. Interval decrease in right lung volume and development of small right pleural effusion. Unchanged bilateral multifocal airspace opacities. Signed by: Lb Walden MD on 04/09/2020 1:57 PM
[2020-04-09] MEDS ORDERED: SODIUM CHLORIDE 0.9% 1000ML 2,000 ML ONE (14:35)
--- NOTE | 2020-04-09 14:58 | NUR ---
unable to turn patient due to desaturation. Dr Hernandez aware. dialysis being started now. will monitor closely for drop in BP.
[2020-04-09] MEDS ORDERED: SODIUM CHLORIDE 0.9% 1000ML 2,000 ML IV PRN (15:00)
[2020-04-09] MEDS ORDERED: MANNITOL 25% 12.5GM/50 ML VIAL IV PRN (15:00)
[2020-04-09] MEDS ORDERED: HEPARIN SOD (PORCINE) 1000 UNIT/ML SDV IV PRN (15:00)
--- NOTE | 2020-04-09 15:14 | Progress Note ---
DATE: 04/09/2020 PULMONARY CRITICAL CARE PROGRESS NOTE: SUBJECTIVE: The patient continues on mechanical ventilation. He is on 100% FiO2 with a PRVC set at 32 and a tidal volume of 440 and a PEEP of 16. He remains on Levophed at 25 mcg. He is continuing on Versed and fentanyl as well as rocuronium. PHYSICAL EXAMINATION: VITAL SIGNS: The blood pressure is 98/42 and T-max is 100.4. Pulse is 78. HEENT: Shows no facial swelling or erythema. There is an oral endotracheal tube. There is a right IJ line in place. The site looks clean. There is a left IJ dialysis catheter. CARDIAC: Reveals regular rate and rhythm with normal S1 and S2. LUNGS: Auscultation of lungs reveals decreased breath sounds at the bases. There is no wheezing. ABDOMEN: Soft and nontender. There is some distention. There is no leg edema or calf tenderness. There is no cyanosis or clubbing. SKIN: Shows no rashes. NEUROLOGICAL: Shows the patient to be sedated. LABORATORY DATA: White blood cell count is 21.1 and hemoglobin is 10.2. The platelet count is 267. The BUN to creatinine ratio is 104/3.26 and the is 147. Blood sugar is 250 to 300. The total bilirubin is 4.2 and the albumin is 2.3. RADIOGRAPHIC DATA: Chest x-ray shows bilateral airspace disease. IMPRESSION: 1. Acute respiratory failure. 2. Acute respiratory distress syndrome. 3. Recurrent aspiration pneumonia with septic shock. 4. Acute renal failure. 5. Obstructive sleep apnea. 6. Chronic obstructive pulmonary disease. 7. Abdominal ileus. PLAN: 1. Continue current ventilator settings and monitor ABG. 2. Continue Levophed. 3. The patient is scheduled for dialysis today. 4. Complete antibiotics. 5. Continue NG tube to suction. 6. Family has opted for no CPR and no defibrillation. They do wish to proceed with other measures. 7. Case discussed with nursing, Respiratory, Dr. Chand, family, and Internal Medicine. The patient also discussed with Nephrology. Greater than 35 minutes in direct critical care time apart from any procedures performed. Isidoro Hernandez MD [facility] /[id number]
[2020-04-09] MEDS: ACETAMINOPHEN 325 MG/10 ML UDC NG PRN ×2 (15:18)
--- NOTE | 2020-04-09 15:24 | Operative Report ---
DATE OF PROCEDURE: 04/09/2020 SURGEON: Isidoro Hernandez MD PROCEDURE: Dialysis catheter under ultrasound guidance. PREOPERATIVE DIAGNOSIS: Acute renal failure. POSTOPERATIVE DIAGNOSIS: Acute renal failure. CONSENT: Consent was obtained from the family. MEDICATIONS: 1% lidocaine. DESCRIPTION OF PROCEDURE: The right femoral area was prepped sterilely with chlorhexidine. A full length sterile drape and sterile gown were used. Mask was used. A 1% lidocaine was used for local anesthesia. The left femoral vein was then isolated with ultrasound. The vein was cannulated under direct visualization with a 16- gauge needle. A wire was passed through the needle, but did not advance. A second attempt was made. The wire did not advance again confirming the suspicion that there was some venous thrombosis. The patient was then re-prepped in the left neck area. The area between the heads of the sternocleidomastoid was anesthetized with 1% lidocaine. A full length sterile drape, sterile gown, and sterile mask were used. The left internal jugular vein was cannulated under direct visualization with a 16-gauge needle. A wire was then passed through the needle. A series of dilators were used to open the skin and a 20 cm Trialysis catheter was placed over the wire by the Seldinger technique. All the ports flushed. COMPLICATIONS: None. ESTIMATED BLOOD LOSS: 5 mL. Isidoro Hernandez MD [facility] /[id number]
--- NOTE | 2020-04-09 16:49 | NUR ---
NFECTIOUS DISEASE PROGRESS NOTE DR. ANDREWS SEEN AND EXAMINED LABS SEEN AND CHART reviewed SUBJECTIVE: Intubated and sedated The patient continues on mechanical ventilation. He is on 100% FiO2 with a PRVC set at 32 and a tidal volume of 440 and a PEEP of 16. He remains on Levophed at 25 mcg. He is continuing on Versed and fentanyl as well as rocuronium. PHYSICAL EXAMINATION: VITAL SIGNS: The blood pressure is 98/42 and T-max is 100.4. Pulse is 78. PHYSICAL EXAMINATION: VITAL SIGNS: REVIEWED GENERAL: Intubated and sedated. PULMONARY: Intubated and sedated. CARDIOVASCULAR: Positive S1 and S2. No murmurs, rubs, or gallops appreciated. ABDOMEN: Soft, nondistended, nontender to palpation. Bowel sounds present. obesity SKIN: Intact, warm to touch. Good cap refill. EXTREMITIES: No edema appreciated. LABORATORY DATA: Labs show CBC; white count elevated at 16.5, hemoglobin 10.9, hematocrit is 35, and platelets of 248. Chemistry reviewed and stable. MICROBIOLOGY: Blood and urine cultures no growth. Sputum cultures- Klebsiella Oxytoca IMAGING STUDIES: This morning, chest x-ray shows worsening multifocal pneumonia. IMPRESSION: 1. Acute respiratory failure secondary to coronavirus pneumonia, intubated and sedated. 2. Type 2 diabetes. 3. Viral pneumonia secondary to coronavirus. 4. Acute kidney injury. 5. Hypocalcemia. cont abx as ordered cont same
--- NOTE | 2020-04-09 17:09 | NUR ---
dialysis complete and patient tolerated well. BP 106/58 and HR 85 sinus rhythm.
[2020-04-09] MEDS: HEPARIN 25,000 UNIT 1,500 UNIT in DEXTROSE 5% 250ML 250 ML IV SCH (18:13)
[2020-04-09 22:46] LABS: ABG HCO3 28 mmol/L (22-26); ABG PCO2 68 mmHg (35-45); ABG PH 7.22 (7.35-7.45); ABG PO2 60 mmHg (80-105); ABG TCO2 30
[2020-04-10] VITALS (24 sets, daily range): BP systolic 93–148; BP diastolic 49–77
[2020-04-10] MEDS: ACETAMINOPHEN 325 MG/10 ML UDC NG PRN
[2020-04-10] MEDS: INSULIN REGULAR, HUMAN 100 UNIT/1 ML 3ML VIAL SQ SCH ×4 (00:30→17:29)
[2020-04-10] MEDS: PANTOPRAZOLE 40 MG 10ML VIAL IV SCH (02:00)
[2020-04-10] MEDS: ROCURONIUM BROMIDE 250 MG in SODIUM CHLORIDE 0.9% 250ML 225 ML IV PRN ×4 (05:07→20:57)
[2020-04-10 05:23] LABS: BASOPHILS # (AUTO) 0.1 (0.0-0.1); BASOPHILS % 0.3 % (0.0-1.0); EOSINOPHILS # (AUTO) 0.2 (0.0-0.4); EOSINOPHILS % 0.9 % (0.0-6.0); HEMATOCRIT 37.8 % (38.2-49.6); LYMPHOCYTES # (AUTO) 0.9 (1.0-3.2); LYMPHOCYTES % 4.8 % (18.0-39.1); MEAN CORPUSCULAR HEMOGLOBIN 18.9 pg (28-32); MEAN CORPUSCULAR HGB CONC 26.5 g/dL (31-35); MEAN CORPUSCULAR VOLUME 71.6 fL (81-99); MONOCYTES % 5.1 % (4.4-11.3); NEUTROPHILS # (AUTO) 16.8 (2.1-6.9); PLATELET COUNT 254 x10e3/uL (140-360); RED BLOOD COUNT 5.28 x10e6/uL (4.3-5.7); RED CELL DISTRIBUTION WIDTH 23.1 % (11.7-14.4)
[2020-04-10 06:02] LABS: ALBUMIN 1.9 g/dL (3.5-5.0); ALBUMIN/GLOBULIN RATIO 0.5 (0.8-2.0); ANION GAP 16.9 mmol/L (8-16); CALCIUM 7.1 mg/dL (8.4-10.2); CREATININE, SERUM 3.31 mg/dL (0.72-1.25); MAGNESIUM 2.5 MG/DL (1.3-2.1); PHOSPHORUS 5.2 MG/DL (2.3-4.7); POTASSIUM 4.9 mmol/L (3.5-5.1)
[2020-04-10 07:15] LABS: ANISOCYTOSIS MODERATE; ELLIPTOCYTE, RBC SLIGHT; LYMPHOCYTES % (MANUAL) 6 % (19-48); MONOCYTES % (MANUAL) 6 % (3.4-9.0); NEUTROPHILS % (MANUAL) 88 % (40-74); NUCLEATED RED BLOOD CELLS 1
[2020-04-10 07:16] LABS: MICROCYTOSIS SLIGHT; PLATELET ESTIMATE ADEQUATE; RBC MORPHOLOGY COMMENT ABNORMAL
[2020-04-10 07:17] LABS: OVALOCYTES FEW; PLATELET MORPHOLOGY COMMENT NORMAL; POLYCHROMASIA FEW
[2020-04-10 07:18] LABS: HYPOCHROMASIA SLIGHT
[2020-04-10] MEDS: NOREPINEPHRINE INJ 4MG/4ML 16 MG in DEXTROSE 5% 250ML 234 ML IV SCH ×2 (07:31→16:00)
--- NOTE | 2020-04-10 08:21 | Diagnostic Imaging Report ---
Examination: Single AP view of the chest. COMPARISON: 04/09/2020 INDICATION: Respiratory failure, intubated, post hernia repair DISCUSSION: Endotracheal tube, enteric tube, right internal jugular central venous catheter, and left internal jugular high flow central venous catheter are unchanged in position. Interval worsening multifocal consolidations predominantly involving the right middle and lower lobes and left upper lobe. Interval enlargement of now moderate right pleural effusion. No left pleural effusion. No pneumothorax. Stable cardiomediastinal contour with tortuosity and atherosclerotic calcification of the thoracic aorta. No acute osseous abnormalities. IMPRESSION: Stable position of support lines and tubes. Worsening multifocal pneumonia with increase in size of now moderate right pleural effusion. Signed by: Dr. Ranjit Dodd M.D. on 04/10/2020 8:18 AM
[2020-04-10] MEDS: HYDROCHLOROTHIAZIDE 25 MG TAB NG SCH (09:30)
[2020-04-10] MEDS: DOCUSATE SODIUM LIQD 100 MG/10 ML UDC NG SCH ×2 (09:30→17:28)
[2020-04-10] MEDS: MEROPENEM 500MG/ NS 50ML 50 ML IV SCH ×2 (09:30→20:54)
[2020-04-10] MEDS: BALSAM PERU/CASTOR OIL 60 GM OINT...G. TP SCH (09:30)
[2020-04-10] MEDS: AMIODARONE HCL 200 MG TAB PO SCH ×2 (09:30→17:28)
[2020-04-10] MEDS: HEPARIN 25,000 UNIT 1,500 UNIT in DEXTROSE 5% 250ML 250 ML IV SCH ×2 (09:31→20:56)
[2020-04-10] MEDS: FENTANYL 2000MCG/NS 250 250 ML IV SCH ×2 (09:31→20:55)
[2020-04-10] MEDS ORDERED: ALBUMIN 25% 12.5GM 50ML 100 ML IV ONE (10:30)
[2020-04-10 10:43] LABS: ABG PCO2 55 mmHg (35-45); ABG PH 7.28 (7.35-7.45); ABG PO2 65 mmHg (80-105)
[2020-04-10 10:44] LABS: ABG HCO3 26 mmol/L (22-26); ABG TCO2 28
--- NOTE | 2020-04-10 10:53 | NUR ---
Patient belongings given to FABIEN Rodriguez at this time.
--- NOTE | 2020-04-10 14:14 | NUR ---
WOUND CARE CONSULT FOR 70 YO MALE HX OF HYPOXIA, POOR TISSUE PERFUSION RELATED TO DEBILITATED STATE AND DISEASE PROCESS RICHARD SCORE ON STRICT PUP STATUS AND INTERVENTIONS AND ALTERNATING PRESSURE MATTRESS RECOMMENDATIONS: NURSING TO CONTINUE TO MAINTAIN STRICT PUP STATUS AND INTERVENTIONS AND ALTERNATING PRESSURE MATTRESS AND FREQUENT TURN SCHEDULE MUCH CURRENT HEALTH DEBILITATIONS ALLOW CONTINUE SUPPORT FACIAL SURFACE MUCH POSSIBLE IF AND WHEN PRONE POSITIONING IS NECESSARY NURSING TO CONTINUE TO ASSIST PATIENT NEEDED WITH MEALS AND NUTRITIONAL SUPPLEMENTS TO ENSURE PROPER REQUIREMENTS FOR HEALING NURSING TO CONTINUE TO OFFLOAD FEET AND HEELS NEEDED WITH PILLOW SUSPENSION WHEN IN BED NURSING TO MAINTAIN PATIENT CLEAN AND DRY TO PREVENT MOISTURE INJURY NURSING TO MAINTAIN Q SHIFT AND PRN SKIN ASSESSMENT TO CONSISTENTLY DETECT AND MAINTAIN EARLY INTERVENTION OF SKIN ALTERATIONS OR PRESSURE INSULTS Addendum: 04/10/20 at 1419 by Chong Acevedo RN Amended: Links added.
[2020-04-10] MEDS ORDERED: CALCIUM CHLORIDE 13.6 MEQ in SODIUM CHLORIDE 0.9% 100 ML 100 ML IV ONE (15:00)
[2020-04-10] MEDS ORDERED: FLUCONAZOLE 200 MG/100 ML 100 ML IV SCH (16:00)
--- NOTE | 2020-04-10 17:00 | NUR ---
Dr Hernandez made aware of trending saturations 88-90%, stat chest xray ordered. Informed MD of clotting in HD line and increasing heart rate, no new orders received at this time.
[2020-04-10] MEDS: VASOPRESSIN 60 UNIT in DEXTROSE 5% 100ML 57 ML IV SCH (17:12)
--- NOTE | 2020-04-10 17:49 | Progress Note ---
DATE: 04/10/2020 SUBJECTIVE: Mr. Sommers remains in intensive care unit, intubated. OBJECTIVE: VITAL SIGNS: Stable. He is still running fever 101.2, heart rate 83, respirations 33, and blood pressure of 98/54. HEENT: Normocephalic. Oral intubation. NECK: Supple. CHEST: Crackles. HEART: S1, S2. ABDOMEN: Soft. EXTREMITIES: No edema. He is currently on meropenem. LABORATORY DATA: His sputum showing Acinetobacter baumannii. White count 19.34, down from 21. Sodium 145, potassium 4.9, and creatinine 3.3. IMPRESSION: Sepsis, aspiration pneumonia, and multiorgan failure. On meropenem. Chronic kidney disease. Continue with supportive care and follow. MD JOSE C Turcios/MODL /[id number]
--- NOTE | 2020-04-10 18:17 | Diagnostic Imaging Report ---
Examination: Single AP view of the chest. COMPARISON: April 10, 2020 INDICATION: Possible pneumonia DISCUSSION: Lines/tubes: Endotracheal tube, right IJ catheter, left IJ high flow catheter, and enteric tubes are stable. Lungs: Stable multifocal pneumonia Pleura: Stable right pleural effusion. Heart and mediastinum: The heart and the mediastinum are unremarkable. Bones and soft tissues: No acute bony abnormalities. IMPRESSION: 1. Stable multifocal pneumonia and right effusion. Signed by: Dr. Tesfaye Stauffer M.D. on 04/10/2020 6:14 PM
[2020-04-10] MEDS: MIDAZOLAM HCL 5MG/ML 10ML VIAL 100 ML IV PRN ×2 (18:31)
--- NOTE | 2020-04-10 18:38 | Progress Note ---
DATE: 04/10/2020 SUBJECTIVE: The patient had dialysis again. He continues to require mechanical ventilation. He continues to require Levophed. PHYSICAL EXAMINATION: VITAL SIGNS: The blood pressure is 115/60, saturation is 99%. The pulse is 95. HEENT: No facial swelling or erythema. There is an oral endotracheal tube. CARDIAC: Regular rate and rhythm with normal S1, S2. LUNGS: Auscultation of lungs reveals rhonchorous breath sounds bilaterally. There is no wheezing. ABDOMEN: Soft, nontender. There is no rebound or guarding. EXTREMITIES: No leg edema or calf tenderness. LABORATORY DATA: BUN to creatinine ratio is 96 to 3.31. The other electrolytes are within normal limits. The albumin is 1.9. White blood cell count of 19.3 and hemoglobin is 10. The platelet count is 254,000. RADIOGRAPHIC DATA: Chest x-ray shows bilateral infiltrates. IMPRESSION: 1. Acute respiratory failure. 2. Aspiration pneumonia with septic shock. 3. Acute renal failure. 4. Chronic obstructive pulmonary disease. 5. Ileus. 6. Obstructive sleep apnea. PLAN: 1. Continue current settings and monitor ABG. 2. Repeat chest x-ray. 3. Wean Levophed. 4. Continue dialysis as needed. Isidoro Hernandez MD [facility] /[id number]
--- NOTE | 2020-04-10 19:45 | NUR ---
Pt is noted to have copious frothy white secretions coming from mouth. RT notified. Pt was oral suctioned and ET inline suctioned. Within minutes the frothy secretions return. Pt's HOB is at 45degrees. Pt remains sedated and paralyzed with GCS of 3 and RASS of 6. MIGUELINA had to be placed on hold due to no available med, pharmacy notified at beginning of shift. Pt remains unresponsive.
[2020-04-11] VITALS (10 sets, daily range): BP systolic 49–122; BP diastolic 37–57
--- NOTE | 2020-04-11 01:30 | NUR ---
While doing a complete bed change, pt had a very large bowel movement and started to desaturate (around 0045). It was observed that pt's ET tube was positioned out further than the initial, 27cm @ lip. RT and charge nurse was called. Pt was then manually bagged, ET tube repositioned to be again at 27@lip. Pt's O2 saturation was as low as 45% during this time and slowly came up. Cuff pressure was checked and readjusted by RT. STAT CHEST xray was called. Although pt did go bradycardic and what looked to be junctional, by the time EKG was completed- pt was then Sinus tach in the 130s. Pt currently now at 79-80% on pulse ox, correlating with tele. Awaiting results from CXR. Pt is a DNR, order confirmed with charge nurse. Pt HOB at 45 degrees and vent settings remain, PRVC at 100%/18 peep/RR 33. HR now in 90s and MAP via ART line is 60-65 on levophed at 15mcgs. Will report to attending.
--- NOTE | 2020-04-11 02:35 | NUR ---
Pt's medical POA was called (his neice, Lovely Rodriguez). She was updated on pt's status due to pt's trending low oxygen saturation anywhere between 65-80%. With bagging pt, pt saturates up to 89%. Attending, DR. COTTRELL was also called concerning pt's decompensation. Voicemail was left, no answer. Awaiting further instructions. RT currently in code.
[2020-04-11] MEDS: PANTOPRAZOLE 40 MG 10ML VIAL IV SCH (02:42)
[2020-04-11] MEDS: INSULIN REGULAR, HUMAN 100 UNIT/1 ML 3ML VIAL SQ SCH ×3 (02:42→11:35)
--- NOTE | 2020-04-11 02:42 | Diagnostic Imaging Report ---
EXAMINATION: CHEST SINGLE (PORTABLE) INDICATION: ^ETT Placement ^[id number] ^0100 COMPARISON: Radiograph from today. FINDINGS: TUBES and LINES: The endotracheal tube is 5.8 cm above the chandu. The tip of the right internal jugular central venous catheter projects over the distal SVC. The enteric tube courses below the diaphragm.. LUNGS: Diffuse bibasilar consolidative opacities with patchy and hazy opacities in the mid and lower lungs. PLEURA: Possible small pleural effusions. No pneumothorax. HEART AND MEDIASTINUM: The heart is obscured by adjacent opacity. BONES AND SOFT TISSUES: No acute osseous lesion. Soft tissues are unremarkable. UPPER ABDOMEN: No free air under the diaphragm. IMPRESSION: 1. Endotracheal tube tip 5.8 cm above the chandu. 2. Diffuse bilateral multifocal airspace opacities concerning for multifocal pneumonia/viral pneumonitis or pulmonary edema. Small pleural effusions are possible. Signed by: Wili Gutiérrez MD on 04/11/2020 2:39 AM
[2020-04-11] MEDS: NOREPINEPHRINE INJ 4MG/4ML 16 MG in DEXTROSE 5% 250ML 234 ML IV SCH (02:59)
--- NOTE | 2020-04-11 03:44 | NUR ---
Attending, Dr. Hernandez, made aware of CXR results. Order for stat ABG. ABG drawn from ART, RT to run lab. Provider also aware of pt's oxygen saturation as well as current vent settings. Pt remains saturating between 73-80% with current vent settings (100%//). Medical POA, niece of pt called for another update. She is aware of pt's status and will be called with any other changes.
--- NOTE | 2020-04-11 04:00 | NUR ---
Provider, Dr. Hernandez on unit, to see pt. Provider aware of ABG (7.151/74.1/48/25.8). New Vent settings: 100%/18peep/36RR/[id number]. No other orders given. Provider to update family on grim prognosis.
[2020-04-11 04:33] LABS: ABG PCO2 74 mmHg (35-45); ABG PH 7.15 (7.35-7.45); ABG PO2 48 mmHg (80-105)
[2020-04-11 04:34] LABS: ABG HCO3 26 mmol/L (22-26); ABG TCO2 28
[2020-04-11 05:55] LABS: BASOPHILS # (AUTO) 0.1 (0.0-0.1); BASOPHILS % 0.3 % (0.0-1.0); EOSINOPHILS % 0.2 % (0.0-6.0); HEMATOCRIT 39.2 % (38.2-49.6); HEMOGLOBIN 10.5 g/dL (14.0-18.0); LYMPHOCYTES # (AUTO) 0.4 (1.0-3.2); LYMPHOCYTES % 2.3 % (18.0-39.1); MEAN CORPUSCULAR HGB CONC 26.8 g/dL (31-35); MEAN CORPUSCULAR VOLUME 74.7 fL (81-99); MONOCYTES % 5.3 % (4.4-11.3); NEUTROPHILS # (AUTO) 16.3 (2.1-6.9); NEUTROPHILS % 88.6 % (38.7-80.0); PLATELET COUNT 207 x10e3/uL (140-360); RED BLOOD COUNT 5.25 x10e6/uL (4.3-5.7); RED CELL DISTRIBUTION WIDTH 23.9 % (11.7-14.4)
[2020-04-11 06:18] LABS: ALBUMIN/GLOBULIN RATIO 0.5 (0.8-2.0); ANION GAP 18.1 mmol/L (8-16); CALCIUM 7.5 mg/dL (8.4-10.2); CREATININE, SERUM 3.55 mg/dL (0.72-1.25); MAGNESIUM 2.5 MG/DL (1.3-2.1); PHOSPHORUS 8.2 MG/DL (2.3-4.7); POTASSIUM 5.1 mmol/L (3.5-5.1)
--- NOTE | 2020-04-11 06:29 | NUR ---
Pt started to desaturated into low 60-70%, as well as became bradycardic, and hypotensive on ART. Vitals within chart. Pt remains a DNR. Lovely Duque-Chelsey CONN was called. She wanted nothing further to be done as Dr. Hernandez has consulted with pt earlier and stated there was nothing else for us to do. Charge nurse updated. Bilateral femoral pulses were checked via doppler when pt had desated to 40% and what looked like PEA. No pulses were heard. ED Doc called to call the termination. RT called. Strips printed and placed in chart.
--- NOTE | 2020-04-11 07:01 | NUR ---
ER Doc, Dr. Dacosta called the time of at 0633. Pt was in asystole (EKG strips in chart). No pulses heard on doppler. RT at bedside and pulled tube after time of was called. [facility] called by susannemaphillip nurse @[phone].
[2020-04-11] MEDS: VASOPRESSIN 60 UNIT in DEXTROSE 5% 100ML 57 ML IV SCH (08:13)
[2020-04-11] MEDS: BALSAM PERU/CASTOR OIL 60 GM OINT...G. TP SCH (08:54)
[2020-04-11] MEDS: HYDROCHLOROTHIAZIDE 25 MG TAB NG SCH (08:54)
[2020-04-11] MEDS: DOCUSATE SODIUM LIQD 100 MG/10 ML UDC NG SCH (08:54)
[2020-04-11] MEDS: AMIODARONE HCL 200 MG TAB PO SCH (08:54)
[2020-04-11] MEDS: MEROPENEM 500MG/ NS 50ML 50 ML IV SCH (08:54)
[2020-04-11 12:26] LABS: HYPOCHROMASIA SLIGHT
--- NOTE | 2020-04-11 13:20 | NUR ---
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 Niece made aware, no new questions noted at this time.
== END 2020-04-11 13:21 | disposition expired | DRG 987 ==
LOC: OR 06:06 → PACU V 12:51 → OBSVTOIN 12:51 → MED/SURG 14:22 → ICU 03-29 01:57
PROVIDERS: ADMIT Surgery; ATTEND Surgery
PROC: 5A12012 Performance of Cardiac Output, Single, Manual (ICD-10-PCS; 2020-03-28)
PROC: 5A2204Z Restoration of Cardiac Rhythm, Single (ICD-10-PCS; 2020-03-28)
PROC: 0WUF0JZ Supplement Abdominal Wall with Synthetic Substitute, Open Approach (ICD-10-PCS; principal; 2020-03-28 09:40)
PROC: 5A1955Z Respiratory Ventilation, Greater than 96 Consecutive Hours (ICD-10-PCS; 2020-03-29)
PROC: 0BH17EZ Insertion of Endotracheal Airway into Trachea, Via Natural or Artificial Opening (ICD-10-PCS; 2020-03-29)
PROC: 02HV33Z Insertion of Infusion Device into Superior Vena Cava, Percutaneous Approach (ICD-10-PCS; 2020-04-01)
PROC: B548ZZA Ultrasonography of Superior Vena Cava, Guidance (ICD-10-PCS; 2020-04-01)
PROC: 0B21XEZ Change Endotracheal Airway in Trachea, External Approach (ICD-10-PCS; 2020-04-05)
PROC: 3E043XZ Introduction of Vasopressor into Central Vein, Percutaneous Approach (ICD-10-PCS; 2020-04-07)
PROC: 04HY32Z Insertion of Monitoring Device into Lower Artery, Percutaneous Approach (ICD-10-PCS; 2020-04-08)
PROC: 5A1D70Z Performance of Urinary Filtration, Intermittent, Less than 6 Hours Per Day (ICD-10-PCS; 2020-04-09)
PROC: 02HV33Z Insertion of Infusion Device into Superior Vena Cava, Percutaneous Approach (ICD-10-PCS; 2020-04-09)
PROC: B548ZZA Ultrasonography of Superior Vena Cava, Guidance (ICD-10-PCS; 2020-04-09)
PROC: 5A1D70Z Performance of Urinary Filtration, Intermittent, Less than 6 Hours Per Day (ICD-10-PCS; 2020-04-10)
DX: J96.21 Acute and chronic respiratory failure with hypoxia (principal); J69.0 Pneumonitis due to inhalation of food and vomit; N17.0 Acute kidney failure with tubular necrosis; K42.0 Umbilical hernia with obstruction, without gangrene; Z68.42 Body mass index [BMI] 45.0-49.9, adult; E87.2 Acidosis; I82.812 Embolism and thrombosis of superficial veins of left lower extremity; Z11.59 Encounter for screening for other viral diseases; J44.9 Chronic obstructive pulmonary disease, unspecified; G47.33 Obstructive sleep apnea (adult) (pediatric); Z91.19 Patient's noncompliance with other medical treatment and regimen; I10 Essential (primary) hypertension; E11.9 Type 2 diabetes mellitus without complications; E66.9 Obesity, unspecified; Z87.891 Personal history of nicotine dependence; E87.70 Fluid overload, unspecified; I48.0 Paroxysmal atrial fibrillation; R57.8 Other shock; I49.01 Ventricular fibrillation
CPT/HCPCS: 31500; 36415; 36600; 71045; 71046; 74018; 80053; 80202; 81001; 82550; 82553; 82570; 82805; 82948; 83605; 83735; 84100; 84156; 84300; 84484; 85025; 85610; 85730; 87040; 87070; 87071; 87186; 87205; 90962; 92950; 93005; 93306; 93970; 94002; 94003; 96372; C1781; J0330; J0690; J0692; J0696; J1450; J1644; J1817; J1885; J1940; J2001; J2150; J2370; J2405; J2543; J2920; J2930; J3010; J3370; J7030; J7050; J7060; J7121; U0002